=== PATIENT | male | born 1945 | race Caucasian/White ===

== ENCOUNTER → 2016-08-24 | Outpatient (CLI) | payer BC ==
[~2016-08-24] MED LIST: ALBU0.08 INH; ALBUAER2 INH; ALL300 PO; ALLO300T2 PO; AMLO-114 PO; ATR10 PO; CEPH500C PO; CRD4 PO; DILT1CAP15 PO; DXY100 PO; OXYC1TAB3 PO; PRED20TA2 PO; PRVC/20 PO; SPRIN/30 INH; SULF800T23 PO; SYMIN8045 INH; TIOTCAP INH; TPRSR/50 PO; VNTHFA/IN INH
[2016-08-24 11:19] LABS: BASO % 0.7 %; BASO ABS # 0.05 K/uL (0-0.2); COMPLETE YES; EOS % 2.6 %; HEMATOCRIT 42.9 % (42-52); IG% 0.4 %; LYMPH ABS # 1.22 K/uL (1.2-3.4); MEAN CELL VOLUME 99.3 fL (80-100); MEAN CORPUSCULAR HEMOGLOBIN 34.5 pg (25-34); MEAN CORPUSCULAR HGB CONC 34.7 g/dl (32-36); MONO % 7.7 %; NEUT % 71.6 %; PLATELET COUNT 313 K/uL (130-400); RED BLOOD COUNT 4.32 M/uL (4.7-6.1); WHITE BLOOD COUNT 7.18 K/uL (4.8-10.8)
[2016-08-24 11:27] LABS: ESTIMATED AVERAGE GLUCOSE 111 mg/dl; HA1C FLAG Normal (Normal)
[2016-08-24 11:29] LABS: ALT/SGPT 29 U/L (12-78); BLOOD UREA NITROGEN 8 mg/dl (7-18); BUN/CREATININE RATIO 9.3 (10-20); CALCIUM 8.7 mg/dl (8.5-10.1); CARBON DIOXIDE 22 mmol/L (21-32); CHLORIDE 102 mmol/L (98-107); CHOLESTEROL 195 mg/dl (0-200); CREATININE 0.88 mg/dl (0.60-1.40); GLUCOSE 91 mg/dl (70-99); POTASSIUM 4.1 mmol/L (3.5-5.1); SODIUM 135 mmol/L (136-145); TRIGLYCERIDES 124 mg/dl (0-150); VERY LOW DENSITY LIPOPROT CALC 25 mg/dl
[2016-08-24 11:33] LABS: ALB/GLOB RATIO 0.9 (0.9-2); ALKALINE PHOSPHATASE 93 U/L (45-117); AST/SGOT 18 U/L (15-37); CHOLESTEROL/HDL RATIO 2.9; HDL CHOLESTEROL 67 mg/dl; LDL CHOLESTEROL CALCULATED 103 mg/dl; PROSTATE SPECIFIC ANTIGEN 0.695 ng/ml (0.000-4.000)
== END | disposition home or self-care (01) ==
LOC: C.LAB1850 09:09
PROVIDERS: ATTEND Internal Medicine
DX: E78.00 Pure hypercholesterolemia, unspecified (principal); I10 Essential (primary) hypertension; E87.1 Hypo-osmolality and hyponatremia; R73.09 Other abnormal glucose; Z12.5 Encounter for screening for malignant neoplasm of prostate

== ENCOUNTER 2016-11-04 12:09 | Emergency (ER) | payer BC ==
[~2016-11-04] VITALS: Ht 177.8 cm; Wt 90.4 kg
[~2016-11-04 12:09] MED LIST changes: -ALLO300T2 PO; -AMLO-114 PO; -ATR10 PO; -CEPH500C PO; -CRD4 PO; -OXYC1TAB3 PO; -PRED20TA2 PO; -PRVC/20 PO; -SPRIN/30 INH; -SULF800T23 PO; -TPRSR/50 PO; -VNTHFA/IN INH
[2016-11-04 12:26] VITALS: TEMP 36.7; Ht 177.8 cm; Wt 90.4 kg
[2016-11-04] MEDS ORDERED: XYLOCAINE 1%/SOD BICARB 20 ML VIAL INFIL ONE (13:15)
[2016-11-04 13:27] LABS: BASO % 0.7 %; BASO ABS # 0.07 K/uL (0-0.2); COMPLETE YES; EOS % 1.5 %; HEMATOCRIT 44.1 % (42-52); IG% 0.3 %; LYMPH % 17.5 %; LYMPH ABS # 1.75 K/uL (1.2-3.4); MEAN CELL VOLUME 100.7 fL (80-100); MEAN CORPUSCULAR HEMOGLOBIN 34.2 pg (25-34); MEAN PLATELET VOLUME 10.1 fL (7.4-10.4); PLATELET COUNT 307 K/uL (130-400); RED BLOOD COUNT 4.38 M/uL (4.7-6.1); WHITE BLOOD COUNT 10.01 K/uL (4.8-10.8)
[2016-11-04 13:34] LABS: BUN/CREATININE RATIO 9.6 (10-20); CALCIUM 8.9 mg/dl (8.5-10.1); CREATININE 0.98 mg/dl (0.60-1.40); POTASSIUM 3.9 mmol/L (3.5-5.1)
[2016-11-04 13:35] LABS: C-REACTIVE PROTEIN 5.51 mg/dl (0-0.29)
--- NOTE | 2016-11-04 13:44 | DIAGNOSTIC IMAGING REPORT ---
LEFT KNEE 2 VIEWS CLINICAL HISTORY: Left knee pain. Patellar bursitis. Fall. FINDINGS: AP and crosstable lateral views of the left knee are obtained. No prior studies are available for comparison at the time of dictation. The skeletal structures are osteopenic. No fracture is identified. There is minimal tricompartmental degenerative joint space narrowing. There are large patellar enthesophytes. A tiny joint effusion is suspected. There is marked prepatellar soft tissue edema. IMPRESSION: Marked prepatellar soft tissue edema with no radiographic evidence of acute fracture. Electronically signed by: Marcelino Valdez M.D. 11/04/2016 1:41 PM Dictated Date/Time: 11/04/2016 1:40 PM
[2016-11-04] MEDS ORDERED: CEFTRIAXONE SOD INJ 1 GM ADDVIAL IV STA (14:01)
[2016-11-04 14:35] LABS: FLUID APPEARANCE CLOUDY; FLUID MONONUC 4.6 %; FLUID POLYNUC 95.4 %; FLUID RBC (A) < 3000 /uL; FLUID WBC (A) 7616 /uL
[2016-11-04] MEDS ORDERED: CEPH500C PO (15:02)
[2016-11-04] MEDS ORDERED: SULF800T23 PO (15:02)
[2016-11-04] MEDS ORDERED: OXYC1TAB3 PO (15:02)
--- NOTE | 2016-11-04 15:04 | EMERGENCY ROOM VISIT NOTE ---
History Report prepared by Chris: Natividad Zuñiga Under the Supervision of: Dr. David Larsen M.D. First contact with patient: 13:01 Chief Complaint: SWELLING TO EXTREMITY Stated Complaint: SWELLING/RED HOT TO TOUCH-LEFT KNEE History of Present Illness The patient is a 71 year old male who presents to the Emergency Room with complaints of worsening left knee edema that started last night. The patient states that he fell off of a chair 5 days ago and scratched his left knee. The patient denies hitting his head. He denies any pain in the back of his knee. The patient denies any history of bad skin infections. His adds that he has a history of a rash on his hips and back due to an unknown etiology, but he has seen a girls tennis coach for that. Source of History: patient, spouse/significant other () Onset: last night Position: knee (left) Quality: other (edema) Timing: worsening Note: no pain in the back of his knee Review of Systems See HPI for pertinent positives & negatives. A total of 10 systems reviewed and were otherwise negative. Past Medical & Surgical Medical Problems: (1) COPD (chronic obstructive pulmonary disease) (2) COPD exacerbation (3) Hypoxia (4) Kidney stone (5) SOB (shortness of breath) Family History FH: HTN (hypertension) FH: heart disease FH: kidney disease FH: lung disease Social History Smoking Status: Current Every Day Smoker Alcohol Use: occasionally Occupation Status: employed Current/Historical Medications Scheduled Albuterol Hfa (Ventolin Hfa), 2-4 PUFFS INH Q6H Allopurinol (Zyloprim), 1 TAB PO DAILY Amlodipine (Norvasc), 10 MG PO DAILY Budesonide/Formoterol Fumarate (Symbicort 80-4.5 Mcg/Act), 2 PUFFS INH BID Cephalexin Monohydrate (Keflex), 500 MG PO QID Doxazosin Mesylate (Doxazosin Mesylate), 2 MG PO HS Hydroxyzine HCl (Hydroxyzine HCl), 10 MG PO HS Metoprolol Succinate (Metoprolol Succinate ER), 50 MG PO HS Pravastatin Sod (Pravastatin Sodium), 20 MG PO QAM Sulfa/Trimethoprim (Bactrim Ds 800MG/160MG), 1 TAB PO BID Tiotropium [place] (Spiriva Handihaler), 1 CAP INH DAILY Scheduled PRN Oxycodone Immediate Rel Tab (Roxicodone Ir), 1-2 TAB PO Q4H PRN for Severe Pain Allergies Coded Allergies: Lisinopril (Verified Allergy, Severe, Swelling of face, 11/04/16) Methylprednisolone (Verified Adverse Reaction, Severe, HALLUCINATION, 11/04) SOLU-MEDROL IV Physical Exam Vital Signs Date Time Temp Pulse Resp B/P Pulse Ox O2 Delivery O2 Flow Rate FiO2 11/04/16 15:23 94 18 157/95 91 Room Air 11/04/16 12:26 36.7 91 18 155/83 93 Room Air Physical Exam GENERAL: Patient is well appearing and in minimal distress. HEENT: No acute trauma, normocephalic atraumatic, mucous membranes moist, no nasal congestion, no scleral icterus. NECK: No stridor, no adenopathy, no meningismus, trachea is midline. LUNGS: No dyspnea. Clear to auscultation and equal bilaterally. No wheeze, no rhonchi. HEART: Regular rate and rhythm. No murmurs, rubs, gallops appreciated. ABDOMEN: Soft, nontender, bowel sounds positive, no masses appreciated, no peritonitis. BACK: No midline tenderness, no CVA tenderness EXTREMITIES: Large swollen, erythematous patellar bursa with overlying abrasion , minimal pain with range of motion of left knee, no tenderness over palpation of joint space, no cyanosis. NEUROLOGIC: Alert and oriented, no acute motor or sensory deficits, no focal weakness, cranial nerves grossly intact. SKIN: No rash, no jaundice, no diaphoresis. Medical Decision & Procedures ER Provider Diagnostic Interpretation: X ray results are stated below per my interpretation and the radiologist's interpretation. LEFT KNEE 2 VIEWS IMPRESSION: Marked prepatellar soft tissue edema with no radiographic evidence of acute fracture. Electronically signed by: Marcelino Valdez M.D. 11/04/2016 1:41 PM Dictated Date/Time: 11/04/2016 1:40 PM Laboratory Results 11/04/16 12:40 Red Blood Count 4.38, Mean Corpuscular Volume 100.7, Mean Corpuscular Hemoglobin 34.2, Mean Corpuscular Hemoglobin Concent 34.0, Mean Platelet Volume 10.1, Neutrophils (%) (Auto) 69.0, Lymphocytes (%) (Auto) 17.5, Monocytes (%) ( Auto) 11.0, Eosinophils (%) (Auto) 1.5, Basophils (%) (Auto) 0.7, Neutrophils # (Auto) 6.91, Lymphocytes # (Auto) 1.75, Monocytes # (Auto) 1.10, Eosinophils # ( Auto) 0.15, Basophils # (Auto) 0.07 11/04/16 12:40 Test 11/04/16 12:40 11/04/16 14:00 White Blood Count 10.01 K/uL (4.8-10.8) Red Blood Count 4.38 M/uL (4.7-6.1) Hemoglobin 15.0 g/dL (14.0-18.0) Hematocrit 44.1 % (42-52) Mean Corpuscular Volume 100.7 fL (80-100) Mean Corpuscular Hemoglobin 34.2 pg (25-34) Mean Corpuscular Hemoglobin Concent 34.0 g/dl (32-36) Platelet Count 307 K/uL (130-400) Mean Platelet Volume 10.1 fL (7.4-10.4) Neutrophils (%) (Auto) 69.0 % Lymphocytes (%) (Auto) 17.5 % Monocytes (%) (Auto) 11.0 % Eosinophils (%) (Auto) 1.5 % Basophils (%) (Auto) 0.7 % Neutrophils # (Auto) 6.91 K/uL (1.4-6.5) Lymphocytes # (Auto) 1.75 K/uL (1.2-3.4) Monocytes # (Auto) 1.10 K/uL (0.11-0.59) Eosinophils # (Auto) 0.15 K/uL (0-0.5) Basophils # (Auto) 0.07 K/uL (0-0.2) RDW Standard Deviation 52.1 fL (36.4-46.3) RDW Coefficient of Variation 14.1 % (11.5-14.5) Immature Granulocyte % (Auto) 0.3 % Immature Granulocyte # (Auto) 0.03 K/uL (0.00-0.02) Anion Gap 8.0 mmol/L (3-11) Est Creatinine Clear Calc Drug Dose 80.5 ml/min Estimated GFR () 90.8 Estimated GFR (Non- 78.4 BUN/Creatinine Ratio 9.6 (10-20) Calcium Level 8.9 mg/dl (8.5-10.1) C-Reactive Protein 5.51 mg/dl (0-0.29) Body Fluid Source KNEE Body Fluid Color YELLOW Body Fluid Appearance CLOUDY Body Fluid WBC 7616 /uL Body Fluid RBC < 3000 /uL Body Fluid Polynuclear WBCs (%) 95.4 % Body Fluid Mononuclear WBCs (%) 4.6 % Laboratory results as reviewed by me. Medications Administered Medications (Trade) Dose Ordered Sig/Darrel Route Start Time Stop Time Status Last Admin Dose Admin Ceftriaxone Sodium (Rocephin Inj) 1 gm NOW STAT IV 11/04/16 14:01 11/04/16 14:02 DC 11/04/16 14:06 1 GM Procedure Procedure: Left Patellar Bursa Aspiration Risks benefits explained to patient, including causing infection, pain, bleeding , etc. The patient and his agree. Left knee copiously cleansed with Betadine. Sterile technique maintained. 2 cc's of 1 % lidocaine injected subcutaneously. 18 gauge needle with syringe used to aspirate 10 ml of mildly cloudy dark yellow fluid. Pressure held. No significant bleeding. Patient tolerated procedure well. ED Course 1303: The patient was evaluated in room C12. A complete history and physical exam was performed. 1349: I drained the patient's knee at this time. Please refer to the procedure note above for further details. 1401: Ordered Rocephin Inj 1 gm IV 1450: Discussed the patient's case with Dr. Williamson - Orthopedic Surgery. He recommended having the patient follow-up at his clinic on Wednesday. He agrees with dual antibiotic therapy. 1506: Reevaluated the patient. Discussed results and discharge instructions: the patient and his verbalized understanding and agreement. The patient is ready for discharge. Medical Decision Differential: Fracture, Dislocation, Cellulitis, Septic Joint, Ligamentous Injury, Effusion, DVT, amongst other pathologies entertained. 71 yr old male with large patellar bursitis by examination. There is no swelling nor TTP of joint itself. He does have overlying cellulitis. No fevers nor systemic symptoms. He has normal ROM joint other than pain from bursitis. With abrasion it must be presumed this is infectious. Tap sent with culture. Patient with tetanus update within last year. Stable and breathing comfortably. Given IV rocephin. Primary ortho aware and agree with plan. Keflex and Bactrim as outpatient. Discussed symptoms requiring return. Stressed importance of keeping elevated, avoiding exertion/use and follow up with Ortho. Impression Primary Impression: Patellar bursitis of left knee Additional Impression: Cellulitis of knee, left Scribe Attestation The scribe's documentation has been prepared under my direction and personally reviewed by me in its entirety. I confirm that the note above accurately reflects all work, treatment, procedures, and medical decision making performed by me. Departure Information Dispostion Home / Self-Care Prescriptions Cephalexin Monohydrate (Keflex) 500 Mg Cap 500 MG PO QID, #40 CAP Prov: David Larsen M.D. 11/04/16 Sulfa/Trimethoprim (Bactrim Ds 800MG/160MG) Tab 1 TAB PO BID, #20 TAB Prov: David Larsen M.D. 11/04/16 Oxycodone Immediate Rel Tab (ROXICODONE IR) 5 Mg Tab 1-2 TAB PO Q4H Y for Severe Pain, #20 TAB Prov: David Larsen M.D. 11/04/16 Referrals Pro,Carter Werner M.D. (PCP) Arron Williamson M.D. Forms HOME CARE DOCUMENTATION FORM, IMPORTANT VISIT INFORMATION, WORK / SCHOOL INSTRUCTIONS Patient Instructions ED Bursitis, My [facility] Additional Instructions You have received a narcotic pain medication prescription. These medications may cause drowsiness and should not be used with other sedative medications. Do not drive, drink alcohol, perform dangerous activities, nor make important decisions after taking these medications. USP use or inappropriate use may lead to addiction. Call Dr Williamson's office tomorrow to schedule an appointment for Wednesday. Problem Qualifiers
[2016-11-04 15:23] VITALS: BP 157/95; PULSE 94; O2SAT 91
== END 2016-11-04 15:26 | disposition home or self-care (01) ==
LOC: C.EDB 12:10 → C.EDC 15:26
DX: M70.42 Prepatellar bursitis, left knee (principal); L03.116 Cellulitis of left lower limb; W07.XXXA Fall from chair, initial encounter; J44.9 Chronic obstructive pulmonary disease, unspecified; Z87.442 Personal history of urinary calculi; Z82.49 Family history of ischemic heart disease and other diseases of the circulatory system; F17.210 Nicotine dependence, cigarettes, uncomplicated; Z79.899 Other long term (current) drug therapy

== ENCOUNTER → 2017-03-02 | Outpatient (CLI) | payer BC ==
[~2017-03-02] MED LIST changes: -ALBU0.08 INH; -ALBUAER2 INH; -ALL300 PO; +ALLO300T2 PO; +AMLO-114 PO; +ATR10 PO; +CEPH500C PO; +CRD4 PO; -DILT1CAP15 PO; -DXY100 PO; +OXYC1TAB3 PO; +PRVC/20 PO; +SPRIN/30 INH; +SULF800T23 PO; -TIOTCAP INH; +TPRSR/50 PO; +VNTHFA/IN INH
--- NOTE | 2017-03-02 19:25 | ECHOCARDIOGRAM REPORT ---
*NOTICE TO RECEIVING CONSTITUTION PARTY AGENCY This information is strictly Confidential and protected under [place] law. [place] law prohibits you from making any further disclosure of this information unless further disclosure is expressly permitted by the written consent of the person to whom it pertains or is authorized by law. A general authorization for the release of medical or other information is not sufficient for this purpose. Hospital accepts no responsibility if the information is made available to any other person, INCLUDING THE PATIENT. Interpretation Summary * Name: SCOTTY VELAZQUEZ Study Date: 03/02/2017 01:35 PM BP: 146/88 mmHg * Patient Location: [facility] HR: 75 * : 1945 (M/d/yyyy) Gender: Male Height: 70 in * Age: 71 yrs Ethnicity: CA Weight: 185 lb * Ordering Physician: Carter Lehman * Referring Physician: Carter Lehman * Performed By: Jose Arellano RCS * * Reason For Study: COPD * BSA: 2.0 m2 * -- Conclusions -- * 1. Normal left ventricular size and systolic function. EF 65 - 70%. No regional wall motion abnormalities. Mild concentric left ventricular hypertrophy. Type 1 diastolic dysfunction. * 2. The right atrium is mildly dilated. * 3. No significant valvular abnormalities visualized, however valves were not well seen. * 4. Technically difficult study, enhanced with IV Definity. * 5. No prior study available for comparison. Procedure Details * Left Ventricle Normal left ventricular size and systolic function. EF 65 - 70%. No regional wall motion abnormalities. Mild concentric left ventricular hypertrophy. Type 1 diastolic dysfunction. Ejection Fraction = 65-70%. * Right Ventricle Borderline right ventricular enlargement. The right ventricular systolic function is normal. The right ventricular systolic function is normal as assessed by tricuspid annular plane systolic excursion (TAPSE) (normal >1.5 cm). * Atria The left atrium is borderline dilated. The right atrium is mildly dilated. There is no evidence of atrial septal defect, but resolution does not allow assessment for a patent foramen ovale. * Mitral Valve The mitral valve is grossly normal. There is no mitral valve stenosis. Significant mitral regurgitation is absent. * Tricuspid Valve The tricuspid valve is not well visualized. There is no tricuspid stenosis. Significant tricuspid regurgitation is absent. There is no significant tricuspid regurgitant jet, and thus cannot estimate right ventricular systolic pressure. * Aortic Valve The aortic valve is not well visualized. No hemodynamically significant valvular aortic stenosis. There is no significant aortic regurgitation. * Pulmonic Valve The pulmonic valve is not well visualized. There is no pulmonic valvular stenosis. There is no significant pulmonary regurgitation. * Great Vessels The aortic root is normal size. * Pericardium/Pleural There is no pericardial effusion. * Great Vessels IVC normal in size. * Left Ventricular Diastolic Function Grade I diastolic dysfunction, (abnormal relaxation pattern). * * MMode 2D Measurements and Calculations * IVSd 1.2 cm * * LVIDd 4.6 cm * LVIDs 3.1 cm * LVPWd 1.2 cm * * IVS/LVPW 1.0 * FS 32.9 % * EDV(Teich) 98.0 ml * ESV(Teich) 37.8 ml * EF(Teich) 61.5 % * * EDV(cubed) 98.2 ml * ESV(cubed) 29.6 ml * EF(cubed) 69.8 % * * LV mass(C)d 207.2 grams * LV mass(C)dI 102.6 grams/m\S\2 * * SV(Teich) 60.2 ml * SI(Teich) 29.8 ml/m\S\2 * SV(cubed) 68.5 ml * SI(cubed) 33.9 ml/m\S\2 * * Ao root diam 3.3 cm * Ao root area 8.7 cm\S\2 * * asc Aorta Diam 3.3 cm * * LVOT diam 2.1 cm * LVOT area 3.3 cm\S\2 * * LVAd ap4 27.4 cm\S\2 * LVLd ap4 7.8 cm * EDV(MOD-sp4) 79.8 ml * EDV(sp4-el) 81.9 ml * LVAs ap4 11.4 cm\S\2 * LVLs ap4 5.9 cm * ESV(MOD-sp4) 18.4 ml * ESV(sp4-el) 18.5 ml * EF(MOD-sp4) 76.9 % * EF(sp4-el) 77.4 % * * LVAd ap2 21.5 cm\S\2 * LVLd ap2 7.2 cm * EDV(MOD-sp2) 52.1 ml * EDV(sp2-el) 54.1 ml * LVAs ap2 12.3 cm\S\2 * LVLs ap2 6.1 cm * ESV(MOD-sp2) 20.1 ml * ESV(sp2-el) 21.0 ml * EF(MOD-sp2) 61.4 % * EF(sp2-el) 61.3 % * * LVLd %diff -7.41 % * EDV(MOD-bp) 66.7 ml * LVLs %diff 3.1 % * ESV(MOD-bp) 19.6 ml * EF(MOD-bp) 70.7 % * * SV(MOD-sp4) 61.4 ml * SI(MOD-sp4) 30.4 ml/m\S\2 * * SV(MOD-sp2) 32.0 ml * SI(MOD-sp2) 15.8 ml/m\S\2 * * SV(MOD-bp) 47.1 ml * SI(MOD-bp) 23.3 ml/m\S\2 * * SV(sp4-el) 63.4 ml * SI(sp4-el) 31.4 ml/m\S\2 * * SV(sp2-el) 33.2 ml * SI(sp2-el) 16.4 ml/m\S\2 * * * * * * Doppler Measurements and Calculations * MV E max rajni 44.1 cm/sec * MV A max rajni 66.5 cm/sec * * MV E/A 0.66 * * MV dec time 0.20 sec * * Ao V2 max 137.9 cm/sec * Ao max PG 7.6 mmHg * Ao max PG (full) 2.3 mmHg * JEIMY(V,A) 2.8 cm\S\2 * JEIMY(V,D) 2.8 cm\S\2 * * LV V1 max PG 5.3 mmHg * * LV V1 max 115.0 cm/sec * * * *
== END | disposition home or self-care (01) ==
LOC: C.CPL 13:26
PROVIDERS: ATTEND Internal Medicine Pulmonary Disease
DX: J44.9 Chronic obstructive pulmonary disease, unspecified (principal)

== ENCOUNTER → 2017-03-04 | Outpatient (CLI) | payer BC ==
[~2017-03-04] MED LIST changes: +PERFLUTREN LIPID MICROSPHERE (DEFINITY) IV ONE
--- NOTE | 2017-03-04 08:01 | DIAGNOSTIC IMAGING REPORT ---
(CHEST) THORAX WITHOUT CT DOSE: 597.71 mGy.cm HISTORY: J44.9 Chronic obstructive pulmonary disease TECHNIQUE: Multiaxial CT images of the chest were performed without contrast. A dose lowering technique was utilized adhering to the principles of ALARA. COMPARISON: Chest CT 07/17/2016. FINDINGS: Severe emphysema. No pleural effusions. No pneumothorax. The central airways are patent. Stable 5 mm benign nodule within the right middle lobe on image 243. Stable 4 mm nodular density within the right lower lobe in image 228. Scattered peripheral interstitial thickening with a few linear and groundglass densities remain unchanged. This is consistent with chronic change. No new focal lung consolidations. 2 adjacent nodules within the left upper lobe on images 140 01/16/1948 remain stable. These measure 4 mm. Groundglass density within the right middle lobe are stable to improved. Ground less densities within the base of the right lower lobe are also stable to slightly improved. A few punctate calcifications within the right upper lobe. Old, healed left rib fractures. Mild bilateral adrenal gland thickening, unchanged. Visualized liver and spleen are unremarkable. Normal caliber thoracic aorta. Stable mediastinal lymph nodes. No hilar lymphadenopathy. The heart is normal in size. IMPRESSION: 1. Overall, no significant change compared the prior study. Chronic changes within the lungs persist. No new focal lung consolidations to suggest pneumonia. 2. Severe emphysema. 3. Additional findings as described above. Electronically signed by: Jose Spaulding M.D. 03/04/2017 7:59 AM Dictated Date/Time: 03/04/2017 7:51 AM
== END | disposition home or self-care (01) ==
LOC: C.CTS 07:41
PROVIDERS: ATTEND Internal Medicine Pulmonary Disease
DX: J44.9 Chronic obstructive pulmonary disease, unspecified (principal)

== ENCOUNTER 2017-05-03 06:47 | Emergency (ER) | payer BC ==
[~2017-05-03] VITALS: Ht 177.8 cm; Wt 86.4 kg
[~2017-05-03 06:47] MED LIST changes: -ALLO300T2 PO; -AMLO-114 PO; -ATR10 PO; -CRD4 PO; -PERFLUTREN LIPID MICROSPHERE (DEFINITY) IV ONE; -PRVC/20 PO; -SPRIN/30 INH; -TPRSR/50 PO; -VNTHFA/IN INH
[2017-05-03 06:51] VITALS: TEMP 36.9; Ht 177.8 cm; Wt 86.4 kg
--- NOTE | 2017-05-03 07:06 | EMERGENCY ROOM VISIT NOTE ---
History Report prepared by Chris: Sherlyn Hunter Under the Supervision of: Dr. Marcelino Hensley M.D. First contact with patient: 06:56 Chief Complaint: SHORTNESS OF BREATH Stated Complaint: SHORT OF BREATH,COUGH,CONGESTION Nursing Triage Summary: Patient c/o congestion since Wednesday. States this occurs usually once a year and "they give me steroids and it takes care of it. " Allergic to IV solumedrol. Cough, productive. Some SOB. Wears O2 2-3L at night, but wore it all day yesterday. History of Present Illness The patient is a 71 year old male who presents to the Emergency Room with complaints of persistent shortness of breath that began three days ago. The patient reports a history of COPD, noting that he has been using his Ventolin rescue inhaler three times per day. He states that he typically wears 2-3 liters of nasal cannula oxygen at night, but states that he has been wearing his nasal cannula oxygen during the day for his symptoms. The patient reports that he has had congestion and a cough (yellow and productive). He states that he typically experiences his symptoms once per year. The patient denies any history of pneumonia and states that he has had pneumonia shots. He states that steroids have helped his symptoms in the past. The patient denies any vomiting or diarrhea. Source of History: patient Onset: three days ago Position: other (global) Quality: other (shortness of breath) Timing: other (persistent) Associated Symptoms: + cough, No vomiting, No diarrhea Note: Associated symptoms: congestion Review of Systems See HPI for pertinent positives & negatives. A total of 10 systems reviewed and were otherwise negative. Past Medical & Surgical Medical Problems: (1) COPD (chronic obstructive pulmonary disease) (2) COPD exacerbation (3) Hypoxia (4) Kidney stone (5) SOB (shortness of breath) Family History FH: HTN (hypertension) FH: heart disease FH: kidney disease FH: lung disease Social History Smoking Status: Current Every Day Smoker Alcohol Use: occasionally Occupation Status: employed Current/Historical Medications Scheduled Albuterol Hfa (Ventolin Hfa), 2-4 PUFFS INH Q6H Albuterol Sulf (Albuterol Sulfate), 2.5 MG INH UD Allopurinol (Zyloprim), 1 TAB PO DAILY Amlodipine (Norvasc), 10 MG PO DAILY Doxazosin Mesylate (Doxazosin Mesylate), 2 MG PO HS Doxycycline Hyclate (Vibramycin), 100 MG PO BID Hydroxyzine HCl (Hydroxyzine HCl), 10 MG PO HS Metoprolol Succinate (Metoprolol Succinate ER), 50 MG PO HS Pravastatin Sod (Pravastatin Sodium), 20 MG PO QAM Prednisone (Prednisone), 0 PO DAILY Tiotropium [place] (Spiriva Handihaler), 1 CAP INH DAILY Allergies Coded Allergies: Lisinopril (Verified Allergy, Severe, Swelling of face, 05/03/17) Methylprednisolone (Verified Adverse Reaction, Severe, HALLUCINATION, ) SOLU-MEDROL IV Physical Exam Vital Signs Date Time Temp Pulse Resp B/P (MAP) Pulse Ox O2 Delivery O2 Flow Rate FiO2 05/03/17 08:50 94 18 133/89 94 05/03/17 07:14 96 20 129/95 94 Nasal Cannula 2.0 05/03/17 07:10 101 05/03/17 07:09 94 3.0 05/03/17 07:09 94 Nasal Cannula 3.0 05/03/17 06:51 95 Nasal Cannula 2.0 05/03/17 06:51 36.9 99 20 144/93 95 Room Air Physical Exam GENERAL: Patient is in no acute distress. HEENT: No acute trauma, normocephalic atraumatic, mucous membranes moist, no nasal congestion, no scleral icterus. NECK: No stridor, no adenopathy, no meningismus, trachea is midline. LUNGS: Diminished breath sounds bilaterally, no wheezes or rhonchi, breath sounds are equal. HEART: Without murmurs gallops or rubs, regular rate and rhythm. ABDOMEN: Soft, nontender, bowel sounds positive, no hernias, no peritonitis. EXTREMITIES: No cyanosis or edema, full range of motion of all the joints without pain or difficulty, no signs for acute trauma. NEUROLOGIC: Oriented x 3, no acute motor or sensory deficits, no focal weakness. SKIN: No rash, no jaundice, no diaphoresis. Medical Decision & Procedures ER Provider Diagnostic Interpretation: X-ray results as stated below per interpretation by me and the radiologist: CHEST ONE VIEW PORTABLE CLINICAL HISTORY: Respiratory distress COMPARISON STUDY: 04/26/2016 FINDINGS: The heart is normal in size. There is radiographic evidence of pulmonary emphysema. There are old left-sided rib deformities. There is chronic left pleural scarring. There are chronic interstitial opacities within the left mid to lower lung zone. There are right basilar atelectatic changes.[ IMPRESSION: Emphysema with areas of chronic pleural-parenchymal scarring. No acute findings. Electronically signed by: Luis Peralta M.D. 05/03/2017 7:42 AM Dictated Date/Time: 05/03/2017 7:40 AM Laboratory Results 05/03/17 07:26 Red Blood Count 4.28, Mean Corpuscular Volume 100.7, Mean Corpuscular Hemoglobin 35.0, Mean Corpuscular Hemoglobin Concent 34.8, Mean Platelet Volume 9.9, Neutrophils (%) (Auto) 81.7, Lymphocytes (%) (Auto) 7.1, Monocytes (%) ( Auto) 10.3, Eosinophils (%) (Auto) 0.3, Basophils (%) (Auto) 0.3, Neutrophils # (Auto) 8.60, Lymphocytes # (Auto) 0.75, Monocytes # (Auto) 1.08, Eosinophils # ( Auto) 0.03, Basophils # (Auto) 0.03 05/03/17 07:26 Test 05/03/17 07:26 White Blood Count 10.52 K/uL (4.8-10.8) Red Blood Count 4.28 M/uL (4.7-6.1) Hemoglobin 15.0 g/dL (14.0-18.0) Hematocrit 43.1 % (42-52) Mean Corpuscular Volume 100.7 fL (80-100) Mean Corpuscular Hemoglobin 35.0 pg (25-34) Mean Corpuscular Hemoglobin Concent 34.8 g/dl (32-36) Platelet Count 300 K/uL (130-400) Mean Platelet Volume 9.9 fL (7.4-10.4) Neutrophils (%) (Auto) 81.7 % Lymphocytes (%) (Auto) 7.1 % Monocytes (%) (Auto) 10.3 % Eosinophils (%) (Auto) 0.3 % Basophils (%) (Auto) 0.3 % Neutrophils # (Auto) 8.60 K/uL (1.4-6.5) Lymphocytes # (Auto) 0.75 K/uL (1.2-3.4) Monocytes # (Auto) 1.08 K/uL (0.11-0.59) Eosinophils # (Auto) 0.03 K/uL (0-0.5) Basophils # (Auto) 0.03 K/uL (0-0.2) RDW Standard Deviation 49.2 fL (36.4-46.3) RDW Coefficient of Variation 13.4 % (11.5-14.5) Immature Granulocyte % (Auto) 0.3 % Immature Granulocyte # (Auto) 0.03 K/uL (0.00-0.02) Anion Gap 7.0 mmol/L (3-11) Est Creatinine Clear Calc Drug Dose 84.7 ml/min Estimated GFR () 103.0 Estimated GFR (Non- 88.9 BUN/Creatinine Ratio 10.7 (10-20) Calcium Level 9.3 mg/dl (8.5-10.1) Troponin I < 0.015 ng/ml (0-0.045) Laboratory results reviewed by me. Medications Administered Medications (Trade) Dose Ordered Sig/Darrel Route Start Time Stop Time Status Last Admin Dose Admin Prednisone (PredniSONE TAB) 60 mg NOW STAT PO 05/03/17 06:58 05/03/17 07:02 DC 05/03/17 07:13 60 MG Doxycycline Hyclate (Vibramycin Cap) 100 mg ONE ONCE PO 05/03/17 08:00 05/03/17 08:01 DC 05/03/17 08:00 100 MG ECG Indication: SOB/dyspnea Rate (beats per minute): 94 Rhythm: normal sinus Findings: RBBB (incomplete), no acute ischemic change, other (possible old inferior infart) ED Course 0657: The patient was evaluated in room A10. A complete history and physical exam was performed. 0658: Ordered Prednisone 60 mg PO. 0800: Ordered Vibramycin Cap 100 mg PO. 0813: I reevaluated the patient and he is resting comfortably. I discussed the exam findings with him and I discussed the treatment plan. He verbalized complete understanding and agreement. He is ready to go home. Medical Decision The patient is a 71 year old male who presents to the ED with complaints of shortness of breath. Differential diagnoses considered include exacerbation of COPD, pneumonia, CHF, bronchitis, pneumothorax, URI, anemia, cardiac ischemia. There is no leukocytosis or concerning anemia. No significant electrolyte abnormality, kidney failure. EKG shows a sinus rhythm, no acute ischemia. Cardiac enzyme testing times one is not consistent with acute cardiac injury. Chest x-ray does not show pneumonia, CHF or pneumothorax. Patient was given oral prednisone and oral doxycycline. He is comfortable with discharge home, I think this is reasonable. He appears to have an acute bronchitis with a flare of his COPD. He will be discharged with albuterol, doxycycline, frequent albuterol use. He will see his doctor this week and return to this ER for worsening issues with his breathing. Medication Reconcilliation Current Medication List: was personally reviewed by me Blood Pressure Screening Patient's blood pressure: Elevated blood pressure Blood pressure disposition: Elevated BP felt to be situational, Did not require urgent referral Impression Primary Impression: Acute bronchitis Additional Impression: COPD exacerbation Scribe Attestation The scribe's documentation has been prepared under my direction and personally reviewed by me in its entirety. I confirm that the note above accurately reflects all work, treatment, procedures, and medical decision making performed by me. Departure Information Dispostion Home / Self-Care Prescriptions Doxycycline Hyclate (VIBRAMYCIN) 100 Mg Cap 100 MG PO BID for 7 Days, #14 CAP Prov: Marcelino Hensley M.D. 05/03/17 Prednisone (Prednisone) 20 Mg Tab 0 PO DAILY, #18 TAB 3 DAILY FOR 3 DAYS, THEN 2 DAILY FOR 3 DAYS, THEN 1 DAILY FOR 3 DAYS. Prov: Marcelino Hensley M.D. 05/03/17 Referrals Pro,Carter Werner M.D. (PCP) Forms HOME CARE DOCUMENTATION FORM, IMPORTANT VISIT INFORMATION, Work Instructions Patient Instructions My [facility] Additional Instructions prednisone as directed doxycycline 2x per day for 1 week see brett case this week for a recheck use albuterol every 4 hours return for worsening symptoms or if not improving Problem Qualifiers
[2017-05-03 07:09] VITALS: O2SAT 94
[2017-05-03] MEDS ORDERED: RRALBUTNEB INH (07:23)
[2017-05-03 07:37] LABS: BASO % 0.3 %; BASO ABS # 0.03 K/uL (0-0.2); COMPLETE YES; EOS % 0.3 %; HEMATOCRIT 43.1 % (42-52); IG% 0.3 %; LYMPH % 7.1 %; LYMPH ABS # 0.75 K/uL (1.2-3.4); MEAN CELL VOLUME 100.7 fL (80-100); MEAN CORPUSCULAR HGB CONC 34.8 g/dl (32-36); MEAN PLATELET VOLUME 9.9 fL (7.4-10.4); MONO % 10.3 %; NEUT % 81.7 %; PLATELET COUNT 300 K/uL (130-400); RED BLOOD COUNT 4.28 M/uL (4.7-6.1); WHITE BLOOD COUNT 10.52 K/uL (4.8-10.8)
--- NOTE | 2017-05-03 07:43 | DIAGNOSTIC IMAGING REPORT ---
CHEST ONE VIEW PORTABLE CLINICAL HISTORY: Respiratory distress COMPARISON STUDY: 04/26/2016 FINDINGS: The heart is normal in size. There is radiographic evidence of pulmonary emphysema. There are old left-sided rib deformities. There is chronic left pleural scarring. There are chronic interstitial opacities within the left mid to lower lung zone. There are right basilar atelectatic changes.[ IMPRESSION: Emphysema with areas of chronic pleural-parenchymal scarring. No acute findings. Electronically signed by: Luis Peralta M.D. 05/03/2017 7:42 AM Dictated Date/Time: 05/03/2017 7:40 AM
[2017-05-03 07:53] LABS: BLOOD UREA NITROGEN 9 mg/dl (7-18); BUN/CREATININE RATIO 10.7 (10-20); CALCIUM 9.3 mg/dl (8.5-10.1); CARBON DIOXIDE 29 mmol/L (21-32); CHLORIDE 98 mmol/L (98-107); CREATININE 0.85 mg/dl (0.60-1.40); GLUCOSE 129 mg/dl (70-99); POTASSIUM 3.8 mmol/L (3.5-5.1); SODIUM 134 mmol/L (136-145)
[2017-05-03] MEDS ORDERED: DOXYCYCLINE HYCLATE 100 MG CAP PO ONE (08:00)
[2017-05-03] MEDS ORDERED: DOXY100C PO (08:19)
[2017-05-03] MEDS ORDERED: PRED20TA PO (08:19)
[2017-05-03 08:50] VITALS: BP 133/89; PULSE 94; O2SAT 94
[2017-05-03] MEDS ORDERED: TPRSR/50 PO (09:46)
[2017-05-03] MEDS ORDERED: PRVC/20 PO (09:46)
[2017-05-03] MEDS ORDERED: ATR10 PO (10:02)
[2017-05-03] MEDS ORDERED: CRD4 PO (10:02)
[2017-05-03] MEDS ORDERED: VNTHFA/IN INH (13:22)
[2017-05-03] MEDS ORDERED: ALLO300T2 PO (13:22)
[2017-05-03] MEDS ORDERED: AMLO-114 PO (13:22)
[2017-05-03] MEDS ORDERED: SPRIN/30 INH (13:22)
== END 2017-05-03 08:51 | disposition home or self-care (01) ==
LOC: C.EDB 06:49 → C.EDA 08:51
DX: J44.0 Chronic obstructive pulmonary disease with (acute) lower respiratory infection (principal); J20.9 Acute bronchitis, unspecified; J44.1 Chronic obstructive pulmonary disease with (acute) exacerbation

== ENCOUNTER → 2017-06-16 | Outpatient (CLI) | payer BC ==
[~2017-06-16] MED LIST changes: +ALLO300T2 PO; +AMLO-114 PO; +ATR10 PO; -CEPH500C PO; +CRD4 PO; -OXYC1TAB3 PO; +PRED20TA PO; +PRVC/20 PO; +RRALBUTNEB INH; +SPRIN/30 INH; -SULF800T23 PO; -SYMIN8045 INH; +TPRSR/50 PO; +VNTHFA/IN INH
[2017-06-16 10:36] LABS: ALT/SGPT 31 U/L (12-78); AST/SGOT 16 U/L (15-37); BLOOD UREA NITROGEN 14 mg/dl (7-18); BUN/CREATININE RATIO 14.8 (10-20); CALCIUM 8.6 mg/dl (8.5-10.1); CARBON DIOXIDE 28 mmol/L (21-32); CHLORIDE 102 mmol/L (98-107); CREATININE 0.97 mg/dl (0.60-1.40); GLUCOSE 99 mg/dl (70-99); SODIUM 134 mmol/L (136-145)
[2017-06-16 10:38] LABS: ALB/GLOB RATIO 1.1 (0.9-2); ALKALINE PHOSPHATASE 93 U/L (45-117); CHOLESTEROL 215 mg/dl (0-200); CHOLESTEROL/HDL RATIO 1.9; HDL CHOLESTEROL 112 mg/dl; LDL CHOLESTEROL CALCULATED 90 mg/dl; TRIGLYCERIDES 65 mg/dl (0-150); VERY LOW DENSITY LIPOPROT CALC 13 mg/dl
== END | disposition home or self-care (01) ==
LOC: C.LAB1850 09:07
PROVIDERS: ATTEND Internal Medicine
DX: E78.00 Pure hypercholesterolemia, unspecified (principal)

== ENCOUNTER → 2017-08-02 | Day surgery (SDC) | payer BC ==
[2017-07-22 09:50] VITALS: Ht 177.8 cm; Wt 87.3 kg
[~2017-08-02] VITALS: Ht 177.8 cm; Wt 87.3 kg
[~2017-08-02] MED LIST changes: +500ML BSS 0.3ML EPI 1:1000PF IRRIG ONE; +ACETAMINOPHEN 325 MG TAB PO PRN; +AMVISC PLUS 0.8ML SYRINGE INT OCU ONE; +ATROPINE SULFATE 0.1 MG/ML 5ML SYR IV PRN; +BRIMONIDINE TART 0.2% OP SOLN PER DROP CHARGE ONE; +BSS FLUSH ONE; +ENDOCOAT 0.85ML SYRINGE INT OCU ONE; +EpHEDrine SULFATE INJ 50 MG/ML AMP IV PRN; +EpINEphrine INJ 1MG/ML AMP 1 MG/ML AMP ONE; +LACTATED RINGER'S 1000ML 500 ML IV SCH; +LIDOCAINE 4% OP SOLN DROP CHARGE ONE; +LIDOCAINE 4% OP SOLN DROP CHARGE OPL SCH; +LIDOCAINE HCL 1% MPF 2 ML VIAL ONE; +MIDAZOLAM HCL 1 MG/ML 2ML VIAL ONE; +MOXIFLOXACIN OPH SOLN PER DROP CHARGE ONE; +OXGN; +POVIDONE-IODINE OP SOLN 30 ML BTL ONE; -PRED20TA PO; +PROPARACAINE 0.5% OP SOLN PER DROP CHARGE OPL SCH; -SPRIN/30 INH; +TIOT1AER INH; +TOBRAMYCIN/DEXAMETHASONE OPH OINT PER APPLN CHARGE ONE
[2017-08-02] MEDS: PHENYLEPHRINE HCL 2.5% OP SOLN PER DROP CHARGE OPL SCH ×2 (06:39→06:44)
[2017-08-02] MEDS: TROPICAMIDE 1% OP SOLN PER DROP CHARGE OPL SCH ×2 (06:40→06:45)
[2017-08-02] MEDS: CYCLOPENTOLATE HCL 1% OP SOLN PER DROP CHARGE OPL SCH ×2 (06:41→06:46)
[2017-08-02] MEDS: KETOROLAC 0.5% OP SOLN PER DROP CHARGE OPL SCH ×2 (06:42→06:47)
[2017-08-02] MEDS: MOXIFLOXACIN OPH SOLN PER DROP CHARGE OPL SCH ×2 (06:43→06:55)
--- NOTE | 2017-08-02 06:56 | History & Physical Bridge - SC ---
H&P Re-Evaluation Bridge Note: I have examined the patient, reviewed the History & Physical and in the interval since the performance of the History & Physical I have noted the following changes of clinical significance: No changes noted
--- NOTE | 2017-08-02 08:00 | [facility] Operative Report ---
Operative Report Operative Date Aug 02, 2017. Pre-Operative Diagnosis Cataract Left Eye Post-Operative Diagnosis Same Procedure(s) Performed Left Cataract Phacoemulsification With Intraocular Lens Implant Surgeon Dr. Oliveira Property Appraiser Surgeon(s) None Estimated Blood Loss 0 Findings cataract left eye Fluids (cc crystalloids) see anesthesia record Specimens None Drains none Anesthesia local with sedation Complication(s) None Disposition Recovery Room / PACU Implants [id number] 22.0 Indications decreased vision left eye Description of Procedure After informed consent was obtained in the holding area the patient was wheeled back to the operating room where cardiac monitoring leads and oxygen by nasal cannula was administered by Anesthesia. Gentle IV sedation was given, and the patient's left eye was prepped and draped in usual sterile fashion. A wire lid speculum was placed into the left eye and the operating microscope was swung into position. Using 0.12 forceps and a Supersharp blade a paracentesis port was made 2 o'clock hours away from the 3 o'clock position of the patient's left eye. 1% non-preserved Lidocaine was then injected into the anterior chamber for anesthesia. A 2.0 mm keratotome blade was then used to make a shelved clear corneal incision at the 3 o'clock position of the left eye. Amvisc was injected into the anterior chamber and a cystotome and Utrata forceps were used to perform a curvilinear capsulorrhexis. BSS on a hydrodissection cannula was used to hydrodissect the lens nucleus away from the capsular bag. The phacoemulsification handpiece was then used in a stop and chop fashion to remove the lens nucleus. The irrigation and aspiration handpiece was then used to remove the residual cortical material. Amvisc was injected into the capsular bag and anterior chamber and a [employer]ch [employer] Lomb MX60 22.0 Diopter intraocular lens was injected into the capsular bag. Irrigation and aspiration handpiece was used to remove the residual viscoelastic material. The wounds were hydrated and noted to be watertight. The wire lid speculum was removed from the eye. Vigamox, Brimonidine, and TobraDex ointment were placed on the eye and it was shielded. It should be noted that EndoCoat was used extensively during the case to protect the cornea endothelium. DISPOSITION: The patient tolerated the procedure well and was wheeled to the post anesthesia care unit in stable condition. I attest to the content of the Intraoperative Record and any orders documented therein. Any exceptions are noted below. I attest to the content of the Intraoperative Record and any orders documented therein. Any exceptions are noted below.
--- NOTE | 2017-08-02 08:01 | Discharge Instructions-SurgCtr ---
Discharge Instructions Date of Service Aug 02, 2017. Visit Reason for Visit: Cataract Left Eye Discharge Discharge Diagnosis / Problem: cataract left eye Discharge Goals Goal(s): Improve function Activity Recommendations Activity Limitations: per Instructions/Follow-up section Lifting Limitations: no more than 5 pounds Anesthesia . Post Anesthesia Instructions: If you have had General Anesthesia or IV Sedation: * Do not drive today. * Resume driving when surgeon permits. * Do not make important decisions or sign legal documents today. * Call surgeon for: 1. Temperature elevations greater than 101 degrees F. 2. Uncontrollable pain. 3. Excessive bleeding. 4. Persistent nausea and vomiting. 5. Medication intolerance (nausea, vomiting or rash). * For nausea and vomiting use only clear liquids such as: tea, soda, bouillon until nausea subsides, then gradually increase diet as tolerated. * If you have any concerns or questions, call your surgeon's office. If physician is unavailable and it is an emergency, call 911 or go to the nearest emergency room. . Instructions / Follow-Up Instructions / Follow-Up ACTIVITY RECOMMENDATIONS: * Light activities * You may walk outside, read, watch television. * Mild irritation and blurred vision are common for the first few days, redness around the white part of the eye is common. MEDICATIONS: Resume previous medications unless instructed otherwise by your surgeon. Eye drops (today and tomorrow): Polytrim - one drop in operative eye every 2 hours while awake Prednisolone 1% - one drop in operative eye every 2 hours while awake Prolensa - one drop operative eye 1 times daily SPECIAL CARE INSTRUCTIONS: * If any problems or concerns, please call Dr. Oliveira's office at . * Keep plastic shield taped over eye to sleep at night. * Keep plastic shield taped over eye except to administer eye drops. * Keep plastic shield on until office visit the following day. FOLLOW UP VISIT: Follow-up with Dr. Oliveira in the [place] office as scheduled. If not already scheduled, please call the office at . Diet Recommendations Home Diet: resume previous diet Procedures Procedures Performed: Left Cataract Phacoemulsification With Intraocular Lens Implant Pending Studies Studies pending at discharge: no Medical Emergencies . Who to Call and When: Medical Emergencies: If at any time you feel your situation is an emergency, please call 911 immediately. . Non-Emergent Contact Non-Emergency issues call your: Cardroom Attendant . . "Provider Documentation" section prepared by Morro Oliveira. .
[2017-08-02 08:04] VITALS: TEMP 36.5
--- NOTE | 2017-08-02 08:16 | Anesthesiology Progress Note ---
Anesthesia Post Op Note Date & Time Aug 02, 2017 at 08:16 Vital Signs Pain Intensity: 0 Vital Signs Past 12 Hours Date Time Temp Pulse Resp B/P (MAP) Pulse Ox O2 Delivery O2 Flow Rate FiO2 08/02/17 08:04 36.5 74 18 148/72 (97) 90 Room Air 08/02/17 06:32 36.8 80 20 146/85 (105) 93 Room Air Notes Mental Status: alert / awake / arousable, participated in evaluation Nausea / Vomiting: adequately controlled Pain: adequately controlled Airway Patency, RR, SpO2: stable & adequate BP & HR: stable & adequate Hydration State: stable & adequate Anesthetic Complications: no major complications apparent
[2017-08-02 08:24] VITALS: BP 142/84; PULSE 72; O2SAT 95
== END | disposition home or self-care (01) ==
LOC: X.SURG 06:22
PROVIDERS: ATTEND Ophthalmology
DX: H26.9 Unspecified cataract (principal); J44.9 Chronic obstructive pulmonary disease, unspecified; I10 Essential (primary) hypertension; F17.200 Nicotine dependence, unspecified, uncomplicated; Z98.41 Cataract extraction status, right eye

== ENCOUNTER → 2017-09-20 | Outpatient (CLI) | payer BC ==
[~2017-09-20] MED LIST changes: -500ML BSS 0.3ML EPI 1:1000PF IRRIG ONE; -ACETAMINOPHEN 325 MG TAB PO PRN; -AMVISC PLUS 0.8ML SYRINGE INT OCU ONE; -ATROPINE SULFATE 0.1 MG/ML 5ML SYR IV PRN; -BRIMONIDINE TART 0.2% OP SOLN PER DROP CHARGE ONE; -BSS FLUSH ONE; -ENDOCOAT 0.85ML SYRINGE INT OCU ONE; -EpHEDrine SULFATE INJ 50 MG/ML AMP IV PRN; -EpINEphrine INJ 1MG/ML AMP 1 MG/ML AMP ONE; -LACTATED RINGER'S 1000ML 500 ML IV SCH; -LIDOCAINE 4% OP SOLN DROP CHARGE ONE; -LIDOCAINE 4% OP SOLN DROP CHARGE OPL SCH; -LIDOCAINE HCL 1% MPF 2 ML VIAL ONE; -MIDAZOLAM HCL 1 MG/ML 2ML VIAL ONE; -MOXIFLOXACIN OPH SOLN PER DROP CHARGE ONE; -POVIDONE-IODINE OP SOLN 30 ML BTL ONE; -PROPARACAINE 0.5% OP SOLN PER DROP CHARGE OPL SCH; -TOBRAMYCIN/DEXAMETHASONE OPH OINT PER APPLN CHARGE ONE
[2017-09-20 13:18] LABS: BASO % 1.3 %; BASO ABS # 0.09 K/uL (0-0.2); EOS % 3.5 %; EOS ABS # 0.25 K/uL (0-0.5); HEMATOCRIT 43.1 % (42-52); HEMOGLOBIN 14.7 g/dL (14.0-18.0); IG# 0.02 K/uL (0.00-0.02); LYMPH % 20.1 %; LYMPH ABS # 1.44 K/uL (1.2-3.4); MEAN CELL VOLUME 100.2 fL (80-100); MEAN CORPUSCULAR HEMOGLOBIN 34.2 pg (25-34); MEAN CORPUSCULAR HGB CONC 34.1 g/dl (32-36); MEAN PLATELET VOLUME 9.8 fL (7.4-10.4); MONO % 6.6 %; MONO ABS # 0.47 K/uL (0.11-0.59); NEUT % 68.2 %; NEUT ABS # 4.88 K/uL (1.4-6.5); PLATELET COUNT 306 K/uL (130-400); RED CELL DISTRIBUTION WIDTH CV 13.5 % (11.5-14.5); WHITE BLOOD COUNT 7.15 K/uL (4.8-10.8)
[2017-09-20 13:31] LABS: INR 0.9 (0.9-1.1); PTT PATIENT 28.1 SECONDS (21.0-31.0)
[2017-09-20 13:49] LABS: BLOOD UREA NITROGEN 10 mg/dl (7-18); CARBON DIOXIDE 25 mmol/L (21-32); CREATININE 0.84 mg/dl (0.60-1.40); GLUCOSE 84 mg/dl (70-99); POTASSIUM 4.3 mmol/L (3.5-5.1); SODIUM 136 mmol/L (136-145)
== END | disposition home or self-care (01) ==
LOC: C.LAB1850 12:19
PROVIDERS: ATTEND Physician Assistant Medical
DX: I27.20 Pulmonary hypertension, unspecified (principal)

== ENCOUNTER → 2018-02-18 | Outpatient (CLI) | payer BC ==
[~2018-02-18] MED LIST changes: -AMLO-114 PO; +AMLO10TA3 PO; +HYDR25TA4 PO; +PSEU60TA80 PO; +SPRIN/30 INH
--- NOTE | 2018-02-18 10:59 | DIAGNOSTIC IMAGING REPORT ---
CHEST 2 VIEWS ROUTINE HISTORY: 72 years-old Male J44.9 Chronic obstructive pulmonary [id number] chronic shortness of breath with COPD COMPARISON: Chest radiograph 05/03/2017, CT chest 03/04/2017 TECHNIQUE: PA and lateral views of the chest FINDINGS: Cardiac silhouette is enlarged. Calcification of the aorta. Emphysema with chronic reticular opacities and blunting of the costophrenic angles redemonstrated. Additionally, there are ill-defined opacities about the lateral mid lungs bilaterally which have progressed from prior. No pneumothorax, overt pulmonary edema or large pleural effusion. Degenerative changes of the shoulders and spine. Tortuosity of the descending thoracic aorta. Healed chronic left rib fractures. IMPRESSION: 1. Emphysema with chronic reticular opacities compatible with areas of scarring/fibrosis. 2. Ill-defined opacities about the lateral mid lungs bilaterally have worsened from prior study suggesting scarring/atelectasis with superimposed pneumonitis difficult to exclude. The above report was generated using voice recognition software. It may contain grammatical, syntax or spelling errors. Electronically signed by: Nishant Faulkner M.D. 02/18/2018 10:57 AM Dictated Date/Time: 02/18/2018 10:54 AM
== END | disposition home or self-care (01) ==
LOC: C.RAD1850 10:09
PROVIDERS: ATTEND Internal Medicine Critical Care Medicine
DX: J44.9 Chronic obstructive pulmonary disease, unspecified (principal)

== ENCOUNTER 2022-10-27 13:37 | Inpatient (IN) ==
--- NOTE | 2022-10-27 13:48 | Emergency Department Note ---
Impression & Plan Atrial fibrillation with rapid ventricular response, COPD exacerbation, Acute and chronic respiratory failure with hypoxia, Elevated troponin ED Provider Note NAME: SOCTTY VELAZQUEZ AGE: 77 SEX: M : 1945 ARRIVES VIA: Ambulance INFORMANT: Patient, ED PROVIDER(S): Nicolas Capellan MD CHIEF COMPLAINT: SOB MEDICAL DECISION MAKING: Patient presents in mild extremis as the patient does have some mild increased work of breathing but is significantly tachycardic. The patient does appear to be in irregularly irregular but significantly tachycardic narrow complex tachycardia. Patient was ordered a Cardizem bolus in addition to IV fluids and blood work blood cultures and a chest x-ray. Patient's Cardizem bolus did seem to improve his heart rate and I suspect PE to be less likely as the patient has no evidence of lower extremity edema calf pain or erythema. Patient also does have a known history of lung disease. Given his improvement in heart rate and stable blood pressure BiPAP was ordered there is no asymmetry. Patient did receive a Xopenex DuoNeb. Patient's blood work shows a white count of 10 with mild anemia hemoglobin 12. Platelet count is unremarkable. Patient's kidney function is grossly unremarkable. Glucose 139. Troponin is 85 but believe this is likely demand related. Patient was started on a Cardizem drip. Lactate of 1.8. Procalcitonin 1.3. I did order second liter of IV fluids. Patient's bio fire is negative. The patient was reevaluated numerous times. The patient was tolerating his BiPAP well. Given the patient's new onset A-fib RVR and associated respiratory failure I did speak the on-call hospitalist service patient was admitted by Dr. Hernández. Critical Care: I have personally spent 95 minutes of critical care time in direct management of this patient. This includes bedside care, interpretation of diagnostic studies, and testing, discussion with consultants, patient, and family members, and other require inpatient management activities. This 95 minutes is in excess of all separately billable procedures. Prior /Outside records reviewed: I did review the patient's note from [facility] from earlier today the patient did present due to concern for shortness of breat h typically wearing 4 L of oxygen but still satting in the 80s. Patient has had low appetite and no energy patiently was on 10 L in the room. Reportedly at home his O2 sat was 68% today per EMS the patient was in the mid 80s. Differential diagnosis: A-fib with RVR, tachyarrhythmia, dehydration, COPD exacerbation, reactive airway disease, pneumonia, pneumothorax, COPD, CHF, infections, cardiac ischemia, pulmonary embolism, musculoskeletal, gastrointestinal, as well as other pathologies. Diagnostics, as interpreted by me: ECG:Likely A-fib versus flutter with a ventricular rate of 179 normal QRS, motion artifact in V3 and V4 slight depressions in the lateral leads. A-fib is new from comparison EKG which showed sinus. Repeat EKG interpreted by me A-fib with RVR ventricular rate of 145, normal QRS duration, normal axis, ST depressions in the lateral leads appear to be improved. Cardiac monitoring: An order was placed for continuous cardiac monitoring. The monitor shows a rate of 177 with irregularly irregular rhythm. Patient was placed on pulse oximetry Medical decision rules: None Imaging studies: See below I informally interpreted the patient's chest x-ray there is no obvious evidence of pneumothorax. HPI: Patient presents due to concern for worsening shortness of breath and dyspnea on exertion. Patient states that he does have occasional cough but it is nonproductive. The patient states that he believes he was being treated for pneumonia several months ago. The patient does have a known history of COPD and does wear oxygen at all times. Patient denies any abdominal pain nausea vomiting. Decreased p.o. intake. No calf pain or leg swelling. The patient denies any prior known history of any heart disease. Patient denies any prior history of arrhythmia PAST MEDICAL HISTORY: See Below PAST SURGICAL HISTORY: See Below SOCIAL HISTORY: See Below HOME MEDICATIONS: See Below ALLERGIES: See Below VITALS: See Below PHYSICAL EXAMINATION: GENERAL: Mild distress with mild increased work of breathing, nasal cannula in place EYE EXAM: Normal conjunctiva. PERRL, no anisocoria and EOM's grossly intact w/o pain. NECK: Supple, no nuchal rigidity, no adenopathy, non-tender. No signs of meningismus. FROM of the neck with good chin to chest and neck extension. No stridor. LUNGS: Slight decreased breath sounds but no obvious rhonchi or wheezing. Increased work of breathing and mild tachypnea noted HEART: Regular irregular and tachycardic, no MRG. ABDOMEN: Abdomen soft, non-tender, no masses, no rebound or guarding. BACK: No CVA TTP. SKIN: No rashes and no bruising. UPPER EXTREMITIES: Upper extremities are grossly normal. LOWER EXTREMITIES: Grossly normal, no edema. Negative Homans' sign bilaterally. NEURO EXAM: A&O x3, cranial nerves II-XII grossly intact, normal speech, moves all 4 extremities. Past Med/Surg History Medical History Chronic gout COPD (chronic obstructive pulmonary disease) RESCUE INHALER DAILY (NO MORE THAN TWICE A DAY) Depression Dyspnea on exertion Ecchymosis History of acute illness SEPTEMBER 2021 - RESOLVED PT WAS R/S FOR COLONOSCOPY D/T ILLNESS. History of colon polyps History of diverticulitis of colon History of nicotine dependence Hyperglycemia Hyperlipidemia Hypertension Hypoxemia Kidney stone (2014) HX Macular degeneration BOTH EYES/INJECTIONS Q 6-8 WKS Overactive bladder ? / PROSTATE PROBLEM ? - NOT SURE DETAILS/PROSTATE NOT ENLARGED Respiratory distress Skin cancer BCC ON FACE - RECENTLY SHAVED OFF - HEALED Solitary pulmonary nodule ? SIDE / CT SCAN 2 MON AGO - GROWN - F/U CT SCAN IN JUN 2021 Surgical History History of cardiac cath SUMMER 2017/ NO STENT(S) History of cataract surgery RT/LEFT History of colonoscopy last 2018 @ [facility] History of lithotripsy History of tooth extraction Status post Mohs surgery MULTIPLE Family History Brother Emphysema lung Other No family history of adverse response to anesthesia Denies family history of Ovarian cancer Prostate cancer Myocardial infarction Breast cancer Colorectal cancer Social History Smoking Status: Current every day smoker Tobacco Type: Cigarettes Age Started Using Tobacco: 21; packs per day: 0.25; Cigarettes Per Day: 20; Second Hand Exposure: Yes; Hx Alcohol Use: Yes Alcohol type: hard liquor Alcohol Intake Frequency: Monthly or Less Hx Substance Use: No Preferred Language: Faroese Communication Ability: Effective Visual Impairment: No Limitations Hearing Ability: Normal Accounts Payable Professional Required: No Beliefs That Will Affect Care: None marital status: Current Living Situation: Spouse current occupational status: retired 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 [employer] Other Information That Helps Us Care for You: No Feels Safe at Home: Yes Safety Concerns: Feels Safe At This Time Physical Activity Frequency: 1-2 Times per Week Seatbelt Use: always Assistive Devices: Cane, Denture - Upper, Denture - Lower, Glasses, Oxygen - at Night, Oxygen - Continuous, Walker and Wheelchair Allergies Allergies Allergy/AdvReac Type Severity Reaction Status Date / Time lisinopril Allergy Unknown Swelling Verified 10/27/22 12:38 of face methylprednisolone Allergy Unknown HALLUCINATION-IV Verified 10/27/22 12:38 SOLUMEDROL budesonide AdvReac Unknown DIDN'T WORK Verified 10/27/22 12:38 [From [employer]] formoterol AdvReac Unknown DIDN'T WORK Verified 10/27/22 12:38 [From [employer]] glycopyrrolate AdvReac Unknown DIDN'T WORK Verified 10/27/22 12:38 [From [employer]] Home Meds Home Medications Medication Instructions Recorded Confirmed fluticasone fur. 100 mcg-umeclid 1 inh inhalation QAM 03/31/22 10/27/22 62.5 mcg-vilant 25 mcg inhalat.powder (Trelegy Ellipta) cyanocobalamin (vitamin B-12) 1,000 mcg sublingual DAILY 09/11/22 10/27/22 1,000 mcg sublingual tablet Previous Rx's Medication Instructions Recorded amlodipine 10 mg tablet 10 mg PO QAM #90 tabs 02/02/22 nicotine 7 mg/24 hr daily 1 patch transdermal Q24H #7 ea 04/30/22 transdermal patch (Nicoderm CQ) Portable Oxygen #1 ea 05/04/22 allopurinol 300 mg tablet 300 mg PO QAM #90 tabs 07/17/22 doxazosin 2 mg tablet 2 mg PO QPM #90 tabs 07/17/22 pravastatin 20 mg tablet 20 mg PO QAM #90 tabs 07/17/22 escitalopram oxalate 10 mg tablet 10 mg PO HS #90 tabs 07/21/22 (Lexapro) metoprolol succinate 50 mg 50 mg PO HS #90 tabs 07/21/22 tablet,extended release 24 hr Ventolin HFA 90 mcg/actuation 2 puff inhalation QID PRN 08/10/22 aerosol inhaler (albuterol sulfate) shortness of breath or wheezing 90 days #3 Inhalers Results & Data (ED) Home Medications Current Medication List: was personally reviewed by me Laboratory Data Attestation: I reviewed the patient's lab results. 10/28/22 08:36 10/28/22 08:36 Lab Results 10/27/22 10/27/22 10/27/22 Range/Units 14:11 14:11 14:11 WBC 10.93 H (4.8-10.8) K/ul RBC 3.69 L (4.70-6.10) M/uL Hgb 12.5 L (14.0-18.0) g/dl Hct 37.0 L (42.0-52.0) % MCV 100.3 H (80.0-100.0) fL MCH 33.9 (25.0-34.0) pg MCHC 33.8 (32.0-36.0) g/dL RDW Std Deviation 50.4 H (36.4-46.3) fL RDW Coeff of [place] 13.7 (11.5-14.5) % Plt Count 311 (130-400) K/uL MPV 10.1 (9.4-12.4) fL Immature Gran % (Auto) 0.3 % Neut % (Auto) 86.1 % Lymph % (Auto) 4.6 % [place] % (Auto) 8.7 % Eos % (Auto) 0.0 % Baso % (Auto) 0.3 % Neut # (Auto) 9.42 H (1.40-6.50) K/uL Lymph # (Auto) 0.50 L (1.2-3.4) K/uL [place] # (Auto) 0.95 H (0.11-0.59) K/uL Eos # (Auto) 0.00 (0-0.50) K/uL Baso # (Auto) 0.03 (0-0.2) K/uL Immature Gran # (Auto) 0.03 (0.01-0.20) K/uL PT 10.3 (9.0-12.0) Seconds INR 1.0 (0.9-1.1) APTT 29.8 (21.0-31.0) Seconds PTT Ratio 1.1 Sodium 137 (136-145) mmol/L Potassium 4.3 (3.5-5.1) mmol/L Chloride 101 (98-107) mmol/L Carbon Dioxide 26 (21-32) mmol/L Anion Gap 10 (3-11) BUN 19 (6-23) mg/dl Creatinine 1.01 (0.6-1.4) mg/dl Est Cr Clr Drug Dosing Not Reportable Est GFR ( Amer) 83.9 ml/min Est GFR (Non-Af Amer) 72.4 ml/min BUN/Creatinine Ratio 18.8 (10-20) Glucose 131 H (70-99(Fasting)) mg/dl Lactate (0.4-2.0) mmol/L Calcium 8.7 (8.6-10.3) mg/dl Magnesium 1.8 (1.7-2.4) mg/dl Total Bilirubin 1.1 H (0.2-1.0) mg/dl Direct Bilirubin 0.2 (0-0.2) mg/dl AST 13 (13-39) U/L ALT 7 (7-52) U/L Alkaline Phosphatase 69 (34-104) U/L Troponin I High Sens 85.8 H* (0-20) pg/ml Total Protein 6.5 (6.0-8.3) gm/dl Albumin 3.5 (3.4-5.0) gm/dl Procalcitonin (0-0.5) ng/ml Adenovirus (PCR) (NotDetected) B. pertussis DNA (PCR) (NotDetected) B.parapertussis DNA PCR (NotDetected) C. pneumoniae DNA (PCR) (NotDetected) Coronavirus OC43 (PCR) (NotDetected) Coronavirus HKU1 (PCR) (NotDetected) Coronavirus 229E (PCR) (NotDetected) SARS-CoV-2 (PCR) (NotDetected) Coronavirus NL63 (PCR) (NotDetected) Human Metapneumovir PCR (NotDetected) Influenza Type A (PCR) (NotDetected) Influenza Type B (PCR) (NotDetected) M. pneumoniae (PCR) (NotDetected) Parainfluenza 1 (PCR) (NotDetected) Parainfluenza 2 (PCR) (NotDetected) Parainfluenza 3 (PCR) (NotDetected) Parainfluenza 4 (PCR) (NotDetected) RSV (PCR) (NotDetected) Entero/Rhino (PCR) (NotDetected) 10/27/22 10/27/22 10/27/22 Range/Units 14:11 14:11 14:40 WBC (4.8-10.8) K/ul RBC (4.70-6.10) M/uL Hgb (14.0-18.0) g/dl Hct (42.0-52.0) % MCV (80.0-100.0) fL MCH (25.0-34.0) pg MCHC (32.0-36.0) g/dL RDW Std Deviation (36.4-46.3) fL RDW Coeff of [place] (11.5-14.5) % Plt Count (130-400) K/uL MPV (9.4-12.4) fL Immature Gran % (Auto) % Neut % (Auto) % Lymph % (Auto) % [place] % (Auto) % Eos % (Auto) % Baso % (Auto) % Neut # (Auto) (1.40-6.50) K/uL Lymph # (Auto) (1.2-3.4) K/uL [place] # (Auto) (0.11-0.59) K/uL Eos # (Auto) (0-0.50) K/uL Baso # (Auto) (0-0.2) K/uL Immature Gran # (Auto) (0.01-0.20) K/uL PT (9.0-12.0) Seconds INR (0.9-1.1) APTT (21.0-31.0) Seconds PTT Ratio Sodium (136-145) mmol/L Potassium (3.5-5.1) mmol/L Chloride (98-107) mmol/L Carbon Dioxide (21-32) mmol/L Anion Gap (3-11) BUN (6-23) mg/dl Creatinine (0.6-1.4) mg/dl Est Cr Clr Drug Dosing Est GFR ( Amer) ml/min Est GFR (Non-Af Amer) ml/min BUN/Creatinine Ratio (10-20) Glucose (70-99(Fasting)) mg/dl Lactate 1.8 (0.4-2.0) mmol/L Calcium (8.6-10.3) mg/dl Magnesium (1.7-2.4) mg/dl Total Bilirubin (0.2-1.0) mg/dl Direct Bilirubin (0-0.2) mg/dl AST (13-39) U/L ALT (7-52) U/L Alkaline Phosphatase (34-104) U/L Troponin I High Sens (0-20) pg/ml Total Protein (6.0-8.3) gm/dl Albumin (3.4-5.0) gm/dl Procalcitonin 0.34 (0-0.5) ng/ml Adenovirus (PCR) Not Detected (NotDetected) B. pertussis DNA (PCR) Not Detected (NotDetected) B.parapertussis DNA PCR Not Detected (NotDetected) C. pneumoniae DNA (PCR) Not Detected (NotDetected) Coronavirus OC43 (PCR) Not Detected (NotDetected) Coronavirus HKU1 (PCR) Not Detected (NotDetected) Coronavirus 229E (PCR) Not Detected (NotDetected) SARS-CoV-2 (PCR) Not Detected (NotDetected) Coronavirus NL63 (PCR) Not Detected (NotDetected) Human Metapneumovir PCR Not Detected (NotDetected) Influenza Type A (PCR) Not Detected (NotDetected) Influenza Type B (PCR) Not Detected (NotDetected) M. pneumoniae (PCR) Not Detected (NotDetected) Parainfluenza 1 (PCR) Not Detected (NotDetected) Parainfluenza 2 (PCR) Not Detected (NotDetected) Parainfluenza 3 (PCR) Not Detected (NotDetected) Parainfluenza 4 (PCR) Not Detected (NotDetected) RSV (PCR) Not Detected (NotDetected) Entero/Rhino (PCR) Not Detected (NotDetected) Administered Medications Albuterol (Albut/Ipratrop 3mg/0.5mg Neb 3 Ml Vial) 3 ml NEB Q4R [facility]; Protocol Stop: 11/26/22 22:59 Last Admin: 10/28/22 14:49 Dose: 3 ml Documented By: Admin: 10/28/22 11:06 Dose: 3 ml Documented By: Admin: 10/28/22 07:30 Dose: Not Given Documented By: Admin: 10/28/22 02:05 Dose: 3 ml Documented By: Admin: 10/27/22 22:02 Dose: 3 ml Documented By: STEVEN Allopurinol (Allopurinol 300 Mg Tab) 300 mg PO QAM [facility] Stop: 11/27/22 08:59 Last Admin: 10/28/22 07:48 Dose: 300 mg Documented By: OSMAR Budesonide (Budesonide 0.5 Mg/2 Ml Vial (Pulmicort)) 0.5 mg NEB BIDR [facility] Stop: 11/26/22 19:49 Last Admin: 10/28/22 07:15 Dose: 0.5 mg Documented By: Admin: 10/27/22 20:11 Dose: 0.5 mg Documented By: KARENF Escitalopram Oxalate (Escitalopram Oxalate 10 Mg Tab) 10 mg PO [facility] Stop: 11/26/22 20:59 Last Admin: 10/27/22 20:53 Dose: 10 mg Documented By: PADMA Formoterol Fumarate (Formoterol 20 Mcg/2 Ml Vial) 20 mcg NEB BIDR [facility] Stop: 11/26/22 20:59 Last Admin: 10/28/22 07:14 Dose: 20 mcg Documented By: Admin: 10/27/22 20:11 Dose: 20 mcg Documented By: KARENF Diltiazem HCl 125 mg/ Dextrose 125 mls @ 15 mls/hr IV .Q8H20M [facility]; Protocol Stop: 11/26/22 14:44 Last Admin: 10/28/22 17:52 Dose: Not Given Documented By: Admin: 10/28/22 10:56 Dose: 15 mg/hr, 15 mls/hr Documented By: OSMAR Co-signed By: KTS Titration: 10/28/22 10:56 Dose: 15 mg/hr, 15 mls/hr Documented By: OSMAR Co-signed By: KTS Titration: 10/28/22 07:40 Dose: 15 mg/hr, 15 mls/hr Documented By: OSMAR Co-signed By: KTS Titration: 10/28/22 06:50 Dose: 10 mg/hr, 10 mls/hr Documented By: ASM Co-signed By: OSMAR Admin: 10/28/22 02:11 Dose: 10 mg/hr, 10 mls/hr Documented By: ASM Co-signed By: SRS Titration: 10/28/22 02:11 Dose: 10 mg/hr, 10 mls/hr Documented By: ASM Co-signed By: SRS Titration: 10/27/22 22:15 Dose: 10 mg/hr, 10 mls/hr Documented By: ASM Co-signed By: SRS Titration: 10/27/22 19:29 Dose: 15 mg/hr, 15 mls/hr Documented By: ASM Co-signed By: KJL Titration: 10/27/22 19:11 Dose: 12.5 mg/hr, 12.5 mls/hr Documented By: ASM Co-signed By: AROLDO Titration: 10/27/22 15:30 Dose: 10 mg/hr, 10 mls/hr Documented By: SLB Co-signed By: DS Admin: 10/27/22 14:48 Dose: 5 mg/hr, 5 mls/hr Documented By: NRB Co-signed By: MAYRA Heparin Sodium/Dextrose (Heparin Sodium/Dextrose) 25,000 units in 500 mls @ 27 mls/hr IV .[id number] [facility]; Protocol Stop: 11/26/22 16:29 Last Admin: 10/28/22 17:03 Dose: Not Given Documented By: Titration: 10/28/22 16:37 Dose: 1,350 units/hr, 27 mls/hr Documented By: OSMAR Co-signed By: AROLDO(2) Admin: 10/28/22 14:02 Dose: 1,200 units/hr, 24 mls/hr Documented By: OSMAR Co-signed By: KTS Titration: 10/28/22 14:02 Dose: 1,200 units/hr, 24 mls/hr Documented By: OSMAR Co-signed By: KTS Titration: 10/28/22 09:32 Dose: 1,200 units/hr, 24 mls/hr Documented By: KEDouglas Co-signed By: KTS Titration: 10/28/22 06:45 Dose: 1,100 units/hr, 22 mls/hr Documented By: ASM Co-signed By: OSMAR Titration: 10/28/22 02:30 Dose: 1,100 units/hr, 22 mls/hr Documented By: PADMA Co-signed By: CANDI Titration: 10/28/22 00:28 Dose: 0 units/hr, 0 mls/hr Documented By: PADMA Co-signed By: CANDI Admin: 10/27/22 16:44 Dose: 1,400 units/hr, 28 mls/hr Documented By: NRB Co-signed By: ANASTASIIA Azithromycin 500 mg/ Dextrose 255 mls @ 127.5 mls/hr IV Q24H [facility] Stop: 10/30/22 01:59 Last Infusion: 10/28/22 02:50 Dose: 0 mls/hr Documented By: Admin: 10/28/22 00:49 Dose: 127.5 mls/hr Documented By: PADMA Metoprolol Tartrate (Metoprolol Tartrate 25 Mg Tab) 25 mg PO Q6H [facility] Stop: 11/27/22 14:59 Last Admin: 10/28/22 15:56 Dose: 25 mg Documented By: OSMAR Pravastatin Sodium (Pravastatin Sod 20 Mg Tab) 20 mg PO QAM [facility] Stop: 11/27/22 08:59 Last Admin: 10/28/22 07:48 Dose: 20 mg Documented By: OSMAR Umeclidinium [place]ber[place] (Umeclidinium [place] 62.5mcg/Blister 7 Puffs/Inhaler) 1 puffs INH DAILY [facility]ELLE Stop: 11/27/22 13:59 Last Admin: 10/28/22 14:48 Dose: 1 puffs Documented By: OSMAR Discontinued Medications Diltiazem HCl (Diltiazem Hcl 5 Mg/Ml 5 Ml Vial) 20 mg IV NOW STA Stop: 10/27/22 13:52 Last Admin: 10/27/22 13:59 Dose: 20 mg Documented By: NRJohn Co-signed By: ANASTASIIA Heparin Sodium (Porcine) (Heparin Sod (Porcine) 1000 Unit/Ml) 3,000 units IV NOW ONE Stop: 10/28/22 16:46 Last Admin: 10/28/22 17:38 Dose: 3,000 units Documented By: OSMAR Co-signed By: KALANI Heparin Sodium/Dextrose (Heparin Iv Adult Wt-Based Standard *No* Bolus Protocol) 1 each IV ONE ONE; Protocol Stop: 10/27/22 16:02 Last Admin: 10/28/22 07:52 Dose: Not Given Documented By: OSMAR Cefepime HCl (Maxipime) 2,000 mg in 20 mls @ 5 mls/min IV NOW STA; Protocol Stop: 10/27/22 13:54 Last Admin: 10/27/22 14:13 Dose: 5 mls/min Documented By: DALILA Sodium Chloride (Nss 1000ml) 1,000 mls @ 999 mls/hr IV .Q1H1M [facility] Stop: 10/27/22 15:00 Last Infusion: 10/27/22 15:00 Dose: 0 mls/hr Documented By: Admin: 10/27/22 13:59 Dose: 999 mls/hr Documented By: DALILA Sodium Chloride (Nss 1000ml) 1,000 mls @ 999 mls/hr IV .Q1H1M ONE Stop: 10/27/22 15:34 Last Infusion: 10/27/22 15:46 Dose: 0 mls/hr Documented By: Admin: 10/27/22 14:45 Dose: 999 mls/hr Documented By: DALILA Heparin Sodium (Porcine) 6,000 (units/ Syringe) 6 mls @ 10 mls/min IV NOW ONE Stop: 10/27/22 20:01 Last Admin: 10/27/22 20:53 Dose: 10 mls/min Documented By: PADMA Co-signed By: EDWIN Dexamethasone 8 mg/ Syringe 2 mls @ 1 mls/min IV BID [facility]LE Stop: 11/27/22 00:14 Last Admin: 10/28/22 07:48 Dose: 1 mls/min Documented By: Admin: 10/28/22 00:49 Dose: 1 mls/min Documented By: PADMA Ioversol (Optiray 320 500ml) 120 ml IV ONCE ONE Stop: 10/28/22 14:17 Last Admin: 10/28/22 14:16 Dose: 120 ml Documented By: TEDDY Levalbuterol HCl (Levalbuterol Hcl 1.25 Mg/3 Ml Neb) 1.25 mg NEB NOW STA; Protocol Stop: 10/27/22 13:52 Last Admin: 10/27/22 13:58 Dose: 1.25 mg Documented By: DALILA Methylprednisolone (Methylprednisolone 40 Mg/Ml Vial) 40 mg IV NOW STA Stop: 10/27/22 13:54 Last Admin: 10/27/22 18:12 Dose: Not Given Documented By: NRB Metoprolol Succinate (Metoprolol Succ 50mg Ext Rel Tab) 50 mg PO HS [facility]ELLE Stop: 11/26/22 20:59 Last Admin: 10/27/22 20:53 Dose: 50 mg Documented By: PADMA Miscellaneous (Stat Iv Infusion Titration Per Protocol) 1 each N/A NOW STA Stop: 10/27/22 14:35 Last Admin: 10/28/22 07:52 Dose: Not Given Documented By: KEDouglas Imaging Data Radiologist's Impression: Chest CTA 10/27/22 16:21 CT angio chest PE protocol CLINICAL HISTORY: PE TECHNIQUE: Multidetector row helical CT of the chest was performed with angio raphic protocol. Coronal and sagittal reformations were obtained. Coronal and sagittal MIPS were obtained from the axial data set and were submitted for review. Automated dose lowering techniques and/or adjustment according to patient size were utilized for this exam. CT DOSE: 581.85 mGy.cm Comparison: Comparison is made to CT chest 09/11/2022 FINDINGS: Lungs and pleura: Extensive emphysematous changes are seen in the lungs. Calcified granulomata are seen with evidence of suspicious nodules. Airspace opacity in the right lung base is unchanged from prior exam, there is a new airspace opacity in the right middle lobe. Heart and pericardium: Heart size is normal. No pericardial effusion. Vessels: No evidence of pulmonary embolism. Pulmonary trunk measures 33 mm in diameter. Mediastinum and pawan: Mediastinal lymph nodes measure up to 14 mm in diameter. This is unchanged to decreased in size from prior exam. Chest wall and lower neck: Unremarkable. Abdomen: Unremarkable. Bones: Degenerative changes of the thoracic spine. Old left-sided incompletely healed rib fractures noted. IMPRESSION: 1. No pulmonary embolus is seen. 2. Focal airspace opacity in the right anterior lung base is new from prior exam. Right posterior lung base airspace opacity is unchanged. Findings are compatible with pneumonia versus aspiration. Follow-up to resolution is recommended. 3. Emphysema and pulmonary hypertension. 4. Precarinal lymph node is essentially unchanged from prior exams. ACT 112: Negative or not required by law. Electronically signed by: Errol Young M.D. 10/28/2022 2:46 PM Chest X-Ray 10/27/22 13:51 XR chest 1V portable HISTORY: 77 years-old Male Sepsis acute sepsis COMPARISON: CTA chest 09/11/2019 TECHNIQUE: AP view of the chest FINDINGS: Unchanged cardiomediastinal and hilar silhouettes. No pneumothorax, pleural effusion or overt pulmonary edema. Emphysema with chronic fibrotic changes. Degenerative changes of the shoulders and spine. IMPRESSION: 1. Cardiomegaly without acute process. 2. Emphysema with chronic fibrotic changes. ACT 112: Negative or not required by law. The above report was generated using voice recognition software. It may contain grammatical, syntax or spelling errors. Electronically signed by: Morris Faulkner M.D. 10/27/2022 3:16 PM Chest CTA 10/27/22 16:21 CT angio chest PE protocol CLINICAL HISTORY: PE TECHNIQUE: Multidetector row helical CT of the chest was performed with angiographic protocol. Coronal and sagittal reformations were obtained. Coronal and sagittal MIPS were obtained from the axial data set and were submitted for review. Automated dose lowering techniques and/or adjustment according to patient size were utilized for this exam. CT DOSE: 581.85 mGy.cm Comparison: Comparison is made to CT chest 09/11/2022 FINDINGS: Lungs and pleura: Extensive emphysematous changes are seen in the lungs. Calcified granulomata are seen with evidence of suspicious nodules. Airspace opacity in the right lung base is unchanged from prior exam, there is a new airspace opacity in the right middle lobe. Heart and pericardium: Heart size is normal. No pericardial effusion. Vessels: No evidence of pulmonary embolism. Pulmonary trunk measures 33 mm in diameter. Mediastinum and pawan: Mediastinal lymph nodes measure up to 14 mm in diameter. This is unchanged to decreased in size from prior exam. Chest wall and lower neck: Unremarkable. Abdomen: Unremarkable. Bones: Degenerative changes of the thoracic spine. Old left-sided incompletely healed rib fractures noted. IMPRESSION: 1. No pulmonary embolus is seen. 2. Focal airspace opacity in the right anterior lung base is new from prior exam. Right posterior lung base airspace opacity is unchanged. Findings are compatible with pneumonia versus aspiration. Follow-up to resolution is rec ommended. 3. Emphysema and pulmonary hypertension. 4. Precarinal lymph node is essentially unchanged from prior exams. ACT 112: Negative or not required by law. Electronically signed by: Errol Young M.D. 10/28/2022 2:46 PM Discharge Plan Visit Data Chief Complaint: Cardiac Assessment Stated Complaint: TACHYCARIDA, HYPOXIA ED Provider: Nicolas Capellan Discharge Problem: Atrial fibrillation with rapid ventricular response, COPD exacerbation, Acute and chronic respiratory failure with hypoxia, Elevated troponin Patient Disposition: Admitted As Inpatient Discharge Instructions Interventions: ED Discharge Assessment Last Done: 10/27/22 18:14
[2022-10-27] MEDS ORDERED: LEVALBUTEROL HCL 1.25 MG/3 ML NEB NEB STA (13:51)
[2022-10-27] MEDS ORDERED: dilTIAZem HCl 5 MG/ML 5 ML VIAL IV STA (13:51)
[2022-10-27] MEDS ORDERED: CEFEPIME 2,000 MG/20 ML VIAL IV STA (13:51)
[2022-10-27] MEDS ORDERED: SODIUM CHLORIDE 0.9% 1000ML 1,000 ML IV SCH (14:00)
[2022-10-27] MEDS ORDERED: SODIUM CHLORIDE 0.9% 1000ML 1,000 ML IV ONE (14:34)
[2022-10-27] MEDS ORDERED: STAT IV Infusion **Titration per Protocol STA (14:34)
[2022-10-27 14:40] LABS: Basophils # (auto) 0.03 K/uL (0-0.2); Basophils % (auto) 0.3 %; Hemoglobin 12.5 g/dl (14.0-18.0); Immature Granulocytes # (auto) 0.03 K/uL (0.01-0.20); Immature Granulocytes % (auto) 0.3 %; Lymphocytes % (auto) 4.6 %; Mean Corpuscular Hemoglobin 33.9 pg (25.0-34.0); Mean Corpuscular Hgb Conc 33.8 g/dL (32.0-36.0); Mean Corpuscular Volume 100.3 fL (80.0-100.0); Mean Platelet Volume 10.1 fL (9.4-12.4); Monocytes # (auto) 0.95 K/uL (0.11-0.59); Monocytes % (auto) 8.7 %; Neutrophils # (auto) 9.42 K/uL (1.40-6.50); Neutrophils % (auto) 86.1 %; Platelet Count 311 K/uL (130-400); RDW Coefficient of Variation 13.7 % (11.5-14.5); RDW Standard Deviation 50.4 fL (36.4-46.3); Red Blood Count 3.69 M/uL (4.70-6.10); White Blood Count 10.93 K/ul (4.8-10.8)
[2022-10-27] MEDS: dilTIAZem HCL 125 MG in DEXTROSE 5% 100 ML IV SCH (14:48)
[2022-10-27 15:03] LABS: Alanine Aminotransferase 7 U/L (7-52); Albumin Level 3.5 gm/dl (3.4-5.0); Alkaline Phosphatase 69 U/L (34-104); Anion Gap 10 (3-11); Aspartate Aminotransferase 13 U/L (13-39); BUN Creatinine Ratio 18.8 (10-20); Bilirubin Direct 0.2 mg/dl (0-0.2); Bilirubin,Total 1.1 mg/dl (0.2-1.0); Blood Urea Nitrogen 19 mg/dl (6-23); Calcium 8.7 mg/dl (8.6-10.3); Carbon Dioxide 26 mmol/L (21-32); Chloride 101 mmol/L (98-107); Est GFR (African American) 83.9 ml/min; Est GFR (Non-African American) 72.4 ml/min; Glucose 131 mg/dl (70-99(Fasting)); Magnesium 1.8 mg/dl (1.7-2.4); Potassium 4.3 mmol/L (3.5-5.1); Sodium 137 mmol/L (136-145); Total Protein 6.5 gm/dl (6.0-8.3)
[2022-10-27 15:04] LABS: Partial Thromboplastin Ratio 1.1; Partial Thromboplastin Time 29.8 Seconds (21.0-31.0); Prothrombin Time 10.3 Seconds (9.0-12.0)
--- NOTE | 2022-10-27 15:17 | XRay Report ---
XR chest 1V portable HISTORY: 77 years-old Male Sepsis acute sepsis COMPARISON: CTA chest 09/11/2019 TECHNIQUE: AP view of the chest FINDINGS: Unchanged cardiomediastinal and hilar silhouettes. No pneumothorax, pleural effusion or overt pulmona ry edema. Emphysema with chronic fibrotic changes. Degenerative changes of the shoulders and spine. IMPRESSION: 1. Cardiomegaly without acute process. 2. Emphysema with chronic fibrotic changes. ACT 112: Negative or not required by law. The above report was generated using voice recognition software. It may contain grammatical, syntax o r spelling errors. Electronically signed by: Morris Faulkner M.D. 10/27/2022 3:16 PM
[2022-10-27 15:27] LABS: Troponin I High Sensitivity 85.8 pg/ml (0-20)
[2022-10-27] MEDS ORDERED: Heparin IV Adult Wt-Based Standard *NO* Bolus Protocol IV ONE (16:01)
[2022-10-27 16:02] LABS: Adenovirus PCR Not Detected (NotDetected); Bordetella parapertussis PCR Not Detected (NotDetected); Bordetella pertussis PCR Not Detected (NotDetected); Chlamydia pneumoniae PCR Not Detected (NotDetected); Coronavirus 229E PCR Not Detected (NotDetected); Coronavirus CoV-2 (COVID19)PCR Not Detected (NotDetected); Coronavirus HKU1 PCR Not Detected (NotDetected); Coronavirus NL63 PCR Not Detected (NotDetected); Coronavirus OC43PCR Not Detected (NotDetected); Human Metapneumovirus PCR Not Detected (NotDetected); Influenza A PCR Not Detected (NotDetected); Influenza B PCR Not Detected (NotDetected); Mycoplasma pneumoniae PCR Not Detected (NotDetected); Parainfluenza Virus 1 PCR Not Detected (NotDetected); Parainfluenza Virus 2 PCR Not Detected (NotDetected); Parainfluenza Virus 3 PCR Not Detected (NotDetected); Parainfluenza Virus 4 PCR Not Detected (NotDetected); Respiratory Syncytial VirusPCR Not Detected (NotDetected); Rhinovirus/Enterovirus PCR Not Detected (NotDetected)
[2022-10-27] MEDS: HEPARIN SODIUM/DEXTROSE 25,000 UNITS/500 ML BAG IV SCH (16:44)
[2022-10-27 16:50] LABS: Base Excess ABG -0.8 mEq/L (-9-1.8); HCO3 ABG 24 mmol/L (19-24); Oxygen Saturation ABG 98.3 % (90-95); PCO2 ABG 37 mmHg (35-46); PO2 ABG 93 mmHg (80-95); pH ABG 7.41 (7.35-7.45)
[2022-10-27 16:53] LABS: Allen Test Pos (Pos)
[2022-10-27] MEDS ORDERED: HEPARIN IV BOLUS 6,000 UNITS in SYRINGE 0 ML IV ONE (20:00)
[2022-10-27] MEDS: FORMOTEROL 20 MCG/2 ML VIAL NEB SCH (20:11)
[2022-10-27] MEDS: BUDESONIDE 0.5 MG/2 ML VIAL (PULMICORT) NEB SCH (20:11)
[2022-10-27] MEDS: ESCITALOPRAM OXALATE 10 MG TAB PO SCH (20:53)
[2022-10-27] MEDS ORDERED: METOPROLOL SUCC 50MG EXT REL TAB PO SCH (21:00)
[2022-10-27] MEDS: ALBUT/IPRATROP 3MG/0.5MG NEB 3 ML VIAL NEB SCH (22:02)
[2022-10-27 23:58] LABS: Partial Thromboplastin Ratio 4.7
--- NOTE | 2022-10-28 00:19 | History & Physical Report ---
Date of Service October 27, 2022 Assessment & Plan (1) Acute and chronic respiratory failure with hypoxia: Plan: Respiratory distress appears to be significantly out of proportion to a. fib and COPD exacerbation. Possibly just due to underlying chronic respiratory status with atrial fibrillation however will get CT for PE to rule out other pathology. ABG without acidosis/alkalosis or hypercapnia - however this was after starting BiPAP. Biofire negative Procalcitonin negative and no consolidation on CXR (2) New onset a-fib: Plan: Continue diltiazem IV drip - unclear how much rate is appropriate or innapropriate however he appears to be maintaining his BP on diltiazem drip therefore appears mostly and inappropriately fast rate. Avoid IV metoprolol due to COPD Heparin IV TTE TSH with AM labs Consult cardiology (3) COPD exacerbation: Plan: Not significantly wheezing but also not moving much air. Significant improvement after duonebs. Solu-medrol 40mg IV given in ER. Will Solu-medrol 40mg IV BID. Duonebs q4h Formoterol 20mcg NEB BID Budesonide 0.5mg NEB BID Azithromycin 500mg IV daily for three days - consider chronic dosing Consult pulmonology for management of this complex patient (4) On home oxygen therapy: Plan: Baseline 4LPM O2 (5) Tobacco abuse: Plan: Unfortunately he continues to smoke 1 pack/day use (6) Chronic gout: Plan: Continue allopurinol (7) Hypertension: Plan: Stop amlodipine to allow BP for diltiazem Continue metoprolol for ongoing rate control Plan VTE Prophylaxis - IV heparin Diet - NPO given respiratory distress Disposition - admit to PCU Admission and Anticipated Discharge Date Admission Date: October 27, 2022 History of Present Illness Chief Complaint: Shortness of breath, tachycardia Primary Care Provider: Carter Martinez MD Velasquez Murillo is a 77 year old male with COPD on baseline 4LPM O2 who presents to the ER on advice of his PCP office via EMS with hypoxia, tachycardia and shortness of breath. He was seen at his PCP office today and noted to have a heart rate of 166 in atrial fibrillation with O2 sats 83 % on 6LPM O2. He reports significant worsening in his chronic shortness of breath for the last 2 days with associated nasal congestion and palpitations. No sinus pain, fever or chills. At home he reports having to turn his oxygen up to 4.5L for the last 2 days. O2 sats have been as low as 68% today on his usual 4LPM. He has not been eating or drinking. No loss of taste or smell. No chest pain, presyncope or syncope. He has never had atrial fibrillation previously. Allergies Allergy/AdvReac Type Severity Reaction Status Date / Time lisinopril Allergy Unknown Swelling Verified 10/27/22 12:38 of face methylprednisolone Allergy Unknown HALLUCINATION-IV Verified 10/27/22 12:38 SOLUMEDROL budesonide AdvReac Unknown DIDN'T WORK Verified 10/27/22 12:38 [From [employer]] formoterol AdvReac Unknown DIDN'T WORK Verified 10/27/22 12:38 [From [employer]] glycopyrrolate AdvReac Unknown DIDN'T WORK Verified 10/27/22 12:38 [From [employer]] Home Medications Medication Instructions Recorded Confirmed Type amlodipine 10 mg tablet 10 mg PO QAM #90 tabs 02/02/22 10/27/22 Rx fluticasone fur. 100 mcg-umeclid 1 inh inhalation QAM 03/31/22 10/27/22 History 62.5 mcg-vilant 25 mcg inhalat.powder (Trelegy Ellipta) nicotine 7 mg/24 hr daily 1 patch transdermal Q24H #7 ea 04/30/22 10/27/22 Rx transdermal patch (Nicoderm CQ) Portable Oxygen #1 ea 05/04/22 10/27/22 Rx allopurinol 300 mg tablet 300 mg PO QAM #90 tabs 07/17/22 10/27/22 Rx doxazosin 2 mg tablet 2 mg PO QPM #90 tabs 07/17/22 10/27/22 Rx pravastatin 20 mg tablet 20 mg PO QAM #90 tabs 07/17/22 10/27/22 Rx escitalopram oxalate 10 mg tablet 10 mg PO HS #90 tabs 07/21/22 10/27/22 Rx (Lexapro) metoprolol succinate 50 mg 50 mg PO HS #90 tabs 07/21/22 10/27/22 Rx tablet,extended release 24 hr Ventolin HFA 90 mcg/actuation 2 puff inhalation QID PRN 08/10/22 10/27/22 Rx aerosol inhaler (albuterol sulfate) shortness of breath or wheezing 90 days #3 Inhalers cyanocobalamin (vitamin B-12) 1,000 mcg sublingual DAILY 09/11/22 10/27/22 History 1,000 mcg sublingual tablet Past Med/Surg History Medical History (Updated 10/28/22 @ 00:55 by Raf Hernández MD) Chronic gout COPD (chronic obstructive pulmonary disease) RESCUE INHALER DAILY (NO MORE THAN TWICE A DAY) Depression Dyspnea on exertion Ecchymosis History of acute illness SEPTEMBER 2021 - RESOLVED PT WAS R/S FOR COLONOSCOPY D/T ILLNESS. History of colon polyps History of diverticulitis of colon History of nicotine dependence Hyperglycemia Hyperlipidemia Hypertension Hypoxemia Kidney stone (2014) HX Macular degeneration BOTH EYES/INJECTIONS Q 6-8 WKS Overactive bladder ? / PROSTATE PROBLEM ? - NOT SURE DETAILS/PROSTATE NOT ENLARGED Respiratory distress Skin cancer BCC ON FACE - RECENTLY SHAVED OFF - HEALED Solitary pulmonary nodule ? SIDE / CT SCAN 2 MON AGO - GROWN - F/U CT SCAN IN JUN 2021 Surgical History History of cardiac cath SUMMER 2017/ NO STENT(S) History of cataract surgery RT/LEFT History of colonoscopy last 2018 @ [facility] History of lithotripsy History of tooth extraction Status post Mohs surgery MULTIPLE Family History Brother Emphysema lung Other No family history of adverse response to anesthesia Denies family history of Ovarian cancer Prostate cancer Myocardial infarction Breast cancer Colorectal cancer Social History Smoking Status: Current every day smoker Tobacco Type: Cigarettes Age Started Using Tobacco: 21; packs per day: 0.25; Cigarettes Per Day: 20; Second Hand Exposure: Yes; Hx Alcohol Use: Yes Alcohol type: hard liquor Alcohol Intake Frequency: Monthly or Less Hx Substance Use: No Preferred Language: Georgian Communication Ability: Effective Visual Impairment: No Limitations Hearing Ability: Normal Qualitative Field Project Manager Required: No Beliefs That Will Affect Care: None marital status: Current Living Situation: Spouse current occupational status: retired 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 [employer] Other Information That Helps Us Care for You: No Feels Safe at Home: Yes Safety Concerns: Feels Safe At This Time Physical Activity Frequency: 1-2 Times per Week Seatbelt Use: always Assistive Devices: Cane, Denture - Upper, Denture - Lower, Glasses, Oxygen - at Night, Walker and Wheelchair Review of Systems Review of Systems: All systems reviewed & are unremarkable except as noted in HPI & below Physical Exam Constitutional: well developed and + acute distress (respiratory); + not well nourished Eyes: PERRL, conjunctivae normal, anicteric sclerae ENMT: external ear and nose normal, oropharynx normal Respiratory: + respiratory distress, + labored breathing, + retractions, + uses accessory muscles, + tachypneic, + prolonged expiratory phase, + pursed lip breathing and + paradoxical thoraco-abdominal movement; + abnormal respiratory effort, + not able to speak in complete sentence, no audible wheezes and no stridor Auscultation: + diminished lung sounds (thorughout); no crackles, no rales, no rhonchi and no wheezes Cardiovascular: Rate/Rhythm: + tachycardic and + irregularly irregular Heart Sounds: no murmur Extremities: normal capillary refill; no calf tenderness and no pedal edema Gastrointestinal (Abdomen): normal bowel sounds, soft, nontender, no hepatosplenomegaly Musculoskeletal: no cyanosis or clubbing, extremities motor strength 5/5 Skin: no rashes, warm and dry Neurologic: moves all extremities and awake; not confused Psychiatric: A+Ox3, euthymic affect Results & Data Results & Data Vital Signs (Past 12 Hours) Vital Signs Temp Pulse Pulse Resp BP BP Pulse Ox 10/27/22 22:37 36.6 C 102 H 24 109/61 92 10/27/22 22:02 98 H 21 94 10/27/22 22:02 98 H 20 94 10/27/22 20:20 112 H 28 H 128/77 94 10/27/22 20:13 104 H 25 H 93 10/27/22 19:55 109 H 22 116/77 94 10/27/22 19:45 105 H 25 H 96 10/27/22 19:36 10/27/22 19:23 113 H 136/92 10/27/22 18:50 36.3 C L 132 H 28 H 134/84 97 10/27/22 18:14 10/27/22 17:55 122 H 10/27/22 17:33 116 H 22 119/74 10/27/22 16:46 128 H 22 136/97 95 10/27/22 15:31 154 H 18 124/76 97 10/27/22 14:46 151 H 24 94 10/27/22 13:31 10/27/22 13:31 10/27/22 13:31 6 L 10/27/22 13:35 37.1 C 162 H 24 117/61 95 O2 Del Method O2 Flow Rate FiO2 10/27/22 22:37 BiPAP 10/27/22 22:02 9 10/27/22 22:02 BiPAP 9 10/27/22 20:20 BiPAP 9 10/27/22 20:13 BiPAP 5 10/27/22 19:55 BiPAP 10/27/22 19:45 5 10/27/22 19:36 Non-rebreather 15 10/27/22 19:23 10/27/22 18:50 Oxymask 15 10/27/22 18:14 BiPAP 10/27/22 17:55 10/27/22 17:33 BiPAP 10/27/22 16:46 BiPAP 40 10/27/22 15:31 BiPAP 10/27/22 14:46 40 10/27/22 13:31 Nasal Cannula 4 10/27/22 13:31 Nasal Cannula 6 10/27/22 13:31 Nasal Cannula 10/27/22 13:35 Nasal Cannula 6 Laboratory Results Abnormal lab results 10/27/22 10/27/22 10/27/22 Range/Units 14:11 14:11 16:34 WBC 10.93 H (4.8-10.8) K/ul RBC 3.69 L (4.70-6.10) M/uL Hgb 12.5 L (14.0-18.0) g/dl Hct 37.0 L (42.0-52.0) % MCV 100.3 H (80.0-100.0) fL RDW Std Deviation 50.4 H (36.4-46.3) fL Neut # (Auto) 9.42 H (1.40-6.50) K/uL Lymph # (Auto) 0.50 L (1.2-3.4) K/uL Terrell # (Auto) 0.95 H (0.11-0.59) K/uL ABG O2 Saturation (90-95) % Glucose 131 H (70-99(Fasting)) mg/dl Total Bilirubin 1.1 H (0.2-1.0) mg/dl Troponin I High Sens 85.8 H* 75.9 H* (0-20) pg/ml 10/27/22 Range/Units 16:41 WBC (4.8-10.8) K/ul RBC (4.70-6.10) M/uL Hgb (14.0-18.0) g/dl Hct (42.0-52.0) % MCV (80.0-100.0) fL RDW Std Deviation (36.4-46.3) fL Neut # (Auto) (1.40-6.50) K/uL Lymph # (Auto) (1.2-3.4) K/uL Terrell # (Auto) (0.11-0.59) K/uL ABG O2 Saturation 98.3 H (90-95) % Glucose (70-99(Fasting)) mg/dl Total Bilirubin (0.2-1.0) mg/dl Troponin I High Sens (0-20) pg/ml Diagnostic Findings XR chest 1V portable HISTORY: 77 years-old Male Sepsis acute sepsis COMPARISON: CTA chest 09/11/2019 TECHNIQUE: AP view of the chest FINDINGS: Unchanged cardiomediastinal and hilar silhouettes. No pneumothorax, pleural effusion or overt pulmonary edema. Emphysema with chronic fibrotic changes. Degenerative changes of the shoulders and spine. IMPRESSION: 1. Cardiomegaly without acute process. 2. Emphysema with chronic fibrotic changes. Medications Administered ER Medications Given: Diltazem 20mg IV Cefepime 2g IV Levalbuterol 1.25mg NEB NSS L bolus Solu-Medrol 40 mg IV Heparin IV standard drip without bolus ECG Rate (beats per minute): 179 Rhythm: atrial fibrillation Findings: + nonspecific-ST abn Comparison ECG Date: from (Sep 11, 2022) Change: the following changes noted (a. fib is new, widespread likely rate related ST depression and TWI changes) Code Status & VTE Plan Code Status Full VTE Prophylaxis Plan VTE Prophylaxis will be ordered: Yes Critical Care Time Critical Care Time: Yes Total Critical Care Time: 35 PG Care Time/CCT Total # of Minutes Spent Total Time Spent with Patient: Total time spent is greater than 50% in coordination of care (as documented) at patient's floor/unit and/or counseling patient: Critical Care Time: Yes Total Critical Care Time: 35 Coding Level of Care Code 28424 INT INP/OBS CARE 3/75MIN Diagnoses Acute and chronic respiratory failure with hypoxia J96.21 New onset a-fib I48.91 COPD exacerbation J44.1 On home oxygen therapy Z99.81 Tobacco abuse Z72.0 Chronic gout [id number] Hypertension I10 Hypertension type: essential hypertension Additional Codes Critical Care Time - Critical Care Time: Yes ([id number]) (7) Hypertension Hypertension type: essential hypertension Qualified Code(s): I10 - Essential (primary) hypertension
--- NOTE | 2022-10-28 00:24 | Communication Note ---
Date of Service: October 27, 2022 Patient unable to get through CT for PE as he became significantly more short of breath while lying down and off BiPAP. Will get d-dimer to assess likelihood of PE and hopefully can try to get CT for PE tomorrow. Patient reviewed and feels he has improve throughout the day. Currently on BiPAP. Solu-Medrol actually never given in the ER - order was discontinued. Allergy on chart for hallucinations with IV Solu-Medrol. This is likely a dose related effect. Will try patient on dexamethasone 8mg IV BID and monitor for hallucinations.
[2022-10-28 00:25] LABS: Partial Thromboplastin Time 128.7 Seconds (21.0-31.0)
[2022-10-28 00:26] LABS: D Dimer 1180 ug/L FEU (0-500)
[2022-10-28] MEDS: dexAMETHasone 8 MG in SYRINGE 0 ML IV SCH ×2 (00:49→07:48)
[2022-10-28] MEDS: AZITHROMYCIN 500 MG in DEXTROSE 5% 250 ML IV SCH (00:49)
[2022-10-28] MEDS: ALBUT/IPRATROP 3MG/0.5MG NEB 3 ML VIAL NEB SCH ×6 (02:05→22:16)
[2022-10-28] MEDS: dilTIAZem HCL 125 MG in DEXTROSE 5% 100 ML IV SCH ×4 (02:11→20:11)
--- NOTE | 2022-10-28 02:24 | Communication Note ---
Date of Service: October 28, 2022 Received signout from daytime attending, Dr. Hernández regarding pending D-dimer lab. Reviewed results showing D-dimer of 1180. Ordered CTA chest. Resident Activity Tracking Resident Involvement: Assistant Business Manager Coverage Note Care Provided: Adult Hospital Medicine
--- NOTE | 2022-10-28 06:48 | Pulmonary Consultation ---
Date of Consultation October 28, 2022 Assessment & Plan (1) New onset a-fib: (2) Acute and chronic respiratory failure with hypoxia: (3) On home oxygen therapy: (4) COPD (chronic obstructive pulmonary disease): COPD type: emphysema Emphysema type: centrilobular Qualified Code(s): J43.2 - Centrilobular emphysema (5) Tobacco abuse: Plan CT chest 09/11/2022 personally reviewed: See there are centrilobular and paraseptal emphysema appreciated bilaterally Right lower lobe pneumonia supradiaphragmatic Minimal mediastinal lymphadenopathy Chest x-ray 10/27/2022 personally reviewed: Portable film, good respiratory effor t, mild blunting of bilateral costophrenic angles, increased cardiac silhouette. Minimal increase in pulmonary vascular markings. No clear lung infiltrate -- Acute on chronic respiratory failure chronic Likely from new onset A-fib with RVR Patient denies any issues with wheezing, although he does have severe COPD with emphysema Respiratory bio fire negative 10/27/2022 -- Severe COPD with emphysema On Trelegy at home Follows up with Dr. Hahn as an outpatient, he was seen last by him on 05/19/2022 does not seem to be in exacerbation Consider pulmonary rehab as an outpatient -- Current smoker Importance of quitting explained to the patient in depth --New onset A-fib Hold heparin drip Patient's severe COPD as well as chronic hypoxic respiratory failure puts him at risk for A-fib. Pulmonary emboli can also result in new onset A-fib. Given the patient is back to his baseline oxygen, I doubt pulmonary emboli being one of the reason Plan: In/out: +2.2 L f/u BNP Recommend 2D echo if not already done Decreased dexamethasone to 6 mg on a daily basis, in the next couple of days can start tapering prednisone for 5 days Complete 3 days of azithromycin Add Incruse to the nebulizers New onset A-fib, patient's severe COPD as well as chronic hypoxic respiratory failure puts him at risk for A-fib. Pulmonary emboli can also result in new onset A-fib. Given the patient is back to his baseline oxygen, I doubt pulmonary emboli being one of the reason Recommend outpatient polysomnography Patient would benefit from pulmonary rehab Please note the above document was generated using voice recognition software. It may contain grammatical, syntax or spelling errors.Any formal questions or concerns about the content, text or information contained within the body of this dictation should be directly addressed to the provider for clarification. History of Present Illness Attending Physician: Raf Hernández MD History of Present Illness 77-year-old male presented to hospital with complaints of shortness of breath Past medical history: COPD on 4 L oxygen at home, gout, hypertension Pulmonary consulted for hypoxia At the time of examination patient's is also in the room. He was saturating 94% on 5 L nasal cannula at rest. Went down to 4 L which is his baseline. He stated that the shortness of breath is usually on exertion. He denied any worsening in the cough, no chest congestion, no wheezing, no chest pain with shortness of breath. He has been compliant with his Trelegy inhaler and has been using it on a daily basis. Denies any fever or chills, no dysuria, no diarrhea No hematuria, no hematochezia. No headache, no dizziness Social history: Greater than 36-roit-hesv smoking history, actively smoking right now. Allergies Allergy/AdvReac Type Severity Reaction Status Date / Time lisinopril Allergy Unknown Swelling Verified 10/27/22 12:38 of face methylprednisolone Allergy Unknown HALLUCINATION-IV Verified 10/27/22 12:38 SOLUMEDROL budesonide AdvReac Unknown DIDN'T WORK Verified 10/27/22 12:38 [From [employer]] formoterol AdvReac Unknown DIDN'T WORK Verified 10/27/22 12:38 [From [employer]] glycopyrrolate AdvReac Unknown DIDN'T WORK Verified 10/27/22 12:38 [From [employer]] Home Medications Medication Instructions Recorded Confirmed Type amlodipine 10 mg tablet 10 mg PO QAM #90 tabs 02/02/22 10/27/22 Rx fluticasone fur. 100 mcg-umeclid 1 inh inhalation QAM 03/31/22 10/27/22 History 62.5 mcg-vilant 25 mcg inhalat.powder (Trelegy Ellipta) nicotine 7 mg/24 hr daily 1 patch transdermal Q24H #7 ea 04/30/22 10/27/22 Rx transdermal patch (Nicoderm CQ) Portable Oxygen #1 ea 05/04/22 10/27/22 Rx allopurinol 300 mg tablet 300 mg PO QAM #90 tabs 07/17/22 10/27/22 Rx doxazosin 2 mg tablet 2 mg PO QPM #90 tabs 07/17/22 10/27/22 Rx pravastatin 20 mg tablet 20 mg PO QAM #90 tabs 07/17/22 10/27/22 Rx escitalopram oxalate 10 mg tablet 10 mg PO HS #90 tabs 07/21/22 10/27/22 Rx (Lexapro) metoprolol succinate 50 mg 50 mg PO HS #90 tabs 07/21/22 10/27/22 Rx tablet,extended release 24 hr Ventolin HFA 90 mcg/actuation 2 puff inhalation QID PRN 08/10/22 10/27/22 Rx aerosol inhaler (albuterol sulfate) shortness of breath or wheezing 90 days #3 Inhalers cyanocobalamin (vitamin B-12) 1,000 mcg sublingual DAILY 09/11/22 10/27/22 History 1,000 mcg sublingual tablet Patient History Medical History (Updated 10/28/22 @ 00:55 by Raf Hernández MD) Chronic gout COPD (chronic obstructive pulmonary disease) RESCUE INHALER DAILY (NO MORE THAN TWICE A DAY) Depression Dyspnea on exertion Ecchymosis History of acute illness SEPTEMBER 2021 - RESOLVED PT WAS R/S FOR COLONOSCOPY D/T ILLNESS. History of colon polyps History of diverticulitis of colon History of nicotine dependence Hyperglycemia Hyperlipidemia Hypertension Hypoxemia Kidney stone (2014) HX Macular degeneration BOTH EYES/INJECTIONS Q 6-8 WKS Overactive bladder ? / PROSTATE PROBLEM ? - NOT SURE DETAILS/PROSTATE NOT ENLARGED Respiratory distress Skin cancer BCC ON FACE - RECENTLY SHAVED OFF - HEALED Solitary pulmonary nodule ? SIDE / CT SCAN 2 MON AGO - GROWN - F/U CT SCAN IN JUN 2021 Surgical History History of cardiac cath SUMMER 2017/ NO STENT(S) History of cataract surgery RT/LEFT History of colonoscopy last 2018 @ [facility] History of lithotripsy History of tooth extraction Status post Mohs surgery MULTIPLE Family History Brother Emphysema lung Other No family history of adverse response to anesthesia Denies family history of Ovarian cancer Prostate cancer Myocardial infarction Breast cancer Colorectal cancer Social History Smoking Status: Current every day smoker Tobacco Type: Cigarettes Age Started Using Tobacco: 21; packs per day: 0.25; Cigarettes Per Day: 20; Second Hand Exposure: Yes; Hx Alcohol Use: Yes Alcohol type: hard liquor Alcohol Intake Frequency: Monthly or Less Hx Substance Use: No Preferred Language: Moroccan Communication Ability: Effective Visual Impairment: No Limitations Hearing Ability: Normal Edge Gluer Required: No Beliefs That Will Affect Care: None marital status: Current Living Situation: Spouse current occupational status: retired 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 [employer] Other Information That Helps Us Care for You: No Feels Safe at Home: Yes Safety Concerns: Feels Safe At This Time Physical Activity Frequency: 1-2 Times per Week Seatbelt Use: always Assistive Devices: Cane, Denture - Upper, Denture - Lower, Glasses, Oxygen - at Night, Oxygen - Continuous, Walker and Wheelchair Review of Systems Review of Systems: All systems reviewed & are unremarkable except as noted in HPI & below Physical Exam Physical Exam: Constitutional: No acute distress HEENT: EOMI, PERRLA Respiratory system: Decreased air entry bilaterally, no wheeze, no rhonchi, mild crackles bilateral lower lobes CVS: S1-S2 positive, no murmurs or gallops, tachycardia, irregular Abdomen: Soft, nontender, nondistended, positive bowel sounds x4 Extremities: +2 pulses bilaterally radialis/ dorsalis pedis, no cyanosis, no e venus Neuro: Awake alert oriented x3 Psych: Normal mood and affect G/U: No Murillo Skin: no rashes, warm and dry Lymphatic: no cervical or axillary lymphadenopathy Results & Data Results & Data Vital Signs (Past 12 Hours) Vital Signs Temp Pulse Pulse Resp BP Pulse Ox O2 Del Method 10/27/22 19:38 121 H 10/28/22 04:23 36.4 C L 89 24 94/57 L 96 BiPAP 10/28/22 02:05 21 95 10/27/22 22:00 72 10/27/22 22:37 36.6 C 102 H 24 109/61 92 BiPAP 10/27/22 22:02 98 H 21 94 10/27/22 22:02 98 H 20 94 BiPAP 10/27/22 20:20 112 H 28 H 128/77 94 BiPAP 10/27/22 20:13 104 H 25 H 93 BiPAP 10/27/22 19:55 109 H 22 116/77 94 BiPAP 10/27/22 19:45 105 H 25 H 96 10/27/22 19:36 Non-rebreather 10/27/22 19:23 113 H 136/92 10/27/22 18:50 36.3 C L 132 H 28 H 134/84 97 Oxymask O2 Flow Rate FiO2 10/27/22 19:38 10/28/22 04:23 50 10/28/22 02:05 50 10/27/22 22:00 10/27/22 22:37 10/27/22 22:02 9 10/27/22 22:02 9 10/27/22 20:20 9 10/27/22 20:13 5 10/27/22 19:55 10/27/22 19:45 5 10/27/22 19:36 15 10/27/22 19:23 10/27/22 18:50 15 Laboratory Results 10/28/22 08:36 10/28/22 08:36 PG Care Time/CCT Total # of Minutes Spent Total Time Spent with Patient: Total time spent is greater than 50% in coordination of care (as documented) at patient's floor/unit and/or counseling patient: Coding Level of Care Code 46475 INT INP/OBS CARE 3/75MIN Diagnoses New onset a-fib I48.91 Acute and chronic respiratory failure with hypoxia J96.21 On home oxygen therapy Z99.81 COPD (chronic obstructive pulmonary disease) J43.2 COPD type: emphysema Emphysema type: centrilobular Tobacco abuse Z72.0
[2022-10-28] MEDS: FORMOTEROL 20 MCG/2 ML VIAL NEB SCH ×2 (07:14→19:38)
[2022-10-28] MEDS: BUDESONIDE 0.5 MG/2 ML VIAL (PULMICORT) NEB SCH ×2 (07:15→19:38)
[2022-10-28] MEDS: PRAVASTATIN SOD 20 MG TAB PO SCH (07:48)
[2022-10-28] MEDS: allopurinoL 300 MG TAB PO SCH (07:48)
[2022-10-28 08:50] LABS: Hematocrit (blood only) 33.9 % (42.0-52.0); Hemoglobin 11.6 g/dl (14.0-18.0); Mean Corpuscular Hemoglobin 33.8 pg (25.0-34.0); Mean Corpuscular Hgb Conc 34.2 g/dL (32.0-36.0); Mean Corpuscular Volume 98.8 fL (80.0-100.0); Mean Platelet Volume 9.9 fL (9.4-12.4); Platelet Count 281 K/uL (130-400); RDW Coefficient of Variation 13.8 % (11.5-14.5); RDW Standard Deviation 50.1 fL (36.4-46.3); Red Blood Count 3.43 M/uL (4.70-6.10); White Blood Count 6.01 K/ul (4.8-10.8)
[2022-10-28 09:09] LABS: BUN Creatinine Ratio 25.3 (10-20); Calcium 8.6 mg/dl (8.6-10.3); Creatinine Clr Calc Pharmacy 83.4 ml/min; Est GFR (African American) 101.8 ml/min; Est GFR (Non-African American) 87.8 ml/min; Potassium 4.2 mmol/L (3.5-5.1)
[2022-10-28 09:16] LABS: Partial Thromboplastin Ratio 1.5; Partial Thromboplastin Time 41.2 Seconds (21.0-31.0)
[2022-10-28 09:20] LABS: Basophils # (auto) 0.02 K/uL (0-0.2); Basophils % (auto) 0.3 %; Immature Granulocytes # (auto) 0.02 K/uL (0.01-0.20); Immature Granulocytes % (auto) 0.3 %; Lymphocytes # (auto) 0.38 K/uL (1.2-3.4); Lymphocytes % (auto) 6.3 %; Monocytes # (auto) 0.15 K/uL (0.11-0.59); Monocytes % (auto) 2.5 %; Neutrophils # (auto) 5.44 K/uL (1.40-6.50); Neutrophils % (auto) 90.6 %
[2022-10-28 09:25] LABS: Appearance Urine Clear (Clear); Bacteria Urine Automated Negative (Negative); Bilirubin Urine Negative (Negative); Blood Urine Negative (Negative); Color Urine Dark Yellow; Glucose Urine UA Negative (Negative); Ketones Urine Trace (Negative); Leukocyte Esterase Urine Negative (Negative); Nitrite Urine Negative (Negative); Protein Urine 1+ (Negative); RBC Urine Automated 0-4 /hpf (0-4); Specific Gravity Urine 1.026 (1.000-1.030); Urobilinogen Urine Negative (Negative); pH Urine 5.5 (4.5-7.5)
[2022-10-28] MEDS: HEPARIN SODIUM/DEXTROSE 25,000 UNITS/500 ML BAG IV SCH ×2 (14:02→17:03)
[2022-10-28] MEDS ORDERED: OPTIRAY 320 500ml IV ONE (14:16)
--- NOTE | 2022-10-28 14:47 | CT Scan Report ---
CT angio chest PE protocol CLINICAL HISTORY: PE TECHNIQUE: Multidetector row helical CT of the chest was performed with angiographic protocol. Vines l and sagittal reformations were obtained. Coronal and sagittal MIPS were obtained from the axial waqar a set and were submitted for review. Automated dose lowering techniques and/or adjustment according to patient size were utilized for this exam. CT DOSE: 581.85 mGy.cm Comparison: Comparison is made to CT chest 09/11/2022 FINDINGS: Lungs and pleura: Extensive emphysematous changes are seen in the lungs. Calcified granulomata are se en with evidence of suspicious nodules. Airspace opacity in the right lung base is unchanged from huy or exam, there is a new airspace opacity in the right middle lobe. Heart and pericardium: Heart size is normal. No pericardial effusion. Vessels: No evidence of pulmonary embolism. Pulmonary trunk measures 33 mm in diameter. Mediastinum and pawan: Mediastinal lymph nodes measure up to 14 mm in diameter. This is unchanged to d ecreased in size from prior exam. Chest wall and lower neck: Unremarkable. Abdomen: Unremarkable. Bones: Degenerative changes of the thoracic spine. Old left-sided incompletely healed rib fractures n oted. IMPRESSION: 1. No pulmonary embolus is seen. 2. Focal airspace opacity in the right anterior lung base is new from prior exam. Right posterior dane ng base airspace opacity is unchanged. Findings are compatible with pneumonia versus aspiration. Foll ow-up to resolution is recommended. 3. Emphysema and pulmonary hypertension. 4. Precarinal lymph node is essentially unchanged from prior exams. ACT 112: Negative or not required by law. Electronically signed by: Errol Young M.D. 10/28/2022 2:46 PM
[2022-10-28] MEDS: UMECLIDINIUM BROMIDE 62.5MCG/BLISTER 7 PUFFS/INHALER INH SCH (14:48)
--- NOTE | 2022-10-28 14:53 | Cardiology Consultation ---
Date of Consultation October 28, 2022 Assessment & Plan (1) New onset a-fib: (2) Acute and chronic respiratory failure with hypoxia: (3) Tobacco abuse: (4) Pulmonary hypertension: (5) Mitral regurgitation: Plan ASSESSMENT/PLAN: 1. Atrial fibrillation with rapid ventricular response: We discussed the diagnosis in detail. Discussed treatment strategies. May be difficult to rate control but would like to avoid transesophageal echo while here with acute COPD exacerbation and acute on chronic respiratory failure with hypoxia. Will increase metoprolol and for now, changed to tartrate. Would like to replace IV diltiazem with p.o. if reasonable response with medical therapy. Could also consider digoxin. Recommend anticoagulation therapy for stroke risk reduction. He is agreeable. If reasonably rate controlled, could consider cardioversion as an outpatient after 4 weeks of therapeutic anticoagulation therapy. Discussed also antiarrhythmic therapy but once again would not want to convert him currently as onset of A-fib is not known. There is a possibility that he will spontaneously convert. 2. Pulmonary hypertension: Likely due to to known COPD and emphysema. 3. Tobacco abuse: Recommended that he stop smoking. 4. Alcohol use: Recommended that he avoid or significantly reduce alcohol consumption as it could precipitate A-fib. 5. Acute on chronic respiratory failure with hypoxia: Feeling much better with treatment for COPD exacerbation. As per pulmonology. He does not appear hypervolemic. CTA chest is pending. 6. Mitral regurgitation: Nonsevere. No specific treatment necessary. 7. Disposition: Cardiology will continue to follow. Patient care communicated with primary hospitalist, Dr. Thompson. Highly complex medical issues. Thank you for allowing me to participate in the care of your patient. Please call for any other questions or concerns. Sincerely, Ray Pollack M.D. History of Present Illness Reason for Consultation: New onset atrial fibrillation Requesting Physician: Dr. Hernández Attending Physician: Raf Thompson History of Present Illness Mr. Murillo is a pleasant 77-year-old gentleman with a history significant for severe COPD/emphysema, chronic respiratory failure with hypoxia on supplemental oxygen 4 L, hypertension, and ongoing tobacco abuse. He was hospitalized on 10/27/2022 with acute on chronic respiratory failure with hypoxia felt to be COPD exacerbation. He was noted to be in newly diagnosed atrial fibrillation with rapid ventricular response. He states that he is compliant with his home dose of metoprolol succinate 50 mg nightly. Hospitalist service placed him on a diltiazem drip, currently running at 15 mg/h. With current strategy, his heart rate has improved but remains tachycardic for the most part. He is completely asymptomatic in regards to his atrial fibrillation. He denies palpitations. He has been placed on steroids and antibiotics for COPD exacerbation. He also received nebulizers at home and continues with supplemental oxygen. He feels much better from a breathing standpoint, nearly back to baseline. His states that he was not himself over the weekend and then on Wednesday morning, his oxygen saturation dipped into the 60s and 70s. She increased his supplemental oxygen and gave him nebulizer treatments. He was coughing intermittently. He denies chest pain, syncope, near syncope, palpitations, edema, or bleeding such as melena, hematochezia, or hematuria. Review of systems: As above. Review of systems otherwise negative/unremarkable. Family history: No known premature CAD. Social history: Continues to smoke approximately 1 pack/day. Consumes approximately 10 alcoholic beverages per week, typically consisting of rum and coke. He lives at home with his . No biologic children. His accompanies him. Allergies Allergy/AdvReac Type Severity Reaction Status Date / Time lisinopril Allergy Unknown Swelling Verified 10/27/22 12:38 of face methylprednisolone Allergy Unknown HALLUCINATION-IV Verified 10/27/22 12:38 SOLUMEDROL budesonide AdvReac Unknown DIDN'T WORK Verified 10/27/22 12:38 [From [facility]] formoterol AdvReac Unknown DIDN'T WORK Verified 10/27/22 12:38 [From [facility]] glycopyrrolate AdvReac Unknown DIDN'T WORK Verified 10/27/22 12:38 [From [facility]] Home Medications Medication Instructions Recorded Confirmed Type amlodipine 10 mg tablet 10 mg PO QAM #90 tabs 02/02/22 10/27/22 Rx fluticasone fur. 100 mcg-umeclid 1 inh inhalation QAM 03/31/22 10/27/22 History 62.5 mcg-vilant 25 mcg inhalat.powder (Trelegy Ellipta) nicotine 7 mg/24 hr daily 1 patch transdermal Q24H #7 ea 04/30/22 10/27/22 Rx transdermal patch (Nicoderm CQ) Portable Oxygen #1 ea 05/04/22 10/27/22 Rx allopurinol 300 mg tablet 300 mg PO QAM #90 tabs 07/17/22 10/27/22 Rx doxazosin 2 mg tablet 2 mg PO QPM #90 tabs 07/17/22 10/27/22 Rx pravastatin 20 mg tablet 20 mg PO QAM #90 tabs 07/17/22 10/27/22 Rx escitalopram oxalate 10 mg tablet 10 mg PO HS #90 tabs 07/21/22 10/27/22 Rx (Lexapro) metoprolol succinate 50 mg 50 mg PO HS #90 tabs 07/21/22 10/27/22 Rx tablet,extended release 24 hr Ventolin HFA 90 mcg/actuation 2 puff inhalation QID PRN 08/10/22 10/27/22 Rx aerosol inhaler (albuterol sulfate) shortness of breath or wheezing 90 days #3 Inhalers cyanocobalamin (vitamin B-12) 1,000 mcg sublingual DAILY 09/11/22 10/27/22 History 1,000 mcg sublingual tablet Patient History Medical History Chronic gout COPD (chronic obstructive pulmonary disease) RESCUE INHALER DAILY (NO MORE THAN TWICE A DAY) Depression Dyspnea on exertion Ecchymosis History of acute illness SEPTEMBER 2021 - RESOLVED PT WAS R/S FOR COLONOSCOPY D/T ILLNESS. History of colon polyps History of diverticulitis of colon History of nicotine dependence Hyperglycemia Hyperlipidemia Hypertension Hypoxemia Kidney stone (2014) HX Macular degeneration BOTH EYES/INJECTIONS Q 6-8 WKS Overactive bladder ? / PROSTATE PROBLEM ? - NOT SURE DETAILS/PROSTATE NOT ENLARGED Respiratory distress Skin cancer BCC ON FACE - RECENTLY SHAVED OFF - HEALED Solitary pulmonary nodule ? SIDE / CT SCAN 2 MON AGO - GROWN - F/U CT SCAN IN JUN 2021 Surgical History History of cardiac cath SUMMER 2017/ NO STENT(S) History of cataract surgery RT/LEFT History of colonoscopy last 2018 @ [facility] History of lithotripsy History of tooth extraction Status post Mohs surgery MULTIPLE Family History Brother Emphysema lung Other No family history of adverse response to anesthesia Denies family history of Ovarian cancer Prostate cancer Myocardial infarction Breast cancer Colorectal cancer Social History Smoking Status: Current every day smoker Tobacco Type: Cigarettes Age Started Using Tobacco: 21; packs per day: 0.25; Cigarettes Per Day: 20; Second Hand Exposure: Yes; Hx Alcohol Use: Yes Alcohol type: hard liquor Alcohol Intake Frequency: Monthly or Less Hx Substance Use: No Preferred Language: Estonian Communication Ability: Effective Visual Impairment: No Limitations Hearing Ability: Normal Hoop Rolls Operator Required: No Beliefs That Will Affect Care: None marital status: Current Living Situation: Spouse current occupational status: retired 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 Alert and oriented. HEENT: Anicteric sclera. Neck: No JVD. No bruits. Normal carotid upstrokes bilaterally. Cardiac: No ventricular heave. Irregularly irregular. Tachycardic. Normal S1- S2. No murmurs, rubs, or gallops. Pulmonary: Significantly reduced lung sounds bilaterally, but no obvious rales, rhonchi, or wheezing. Abdomen: Soft, nontender, nondistended, with normoactive bowel sounds. No bruits noted. Extremities: 2+ radial pulses bilaterally. 2+ posterior tibialis pulses bilaterally. No edema or cyanosis. Psychiatric: Affect appears appropriate. Results & Data Vital Signs (Past 12 Hours) Vital Signs Temp Pulse Resp BP Pulse Ox O2 Del Method O2 Flow Rate 10/28/22 11:39 36.5 C 112 H 22 126/80 94 Nasal Cannula 5 10/28/22 11:06 115 H 18 94 Nasal Cannula 5 10/28/22 09:00 Nasal Cannula 10/28/22 07:57 36.5 C 98 H 22 104/70 94 Nasal Cannula 5 10/28/22 07:15 99 H 20 BiPAP 10/28/22 04:23 36.4 C L 89 24 94/57 L 96 BiPAP FiO2 10/28/22 11:39 10/28/22 11:06 10/28/22 09:00 10/28/22 07:57 10/28/22 07:15 50 10/28/22 04:23 50 Laboratory Results Laboratory Results - last 24 hr 10/27/22 10/27/22 10/27/22 14:11 14:11 14:11 WBC RBC Hgb Hct MCV MCH MCHC RDW Std Deviation RDW Coeff of [place] Plt Count MPV Immature Gran % (Auto) Neut % (Auto) Lymph % (Auto) [place] % (Auto) Eos % (Auto) Baso % (Auto) Neut # (Auto) Lymph # (Auto) [place] # (Auto) Eos # (Auto) Baso # (Auto) Immature Gran # (Auto) PT 10.3 INR 1.0 APTT 29.8 PTT Ratio 1.1 D-Dimer ABG pH ABG pCO2 ABG pO2 ABG HCO3 ABG O2 Saturation ABG Base Excess Georges Test Oxygen Given Sodium 137 Potassium 4.3 Chloride 101 Carbon Dioxide 26 Anion Gap 10 BUN 19 Creatinine 1.01 Est Cr Clr Drug Dosing Not Reportable Est GFR ( Amer) 83.9 Est GFR (Non-Af Amer) 72.4 BUN/Creatinine Ratio 18.8 Glucose 131 H Calcium 8.7 Magnesium 1.8 Total Bilirubin 1.1 H Direct Bilirubin 0.2 AST 13 ALT 7 Alkaline Phosphatase 69 Troponin I High Sens 85.8 H* Total Protein 6.5 Albumin 3.5 Procalcitonin 0.34 TSH Urine Color Urine Appearance Urine pH Ur Specific Atkins Urine Protein Urine Glucose (UA) Urine Ketones Urine Blood Urine Nitrite Urine Bilirubin Urine Urobilinogen Ur Leukocyte Esterase Urine WBC (Auto) Urine RBC (Auto) U Hyaline Cast (Auto) U Epithel Cells (Auto) Urine Bacteria (Auto) Adenovirus (PCR) B. pertussis DNA (PCR) B.parapertussis DNA PCR C. pneumoniae DNA (PCR) Coronavirus OC43 (PCR) Coronavirus HKU1 (PCR) Coronavirus 229E (PCR) SARS-CoV-2 (PCR) Coronavirus NL63 (PCR) Human Metapneumovir PCR Influenza Type A (PCR) Influenza Type B (PCR) M. pneumoniae (PCR) Parainfluenza 1 (PCR) Parainfluenza 2 (PCR) Parainfluenza 3 (PCR) Parainfluenza 4 (PCR) RSV (PCR) Entero/Rhino (PCR) 10/27/22 10/27/22 10/27/22 14:40 16:34 16:41 WBC RBC Hgb Hct MCV MCH MCHC RDW Std Deviation RDW Coeff of [place] Plt Count MPV Immature Gran % (Auto) Neut % (Auto) Lymph % (Auto) [place] % (Auto) Eos % (Auto) Baso % (Auto) Neut # (Auto) Lymph # (Auto) [place] # (Auto) Eos # (Auto) Baso # (Auto) Immature Gran # (Auto) PT INR APTT PTT Ratio D-Dimer ABG pH 7.41 ABG pCO2 37 ABG pO2 93 ABG HCO3 24 ABG O2 Saturation 98.3 H ABG Base Excess -0.8 Georges Test Pos Oxygen Given FIO2 40% Sodium Potassium Chloride Carbon Dioxide Anion Gap BUN Creatinine Est Cr Clr Drug Dosing Est GFR ( Amer) Est GFR (Non-Af Amer) BUN/Creatinine Ratio Glucose Calcium Magnesium Total Bilirubin Direct Bilirubin AST ALT Alkaline Phosphatase Troponin I High Sens 75.9 H* Total Protein Albumin Procalcitonin TSH Urine Color Urine Appearance Urine pH Ur Specific Atkins Urine Protein Urine Glucose (UA) Urine Ketones Urine Blood Urine Nitrite Urine Bilirubin Urine Urobilinogen Ur Leukocyte Esterase Urine WBC (Auto) Urine RBC (Auto) U Hyaline Cast (Auto) U Epithel Cells (Auto) Urine Bacteria (Auto) Adenovirus (PCR) Not Detected B. pertussis DNA (PCR) Not Detected B.parapertussis DNA PCR Not Detected C. pneumoniae DNA (PCR) Not Detected Coronavirus OC43 (PCR) Not Detected Coronavirus HKU1 (PCR) Not Detected Coronavirus 229E (PCR) Not Detected SARS-CoV-2 (PCR) Not Detected Coronavirus NL63 (PCR) Not Detected Human Metapneumovir PCR Not Detected Influenza Type A (PCR) Not Detected Influenza Type B (PCR) Not Detected M. pneumoniae (PCR) Not Detected Parainfluenza 1 (PCR) Not Detected Parainfluenza 2 (PCR) Not Detected Parainfluenza 3 (PCR) Not Detected Parainfluenza 4 (PCR) Not Detected RSV (PCR) Not Detected Entero/Rhino (PCR) Not Detected 10/27/22 10/27/22 10/28/22 16:42 22:50 08:00 WBC RBC Hgb Hct MCV MCH MCHC RDW Std Deviation RDW Coeff of [place] Plt Count MPV Immature Gran % (Auto) Neut % (Auto) Lymph % (Auto) [place] % (Auto) Eos % (Auto) Baso % (Auto) Neut # (Auto) Lymph # (Auto) [place] # (Auto) Eos # (Auto) Baso # (Auto) Immature Gran # (Auto) PT INR APTT 128.7 H* PTT Ratio 4.7 D-Dimer Cancelled 1180 H* ABG pH ABG pCO2 ABG pO2 ABG HCO3 ABG O2 Saturation ABG Base Excess Georges Test Oxygen Given Sodium Potassium Chloride Carbon Dioxide Anion Gap BUN Creatinine Est Cr Clr Drug Dosing Est GFR ( Amer) Est GFR (Non-Af Amer) BUN/Creatinine Ratio Glucose Calcium Magnesium Total Bilirubin Direct Bilirubin AST ALT Alkaline Phosphatase Troponin I High Sens Total Protein Albumin Procalcitonin TSH Urine Color Dark Yellow Urine Appearance Clear Urine pH 5.5 Ur Specific Atkins 1.026 Urine Protein 1+ H Urine Glucose (UA) Negative Urine Ketones Trace H Urine Blood Negative Urine Nitrite Negative Urine Bilirubin Negative Urine Urobilinogen Negative Ur Leukocyte Esterase Negative Urine WBC (Auto) 1-5 Urine RBC (Auto) 0-4 U Hyaline Cast (Auto) 1-5 U Epithel Cells (Auto) 5-10 H Urine Bacteria (Auto) Negative Adenovirus (PCR) B. pertussis DNA (PCR) B.parapertussis DNA PCR C. pneumoniae DNA (PCR) Coronavirus OC43 (PCR) Coronavirus HKU1 (PCR) Coronavirus 229E (PCR) SARS-CoV-2 (PCR) Coronavirus NL63 (PCR) Human Metapneumovir PCR Influenza Type A (PCR) Influenza Type B (PCR) M. pneumoniae (PCR) Parainfluenza 1 (PCR) Parainfluenza 2 (PCR) Parainfluenza 3 (PCR) Parainfluenza 4 (PCR) RSV (PCR) Entero/Rhino (PCR) 10/28/22 10/28/22 10/28/22 08:36 08:36 08:36 WBC 6.01 RBC 3.43 L Hgb 11.6 L Hct 33.9 L MCV 98.8 MCH 33.8 MCHC 34.2 RDW Std Deviation 50.1 H RDW Coeff of [place] 13.8 Plt Count 281 MPV 9.9 Immature Gran % (Auto) 0.3 Neut % (Auto) 90.6 Lymph % (Auto) 6.3 [place] % (Auto) 2.5 Eos % (Auto) 0.0 Baso % (Auto) 0.3 Neut # (Auto) 5.44 Lymph # (Auto) 0.38 L [place] # (Auto) 0.15 Eos # (Auto) 0.00 Baso # (Auto) 0.02 Immature Gran # (Auto) 0.02 PT INR APTT PTT Ratio D-Dimer ABG pH ABG pCO2 ABG pO2 ABG HCO3 ABG O2 Saturation ABG Base Excess Georges Test Oxygen Given Sodium 137 Potassium 4.2 Chloride 103 Carbon Dioxide 27 Anion Gap 7 BUN 20 Creatinine 0.79 Est Cr Clr Drug Dosing 83.4 Est GFR ( Amer) 101.8 Est GFR (Non-Af Amer) 87.8 BUN/Creatinine Ratio 25.3 H Glucose 165 H Calcium 8.6 Magnesium Total Bilirubin Direct Bilirubin AST ALT Alkaline Phosphatase Troponin I High Sens Total Protein Albumin Procalcitonin TSH 0.472 Urine Color Urine Appearance Urine pH Ur Specific Atkins Urine Protein Urine Glucose (UA) Urine Ketones Urine Blood Urine Nitrite Urine Bilirubin Urine Urobilinogen Ur Leukocyte Esterase Urine WBC (Auto) Urine RBC (Auto) U Hyaline Cast (Auto) U Epithel Cells (Auto) Urine Bacteria (Auto) Adenovirus (PCR) B. pertussis DNA (PCR) B.parapertussis DNA PCR C. pneumoniae DNA (PCR) Coronavirus OC43 (PCR) Coronavirus HKU1 (PCR) Coronavirus 229E (PCR) SARS-CoV-2 (PCR) Coronavirus NL63 (PCR) Human Metapneumovir PCR Influenza Type A (PCR) Influenza Type B (PCR) M. pneumoniae (PCR) Parainfluenza 1 (PCR) Parainfluenza 2 (PCR) Parainfluenza 3 (PCR) Parainfluenza 4 (PCR) RSV (PCR) Entero/Rhino (PCR) 10/28/22 08:36 WBC RBC Hgb Hct MCV MCH MCHC RDW Std Deviation RDW Coeff of [place] Plt Count MPV Immature Gran % (Auto) Neut % (Auto) Lymph % (Auto) [place] % (Auto) Eos % (Auto) Baso % (Auto) Neut # (Auto) Lymph # (Auto) [place] # (Auto) Eos # (Auto) Baso # (Auto) Immature Gran # (Auto) PT INR APTT 41.2 H PTT Ratio 1.5 D-Dimer ABG pH ABG pCO2 ABG pO2 ABG HCO3 ABG O2 Saturation ABG Base Excess Georges Test Oxygen Given Sodium Potassium Chloride Carbon Dioxide Anion Gap BUN Creatinine Est Cr Clr Drug Dosing Est GFR ( Amer) Est GFR (Non-Af Amer) BUN/Creatinine Ratio Glucose Calcium Magnesium Total Bilirubin Direct Bilirubin AST ALT Alkaline Phosphatase Troponin I High Sens Total Protein Albumin Procalcitonin TSH Urine Color Urine Appearance Urine pH Ur Specific Atkins Urine Protein Urine Glucose (UA) Urine Ketones Urine Blood Urine Nitrite Urine Bilirubin Urine Urobilinogen Ur Leukocyte Esterase Urine WBC (Auto) Urine RBC (Auto) U Hyaline Cast (Auto) U Epithel Cells (Auto) Urine Bacteria (Auto) Adenovirus (PCR) B. pertussis DNA (PCR) B.parapertussis DNA PCR C. pneumoniae DNA (PCR) Coronavirus OC43 (PCR) Coronavirus HKU1 (PCR) Coronavirus 229E (PCR) SARS-CoV-2 (PCR) Coronavirus NL63 (PCR) Human Metapneumovir PCR Influenza Type A (PCR) Influenza Type B (PCR) M. pneumoniae (PCR) Parainfluenza 1 (PCR) Parainfluenza 2 (PCR) Parainfluenza 3 (PCR) Parainfluenza 4 (PCR) RSV (PCR) Entero/Rhino (PCR) Diagnostic Findings Pulmonary consultation and history and physical report reviewed. ECGs personally reviewed: ECG 10/27/2022 at 1344: A-fib with RVR at [address]/T wave abnormality. ECG 10/27/2022 at 1547: A-fib RVR [address] abnormality. Telemetry personally reviewed: Atrial fibrillation with rapid ventricular response. Heart rate has improved with current treatment strategy. Labs reviewed and notable for normal potassium, normal renal function, mild anemia peak high-sensitivity troponin of 85 (highest on presentation), normal TSH. Chest x-ray 10/27/2022: No acute process. CTA chest pending. Echo 10/28/2022: Preliminary review suggests normal LV systolic function. Reduced RV systolic function. Mild MR. Pulmonary hypertension. Medications Administered Current Inpatient Medications Albuterol (Albut/Ipratrop 3mg/0.5mg Neb 3 Ml Vial) 3 ml NEB Q4R [facility]; Protocol Stop: 11/26/22 22:59 Last Admin: 10/28/22 11:06 Dose: 3 ml Allopurinol (Allopurinol 300 Mg Tab) 300 mg PO QAM [facility] Stop: 11/27/22 08:59 Last Admin: 10/28/22 07:48 Dose: 300 mg Budesonide (Budesonide 0.5 Mg/2 Ml Vial (Pulmicort)) 0.5 mg NEB BIDR [facility] Stop: 11/26/22 19:49 Last Admin: 10/28/22 07:15 Dose: 0.5 mg Escitalopram Oxalate (Escitalopram Oxalate 10 Mg Tab) 10 mg PO [facility] Stop: 11/26/22 20:59 Last Admin: 10/27/22 20:53 Dose: 10 mg Formoterol Fumarate (Formoterol 20 Mcg/2 Ml Vial) 20 mcg NEB BIDR [facility] Stop: 11/26/22 20:59 Last Admin: 10/28/22 07:14 Dose: 20 mcg Diltiazem HCl 125 mg/ Dextrose 125 mls @ 15 mls/hr IV .[id number] [facility]; Protocol Stop: 11/26/22 14:44 Last Admin: 10/28/22 10:56 Dose: 15 mg/hr, 15 mls/hr Heparin Sodium/Dextrose (Heparin Sodium/Dextrose) 25,000 units in 500 mls @ 24 mls/hr IV .[id number] [facility]; Protocol Stop: 11/26/22 16:29 Last Admin: 10/28/22 14:02 Dose: 1,200 units/hr, 24 mls/hr Dexamethasone 8 mg/ Syringe 2 mls @ 1 mls/min IV BID [facility] Stop: 11/27/22 00:14 Last Admin: 10/28/22 07:48 Dose: 1 mls/min Azithromycin 500 mg/ Dextrose 255 mls @ 127.5 mls/hr IV Q24H [facility] Stop: 10/30/22 01:59 Last Infusion: 10/28/22 02:50 Dose: Infused Metoprolol Succinate (Metoprolol Succ 50mg Ext Rel Tab) 50 mg PO [facility] Stop: 11/26/22 20:59 Last Admin: 10/27/22 20:53 Dose: 50 mg Pravastatin Sodium (Pravastatin Sod 20 Mg Tab) 20 mg PO QAM [facility] Stop: 11/27/22 08:59 Last Admin: 10/28/22 07:48 Dose: 20 mg Umeclidinium Worden (Umeclidinium Worden 62.5mcg/Blister 7 Puffs/Inhaler) 1 puffs INH DAILY [facility] Stop: 11/27/22 13:59 PG Care Time/CCT Total # of Minutes Spent Total Time Spent with Patient: Total time spent is greater than 50% in coordination of care (as documented) at patient's floor/unit and/or counseling patient: Coding Level of Care Code 69557 INT INP/OBS CARE 3/75MIN Diagnoses New onset a-fib I48.91 Acute and chronic respiratory failure with hypoxia J96.21 Tobacco abuse Z72.0 Pulmonary hypertension I27.20 Mitral regurgitation I34.0
[2022-10-28] MEDS: METOPROLOL TARTRATE 25 MG TAB PO SCH ×2 (15:56→20:37)
[2022-10-28 16:02] LABS: Partial Thromboplastin Ratio 1.3; Partial Thromboplastin Time 36.6 Seconds (21.0-31.0)
[2022-10-28] MEDS ORDERED: HEPARIN SOD (PORCINE) 1000 UNIT/ML IV ONE (16:45)
--- NOTE | 2022-10-28 17:17 | XCELERA ---
[id number] [id number]
--- NOTE | 2022-10-28 18:29 | Hospitalist Progress Note ---
Date of Service October 28, 2022 Assessment & Plan (1) Acute and chronic respiratory failure with hypoxia: Plan: acute component likely 2nd to #2 and #3 no evidence on CTA chest of PE, pulmonary edema no significant wheezing to suggest COPD flare required BIPAP overnight - now weaned to NC O2 sats low 90s are acceptable -- avoid over-oxygenation (2) RLL pneumonia: Plan: 09/11/22 - CTA chest with posterior RLL pneumonia today's CTA chest - ANTERIOR RLL pneumonia is new thus, likely recurrent pneumonia start unasyn IV cont zithromax etiology of recurrent RLL pneumonia? aspiration? endobronchial lesion in the right-sided bronchial tree? other? obtain speech consult - r/o dysphagia/aspiration (3) New onset a-fib: Plan: maxed on diltiazem drip at 15mg/hour without optimal rate control metoprolol tartrate 25mg q6h added by Dr Pollack from cardiology if rate control is still suboptimal then would add digoxin cont heparin drip investigate cost of DOAC tomorrow and switch to DOAC at that time if not cost prohibitive appreciate Dr Pollack's consultation TSH wnl electrolytes wnl echo - preserved EF, mild RV dysfunction likely due to advanced COPD (4) COPD exacerbation: Plan: s/p multiple doses of IV steroid since admission agree with transition to PO prednisone tomorrow start 40mg prednisone in AM on 10/29 d/c dexamethasone Duonebs q4h Formoterol 20mcg NEB BID Budesonide 0.5mg NEB BID Azithromycin 500mg IV daily for three days Add unasyn for RLL pneumonia appreciate pulmonary consultation (5) On home oxygen therapy: Plan: Baseline 4L NC O2 2nd to COPD (6) Tobacco abuse: Plan: Unfortunately he continues to smoke 1 pack/day use Offer nicoderm patch, if 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 (7) Chronic gout: Plan: Continue allopurinol No flare at this time (8) Hypertension: Plan: Stop amlodipine to allow BP for diltiazem Continue metoprolol for ongoing rate control (9) Elevated troponin: Plan: myocardial demand ischemia in setting of rapid a.fib and COPD flare peak HS trop = 85 no evidence of ACS (10) Pulmonary hypertension: Plan: moderate with RVSP of 53mmHg 2nd to COPD (11) Pre-diabetes: Plan: a1c 5.6% in fall 2021 Plan VTE Prophylaxis - IV heparin Diet - allow AHA diet updated at bedside Admission and Anticipated Discharge Date Admission Date: October 27, 2022 Subjective patient sitting at the side of the bed was present during my visit he states he overall feels a little better than yesterday minimal cough dyspnea on exertion is above his typical baseline his commented in the days leading up to admission his appetite was fair at best appetite was poor yesterday as well but a bit better today he mentions he was dx with pneumonia in late August during an ER visit records show the pneumonia was RLL on CT chest he has occasional dysphagia; mentions that on occasion he will complain "things go down the wrong pipe" denies odynophagia tele - a.fib - rates now 90-100 on dilt drip 15mg/hr and institution of q6h po metoprolol as ordered by cardiology Review of Systems Review of Systems: gen - no fevers or chills cv - no chest pain;+orthopnea (had such while getting chest CT) pulm - minimal cough, no sputum GI - no abd pain Physical Exam Physical Exam: gen - NAD, comfortable, sitting at side of bed mouth - MMM neck - no JVD heart - irregularly irregular, s1 s2, no murmur lungs - poor airation all lung segments, scant/faint RLL rales, no wheezing abd - soft NT ND BS+ ext - no edema, pulses 1-2+ b/l psych - awake/alert Results & Data Results & Data Vital Signs (Past 12 Hours) Vital Signs Temp Pulse Resp BP Pulse Ox O2 Del Method O2 Flow Rate 10/28/22 15:36 36.4 C L 115 H 22 131/68 91 Room Air 4 10/28/22 14:49 94 H 18 93 Nasal Cannula 4 10/28/22 11:39 36.5 C 112 H 22 126/80 94 Nasal Cannula 5 10/28/22 11:06 115 H 18 94 Nasal Cannula 5 10/28/22 09:00 Nasal Cannula 10/28/22 07:57 36.5 C 98 H 22 104/70 94 Nasal Cannula 5 10/28/22 07:15 99 H 20 BiPAP FiO2 10/28/22 15:36 10/28/22 14:49 10/28/22 11:39 10/28/22 11:06 10/28/22 09:00 10/28/22 07:57 10/28/22 07:15 50 Laboratory Results Laboratory Results - last 24 hr 10/27/22 10/27/22 10/28/22 16:42 22:50 08:00 WBC RBC Hgb Hct MCV MCH MCHC RDW Std Deviation RDW Coeff of [place] Plt Count MPV Immature Gran % (Auto) Neut % (Auto) Lymph % (Auto) [place] % (Auto) Eos % (Auto) Baso % (Auto) Neut # (Auto) Lymph # (Auto) [place] # (Auto) Eos # (Auto) Baso # (Auto) Immature Gran # (Auto) APTT 128.7 H* PTT Ratio 4.7 D-Dimer Cancelled 1180 H* Sodium Potassium Chloride Carbon Dioxide Anion Gap BUN Creatinine Est Cr Clr Drug Dosing Est GFR ( Amer) Est GFR (Non-Af Amer) BUN/Creatinine Ratio Glucose Calcium B-Natriuretic Peptide TSH Urine Color Dark Yellow Urine Appearance Clear Urine pH 5.5 Ur Specific [place] 1.026 Urine Protein 1+ H Urine Glucose (UA) Negative Urine Ketones Trace H Urine Blood Negative Urine Nitrite Negative Urine Bilirubin Negative Urine Urobilinogen Negative Ur Leukocyte Esterase Negative Urine WBC (Auto) 1-5 Urine RBC (Auto) 0-4 U Hyaline Cast (Auto) 1-5 U Epithel Cells (Auto) 5-10 H Urine Bacteria (Auto) Negative 10/28/22 10/28/22 10/28/22 08:36 08:36 08:36 WBC 6.01 RBC 3.43 L Hgb 11.6 L Hct 33.9 L MCV 98.8 MCH 33.8 MCHC 34.2 RDW Std Deviation 50.1 H RDW Coeff of [place] 13.8 Plt Count 281 MPV 9.9 Immature Gran % (Auto) 0.3 Neut % (Auto) 90.6 Lymph % (Auto) 6.3 [place] % (Auto) 2.5 Eos % (Auto) 0.0 Baso % (Auto) 0.3 Neut # (Auto) 5.44 Lymph # (Auto) 0.38 L [place] # (Auto) 0.15 Eos # (Auto) 0.00 Baso # (Auto) 0.02 Immature Gran # (Auto) 0.02 APTT PTT Ratio D-Dimer Sodium 137 Potassium 4.2 Chloride 103 Carbon Dioxide 27 Anion Gap 7 BUN 20 Creatinine 0.79 Est Cr Clr Drug Dosing 83.4 Est GFR ( Amer) 101.8 Est GFR (Non-Af Amer) 87.8 BUN/Creatinine Ratio 25.3 H Glucose 165 H Calcium 8.6 B-Natriuretic Peptide TSH 0.472 Urine Color Urine Appearance Urine pH Ur Specific [place] Urine Protein Urine Glucose (UA) Urine Ketones Urine Blood Urine Nitrite Urine Bilirubin Urine Urobilinogen Ur Leukocyte Esterase Urine WBC (Auto) Urine RBC (Auto) U Hyaline Cast (Auto) U Epithel Cells (Auto) Urine Bacteria (Auto) 10/28/22 10/28/22 10/28/22 08:36 15:06 15:06 WBC RBC Hgb Hct MCV MCH MCHC RDW Std Deviation RDW Coeff of [place] Plt Count MPV Immature Gran % (Auto) Neut % (Auto) Lymph % (Auto) [place] % (Auto) Eos % (Auto) Baso % (Auto) Neut # (Auto) Lymph # (Auto) [place] # (Auto) Eos # (Auto) Baso # (Auto) Immature Gran # (Auto) APTT 41.2 H 36.6 H PTT Ratio 1.5 1.3 D-Dimer Sodium Potassium Chloride Carbon Dioxide Anion Gap BUN Creatinine Est Cr Clr Drug Dosing Est GFR ( Amer) Est GFR (Non-Af Amer) BUN/Creatinine Ratio Glucose Calcium B-Natriuretic Peptide 498 H TSH Urine Color Urine Appearance Urine pH Ur Specific [place] Urine Protein Urine Glucose (UA) Urine Ketones Urine Blood Urine Nitrite Urine Bilirubin Urine Urobilinogen Ur Leukocyte Esterase Urine WBC (Auto) Urine RBC (Auto) U Hyaline Cast (Auto) U Epithel Cells (Auto) Urine Bacteria (Auto) Diagnostic Findings Chest CTA 10/27/22 16:21 CT angio chest PE protocol CLINICAL HISTORY: PE TECHNIQUE: Multidetector row helical CT of the chest was performed with angiographic protocol. Coronal and sagittal reformations were obtained. Coronal and sagittal MIPS were obtained from the axial data set and were submitted for review. Automated dose lowering techniques and/or adjustment according to patient size were utilized for this exam. CT DOSE: 581.85 mGy.cm Comparison: Comparison is made to CT chest 09/11/2022 FINDINGS: Lungs and pleura: Extensive emphysematous changes are seen in the lungs. Calcified granulomata are seen with evidence of suspicious nodules. Airspace opacity in the right lung base is unchanged from prior exam, there is a new airspace opacity in the right middle lobe. Heart and pericardium: Heart size is normal. No pericardial effusion. Vessels: No evidence of pulmonary embolism. Pulmonary trunk measures 33 mm in diameter. Mediastinum and pawan: Mediastinal lymph nodes measure up to 14 mm in diameter. This is unchanged to decreased in size from prior exam. Chest wall and lower neck: Unremarkable. Abdomen: Unremarkable. Bones: Degenerative changes of the thoracic spine. Old left-sided incompletely healed rib fractures noted. IMPRESSION: 1. No pulmonary embolus is seen. 2. Focal airspace opacity in the right anterior lung base is new from prior exam. Right posterior lung base airspace opacity is unchanged. Findings are compatible with pneumonia versus aspiration. Follow-up to resolution is recommended. 3. Emphysema and pulmonary hypertension. 4. Precarinal lymph node is essentially unchanged from prior exams. ACT 112: Negative or not required by law. Electronically signed by: Errol Young M.D. 10/28/2022 2:46 PM Echo: preserved EF, mildly reduced RV function PG Care Time/CCT Total # of Minutes Spent Total Time Spent with Patient: Total time spent is greater than 50% in coordination of care (as documented) at patient's floor/unit and/or counseling patient: Coding Level of Care Code 67456 SUB INP/OBS CARE 3/50MIN Diagnoses Acute and chronic respiratory failure with hypoxia J96.21 RLL pneumonia J18.9 New onset a-fib I48.91 COPD exacerbation J44.1 On home oxygen therapy Z99.81 Tobacco abuse Z72.0 Chronic gout [id number] Hypertension I10 Hypertension type: essential hypertension Elevated troponin R77.8 Pulmonary hypertension I27.20 Pre-diabetes R73.03 (8) Hypertension Hypertension type: essential hypertension Qualified Code(s): I10 - Essential (primary) hypertension
[2022-10-28] MEDS: AMPICILLIN/SULBACTAM SOD 3,000 MG in 0.9 % SODIUM CHLORIDE 100 ML IV SCH (20:37)
[2022-10-28] MEDS: ESCITALOPRAM OXALATE 10 MG TAB PO SCH (20:38)
[2022-10-28 23:45] LABS: Partial Thromboplastin Ratio 1.9
[2022-10-28 23:50] LABS: Partial Thromboplastin Time 52.2 Seconds (21.0-31.0)
[2022-10-29] MEDS: AMPICILLIN/SULBACTAM SOD 3,000 MG in 0.9 % SODIUM CHLORIDE 100 ML IV SCH ×4 (00:29→18:16)
[2022-10-29] MEDS: AZITHROMYCIN 500 MG in DEXTROSE 5% 250 ML IV SCH ×2 (01:02→23:57)
[2022-10-29] MEDS: ALBUT/IPRATROP 3MG/0.5MG NEB 3 ML VIAL NEB SCH ×6 (02:40→23:23)
[2022-10-29] MEDS: METOPROLOL TARTRATE 25 MG TAB PO SCH ×4 (03:58→21:31)
[2022-10-29] MEDS: dilTIAZem HCL 125 MG in DEXTROSE 5% 100 ML IV SCH ×3 (05:09→09:01)
--- NOTE | 2022-10-29 05:19 | Electrocardiogram Report ---
Test Reason : Blood Pressure : / mmHG Vent. Rate : 179 BPM Atrial Rate : 357 BPM P-R Int : 000 ms QRS Dur : 080 ms QT Int : 254 ms P-R-T Axes : 000 056 -18 degrees QTc Int : 438 ms Poor data quality, interpretation may be adversely affected Atrial fibrillation with rapid ventricular response Nonspecific ST and T wave abnormality Abnormal ECG When compared with ECG of 11-SEP-2022 15:20, Atrial fibrillation has replaced Sinus rhythm Vent. rate has increased BY 88 BPM Confirmed by Zen Pollack ([id number]) on 10/29/2022 5:19:07 AM Referred By: ED Confirmed By:Zen Pollack
--- NOTE | 2022-10-29 05:26 | Electrocardiogram Report ---
Test Reason : Blood Pressure : / mmHG Vent. Rate : 145 BPM Atrial Rate : 153 BPM P-R Int : 000 ms QRS Dur : 082 ms QT Int : 306 ms P-R-T Axes : 000 045 013 degrees QTc Int : 475 ms Poor data quality, interpretation may be adversely affected Atrial fibrillation with rapid ventricular response with premature ventricular or aberrantly conducte d complexes Nonspecific ST abnormality Abnormal ECG When compared with ECG of 27-OCT-2022 13:44, No significant change Confirmed by Zen Pollack ([id number]) on 10/29/2022 5:26:00 AM Referred By: Carter Martinez Confirmed By:Zen Pollack
[2022-10-29 06:54] LABS: BUN Creatinine Ratio 26.4 (10-20); Calcium 8.9 mg/dl (8.6-10.3); Creatinine Clr Calc Pharmacy 72.4 ml/min; Est GFR (African American) 95.2 ml/min; Est GFR (Non-African American) 82.2 ml/min; Potassium 3.8 mmol/L (3.5-5.1)
[2022-10-29] MEDS: BUDESONIDE 0.5 MG/2 ML VIAL (PULMICORT) NEB SCH ×2 (07:01→19:41)
[2022-10-29] MEDS: FORMOTEROL 20 MCG/2 ML VIAL NEB SCH ×2 (07:01→19:41)
[2022-10-29 07:04] LABS: Partial Thromboplastin Ratio 1.3; Partial Thromboplastin Time 34.9 Seconds (21.0-31.0)
--- NOTE | 2022-10-29 07:13 | Pulmonology Progress Note ---
Date of Service October 29, 2022 Assessment & Plan (1) New onset a-fib: (2) Acute and chronic respiratory failure with hypoxia: (3) On home oxygen therapy: (4) COPD (chronic obstructive pulmonary disease): COPD type: emphysema Emphysema type: centrilobular Qualified Code(s): J43.2 - Centrilobular emphysema (5) Tobacco abuse: Plan CT chest 10/28/2022 personally reviewed: Severe centrilobular and paraseptal emphysema appreciated bilaterally Right lower lobe posterior supradiaphragmatic consolidative process seems to be improved from before There is some consolidative process in the anterior side of the right lower lobe Minimal mediastinal lymphadenopathy Chest x-ray 10/27/2022 personally reviewed: Portable film, good respiratory effort, mild blunting of bilateral costophrenic angles, increased cardiac silh ouette. Minimal increase in pulmonary vascular markings. No clear lung infiltrate 2D echo 10/28/2022: EF 55-60%, moderate concentric LVH, indeterminate diastolic function, moderate dilated RA, RVSP 53 mmHg -- Acute on chronic respiratory failure chronic Likely from new onset A-fib with RVR Patient denies any issues with wheezing, although he does have severe COPD with emphysema Respiratory bio fire negative 10/27/2022 BNP 498 -- Severe COPD with emphysema On Trelegy at home Follows up with Dr. Hahn as an outpatient, he was seen last by him on 05/19/2022 does not seem to be in exacerbation Consider pulmonary rehab as an outpatient -- Current smoker Importance of quitting explained to the patient in depth --New onset A-fib Hold heparin drip Patient's severe COPD as well as chronic hypoxic respiratory failure puts him at risk for A-fib. Pulmonary emboli can also result in new onset A-fib. Given the patient is back to his baseline oxygen, I doubt pulmonary emboli being one of the reason -- Pulmonary hypertension Combination of type II and type III Plan: In/out: +3.7 L since coming to the hospital, there is no exact urine output measurement Would recommend Total 5 days of azithromycin given the lower lobe infiltrative process. Can start tapering prednisone to 20 mg as of tomorrow for total of 5 days and then stop Continue with Incruse I will get an ABG Recommend outpatient polysomnography Patient would benefit from pulmonary rehab Case was discussed with RN at bedside Please note the above document was generated using voice recognition software. It may contain grammatical, syntax or spelling errors.Any formal questions or concerns about the content, text or information contained within the body of this dictation should be directly addressed to the provider for clarification. Admission and Anticipated Discharge Date Admission Date: October 27, 2022 Subjective Patient seen and examined at bedside. No acute distress Overnight hospitalist patient was having confusions on and off. He did use his wrist BiPAP overnight Denies any headache, no nausea, no vomiting Breathing has improved since coming to the hospital Has been afebrile Review of Systems Review of Systems: All systems reviewed & are unremarkable except as noted in Subjective Physical Exam Physical Exam: Constitutional: No acute distress HEENT: EOMI, PERRLA Respiratory system: Decreased air entry bilaterally, no wheeze, no rhonchi, mild crackles bilateral lower lobes CVS: S1-S2 positive, no murmurs or gallops, tachycardia, irregular Abdomen: Soft, nontender, nondistended, positive bowel sounds x4 Extremities: +2 pulses bilaterally radialis/ dorsalis pedis, no cyanosis, no edema Neuro: Awake alert oriented x3 Psych: Normal mood and affect G/U: No [place] Skin: no rashes, warm and dry Lymphatic: no cervical or axillary lymphadenopathy Results & Data Results & Data Vital Signs (Past 12 Hours) Vital Signs Temp Pulse Pulse Pulse Resp BP Pulse Ox 10/29/22 07:01 120 H 28 H 96 10/28/22 22:00 80 10/29/22 02:54 36.8 C 101 H 20 121/79 92 10/29/22 02:40 84 18 96 10/28/22 20:30 10/28/22 23:21 36.4 C L 60 18 105/60 93 10/28/22 22:16 83 20 91 10/28/22 19:39 36.5 C 98 H 24 110/69 90 10/28/22 19:40 89 20 92 O2 Del Method O2 Flow Rate 10/29/22 07:01 Nasal Cannula 5 10/28/22 22:00 10/29/22 02:54 Room Air 10/29/22 02:40 Nasal Cannula 4 10/28/22 20:30 Nasal Cannula 4 10/28/22 23:21 Nasal Cannula 5 10/28/22 22:16 Nasal Cannula 4 10/28/22 19:39 High Flow Nasal Cannula 5 10/28/22 19:40 Nasal Cannula 5 Laboratory Results 10/28/22 08:36 10/29/22 05:33 PG Care Time/CCT Total # of Minutes Spent Total Time Spent with Patient: Total time spent is greater than 50% in coordination of care (as documented) at patient's floor/unit and/or counseling patient: Coding Level of Care Code 83493 SUB INP/OBS CARE 3/50MIN Diagnoses New onset a-fib I48.91 Acute and chronic respiratory failure with hypoxia J96.21 On home oxygen therapy Z99.81 COPD (chronic obstructive pulmonary disease) J43.2 COPD type: emphysema Emphysema type: centrilobular Tobacco abuse Z72.0
[2022-10-29] MEDS ORDERED: HEPARIN SOD (PORCINE) 1000 UNIT/ML IV ONE ×2 (07:15→22:15)
[2022-10-29] MEDS: UMECLIDINIUM BROMIDE 62.5MCG/BLISTER 7 PUFFS/INHALER INH SCH (08:30)
[2022-10-29] MEDS: predniSONE 20 MG TAB PO SCH (08:30)
[2022-10-29] MEDS: allopurinoL 300 MG TAB PO SCH (08:30)
[2022-10-29] MEDS: HEPARIN SODIUM/DEXTROSE 25,000 UNITS/500 ML BAG IV SCH ×3 (08:30→23:54)
[2022-10-29] MEDS: PRAVASTATIN SOD 20 MG TAB PO SCH (08:30)
[2022-10-29 13:24] LABS: Allen Test Pos (Pos); Base Excess ABG 2.3 mEq/L (-9-1.8); HCO3 ABG 27 mmol/L (19-24); Oxygen Saturation ABG 93.6 % (90-95); PCO2 ABG 39 mmHg (35-46); PO2 ABG 69 mmHg (80-95); pH ABG 7.44 (7.35-7.45)
[2022-10-29 14:08] LABS: Partial Thromboplastin Ratio 1.6; Partial Thromboplastin Time 44.1 Seconds (21.0-31.0)
--- NOTE | 2022-10-29 15:28 | Cardiology Progress Note ---
Date of Service October 29, 2022 Assessment & Plan (1) New onset a-fib: (2) Acute and chronic respiratory failure with hypoxia: (3) Tobacco abuse: (4) Pulmonary hypertension: (5) Mitral regurgitation: Plan ASSESSMENT/PLAN: 1. Atrial fibrillation with rapid ventricular response: Was making progress with heart rate control until issues with the IV line and diltiazem drip this afternoon. Heart rate currently tachycardic. Start diltiazem 30 mg p.o. every 6 hours and titrate upward. Continue metoprolol. Not pursuing transesophageal echo and cardioversion given his current pulmonary status and if undergoing cardioversion, would likely require antiarrhythmic therapy. Can add digoxin if necessary. Continue anticoagulation for stroke risk reduction. 2. Pulmonary hypertension: Likely due to to known COPD and emphysema. 3. Tobacco abuse: Recommended smoking cessation. 4. Alcohol use: Recommended that he avoid or significantly reduce alcohol consumption as it could precipitate A-fib. 5. Acute on chronic respiratory failure with hypoxia: CTA suggested pneumonia. Pulmonology following. Despite A-fib with RVR yesterday, breathing had substantially improved with COPD treatment. 6. Mitral regurgitation: Nonsevere. No specific treatment necessary. 7. Disposition: Cardiology will continue to follow. Patient care communicated with primary hospitalist, Dr. Thompson. Care discussed with nursing staff. Admission and Anticipated Discharge Date Admission Date: October 27, 2022 Subjective Patient is confused today. He stated that he knew he was in the hospital but then a few minutes later talked about going on his back porch with his dog right now. He reports shortness of breath but denies chest pain, palpitations, syncope, edema, or bleeding. Nursing staff reports that his heart rate was reasonably controlled as confirmed on telemetry when personally reviewed today. But then he left the floor for testing. The intravenous diltiazem was further reduced and she noted that his IV was no longer functioning. Therefore when he was tachycardic this afternoon, he was not receiving intravenous diltiazem. With increased metoprolol, the diltiazem drip was able to be weaned to 5 mg/h throughout the day otherwise, with reasonably improved heart rate. Patient was alone in his hospital room. Physical Exam Physical Exam: Gen.: No acute distress. Alert and oriented x 3 when asked but then demonstrated confusion on place later. HEENT: Anicteric sclera. Neck: No JVD. Cardiac: No ventricular heave. Irregularly irregular. Tachycardic. Normal S1- S2. No murmurs, rubs, or gallops. Pulmonary: Significantly reduced lung sounds bilaterally, but no obvious rales, rhonchi, or wheezing. Abdomen: Soft, nontender, nondistended, with normoactive bowel sounds. No bruits noted. Extremities: 2+ radial pulses bilaterally. 2+ posterior tibialis pulses bilaterally. No edema or cyanosis. Results & Data Vital Signs (Past 12 Hours) Vital Signs Temp Pulse Pulse Resp BP Pulse Ox O2 Del Method 10/29/22 15:13 109 H 22 94 Nasal Cannula 10/29/22 11:22 36.4 C L 96 H 20 123/79 95 Nasal Cannula 10/29/22 10:59 94 H 24 93 Nasal Cannula 10/29/22 09:00 Nasal Cannula 10/29/22 08:05 36.3 C L 119 H 23 127/81 93 Nasal Cannula 10/29/22 07:01 120 H 28 H 96 Nasal Cannula O2 Flow Rate 10/29/22 15:13 5 10/29/22 11:22 5 10/29/22 10:59 5 10/29/22 09:00 4 10/29/22 08:05 5 10/29/22 07:01 5 Intake & Output 10/27/22 10/28/22 10/29/22 10/30/22 06:59 06:59 06:59 06:59 Intake Total 2736.449 / 2736.449 1478.249 / 6644.058 0833.583 / 1475.583 Output Total 250 / 250 550 / 550 Balance 2486.449 / 2486.449 928.249 / 227.473 9276.583 / 1475.583 Weight 176 lb 5.917 oz 176 lb 9.444 oz Laboratory Results Laboratory Results - last 24 hr 10/28/22 10/28/22 10/28/22 15:06 15:06 22:40 APTT 36.6 H 52.2 H* PTT Ratio 1.3 1.9 ABG pH ABG pCO2 ABG pO2 ABG HCO3 ABG O2 Saturation ABG Base Excess [place] Test Oxygen Given Sodium Potassium Chloride Carbon Dioxide Anion Gap BUN Creatinine Est Cr Clr Drug Dosing Est GFR ( Amer) Est GFR (Non-Af Amer) BUN/Creatinine Ratio Glucose Calcium B-Natriuretic Peptide 498 H 10/29/22 10/29/22 10/29/22 05:33 05:33 12:55 APTT 34.9 H 44.1 H PTT Ratio 1.3 1.6 ABG pH ABG pCO2 ABG pO2 ABG HCO3 ABG O2 Saturation ABG Base Excess [place] Test Oxygen Given Sodium 135 L Potassium 3.8 Chloride 100 Carbon Dioxide 26 Anion Gap 9 BUN 24 H Creatinine 0.91 Est Cr Clr Drug Dosing 72.4 Est GFR ( Amer) 95.2 Est GFR (Non-Af Amer) 82.2 BUN/Creatinine Ratio 26.4 H Glucose 167 H Calcium 8.9 B-Natriuretic Peptide 10/29/22 12:55 APTT PTT Ratio ABG pH 7.44 ABG pCO2 39 ABG pO2 69 L ABG HCO3 27 H ABG O2 Saturation 93.6 ABG Base Excess 2.3 H [place] Test Pos Oxygen Given 5L Sodium Potassium Chloride Carbon Dioxide Anion Gap BUN Creatinine Est Cr Clr Drug Dosing Est GFR ( Amer) Est GFR (Non-Af Amer) BUN/Creatinine Ratio Glucose Calcium B-Natriuretic Peptide Diagnostic Findings Labs reviewed from 10/29/2022 and demonstrated stable renal function, normal potassium. Labs from 10/28/2022 demonstrated elevated BNP at 498, and it was normal at 77 on 09/11/2022. Telemetry personally reviewed: Improved heart rate with A-fib until this afte rnoon when there were issues with diltiazem drip as noted above in HPI as reported by nursing staff. Echo 10/28/2022: Normal LV size, wall motion, systolic function. EF 55 to 60%. Moderate LVH. Normal RV size with mildly reduced systolic function. Moderate right atrial dilation. No significant valvular abnormalities. Moderate pulmonary hypertension. RVSP 53. CTA chest 10/27/2022: Emphysema and pulmonary hypertension. Focal airspace opacity right anterior lung base new from prior exam. Findings compatible with pneumonia versus aspiration per radiology. No PE. Pulmonary progress note from today reviewed. Medications Administered Current Inpatient Medications Albuterol (Albut/Ipratrop 3mg/0.5mg Neb 3 Ml Vial) 3 ml NEB Q4R ISABELLE; Protocol Stop: 11/26/22 22:59 Last Admin: 10/29/22 15:13 Dose: 3 ml Allopurinol (Allopurinol 300 Mg Tab) 300 mg PO QAM [facility] Stop: 11/27/22 08:59 Last Admin: 10/29/22 08:30 Dose: 300 mg Budesonide (Budesonide 0.5 Mg/2 Ml Vial (Pulmicort)) 0.5 mg NEB BIDR [facility] Stop: 11/26/22 19:49 Last Admin: 10/29/22 07:01 Dose: 0.5 mg Diltiazem HCl (Diltiazem Hcl 30 Mg Tab) 30 mg PO Q6H [facility] Stop: 11/28/22 15:59 Escitalopram Oxalate (Escitalopram Oxalate 10 Mg Tab) 10 mg PO HS [facility] Stop: 11/26/22 20:59 Last Admin: 10/28/22 20:38 Dose: 10 mg Formoterol Fumarate (Formoterol 20 Mcg/2 Ml Vial) 20 mcg NEB BIDR [facility] Stop: 11/26/22 20:59 Last Admin: 10/29/22 07:01 Dose: 20 mcg Diltiazem HCl 125 mg/ Dextrose 125 mls @ 5 mls/hr IV .Q24H [facility]; Protocol Stop: 11/26/22 14:44 Last Admin: 10/29/22 09:01 Dose: Not Given Heparin Sodium/Dextrose (Heparin Sodium/Dextrose) 25,000 units in 500 mls @ 32 mls/hr IV .[id number] [facility]; Protocol Stop: 11/26/22 16:29 Last Titration: 10/29/22 14:25 Dose: 1,600 units/hr, 32 mls/hr Azithromycin 500 mg/ Dextrose 255 mls @ 127.5 mls/hr IV Q24H [facility] Stop: 10/30/22 01:59 Last Infusion: 10/29/22 03:37 Dose: Infused Ampicillin Sodium/Sulbactam Sodium 3,000 mg/ Sodium Chloride 108 mls @ 200 mls/hr IV Q6H [facility]; Protocol Stop: 11/04/22 18:59 Last Infusion: 10/29/22 13:35 Dose: Infused Metoprolol Tartrate (Metoprolol Tartrate 25 Mg Tab) 25 mg PO Q6H [facility] Stop: 11/27/22 14:59 Last Admin: 10/29/22 14:38 Dose: 25 mg Pravastatin Sodium (Pravastatin Sod 20 Mg Tab) [facility] Stop: 11/27/22 08:59 Last Admin: 10/29/22 08:30 Dose: 20 mg Prednisone (Prednisone 20 Mg Tab) 40 mg PO QAM [facility] Stop: 11/28/22 08:59 Last Admin: 10/29/22 08:30 Dose: 40 mg Umeclidinium [place] (Umeclidinium [place] 62.5mcg/Blister 7 Puffs/Inhaler) 1 puffs INH DAILY [facility] Stop: 11/27/22 13:59 Last Admin: 10/29/22 08:30 Dose: 1 puffs PG Care Time/CCT Total # of Minutes Spent Total Time Spent with Patient: Total time spent is greater than 50% in coordination of care (as documented) at patient's floor/unit and/or counseling patient: Coding Level of Care Code 10550 SUB INP/OBS CARE 3/50MIN Diagnoses New onset a-fib I48.91 Acute and chronic respiratory failure with hypoxia J96.21 Tobacco abuse Z72.0 Pulmonary hypertension I27.20 Mitral regurgitation I34.0
[2022-10-29] MEDS ORDERED: GABAPENTIN 600 MG TAB PO ONE (16:23)
[2022-10-29] MEDS ORDERED: GABAPENTIN 600MG ALCOHOL WITHDRAWAL LOAD PO STA (16:23)
--- NOTE | 2022-10-29 16:29 | Hospitalist Progress Note ---
Date of Service October 29, 2022 Assessment & Plan (1) Acute and chronic respiratory failure with hypoxia: Plan: acute component likely 2nd to #2 and #3 no evidence on CTA chest of PE or pulmonary edema no significant wheezing to suggest COPD flare remains stable on NC o2 sats low 90s are acceptable -- avoid over-oxygenation appreciate pulmonary consultation & recs (2) Alcohol dependence: Plan: long-standing, for decades "heavy" for many years, now down to at least 2-3 drinks/day per he told me "sometimes" it is more he may be in etoh withdrawal and/or early DTs given the hallucinations start high-dose thiamine 500mg IV q8h folate 1mg IV daily MVI AWSS protocol with gabapentin + symptom triggered ativan (3) Alcohol withdrawal: Plan: see #2 above (4) RLL pneumonia: Plan: 09/11/22 - CTA chest with posterior RLL pneumonia today's CTA chest - ANTERIOR RLL pneumonia is new thus, likely recurrent pneumonia started unasyn IV - 10/28/22 cont zithromax - started 10/27/22 etiology of recurrent RLL pneumonia? aspiration? video swallow by speech today relatively normal; aspiration unlikely endobronchial lesion in the right-sided bronchial tree? other? (5) New onset a-fib: Plan: TSH wnl electrolytes wnl echo - preserved EF, mild RV dysfunction likely due to advanced COPD appreciate assistance by [facility] Cards - Dr Pollack cont BB q6h starting dilt 30mg q6h in nicolas of dilt drip cont heparin investigate cost of eliquis and if knapp is not an issue then transition to such (6) COPD exacerbation: Plan: s/p IV dex now PO prednisone today 40mg wean next few days to off cont duonebs q4h Formoterol 20mcg NEB BID Budesonide 0.5mg NEB BID Azithromycin 500mg IV daily unasyn for RLL pneumonia appreciate pulmonary consultation (7) On home oxygen therapy: Plan: Baseline 4L NC O2 2nd to COPD (8) Tobacco abuse: Plan: Unfortunately he continues to smoke 1 pack/day use Offered nicoderm patch and he accepted 21mg/day patch to be ordered [employer] to quit (9) Chronic gout: Plan: Continue allopurinol No flare at this time (10) Hypertension: Plan: Stop amlodipine to allow BP for diltiazem and metoprolol titration (11) Elevated troponin: Plan: myocardial demand ischemia in setting of rapid a.fib and COPD flare peak HS trop = 85 no evidence of ACS (12) Pulmonary hypertension: Plan: moderate with RVSP of 53mmHg 2nd to COPD (13) Pre-diabetes: Plan: a1c 5.6% in fall 2021 with steroids he is hyperglycemic thus, change diet to DM diet and check BSGs ac/hs if high then institute novolog SSI Plan VTE Prophylaxis - IV heparin and ultimately Tessaquis updated at bedside PT, OT when able Admission and Anticipated Discharge Date Admission Date: October 27, 2022 Subjective tele with ongoing a.fib rates variable during my visit he was >100 per speech therapy, nursing, his , and cardiology all parties have noted confusion he has been seeing bugs on the floor/hubbard he has pulled out 5+ IVs throughout the day today when I asked him if he drinks etoh he responded yes stated he drinks about 1-2x's each week Rum is his drink of choice; drinks 1-2 of those when he does imbibe has been drinking for many years and previously drank "a lot" years ago when he was younger his arrived, and she reported DAILY consumption of Rum/coke, at least 2 drinks each day, sometimes 3 or more but the consumption IS INDEED DAILY pt offered nicotine patch and wishes to use one denies any changes in his breathing Review of Systems Review of Systems: gen - eating better cv - no chest pain pulm - ongoing dyspnea, minimal cough GI - no abd pain or nausea Physical Exam Physical Exam: gen - NAD but restless, shifting around and trying to get out of bed, tremulous, a little confused mouth - MMM neck - no JVD heart - irregularly irregular, s1 s2, no murmur; rate >100 lungs - poor airation all lung segments, no wheezing or rales today abd - soft NT ND BS+ ext - no edema, pulses 1-2+ b/l psych - awake/alert but confused Results & Data Results & Data Vital Signs (Past 12 Hours) Vital Signs Temp Pulse Pulse Resp BP Pulse Ox O2 Del Method 10/29/22 15:57 36.6 C 85 20 136/88 94 Nasal Cannula 10/29/22 15:13 109 H 22 94 Nasal Cannula 10/29/22 11:22 36.4 C L 96 H 20 123/79 95 Nasal Cannula 10/29/22 10:59 94 H 24 93 Nasal Cannula 10/29/22 09:00 Nasal Cannula 10/29/22 08:05 36.3 C L 119 H 23 127/81 93 Nasal Cannula 10/29/22 07:01 120 H 28 H 96 Nasal Cannula O2 Flow Rate 10/29/22 15:57 5 10/29/22 15:13 5 10/29/22 11:22 5 10/29/22 10:59 5 10/29/22 09:00 4 10/29/22 08:05 5 10/29/22 07:01 5 Laboratory Results Laboratory Results - last 24 hr 10/28/22 10/29/22 10/29/22 22:40 05:33 05:33 APTT 52.2 H* 34.9 H PTT Ratio 1.9 1.3 ABG pH ABG pCO2 ABG pO2 ABG HCO3 ABG O2 Saturation ABG Base Excess Georges Test Oxygen Given Sodium 135 L Potassium 3.8 Chloride 100 Carbon Dioxide 26 Anion Gap 9 BUN 24 H Creatinine 0.91 Est Cr Clr Drug Dosing 72.4 Est GFR ( Amer) 95.2 Est GFR (Non-Af Amer) 82.2 BUN/Creatinine Ratio 26.4 H Glucose 167 H Calcium 8.9 10/29/22 10/29/22 12:55 12:55 APTT 44.1 H PTT Ratio 1.6 ABG pH 7.44 ABG pCO2 39 ABG pO2 69 L ABG HCO3 27 H ABG O2 Saturation 93.6 ABG Base Excess 2.3 H Georges Test Pos Oxygen Given 5L Sodium Potassium Chloride Carbon Dioxide Anion Gap BUN Creatinine Est Cr Clr Drug Dosing Est GFR ( Amer) Est GFR (Non-Af Amer) BUN/Creatinine Ratio Glucose Calcium PG Care Time/CCT Total # of Minutes Spent Total Time Spent with Patient: Total time spent is greater than 50% in coordination of care (as documented) at patient's floor/unit and/or counseling patient: Coding Level of Care Code 63671 SUB INP/OBS CARE 3/50MIN Diagnoses Acute and chronic respiratory failure with hypoxia J96.21 Alcohol dependence F10.20 Alcohol withdrawal F10.939 RLL pneumonia J18.9 New onset a-fib I48.91 COPD exacerbation J44.1 On home oxygen therapy Z99.81 Tobacco abuse Z72.0 Chronic gout [id number] Hypertension I10 Hypertension type: essential hypertension Elevated troponin R77.8 Pulmonary hypertension I27.20 Pre-diabetes R73.03 (10) Hypertension Hypertension type: essential hypertension Qualified Code(s): I10 - Essential (primary) hypertension
[2022-10-29] MEDS: dilTIAZem HCL 30 MG TAB PO SCH ×2 (16:48→21:31)
--- NOTE | 2022-10-29 17:33 | Fluoroscopy Report ---
VIDEO SWALLOW STUDY CLINICAL HISTORY: Aspiration. COMPARISON STUDY: No priors. FLUOROSCOPY TIME: 3.4 minutes. Ka,r: 66.00 mGy FINDINGS: Fluoroscopic guidance is provided to the department of speech pathology in performing a vid eo swallow study. The patient consumed barium impregnated pudding, cracker with paste, thickened liqu ids, and thin barium while the swallowing mechanism was observed in real-time. Esophageal dysmotility was observed. No penetration or aspiration was seen with any of the sample textures. IMPRESSION: 1. Esophageal dysmotility with no penetration or aspiration seen with any of the sampled textures. 2. See dedicated speech pathology report for detailed findings and recommendations. Dictated: 10/29/2022 5:08 PM Transcribed: 10/29/2022 5:21 PM Dalia [id number] RONAL_Chidi [id number] Electronically signed by: Marcelino Valdez M.D. 10/29/2022 5:32 PM
[2022-10-29] MEDS: CEROVITE ADV FORMULA TAB PO SCH (17:38)
[2022-10-29] MEDS: NICOTINE 21 MG/24 HR TDSY TD SCH (17:38)
[2022-10-29] MEDS: THIAMINE HCL 500 MG in SODIUM CHLORIDE 0.9% 50 ML IV SCH (17:55)
[2022-10-29] MEDS: FOLIC ACID 1 MG in SYRINGE 9.8 ML IV SCH (17:56)
[2022-10-29] MEDS ORDERED: LORazepam 1 MG TAB PO PRN (19:35)
[2022-10-29] MEDS ORDERED: MELATONIN 3 MG TAB PO PRN (20:49)
[2022-10-29] MEDS: GABAPENTIN 100 MG CAP PO SCH (21:31)
[2022-10-29] MEDS: ESCITALOPRAM OXALATE 10 MG TAB PO SCH (21:47)
[2022-10-29 21:53] LABS: Partial Thromboplastin Time 28.7 Seconds (21.0-31.0)
[2022-10-30] MEDS: THIAMINE HCL 500 MG in SODIUM CHLORIDE 0.9% 50 ML IV SCH ×3 (01:10→16:45)
[2022-10-30] MEDS: AMPICILLIN/SULBACTAM SOD 3,000 MG in 0.9 % SODIUM CHLORIDE 100 ML IV SCH ×4 (01:47→19:47)
[2022-10-30] MEDS: ALBUT/IPRATROP 3MG/0.5MG NEB 3 ML VIAL NEB SCH ×6 (03:07→23:50)
[2022-10-30] MEDS: METOPROLOL TARTRATE 25 MG TAB PO SCH ×3 (04:01→15:09)
[2022-10-30] MEDS: dilTIAZem HCL 30 MG TAB PO SCH ×4 (04:26→21:06)
[2022-10-30] MEDS: GABAPENTIN 100 MG CAP PO SCH (04:26)
[2022-10-30 04:28] LABS: Calcium 8.6 mg/dl (8.6-10.3); Creatinine Clr Calc Pharmacy 78.5 ml/min; Est GFR (African American) 99.3 ml/min; Est GFR (Non-African American) 85.7 ml/min; Potassium 3.9 mmol/L (3.5-5.1)
[2022-10-30 04:59] LABS: Partial Thromboplastin Ratio 4.5
[2022-10-30 05:11] LABS: Partial Thromboplastin Time 124.5 Seconds (21.0-31.0)
[2022-10-30] MEDS: dilTIAZem HCL 125 MG in DEXTROSE 5% 100 ML IV SCH (06:46)
[2022-10-30] MEDS: FORMOTEROL 20 MCG/2 ML VIAL NEB SCH ×2 (07:36→20:47)
[2022-10-30] MEDS: BUDESONIDE 0.5 MG/2 ML VIAL (PULMICORT) NEB SCH ×2 (07:36→20:47)
[2022-10-30] MEDS: CEROVITE ADV FORMULA TAB PO SCH (08:06)
[2022-10-30] MEDS: PRAVASTATIN SOD 20 MG TAB PO SCH (08:07)
[2022-10-30] MEDS: FOLIC ACID 1 MG in SYRINGE 9.8 ML IV SCH (08:07)
[2022-10-30] MEDS: NICOTINE 21 MG/24 HR TDSY TD SCH (08:07)
[2022-10-30] MEDS: predniSONE 20 MG TAB PO SCH (08:07)
[2022-10-30] MEDS: allopurinoL 300 MG TAB PO SCH (08:07)
[2022-10-30] MEDS: UMECLIDINIUM BROMIDE 62.5MCG/BLISTER 7 PUFFS/INHALER INH SCH (08:08)
[2022-10-30] MEDS: APIXABAN 5 MG TABLET PO SCH ×2 (10:44→21:06)
[2022-10-30] MEDS: HEPARIN SODIUM/DEXTROSE 25,000 UNITS/500 ML BAG IV SCH (11:45)
--- NOTE | 2022-10-30 12:15 | Pulmonology Progress Note ---
Date of Service October 30, 2022 Assessment & Plan (1) New onset a-fib: (2) Acute and chronic respiratory failure with hypoxia: (3) On home oxygen therapy: (4) COPD (chronic obstructive pulmonary disease): COPD type: emphysema Emphysema type: centrilobular Qualified Code(s): J43.2 - Centrilobular emphysema (5) Tobacco abuse: Plan CT chest 10/28/2022 personally reviewed: Severe centrilobular and paraseptal emphysema appreciated bilaterally Right lower lobe posterior supradiaphragmatic consolidative process seems to be improved from before There is some consolidative process in the anterior side of the right lower lobe Minimal mediastinal lymphadenopathy Chest x-ray 10/27/2022 personally reviewed: Portable film, good respiratory effort, mild blunting of bilateral costophrenic angles, increased cardiac silh ouette. Minimal increase in pulmonary vascular markings. No clear lung infiltrate 2D echo 10/28/2022: EF 55-60%, moderate concentric LVH, indeterminate diastolic function, moderate dilated RA, RVSP 53 mmHg -- Acute on chronic respiratory failure chronic Likely from new onset A-fib with RVR Patient denies any issues with wheezing, although he does have severe COPD with emphysema Respiratory bio fire negative 10/27/2022 BNP 498 -- Severe COPD with emphysema On Trelegy at home Follows up with Dr. Hahn as an outpatient, he was seen last by him on 05/19/2022 does not seem to be in exacerbation Consider pulmonary rehab as an outpatient -- Current smoker Importance of quitting explained to the patient in depth --New onset A-fib Hold heparin drip Patient's severe COPD as well as chronic hypoxic respiratory failure puts him at risk for A-fib. Pulmonary emboli can also result in new onset A-fib. Given the patient is back to his baseline oxygen, I doubt pulmonary emboli being one of the reason -- Pulmonary hypertension Combination of type II and type III Plan: In/out: +3.7 L since coming to the hospital, there is no exact urine output measurement Complete the course of antibiotics for total of 5 days Taper prednisone over the next 4 days Continue with Incruse, Brovana and budesonide Recommend outpatient polysomnography Patient would benefit from pulmonary rehab Case was discussed with RN at bedside Please note the above document was generated using voice recognition software. It may contain grammatical, syntax or spelling errors.Any formal questions or concerns about the content, text or information contained within the body of this dictation should be directly addressed to the provider for clarification. Admission and Anticipated Discharge Date Admission Date: October 27, 2022 Subjective Patient seen and examined at bedside. No acute distress, no adverse events overnight Patient is more alert today. No bouts of confusion. States that he is feeling better compared to before Was saturating 91% on 6 L. I went down to 5 L nasal cannula. Coughing up clear phlegm. Denies any chest congestion No nausea or vomiting Review of Systems Review of Systems: All systems reviewed & are unremarkable except as noted in Subjective Physical Exam Physical Exam: Constitutional: No acute distress HEENT: EOMI, PERRLA Respiratory system: Decreased air entry bilaterally, no wheeze, no rhonchi, mild crackles bilateral lower lobes CVS: S1-S2 positive, no murmurs or gallops, irregular Abdomen: Soft, nontender, nondistended, positive bowel sounds x4 Extremities: +2 pulses bilaterally radialis/ dorsalis pedis, no cyanosis, no edema Neuro: Awake alert oriented x3 Psych: Normal mood and affect G/U: No Murillo Skin: no rashes, warm and dry Lymphatic: no cervical or axillary lymphadenopathy Results & Data Results & Data Vital Signs (Past 12 Hours) Vital Signs Temp Pulse Pulse Resp BP Pulse Ox O2 Del Method 10/30/22 11:16 89 18 90 Nasal Cannula 10/30/22 10:39 36.4 C L 78 20 136/80 92 Nasal Cannula 10/30/22 08:00 Nasal Cannula 10/30/22 07:59 86 10/30/22 07:37 69 20 91 Nasal Cannula 10/30/22 07:03 36.5 C 73 20 114/74 91 Nasal Cannula 10/30/22 04:01 36.6 C 62 20 130/86 92 Nasal Cannula 10/30/22 03:09 78 18 93 Nasal Cannula O2 Flow Rate 10/30/22 11:16 5 10/30/22 10:39 6.0 10/30/22 08:00 10/30/22 07:59 10/30/22 07:37 6 10/30/22 07:03 5.0 10/30/22 04:01 5 10/30/22 03:09 5 Laboratory Results 10/28/22 08:36 10/30/22 03:50 PG Care Time/CCT Total # of Minutes Spent Total Time Spent with Patient: Total time spent is greater than 50% in coordination of care (as documented) at patient's floor/unit and/or counseling patient: Coding Level of Care Code 16958 SUB INP/OBS CARE 2/35MIN Diagnoses New onset a-fib I48.91 Acute and chronic respiratory failure with hypoxia J96.21 On home oxygen therapy Z99.81 COPD (chronic obstructive pulmonary disease) J43.2 COPD type: emphysema Emphysema type: centrilobular Tobacco abuse Z72.0
--- NOTE | 2022-10-30 13:27 | Cardiology Progress Note ---
Date of Service October 30, 2022 Assessment & Plan (1) New onset a-fib: (2) Acute and chronic respiratory failure with hypoxia: (3) Tobacco abuse: (4) Pulmonary hypertension: (5) Mitral regurgitation: Plan ASSESSMENT/PLAN: 1. Atrial fibrillation with rapid ventricular response: Heart rate well controlled. We will transition short acting diltiazem to diltiazem CD1 120 mg once daily tomorrow. Will overlap last dose of short acting diltiazem. Continue metoprolol. Long-acting diltiazem can be titrated if necessary. Continue rate control strategy. Continue anticoagulation for stroke risk reduction. 2. Pulmonary hypertension: Likely due to to known COPD and emphysema. 3. Tobacco abuse: Recommended smoking cessation. 4. Alcohol use: Recommended that he avoid or significantly reduce alcohol consumption as it could precipitate A-fib. 5. Acute on chronic respiratory failure with hypoxia: CTA suggested pneumonia. Pulmonology following. Fluid balance unclear. Try to maintain even or slightly negative fluid balance. 6. Mitral regurgitation: Nonsevere. No specific treatment necessary. 7. Disposition: I will be away from the hospital for the next several days. Please call on-call public works inspector for questions or concerns. Patient care communicated with primary hospitalist, Dr. Thompson. On discharge, he can follow in the cardiology office for monitoring of his atrial fibrillation. Admission and Anticipated Discharge Date Admission Date: October 27, 2022 Subjective Patient was seen earlier this afternoon with his at the bedside. She states that his confusion has subsided. He still has some shortness of breath but believes he has improved somewhat. Heart rate has significantly improved on telemetry. He denies chest pain, palpitations, syncope, near syncope, edema. Physical Exam Physical Exam: Gen.: No acute distress. Alert. HEENT: Anicteric sclera. Neck: No JVD. Cardiac: No ventricular heave. Irregularly irregular. Normal heart rate. Normal S1-S2. No murmurs, rubs, or gallops. Pulmonary: Significantly reduced lung sounds bilaterally, mild wheezing at the bases on expiration. Abdomen: Soft, nontender, nondistended, with normoactive bowel sounds. No bruits noted. Extremities: 2+ radial pulses bilaterally. 2+ posterior tibialis pulses bilaterally. No edema or cyanosis. Results & Data Vital Signs (Past 12 Hours) Vital Signs Temp Pulse Pulse Resp BP Pulse Ox O2 Del Method 04/14/23 11:16 89 18 90 Nasal Cannula 10/30/22 10:39 36.4 C L 78 20 136/80 92 Nasal Cannula 10/30/22 08:00 Nasal Cannula 10/30/22 07:59 86 10/30/22 07:37 69 20 91 Nasal Cannula 10/30/22 07:03 36.5 C 73 20 114/74 91 Nasal Cannula 10/30/22 04:01 36.6 C 62 20 130/86 92 Nasal Cannula 10/30/22 03:09 78 18 93 Nasal Cannula O2 Flow Rate 10/30/22 11:16 5 10/30/22 10:39 6.0 10/30/22 08:00 10/30/22 07:59 10/30/22 07:37 6 10/30/22 07:03 5.0 10/30/22 04:01 5 10/30/22 03:09 5 Intake & Output 10/28/22 10/29/22 10/30/22 10/31/22 06:59 06:59 06:59 06:59 Intake Total 2736.449 / 2736.449 1478.249 / 3611.740 0576.650 / 3032.650 395 / 395 Output Total 250 / 250 550 / 550 350 / 350 300 / 300 Balance 2486.449 / 2486.449 928.249 / 373.199 6925.650 / 2682.650 95 / 95 Weight 176 lb 5.917 oz 176 lb 9.444 oz 179 lb 3.773 oz Laboratory Results Laboratory Results - last 24 hr 10/29/22 10/29/22 10/30/22 12:55 20:53 03:50 APTT 44.1 H 28.7 124.5 H* PTT Ratio 1.6 1.0 4.5 Sodium Potassium Chloride Carbon Dioxide Anion Gap BUN Creatinine Est Cr Clr Drug Dosing Est GFR ( Amer) Est GFR (Non-Af Amer) BUN/Creatinine Ratio Glucose POC Glucose Calcium Vitamin B12 10/30/22 10/30/22 10/30/22 03:50 03:50 11:51 APTT PTT Ratio Sodium 133 L Potassium 3.9 Chloride 103 Carbon Dioxide 29 Anion Gap 1 L BUN 21 Creatinine 0.84 Est Cr Clr Drug Dosing 78.5 Est GFR ( Amer) 99.3 Est GFR (Non-Af Amer) 85.7 BUN/Creatinine Ratio 25.0 H Glucose 188 H POC Glucose 142 H Calcium 8.6 Vitamin B12 584 Diagnostic Findings Telemetry personally reviewed: Atrial fibrillation with adequate heart rate control. Labs reviewed from 10/30/2022, demonstrating normal potassium, stable renal function. Pulmonary note reviewed. ECG personally reviewed from 10/30/2022: A-fib 88 bpm. Medications Administered Current Inpatient Medications Albuterol (Albut/Ipratrop 3mg/0.5mg Neb 3 Ml Vial) 3 ml NEB Q4R ISABELLE; Protocol Stop: 11/26/22 22:59 Last Admin: 10/30/22 11:16 Dose: Not Given Allopurinol (Allopurinol 300 Mg Tab) 300 mg PO QAM [facility] Stop: 11/27/22 08:59 Last Admin: 10/30/22 08:07 Dose: 300 mg Apixaban (Apixaban 5 Mg Tablet) 5 mg PO BID [facility] Stop: 11/29/22 10:14 Last Admin: 10/30/22 10:44 Dose: 5 mg Budesonide (Budesonide 0.5 Mg/2 Ml Vial (Pulmicort)) 0.5 mg NEB BIDR [facility] Stop: 11/26/22 19:49 Last Admin: 10/30/22 07:36 Dose: 0.5 mg Diltiazem HCl (Diltiazem Hcl 30 Mg Tab) 30 mg PO Q6H ISABELLE Stop: 11/28/22 15:59 Last Admin: 10/30/22 10:51 Dose: 30 mg Escitalopram Oxalate (Escitalopram Oxalate 10 Mg Tab) 10 mg PO HS [facility] Stop: 11/26/22 20:59 Last Admin: 10/29/22 21:47 Dose: 10 mg Formoterol Fumarate (Formoterol 20 Mcg/2 Ml Vial) 20 mcg NEB BIDR ISABELLE Stop: 11/26/22 20:59 Last Admin: 10/30/22 07:36 Dose: 20 mcg Gabapentin (Gabapentin 100 Mg Cap) 200 mg PO Q24H ISABELLE Stop: 11/01/22 16:31 Gabapentin (Gabapentin 400 Mg Cap) 400 mg PO Q24H ISABELLE Stop: 10/31/22 16:31 Gabapentin (Gabapentin 600 Mg Tab) 600 mg PO Q24H ISABELLE Stop: 10/30/22 16:31 Diltiazem HCl 125 mg/ Dextrose 125 mls @ 5 mls/hr IV .Q24H [facility]; Protocol Stop: 11/26/22 14:44 Last Admin: 10/30/22 06:46 Dose: 5 mg/hr, 5 mls/hr Ampicillin Sodium/Sulbactam Sodium 3,000 mg/ Sodium Chloride 108 mls @ 200 mls/hr IV Q6H [facility]; Protocol Stop: 11/04/22 18:59 Last Infusion: 10/30/22 12:37 Dose: Infused Thiamine HCl 500 mg/ Sodium (Chloride) 55 mls @ 210 mls/hr IV Q8H [facility] Stop: 11/28/22 16:29 Last Infusion: 10/30/22 08:50 Dose: Infused Folic Acid 1 mg/ Syringe 10 mls @ 5 mls/min IV QAM [facility] Stop: 11/28/22 16:29 Last Admin: 10/30/22 08:07 Dose: 5 mls/min Lorazepam (Lorazepam 1 Mg Tab) 1 mg PO ONE PRN; Protocol PRN Reason: EtoH Withdrawal AWSS 6,7,8,9,10 Melatonin (Melatonin 3 Mg Tab) 6 mg PO HS PRN PRN Reason: Sleep Stop: 11/28/22 20:48 Metoprolol Tartrate (Metoprolol Tartrate 25 Mg Tab) 25 mg PO Q6H [facility] Stop: 11/27/22 14:59 Last Admin: 10/30/22 08:06 Dose: 25 mg Miscellaneous (Remove Nicoderm Patch) 1 each N/A DAILY@0859 [facility] Stop: 11/29/22 08:58 Last Admin: 10/30/22 08:08 Dose: 1 each Multivitamins/Minerals (Cerovite Adv Formula Tab) 1 tab PO QAM [facility] Stop: 11/28/22 16:29 Last Admin: 10/30/22 08:06 Dose: 1 tab Nicotine (Nicotine 21 Mg/24 Hr Tdsy) 21 mg TD QAM [facility] Stop: 11/28/22 16:29 Last Admin: 10/30/22 08:07 Dose: 21 mg Pravastatin Sodium (Pravastatin Sod 20 Mg Tab) [facility] Stop: 11/27/22 08:59 Last Admin: 10/30/22 08:07 Dose: 20 mg Prednisone (Prednisone 10 Mg Tablet) [facility] [place] Stop: 11/30/22 08:59 Umeclidinium [place] (Umeclidinium [place] 62.5mcg/Blister 7 Puffs/Inhaler) 1 puffs INH DAILY ISABELLE Stop: 11/27/22 13:59 Last Admin: 10/30/22 08:08 Dose: 1 puffs PG Care Time/CCT Total # of Minutes Spent Total Time Spent with Patient: Total time spent is greater than 50% in coordination of care (as documented) at patient's floor/unit and/or counseling patient: Coding Level of Care Code 45060 SUB INP/OBS CARE 2/35MIN Diagnoses New onset a-fib I48.91 Acute and chronic respiratory failure with hypoxia J96.21 Tobacco abuse Z72.0 Pulmonary hypertension I27.20 Mitral regurgitation I34.0
[2022-10-30] MEDS ORDERED: METOPROLOL TARTRATE 25 MG TAB PO STA (15:58)
[2022-10-30] MEDS ORDERED: GABAPENTIN 600 MG TAB PO SCH (16:30)
[2022-10-30] MEDS: ESCITALOPRAM OXALATE 10 MG TAB PO SCH (21:05)
--- NOTE | 2022-10-30 22:46 | Hospitalist Progress Note ---
Date of Service October 30, 2022 Assessment & Plan (1) Acute and chronic respiratory failure with hypoxia: Plan: acute component 2nd RLL pneumonia, mild COPD flare, and rapid a.fib no evidence on CTA chest of PE or pulmonary edema remains stable on NC o2 sats low 90s are acceptable -- avoid over-oxygenation appreciate pulmonary consultation & recs (2) Alcohol dependence: Plan: long-standing, for decades "heavy" for many years, now down to at least 2-3 drinks/day per he told me "sometimes" it is more he may be in etoh withdrawal and/or early DTs given the hallucinations cont high-dose thiamine 500mg IV q8h cont folate 1mg IV daily cont MVI cont AWSS protocol with gabapentin + symptom triggered ativan - thus far has NOT needed ativan with gabapentin he is much less tremulous, more calm, and less agitated/confused today (3) Alcohol withdrawal: Plan: see #2 above stable (4) RLL pneumonia: Plan: 09/11/22 - CTA chest with posterior RLL pneumonia 10/29/22 CTA chest - ANTERIOR RLL pneumonia is new thus, likely recurrent pneumonia started unasyn IV - 10/28/22 finished zithromax - started 10/27/22 etiology of recurrent RLL pneumonia? aspiration? video swallow by speech relatively normal; aspiration unlikely endobronchial lesion in the right-sided bronchial tree? other? cont IV unasyn and supportive care (5) New onset a-fib: Plan: TSH wnl electrolytes wnl echo - preserved EF, mild RV dysfunction likely due to advanced COPD appreciate assistance by [facility] - Dr Pollack cont BB q6h but titrate to 50mg q6h IR dilt changed to cardizem CD 120mg daily Eliquis - cost $15/month - start 5mg BID; stop heparin (6) COPD exacerbation: Plan: s/p IV dex now PO prednisone wean steroids over next few days cut from 40mg to 30mg cont duonebs q4h Formoterol 20mcg NEB BID Budesonide 0.5mg NEB BID Unasyn for RLL pneumonia finished zithromax appreciate pulmonary consultation (7) On home oxygen therapy: Plan: Baseline 4L NC O2 2nd to COPD requiring 5 L today (8) Tobacco abuse: Plan: Unfortunately he continues to smoke 1 pack/day use 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 (9) Chronic gout: Plan: Continue allopurinol No flare at this time (10) Hypertension: Plan: Stop amlodipine to allow BP for diltiazem and metoprolol titration BPs acceptable (11) Elevated troponin: Plan: myocardial demand ischemia in setting of rapid a.fib and COPD flare peak HS trop = 85 no evidence of ACS (12) Pulmonary hypertension: Plan: moderate with RVSP of 53mmHg 2nd to COPD (13) Pre-diabetes: Plan: a1c 5.6% in fall 2021 with steroids he is hyperglycemic thus, changed diet to DM diet and check BSGs ac/hs if continued highs then institute novolog SSI (14) Acute metabolic encephalopathy: Plan: 2nd suspected etoh withdrawal and RLL pneumonia toxic effect from steroids also possible IMPROVED mentation today Plan VTE Prophylaxis - Eliquis updated at bedside yesterday PT, OT when able to participate Admission and Anticipated Discharge Date Admission Date: October 27, 2022 Subjective tele overnight - a.fib, most rates <100; during the day today, however, rates consistently >100 mild confusion overnight, but no combativeness or severe agitation has stopped self-removing IVs during my visit he was comfortably laying in bed watching TV stated "I feel pretty good today" eating fair-good mild cough - getting sputum up today (mild) less dyspneic denies chest pain or tightness denies abd pain feels less shaky/tremulous today no further visual hallucinations Review of Systems Review of Systems: gen - no fevers cv - no cp pulm - ongoing cough/congestion/wheezing/dyspnea but improving Physical Exam Physical Exam: gen - NAD, more calm/comfortable today, no resp distress, less confused mouth - MMM neck - no JVD heart - irregularly irregular, s1 s2, no murmur; rate >100 lungs - airation modestly better all lung segments, scant exp wheeze scattered; minimal/scant rales R base; decreased BS R base abd - soft NT ND BS+ ext - no edema, pulses 1-2+ b/l psych - awake/alert, knows it is 2022, that it is October, knows it is Wednesday, and knows he's at "[facility] Results & Data Results & Data Vital Signs (Past 12 Hours) Vital Signs Temp Pulse Pulse Resp BP Pulse Ox O2 Del Method 10/30/22 21:10 69 155/88 H 10/30/22 20:50 85 18 92 Nasal Cannula 10/30/22 19:41 36.4 C L 77 20 142/90 H 90 Nasal Cannula 10/30/22 15:00 105 H 10/30/22 15:40 36.4 C L 104 H 20 135/88 91 Nasal Cannula 10/30/22 15:19 104 H 18 90 Nasal Cannula 10/30/22 11:16 89 18 90 Nasal Cannula O2 Flow Rate 10/30/22 21:10 10/30/22 20:50 8 10/30/22 19:41 5 10/30/22 15:00 10/30/22 15:40 5.0 10/30/22 15:19 5 10/30/22 11:16 5 Laboratory Results Laboratory Results - last 24 hr 10/30/22 10/30/22 10/30/22 03:50 03:50 03:50 APTT 124.5 H* PTT Ratio 4.5 Sodium 133 L Potassium 3.9 Chloride 103 Carbon Dioxide 29 Anion Gap 1 L BUN 21 Creatinine 0.84 Est Cr Clr Drug Dosing 78.5 Est GFR ( Amer) 99.3 Est GFR (Non-Af Amer) 85.7 BUN/Creatinine Ratio 25.0 H Glucose 188 H POC Glucose Calcium 8.6 Vitamin B12 584 10/30/22 10/30/22 10/30/22 11:51 17:12 20:22 APTT PTT Ratio Sodium Potassium Chloride Carbon Dioxide Anion Gap BUN Creatinine Est Cr Clr Drug Dosing Est GFR ( Amer) Est GFR (Non-Af Amer) BUN/Creatinine Ratio Glucose POC Glucose 142 H 164 H 189 H Calcium Vitamin B12 PG Care Time/CCT Total # of Minutes Spent Total Time Spent with Patient: Total time spent is greater than 50% in coordination of care (as documented) at patient's floor/unit and/or counseling patient: Coding Level of Care Code 52558 SUB INP/OBS CARE 3/50MIN Diagnoses Acute and chronic respiratory failure with hypoxia J96.21 Alcohol dependence F10.20 Alcohol withdrawal F10.939 RLL pneumonia J18.9 New onset a-fib I48.91 COPD exacerbation J44.1 On home oxygen therapy Z99.81 Tobacco abuse Z72.0 Chronic gout [id number].[id number] Hypertension I10 Hypertension type: essential hypertension Elevated troponin R77.8 Pulmonary hypertension I27.20 Pre-diabetes R73.03 Acute metabolic encephalopathy G93.41 (10) Hypertension Hypertension type: essential hypertension Qualified Code(s): I10 - Essential (primary) hypertension
[2022-10-30] MEDS: METOPROLOL TARTRATE 50 MG TAB PO SCH (23:54)
[2022-10-31] MEDS: THIAMINE HCL 500 MG in SODIUM CHLORIDE 0.9% 50 ML IV SCH ×3 (01:37→17:03)
[2022-10-31] MEDS: AMPICILLIN/SULBACTAM SOD 3,000 MG in 0.9 % SODIUM CHLORIDE 100 ML IV SCH ×2 (02:21→06:29)
[2022-10-31] MEDS: ALBUT/IPRATROP 3MG/0.5MG NEB 3 ML VIAL NEB SCH ×6 (02:39→23:28)
[2022-10-31] MEDS: dilTIAZem HCL 30 MG TAB PO SCH ×2 (04:30→11:38)
--- NOTE | 2022-10-31 05:49 | Electrocardiogram Report ---
Test Reason : Blood Pressure : / mmHG Vent. Rate : 088 BPM Atrial Rate : 048 BPM P-R Int : 000 ms QRS Dur : 078 ms QT Int : 366 ms P-R-T Axes : 000 031 -20 degrees QTc Int : 442 ms Poor data quality, interpretation may be adversely affected Atrial fibrillation Nonspecific ST abnormality Abnormal ECG When compared with ECG of 27-OCT-2022 15:47, Vent. rate has decreased BY 57 BPM Confirmed by Zen Pollack ([id number]) on 10/31/2022 5:49:11 AM Referred By: Carter Martinez Confirmed By:Zen Pollack
[2022-10-31] MEDS: METOPROLOL TARTRATE 50 MG TAB PO SCH ×4 (06:27→17:05)
[2022-10-31] MEDS ORDERED: ALBUT/IPRATROP 3MG/0.5MG NEB 3 ML VIAL NEB STA (07:33)
--- NOTE | 2022-10-31 08:01 | XRay Report ---
SINGLE VIEW CHEST CLINICAL HISTORY: Dyspnea. FINDINGS: An AP, portable, upright chest radiograph is compared to study dated 10/27/2022 and correlat ed with chest CT dated 10/28/2022. Partially degraded The heart is enlarged and there is atherosclerot ic calcification of the thoracic aorta. The pulmonary vasculature is noncongested. Advanced emphysema and chronic interstitial thickening is similar to previous. There is increasing airspace consolidati on in the right mid to lower lung. There is also increasing consolidation left lung base. A small rig ht pleural effusion is noted. Foci of parenchymal scarring are noted throughout both lungs. There is no pneumothorax. The skeletal structures are osteopenic. There are chronic/healed left-sided rib frac tures. Degenerative change is noted throughout the thoracic spine. IMPRESSION: 1. There is increasing bibasilar airspace consolidation, right significantly greater than left. The a ppearance is typical for pneumonia/aspiration pneumonitis. Clinical correlation will be required and radiographic follow-up to resolution is recommended. 2. Cardiomegaly and emphysema. 3. Small right pleural effusion. Electronically signed by: Marcelino Valdez M.D. 10/31/2022 7:59 AM
[2022-10-31] MEDS ORDERED: FUROSEMIDE INJ 20 MG/2 ML VIAL IV STA (08:02)
[2022-10-31 08:03] LABS: Base Excess VBG 5.4 mEq/L; HCO3 VBG 34 mmol/L; Oxygen Saturation VBG 87.9 %; PCO2 VBG 71 mmHg (38-50); PO2 VBG 60 mmHg; pH VBG 7.29 (7.36-7.41)
[2022-10-31 08:10] LABS: Basophils # (auto) 0.01 K/uL (0-0.2); Basophils % (auto) 0.1 %; Eosinophils # (auto) 0.01 K/uL (0-0.50); Eosinophils % (auto) 0.1 %; Hematocrit (blood only) 35.9 % (42.0-52.0); Immature Granulocytes # (auto) 0.14 K/uL (0.01-0.20); Lymphocytes # (auto) 0.95 K/uL (1.2-3.4); Lymphocytes % (auto) 7.1 %; Mean Corpuscular Hemoglobin 33.8 pg (25.0-34.0); Mean Corpuscular Hgb Conc 33.4 g/dL (32.0-36.0); Mean Corpuscular Volume 101.1 fL (80.0-100.0); Mean Platelet Volume 9.8 fL (9.4-12.4); Monocytes # (auto) 1.04 K/uL (0.11-0.59); Monocytes % (auto) 7.7 %; Neutrophils # (auto) 11.31 K/uL (1.40-6.50); Platelet Count 351 K/uL (130-400); RDW Standard Deviation 49.1 fL (36.4-46.3); Red Blood Count 3.55 M/uL (4.70-6.10); White Blood Count 13.46 K/ul (4.8-10.8)
[2022-10-31] MEDS ORDERED: PIPERACILLIN/TAZOBACTAM 3.375 GM in DEXTROSE 5% 100 ML IV STA (08:12)
--- NOTE | 2022-10-31 08:14 | Hospitalist Progress Note ---
Date of Service October 31, 2022 Assessment & Plan (1) Acute and chronic respiratory failure with hypoxia: Plan: Acute decompensation overnight/this am due to pulmonary edema, worsening pneumonia, and COPD. Decompensated CHF likely due to uncontrolled a.fib. Progressive pneumonia - due to gram negative etiology? other? Diurese. BIPAP. Broaden abx from unasyn to zosyn for better gram negative coverage. Increase steroids from prednisone to IV dexamethasone. Cont nebs. appreciate Dr Abbott's assistance. (2) RLL pneumonia: Plan: 09/11/22 - CTA chest with posterior RLL pneumonia 10/29/22 CTA chest - ANTERIOR RLL pneumonia is new started unasyn IV - 10/28/22 finished zithromax course cxr today with progressive infiltrates - likely combination of pneumonia + CHF broaden abx from unasyn to zosyn cont supportive care recent dysphagia evaluation by speech therapy without overt aspiration on video swallow (3) Acute on chronic right-sided congestive heart failure: Plan: recent echo with preserved EF but mild RV dysfunction (which is likely due to severe, end-stage COPD) decompensation likely due to ongoing issues with rapid a.fib lasix 20mg IV x 1 today -- had about 2000cc in total out with such repeat BMP in am may need additional diuresis tomorrow BNP noted improve his rate control - go back to dilt drip until able to take PO more reliably (4) Acute metabolic encephalopathy: Plan: multifactorial - pneumonia, CO2 retention as noted on VBG this am, alcohol withdrawal toxic - ativan given overnight?? mentation improved as the day went on today with Rx of his hypercapnia (5) Alcohol dependence: Plan: long-standing, for decades "heavy" for many years, now down to at least 2-3 drinks/day per he told me "sometimes" it is more he may be in etoh withdrawal and/or early DTs given the hallucinations cont high-dose thiamine 500mg IV q8h one more day then place on 200mg/day thereafter cont folate 1mg IV daily cont MVI cont AWSS protocol with gabapentin with gabapentin he had been much less tremulous, more calm, and less agitated/confused (6) Alcohol withdrawal: Plan: see above (7) New onset a-fib: Plan: TSH wnl electrolytes wnl echo - preserved EF, mild RV dysfunction likely due to advanced COPD appreciate assistance by [facility] Cards - Dr Pollack rates had been improving nicely with metoprolol 50mg q6h + cardizem CD 120mg daily uncontrolled this am given BIPAP use and having to be NPO will place back on diltiazem drip hold Eliquis due to fall this am and head injury (frontal bruise noted on head CT) Eliquis - cost $15/month - restart eliquis perhaps tomorrow (8) COPD exacerbation: Plan: had been improving with prednisone but worse this am stop prednisone - go back to IV dexamethasone cont duonebs q4h Formoterol 20mcg NEB BID Budesonide 0.5mg NEB BID change Unasyn to zosyn finished zithromax course appreciate pulmonary consultation (9) On home oxygen therapy: Plan: Baseline 4L NC O2 2nd to COPD (10) Tobacco abuse: Plan: Unfortunately he continues to smoke 1 pack/day use 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 (11) Chronic gout: Plan: Continue allopurinol No flare at this time (12) Hypertension: Plan: Stop amlodipine to allow BP for diltiazem and metoprolol titration BPs acceptable (13) Elevated troponin: Plan: myocardial demand ischemia in setting of rapid a.fib and COPD flare peak HS trop = 85 no evidence of ACS (14) Pulmonary hypertension: Plan: moderate with RVSP of 53mmHg 2nd to COPD (15) Pre-diabetes: Plan: a1c 5.6% in fall 2021 with steroids he is hyperglycemic thus, changed diet to DM diet and check BSGs ac/hs if continued highs then institute novolog SSI (16) Unwitnessed fall: Plan: CT head and CT c-spine obtained -- no fractures, no ICH fortunately no evidence of bony injuries on exam - hips seem ok, etc bed alarms on, fall precautions, sitter, etc Plan extensively updated at bedside today complex care coordination and critical care given for his resp failure, fall, etc total critical care about 75 minutes Admission and Anticipated Discharge Date Admission Date: October 27, 2022 Subjective was contacted by nursing staff about 0715 this am that patient was in respiratory distress (retractions, tachypnea) and was altered apparently he had been restless last evening was given 1mg po ativan shortly after midnight finally fell asleep by report but then about 5 or 6am he was found on the floor next to the bed he was cyanotic and hypoxic he was put back to bed and his O2 was increased to 15 L gave verbal orders for BIPAP, duoneb x 2, stat CXR upon arrival he was somnolent BIPAP was in place he did indeed - even with BIPAP in place - have retractions duoneb was in process on exam he was tachypneic, retracting using accessory muscles and had extensive wheezing in all lung segments there were rales b/l but much worse on right order given for lasix 20mg IV x 1 along with schumacher placement quick assessment of musculoskeletal system - no obvious bony injury [id number], given unwitnessed fall in the setting of anticoagulation use, obtained STAT CT head/c-spine these, fortunately, returned negative for Fx, ICH, etc following lasix he promptly had about 1 L out of UOP respiratory status improved slowly through the day I reported all of the above to Dr Abbott from pulmonary I reassessed him mid-afternoon -- was present at bedside He was still on BIPAP but lungs were much less wheezy and less crackles tachpnea and increased work of breathing were improved he was not awake, alert and following commands Review of Systems Review of Systems: Unobtainable due to reduced consciousness Physical Exam Physical Exam: gen - lethargic, respiratory distress with retractions, etc mouth - MMM neck - JVD now present heart - irregularly irregular, s1 s2, no murmur, tachy lungs - extensive wheezing all lung segments; b/l crackles R>L; increased work of breathing (retractions, accessory muscle use, etc) abd - soft NT ND BS+ ext - no edema, pulses 1-2+ b/l psych - lethargic / somnolent musculo - no obvious trauma to neck, arms or legs; I was able to passively place both hips from ROM without apparent pain; no scalp injury or hematoma Results & Data Results & Data Vital Signs (Past 12 Hours) Vital Signs Temp Pulse Pulse Resp BP BP Pulse Ox 10/31/22 07:45 112 H 24 94 10/31/22 07:45 112 H 24 94 10/31/22 07:41 130 H 91 10/31/22 07:40 111 H 28 H 86 L 10/31/22 07:17 36.3 C L 86 87 H 144/85 H 88 L 10/31/22 05:00 36.1 C L 10/31/22 05:00 94 H 16 119/74 93 10/31/22 02:41 92 H 18 91 10/30/22 23:53 80 142/94 H 10/30/22 23:10 36.6 C 55 L 20 128/85 91 10/30/22 21:10 69 155/88 H 10/30/22 20:50 85 18 92 O2 Del Method O2 Flow Rate FiO2 10/31/22 07:45 BiPAP 60 10/31/22 07:45 60 10/31/22 07:41 BiPAP 60 10/31/22 07:40 Oxymask 15 10/31/22 07:17 Oxymask 15 10/31/22 05:00 10/31/22 05:00 High Flow Nasal Cannula 8 10/31/22 02:41 Nasal Cannula 8 10/30/22 23:53 10/30/22 23:10 High Flow Nasal Cannula 8 10/30/22 21:10 10/30/22 20:50 Nasal Cannula 8 Laboratory Results Laboratory Results - last 48 hr 10/30/22 10/30/22 10/30/22 11:51 17:12 20:22 WBC RBC Hgb Hct MCV MCH MCHC RDW Std Deviation RDW Coeff of [place] Plt Count MPV Immature Gran % (Auto) Neut % (Auto) Lymph % (Auto) Bryan % (Auto) Eos % (Auto) Baso % (Auto) Neut # (Auto) Lymph # (Auto) Bryan # (Auto) Eos # (Auto) Baso # (Auto) Immature Gran # (Auto) ABG pH ABG pCO2 ABG pO2 ABG HCO3 ABG O2 Saturation ABG Base Excess Georges Test VBG pH VBG pCO2 VBG pO2 VBG HCO3 VBG O2 Saturation VBG Base Excess Oxygen Given Sodium Potassium Chloride Carbon Dioxide Anion Gap BUN Creatinine Est Cr Clr Drug Dosing Est GFR ( Amer) Est GFR (Non-Af Amer) BUN/Creatinine Ratio Glucose POC Glucose 142 H 164 H 189 H Calcium Magnesium B-Natriuretic Peptide Procalcitonin 10/31/22 10/31/22 10/31/22 07:43 07:45 07:45 WBC RBC Hgb Hct MCV MCH MCHC RDW Std Deviation RDW Coeff of [place] Plt Count MPV Immature Gran % (Auto) Neut % (Auto) Lymph % (Auto) Bryan % (Auto) Eos % (Auto) Baso % (Auto) Neut # (Auto) Lymph # (Auto) Bryan # (Auto) Eos # (Auto) Baso # (Auto) Immature Gran # (Auto) ABG pH ABG pCO2 ABG pO2 ABG HCO3 ABG O2 Saturation ABG Base Excess Georges Test VBG pH 7.29 L VBG pCO2 71 H VBG pO2 60 VBG HCO3 34 VBG O2 Saturation 87.9 VBG Base Excess 5.4 Oxygen Given Sodium 134 L Potassium 4.6 Chloride 98 Carbon Dioxide 31 Anion Gap 5 BUN 18 Creatinine 0.76 Est Cr Clr Drug Dosing 86.7 Est GFR ( Amer) 103.4 Est GFR (Non-Af Amer) 89.2 BUN/Creatinine Ratio 23.7 H Glucose 160 H POC Glucose 149 H Calcium 8.7 Magnesium 2.0 B-Natriuretic Peptide Procalcitonin 10/31/22 10/31/22 10/31/22 07:53 07:53 07:53 WBC 13.46 H RBC 3.55 L Hgb 12.0 L Hct 35.9 L MCV 101.1 H MCH 33.8 MCHC 33.4 RDW Std Deviation 49.1 H RDW Coeff of [place] 13.0 Plt Count 351 MPV 9.8 Immature Gran % (Auto) 1.0 Neut % (Auto) 84.0 Lymph % (Auto) 7.1 Bryan % (Auto) 7.7 Eos % (Auto) 0.1 Baso % (Auto) 0.1 Neut # (Auto) 11.31 H Lymph # (Auto) 0.95 L Bryan # (Auto) 1.04 H Eos # (Auto) 0.01 Baso # (Auto) 0.01 Immature Gran # (Auto) 0.14 ABG pH ABG pCO2 ABG pO2 ABG HCO3 ABG O2 Saturation ABG Base Excess Georges Test VBG pH VBG pCO2 VBG pO2 VBG HCO3 VBG O2 Saturation VBG Base Excess Oxygen Given Sodium Potassium Chloride Carbon Dioxide Anion Gap BUN Creatinine Est Cr Clr Drug Dosing Est GFR ( Amer) Est GFR (Non-Af Amer) BUN/Creatinine Ratio Glucose POC Glucose Calcium Magnesium B-Natriuretic Peptide 1175 H Procalcitonin < 0.05 0410/31/22 10/31/22 10:06 11:55 17:05 WBC RBC Hgb Hct MCV MCH MCHC RDW Std Deviation RDW Coeff of [place] Plt Count MPV Immature Gran % (Auto) Neut % (Auto) Lymph % (Auto) Bryan % (Auto) Eos % (Auto) Baso % (Auto) Neut # (Auto) Lymph # (Auto) Bryan # (Auto) Eos # (Auto) Baso # (Auto) Immature Gran # (Auto) ABG pH 7.39 ABG pCO2 55 H ABG pO2 69 L ABG HCO3 33 H ABG O2 Saturation 94.7 ABG Base Excess 6.7 H Georges Test Pos VBG pH VBG pCO2 VBG pO2 VBG HCO3 VBG O2 Saturation VBG Base Excess Oxygen Given 60% Sodium Potassium Chloride Carbon Dioxide Anion Gap BUN Creatinine Est Cr Clr Drug Dosing Est GFR ( Amer) Est GFR (Non-Af Amer) BUN/Creatinine Ratio Glucose POC Glucose 153 H 157 H Calcium Magnesium B-Natriuretic Peptide Procalcitonin 10/31/22 20:21 WBC RBC Hgb Hct MCV MCH MCHC RDW Std Deviation RDW Coeff of [place] Plt Count MPV Immature Gran % (Auto) Neut % (Auto) Lymph % (Auto) Bryan % (Auto) Eos % (Auto) Baso % (Auto) Neut # (Auto) Lymph # (Auto) Bryan # (Auto) Eos # (Auto) Baso # (Auto) Immature Gran # (Auto) ABG pH ABG pCO2 ABG pO2 ABG HCO3 ABG O2 Saturation ABG Base Excess Georges Test VBG pH VBG pCO2 VBG pO2 VBG HCO3 VBG O2 Saturation VBG Base Excess Oxygen Given Sodium Potassium Chloride Carbon Dioxide Anion Gap BUN Creatinine Est Cr Clr Drug Dosing Est GFR ( Amer) Est GFR (Non-Af Amer) BUN/Creatinine Ratio Glucose POC Glucose 137 H Calcium Magnesium B-Natriuretic Peptide Procalcitonin Diagnostic Findings Chest X-Ray 10/31/22 07:32 SINGLE VIEW CHEST CLINICAL HISTORY: Dyspnea. FINDINGS: An AP, portable, upright chest radiograph is compared to study dated 10/27/2022 and correlated with chest CT dated 10/28/2022. Partially degraded The heart is enlarged and there is atherosclerotic calcification of the thoracic aorta. The pulmonary vasculature is noncongested. Advanced emphysema and chronic interstitial thickening is similar to previous. There is increasing airspace consolidation in the right mid to lower lung. There is also increasing consolidation left lung base. A small right pleural effusion is noted. Foci of parenchymal scarring are noted throughout both lungs. There is no pneumothorax. The skeletal structures are osteopenic. There are chronic/healed left-sided rib fractures. Degenerative change is noted throughout the thoracic spine. IMPRESSION: 1. There is increasing bibasilar airspace consolidation, right significantly greater than left. The appearance is typical for pneumonia/aspiration pneumonitis. Clinical correlation will be required and radiographic follow-up to resolution is recommended. 2. Cardiomegaly and emphysema. 3. Small right pleural effusion. Electronically signed by: Marcelino Valdez M.D. 10/31/2022 7:59 AM PG Care Time/CCT Total # of Minutes Spent Total Time Spent with Patient: Total time spent is greater than 50% in coordination of care (as documented) at patient's floor/unit and/or counseling patient: Critical Care Time: Yes Total Critical Care Time: 75 Coding Level of Care Code None Diagnoses Acute and chronic respiratory failure with hypoxia J96.21 RLL pneumonia J18.9 Acute on chronic right-sided congestive heart failure I50.813 Acute metabolic encephalopathy G93.41 Alcohol dependence F10.20 Alcohol withdrawal F10.939 New onset a-fib I48.91 COPD exacerbation J44.1 On home oxygen therapy Z99.81 Tobacco abuse Z72.0 Chronic gout M1A.9XX0 Hypertension I10 Hypertension type: essential hypertension Elevated troponin R77.8 Pulmonary hypertension I27.20 Pre-diabetes R73.03 Unwitnessed fall R29.6 Additional Codes Critical Care Time - Critical Care Time: Yes ([id number]) Time Spent (min) 75 Comment critical care time (12) Hypertension Hypertension type: essential hypertension Qualified Code(s): I10 - Essential (primary) hypertension
[2022-10-31] MEDS: BUDESONIDE 0.5 MG/2 ML VIAL (PULMICORT) NEB SCH ×2 (08:21→19:42)
[2022-10-31] MEDS: FORMOTEROL 20 MCG/2 ML VIAL NEB SCH ×2 (08:21→19:42)
[2022-10-31 08:25] LABS: BUN Creatinine Ratio 23.7 (10-20); Calcium 8.7 mg/dl (8.6-10.3); Creatinine Clr Calc Pharmacy 86.7 ml/min; Est GFR (African American) 103.4 ml/min; Est GFR (Non-African American) 89.2 ml/min; Potassium 4.6 mmol/L (3.5-5.1)
[2022-10-31] MEDS ORDERED: STAT IV Infusion **Titration per Protocol STA (08:46)
[2022-10-31] MEDS ORDERED: predniSONE 10 MG TABLET PO SCH (09:00)
[2022-10-31] MEDS: CEROVITE ADV FORMULA TAB PO SCH (09:11)
[2022-10-31] MEDS: dexAMETHasone 6 MG in SYRINGE 0 ML IV SCH ×2 (09:14→20:31)
[2022-10-31] MEDS: dilTIAZem HCL 125 MG in DEXTROSE 5% 100 ML IV SCH ×2 (09:15→21:17)
[2022-10-31] MEDS: PRAVASTATIN SOD 20 MG TAB PO SCH (09:46)
[2022-10-31] MEDS: FOLIC ACID 1 MG in SYRINGE 9.8 ML IV SCH (09:46)
[2022-10-31] MEDS: NICOTINE 21 MG/24 HR TDSY TD SCH (09:47)
[2022-10-31] MEDS: dilTIAZem HCL 120 MG CAPCR PO SCH (09:48)
[2022-10-31] MEDS: allopurinoL 300 MG TAB PO SCH (09:48)
--- NOTE | 2022-10-31 10:05 | CT Scan Report ---
CT SCAN OF THE CERVICAL SPINE CLINICAL HISTORY: Fall. COMPARISON STUDY: CT of the cervical spine dated 04/29/2021. TECHNIQUE: CT scan of the cervical spine is performed from the skull base to the upper thoracic spine . Images are reviewed in the axial, sagittal, and coronal planes. IV contrast was not administered fo r this examination. A dose lowering technique was utilized adhering to the principles of ALARA. CT DOSE: 1150.13 mGy.cm FINDINGS: Skeletal structures: The skeletal structures are osteopenic. There is no evidence of fracture or subl uxation involving the cervical spine. Vertebral body height is maintained. There is minimal anterolis thesis at C2-C3. Alignment is otherwise preserved. There is straightening of the cervical lordosis wi th reversal centered at C4-C5. Large anterior osteophytes are seen throughout. The odontoid process a nd lateral masses are intact. The atlantoaxial articulation is preserved noting productive degenerati ve change. The spinous processes appear intact. There is moderate multilevel cervical spondylosis. Un covertebral and facet arthropathy contribute to neural foraminal narrowing at several levels. Intervertebral discs: There is moderate to severe disc space narrowing at all cervical levels between C3-C4 and C6-C7 with multilevel endplate sclerosis. Central canal: Posterior disc osteophyte complexes are seen at all cervical levels between C3-C4 and C6-C7. This likely contributes to multilevel acquired compromise of the central canal. Soft tissues: The prevertebral and paraspinous soft tissues are within normal limits. Atherosclerotic calcification is noted in the carotid bulbs. Calvarium: The visualized calvarium at the skull base appears intact. Brain parenchyma: Partially visualized brain parenchyma at the skull base is within normal limits. Sinuses and mastoids: The visualized paranasal sinuses are clear. The mastoid air cells are well pneu matized. Cerumen is noted in the right external auditory canal. Lung apices: Advanced emphysematous change is noted. A right pleural effusion is partially imaged. IMPRESSION: 1. There is no evidence of fracture or subluxation involving the cervical spine. 2. Osteopenia and spondylotic change as above. 3. Emphysema and right pleural effusion. ACT 112: Negative or not required by law. Electronically signed by: Marcelino Valdez M.D. 10/31/2022 10:03 AM
--- NOTE | 2022-10-31 10:09 | CT Scan Report ---
CT SCAN OF THE BRAIN WITHOUT IV CONTRAST CLINICAL HISTORY: Fall. COMPARISON STUDY: CT of the brain dated 04/29/2021. TECHNIQUE: Unenhanced axial CT scan of the brain is performed from the vertex to the skull base. A do se lowering technique was utilized adhering to the principles of ALARA. FINDINGS: Brain parenchyma: There is age-related involutional change noting moderate subcortical and periventri cular microangiopathic disease. There is no hemorrhage, mass effect, or evidence of acute territorial ischemia by CT criteria. Acevedo-white matter differentiation is preserved. No extra-axial fluid collec tion is seen. Ventricles, sulci, cisterns: Prominent secondary to involutional change. Intracranial vasculature: There is atherosclerotic calcification of the cavernous carotid and vertebr al arteries. Calvarium: The skeletal structures are osteopenic. No depressed calvarial fracture is seen. Soft tissues: There is a small right frontal scalp contusion. Sinuses and mastoids: The visualized paranasal sinuses are clear. The mastoid air cells are well pneu matized. Cerumen is noted in the right external auditory canal. Orbits: The bony orbits are grossly intact. There are bilateral ocular lens implants. IMPRESSION: 1. There is no hemorrhage, mass effect, or evidence of acute territorial ischemia by CT criteria. 2. Right frontal scalp contusion. ACT 112: Negative or not required by law. Electronically signed by: Marcelino Valdez M.D. 10/31/2022 10:06 AM
[2022-10-31 10:15] LABS: Base Excess ABG 6.7 mEq/L (-9-1.8); HCO3 ABG 33 mmol/L (19-24); Oxygen Saturation ABG 94.7 % (90-95); PCO2 ABG 55 mmHg (35-46); PO2 ABG 69 mmHg (80-95); pH ABG 7.39 (7.35-7.45)
[2022-10-31 10:18] LABS: Allen Test Pos (Pos)
[2022-10-31] MEDS: UMECLIDINIUM BROMIDE 62.5MCG/BLISTER 7 PUFFS/INHALER INH SCH (10:20)
[2022-10-31] MEDS: APIXABAN 5 MG TABLET PO SCH ×2 (10:24→20:32)
--- NOTE | 2022-10-31 10:25 | Pulmonology Progress Note ---
Date of Service October 31, 2022 Assessment & Plan (1) New onset a-fib: (2) Acute and chronic respiratory failure with hypoxia: (3) On home oxygen therapy: (4) COPD (chronic obstructive pulmonary disease): COPD type: emphysema Emphysema type: centrilobular Qualified Code(s): J43.2 - Centrilobular emphysema (5) Tobacco abuse: Plan CT chest 10/28/2022 personally reviewed: Severe centrilobular and paraseptal emphysema appreciated bilaterally Right lower lobe posterior supradiaphragmatic consolidative process seems to be improved from before There is some consolidative process in the anterior side of the right lower lobe Minimal mediastinal lymphadenopathy Chest x-ray 10/27/2022 personally reviewed: Portable film, good respiratory effort, mild blunting of bilateral costophrenic angles, increased cardiac silh ouette. Minimal increase in pulmonary vascular markings. No clear lung infiltrate 2D echo 10/28/2022: EF 55-60%, moderate concentric LVH, indeterminate diastolic function, moderate dilated RA, RVSP 53 mmHg -- Acute on chronic hypoxic hypercapnic respiratory failure Likely from new onset A-fib with RVR Patient denies any issues with wheezing, although he does have severe COPD with emphysema Respiratory bio fire negative 10/27/2022 BNP 498 -- Severe COPD with emphysema On Trelegy at home Follows up with Dr. Hahn as an outpatient, he was seen last by him on 05/19/2022 does not seem to be in exacerbation Consider pulmonary rehab as an outpatient -- Current smoker Importance of quitting explained to the patient in depth --New onset A-fib Hold heparin drip Patient's severe COPD as well as chronic hypoxic respiratory failure puts him at risk for A-fib. Pulmonary emboli can also result in new onset A-fib. Given the patient is back to his baseline oxygen, I doubt pulmonary emboli being one of the reason -- Pulmonary hypertension Combination of type II and type III Plan: Chest x-ray from today show increasing infiltrate on the right side. Antibiotics has been changed to Zosyn. Patient did get a dose of Lasix today. ABG while on BiPAP 7.39/55/69 on 60%, 12/5 Continue with Incruse, Brovana and budesonide Consideration of trilogy machine on discharge will be made given hypercapnia. I think patient is most likely having sundowning at night. If you do give any respiratory depressant medication like benzodiazepine or morphine would recommend to follow it up by putting the patient on BiPAP with a backup respiratory rate of 15-16 Case was discussed with RN at bedside as well as Please note the above document was generated using voice recognition software. It may contain grammatical, syntax or spelling errors.Any formal questions or concerns about the content, text or information contained within the body of this dictation should be directly addressed to the provider for clarification. Admission and Anticipated Discharge Date Admission Date: October 27, 2022 Subjective Patient seen and examined at bedside. Patient was on BiPAP at the time of examination 06/22, 60%. Was saturating 98%. I went down on FiO2 to 45% I changed BiPAP setting to 06/23 Overnight patient was given Ativan as he was getting restless. VBG showed hypercapnia. He was also found on the floor cyanotic. Patient was easily arousable. He denied any chest pain, shortness of breath while on BiPAP he said was okay. Not coughing up anything. He was awake alert oriented x3. Has been afebrile. Review of Systems Review of Systems: All systems reviewed & are unremarkable except as noted in Subjective Physical Exam Physical Exam: Constitutional: No acute distress HEENT: EOMI, PERRLA Respiratory system: Decreased air entry bilaterally, no wheeze, no rhonchi, positive crackles bilateral lower lobes, more on the right side CVS: S1-S2 positive, no murmurs or gallops, irregular Abdomen: Soft, nontender, nondistended, positive bowel sounds x4 Extremities: +2 pulses bilaterally radialis/ dorsalis pedis, no cyanosis, no edema Neuro: Awake alert oriented x3 Psych: Normal mood and affect G/U: Positive Murillo Skin: no rashes, warm and dry Lymphatic: no cervical or axillary lymphadenopathy Results & Data Results & Data Vital Signs (Past 12 Hours) Vital Signs Temp Pulse Pulse Resp BP BP Pulse Ox 10/31/22 07:45 112 H 24 94 10/31/22 07:45 112 H 24 94 10/31/22 07:41 130 H 91 10/31/22 07:40 111 H 28 H 86 L 10/31/22 07:17 36.3 C L 86 87 H 144/85 H 88 L 04/15/23 05:00 36.1 C L 10/31/22 05:00 94 H 16 119/74 93 10/31/22 02:41 92 H 18 91 10/30/22 23:53 80 142/94 H 10/30/22 23:10 36.6 C 55 L 20 128/85 91 O2 Del Method O2 Flow Rate FiO2 10/31/22 07:45 BiPAP 60 10/31/22 07:45 60 10/31/22 07:41 BiPAP 60 10/31/22 07:40 Oxymask 15 10/31/22 07:17 Oxymask 15 10/31/22 05:00 10/31/22 05:00 High Flow Nasal Cannula 8 10/31/22 02:41 Nasal Cannula 8 10/30/22 23:53 10/30/22 23:10 High Flow Nasal Cannula 8 Laboratory Results 10/31/22 07:53 10/31/22 07:45 PG Care Time/CCT Total # of Minutes Spent Total Time Spent with Patient: Total time spent is greater than 50% in coordination of care (as documented) at patient's floor/unit and/or counseling patient: Coding Level of Care Code 75569 SUB INP/OBS CARE 3/50MIN Diagnoses New onset a-fib I48.91 Acute and chronic respiratory failure with hypoxia J96.21 On home oxygen therapy Z99.81 COPD (chronic obstructive pulmonary disease) J43.2 COPD type: emphysema Emphysema type: centrilobular Tobacco abuse Z72.0
[2022-10-31] MEDS: PIPERACILLIN/TAZOBACTAM 3.375 GM in DEXTROSE 5% 100 ML IV SCH ×2 (14:58→21:22)
[2022-10-31] MEDS: GABAPENTIN 400 MG CAP PO SCH ×2 (17:04→17:05)
[2022-10-31] MEDS: ESCITALOPRAM OXALATE 10 MG TAB PO SCH (20:32)
[2022-11-01] MEDS: METOPROLOL TARTRATE 50 MG TAB PO SCH ×5 (00:08→23:03)
[2022-11-01] MEDS: THIAMINE HCL 500 MG in SODIUM CHLORIDE 0.9% 50 ML IV SCH ×3 (00:21→16:41)
[2022-11-01] MEDS: ALBUT/IPRATROP 3MG/0.5MG NEB 3 ML VIAL NEB SCH ×6 (03:07→23:52)
[2022-11-01] MEDS: PIPERACILLIN/TAZOBACTAM 3.375 GM in DEXTROSE 5% 100 ML IV SCH ×3 (05:38→22:59)
--- NOTE | 2022-11-01 07:15 | Electrocardiogram Report ---
Test Reason : Blood Pressure : / mmHG Vent. Rate : 135 BPM Atrial Rate : 113 BPM P-R Int : 000 ms QRS Dur : 092 ms QT Int : 318 ms P-R-T Axes : 000 058 005 degrees QTc Int : 477 ms Poor data quality, interpretation may be adversely affected Atrial fibrillation with rapid ventricular response Abnormal ECG When compared with ECG of 31-OCT-2022 07:28, (unconfirmed) Nonspecific T wave abnormality no longer evident in Lateral leads Confirmed by Balaji Alejandre ([id number]) on 11/01/2022 7:15:04 AM Referred By: Carter Martinez Confirmed By:Oli Alejandre
--- NOTE | 2022-11-01 07:15 | Electrocardiogram Report ---
Test Reason : Blood Pressure : / mmHG Vent. Rate : 121 BPM Atrial Rate : 077 BPM P-R Int : 000 ms QRS Dur : 092 ms QT Int : 296 ms P-R-T Axes : 000 039 -16 degrees QTc Int : 420 ms Poor data quality, interpretation may be adversely affected Atrial fibrillation with rapid ventricular response Nonspecific ST and T wave abnormality Abnormal ECG When compared with ECG of 31-OCT-2022 06:23, (unconfirmed) Nonspecific T wave abnormality, worse in Anterolateral leads Confirmed by Balaji Alejandre ([id number]) on 11/01/2022 7:14:50 AM Referred By: Carter Martinez Confirmed By:Oli Alejandre
--- NOTE | 2022-11-01 07:15 | Electrocardiogram Report ---
Test Reason : Blood Pressure : / mmHG Vent. Rate : 135 BPM Atrial Rate : 092 BPM P-R Int : 000 ms QRS Dur : 082 ms QT Int : 284 ms P-R-T Axes : 000 079 193 degrees QTc Int : 426 ms Poor data quality, interpretation may be adversely affected Atrial fibrillation with rapid ventricular response with premature ventricular or aberrantly conducte d complexes Nonspecific ST and T wave abnormality Incomplete right bundle branch block Abnormal ECG When compared with ECG of 30-OCT-2022 06:30, Vent. rate has increased BY 47 BPM Confirmed by Balaji Alejandre ([id number]) on 11/01/2022 7:14:30 AM Referred By: Carter Martinez Confirmed By:Oli Alejandre
--- NOTE | 2022-11-01 07:15 | Electrocardiogram Report ---
Test Reason : Blood Pressure : / mmHG Vent. Rate : 122 BPM Atrial Rate : 085 BPM P-R Int : 000 ms QRS Dur : 086 ms QT Int : 322 ms P-R-T Axes : 000 060 001 degrees QTc Int : 458 ms Poor data quality, interpretation may be adversely affected Atrial fibrillation with rapid ventricular response Incomplete right bundle branch block Nonspecific ST and T wave abnormality Abnormal ECG When compared with ECG of 31-OCT-2022 06:20, (unconfirmed) T wave inversion no longer evident in Lateral leads Confirmed by Balaji Alejandre ([id number]) on 11/01/2022 7:14:41 AM Referred By: Carter Martinez Confirmed By:Oli Alejandre
--- NOTE | 2022-11-01 07:21 | Pulmonology Progress Note ---
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 Minimal increase in pulmonary vascular markings. No clear lung infiltrate 2D echo 10/28/2022: EF 55-60%, moderate concentric LVH, indeterminate diastolic function, moderate dilated RA, RVSP 53 mmHg -- Acute on chronic hypoxic hypercapnic respiratory failure Likely from new onset A-fib with RVR Patient denies any issues with wheezing, although he does have severe COPD with emphysema Respiratory bio fire negative 10/27/2022 BNP 498 -- Severe COPD with emphysema On Trelegy at home Follows up with Dr. Hahn as an outpatient, he was seen last by him on 05/19/2022 does not seem to be in exacerbation Consider pulmonary rehab as an outpatient -- Current smoker Importance of quitting explained to the patient in depth --New onset A-fib Hold heparin drip Patient's severe COPD as well as chronic hypoxic respiratory failure puts him at risk for A-fib. Pulmonary emboli can also result in new onset A-fib. Given the patient is back to his baseline oxygen, I doubt pulmonary emboli being one of the reason -- Pulmonary hypertension Combination of type II and type III Plan: Chest x-ray from today show increasing infiltrate on the right side. Continue with antibiotics Can transition back to prednisone tomorrow Continue with Incruse, Brovana and budesonide Due to chronic respiratory failure consequent to COPD, patient now requires a noninvasive home ventilator. Bilevel therapy with and without a rate would be ineffective as patient requires a volume targeted mode. Ventilation is required to decrease work of breathing and improve pulmonary status. Interruption of ventilator support would lead to decline of health status. NIMV settings should be AVAPS-AE; Breath rate: auto; Inspiratory time:auto; Sigh: off; Tidal Volume: 350-450, PS min: 4-10 PS max: 12-20; EPAP min: 6-10; EPAP max: 10-16; AVAPS rate: 14 during sleep and as needed Case was discussed with RN at bedside Please note the above document was generated using voice recognition software. It may contain grammatical, syntax or spelling errors.Any formal questions or concerns about the content, text or information contained within the body of this dictation should be directly addressed to the provider for clarification. Admission and Anticipated Discharge Date Admission Date: October 27, 2022 Subjective Patient seen and examined at bedside. No acute distress, no adverse events overnight He did use his BiPAP overnight. He is very alert today. Had his breakfast Denies any nausea vomiting No headache Was on diltiazem 5 Heart rate in the mid to high 100s. Says that the shortness of breath is improved Review of Systems Review of Systems: All systems reviewed & are unremarkable except as noted in Subjective Physical Exam Physical Exam: Constitutional: No acute distress HEENT: EOMI, PERRLA Respiratory system: Decreased air entry bilaterally, no wheeze, no rhonchi, positive crackles bilateral lower lobes, more on the right side CVS: S1-S2 positive, no murmurs or gallops, irregular Abdomen: Soft, nontender, nondistended, positive bowel sounds x4 Extremities: +2 pulses bilaterally radialis/ dorsalis pedis, no cyanosis, no edema Neuro: Awake alert oriented x3 Psych: Normal mood and affect G/U: Positive Murillo Skin: no rashes, warm and dry Lymphatic: no cervical or axillary lymphadenopathy Results & Data Results & Data Vital Signs (Past 12 Hours) Vital Signs Temp Pulse Pulse Resp BP Pulse Ox O2 Del Method 11/01/22 05:50 36.8 C 84 20 149/94 H 93 BiPAP 11/01/22 03:28 36.4 C L 73 20 134/85 91 BiPAP 11/01/22 03:09 71 24 93 11/01/22 03:07 71 24 93 11/01/22 01:03 87 11/01/22 00:05 36.8 C 99 H 143/85 H 97 BiPAP 10/31/22 23:31 74 25 H 95 BiPAP 10/31/22 23:28 74 25 H 95 10/31/22 22:55 36.3 C L 73 18 143/86 H 96 BiPAP 10/31/22 19:32 36.6 C 68 20 160/85 H 94 BiPAP 10/31/22 19:48 94 H 18 95 BiPAP 10/31/22 19:46 94 H 18 95 FiO2 11/01/22 05:50 11/01/22 03:28 11/01/22 03:09 45 11/01/22 03:07 45 11/01/22 01:03 11/01/22 00:05 45 10/31/22 23:31 45 10/31/22 23:28 45 10/31/22 22:55 10/31/22 19:32 10/31/22 19:48 45 10/31/22 19:46 45 Laboratory Results 10/31/22 07:53 10/31/22 07:45 PG Care Time/CCT Total # of Minutes Spent Total Time Spent with Patient: Total time spent is greater than 50% in coordination of care (as documented) at patient's floor/unit and/or counseling patient: Coding Level of Care Code 68342 SUB INP/OBS CARE 3/50MIN Diagnoses New onset a-fib I48.91 Acute and chronic respiratory failure with hypoxia J96.21 On home oxygen therapy Z99.81 COPD (chronic obstructive pulmonary disease) J43.2 COPD type: emphysema Emphysema type: centrilobular Tobacco abuse Z72.0
[2022-11-01] MEDS: FORMOTEROL 20 MCG/2 ML VIAL NEB SCH ×2 (07:25→20:15)
[2022-11-01] MEDS: BUDESONIDE 0.5 MG/2 ML VIAL (PULMICORT) NEB SCH ×2 (07:26→20:16)
[2022-11-01] MEDS: NICOTINE 21 MG/24 HR TDSY TD SCH (08:15)
[2022-11-01] MEDS: CEROVITE ADV FORMULA TAB PO SCH (08:15)
[2022-11-01] MEDS: PRAVASTATIN SOD 20 MG TAB PO SCH (08:15)
[2022-11-01] MEDS: dilTIAZem HCL 120 MG CAPCR PO SCH (08:15)
[2022-11-01] MEDS: APIXABAN 5 MG TABLET PO SCH ×2 (08:15→20:38)
[2022-11-01] MEDS: allopurinoL 300 MG TAB PO SCH (08:16)
[2022-11-01] MEDS: FOLIC ACID 1 MG in SYRINGE 9.8 ML IV SCH (08:16)
[2022-11-01] MEDS: dexAMETHasone 6 MG in SYRINGE 0 ML IV SCH ×2 (08:16→20:39)
[2022-11-01] MEDS: UMECLIDINIUM BROMIDE 62.5MCG/BLISTER 7 PUFFS/INHALER INH SCH (08:17)
[2022-11-01 08:33] LABS: Anion Gap 7 (3-11); BUN Creatinine Ratio 21.3 (10-20); Blood Urea Nitrogen 17 mg/dl (6-23); Calcium 8.6 mg/dl (8.6-10.3); Carbon Dioxide 32 mmol/L (21-32); Chloride 94 mmol/L (98-107); Creatinine Clr Calc Pharmacy 82.4 ml/min; Est GFR (African American) 101.3 ml/min; Est GFR (Non-African American) 87.4 ml/min; Glucose 165 mg/dl (70-99(Fasting)); Sodium 133 mmol/L (136-145)
--- NOTE | 2022-11-01 15:39 | Hospitalist Progress Note ---
Date of Service November 01, 2022 Assessment & Plan (1) Acute and chronic respiratory failure with hypoxia: Plan: Acute/Chronic Continue Diurese. Continue BIPAP. Continue zosyn for better gram negative coverage. Continue IV dexamethasone, per pulmonology note, possibly transition back to prednisone tomorrow Continue Incruse, Brovana, Budesonide appreciate Dr Abbott's assistance. (2) New onset a-fib: Plan: TSH wnl electrolytes wnl echo - preserved EF, mild RV dysfunction likely due to advanced COPD appreciate assistance by [facility] - Dr Pollack rates have improved nicely with metoprolol 50mg q6h + cardizem CD 120mg daily hold Eliquis due to fall this am and head injury (frontal bruise noted on head CT) Eliquis - cost $15/month - restarted Eliquis last evening (3) RLL pneumonia: Plan: 09/11/22 - CTA chest with posterior RLL pneumonia 10/29/22 CTA chest - ANTERIOR RLL pneumonia is new cxr 10/31/22 with progressive infiltrates - likely combination of pneumonia + CHF broaden abx from unasyn to zosyn 10/31/22 cont supportive care recent dysphagia evaluation by speech therapy without overt aspiration on video swallow (4) Acute on chronic right-sided congestive heart failure: Plan: recent echo with preserved EF but mild RV dysfunction (which is likely due to severe, end-stage COPD) decompensation likely due to ongoing issues with rapid a.fib lasix 20mg IV x 1 10/31 - had about 2000cc in total out with such Repeat BMP in am may need additional diuresis tomorrow BNP elevated 1175 improve his rate control - continue diltiazem drip until able to take PO more reliably (5) Acute metabolic encephalopathy: Plan: Improved Patient was alert and oriented today and conversing appropriately with myself and his multifactorial - pneumonia, CO2 retention as noted on VBG, alcohol withdrawal (6) Alcohol dependence: Plan: long-standing, for decades "heavy" for many years, now down to at least 2-3 drinks/day per he told me "sometimes" it is more he may have been in etoh withdrawal and/or early DTs given the hallucinations cont high-dose thiamine 500mg IV q8h one more day then place on 200mg/day thereafter cont folate 1mg IV daily cont MVI cont AWSS protocol with gabapentin with gabapentin he had been much less tremulous, more calm, and less agitated/confused Counseled on ETOH cessation If patient would have any further encephalopathy, would consider checking an NH3 level and possibly liver imaging (last RUQ U/S was 2019 -normal) (7) Alcohol withdrawal: Plan: see above (8) COPD exacerbation: Plan: had been improving with prednisone but worse this am Currently on IV dexamethasone Per pulm note - possibly transition back to prednisone tomorrow cont Incruse inhaler one puff daily cont Brovana neb BID cont duonebs q4h Budesonide 0.5mg NEB BID continue zosyn finished zithromax course appreciate pulmonary recommendations (9) On home oxygen therapy: Plan: Baseline 4L NC O2 2nd to COPD Currently here on 6L with rest and Bipap with exertion (10) Tobacco abuse: Plan: Cont nicoderm patch 21mg/day Patient and his both state they are quitting and have no plans of smoking going forward (11) Chronic gout: Plan: Chronic/ stable Continue allopurinol No flare at this time (12) Hypertension: Plan: Stop amlodipine to allow BP for diltiazem and metoprolol titration BPs acceptable (13) Elevated troponin: Plan: myocardial demand ischemia in setting of rapid a.fib and COPD flare peak HS trop = 85 no evidence of ACS (14) Pulmonary hypertension: Plan: moderate with RVSP of 53mmHg 2nd to COPD (15) Pre-diabetes: Plan: Chronic/stable a1c 5.6% in fall 2021 with steroids he is hyperglycemic thus, changed diet to DM diet and check BSGs ac/hs if continued highs then institute novolog SSI (16) Unwitnessed fall: Plan: CT head and CT c-spine obtained -- no fractures, no ICH fortunately no evidence of bony injuries on exam - hips seem ok, etc bed alarms on, fall precautions, sitter, etc Plan extensively updated at bedside today complex care coordination and critical care given for his resp failure, fall, etc PT and OT consults placed Admission and Anticipated Discharge Date Admission Date: October 27, 2022 Subjective Patient seen and examined this afternoon, his was at bedside. He states he feels better but not quite at his baseline. He has a nicotine patch in place and states he is definately NOT going to smoke going forward and his is also quitting. Review of Systems Review of Systems: Patient denies any chest pain. He denies any cough or congestion, nausea, vomiting or abdominal pain. He admits to continued fatigue and SOB, but states he feels his breathing is improving. He is wearing the Bipap at night and with exertion. He is on 6L nc at rest. Physical Exam Constitutional: + ill appearing, average body habitus and cooperative Respiratory: + labored breathing and + uses accessory muscles; no cough Auscultation: + crackles and + wheezes Cardiovascular: Rate/Rhythm: + tachycardic and + irregularly irregular Extremities: no calf tenderness and no edema Gastrointestinal (Abdomen): normal bowel sounds, soft, nontender, no hepatosplenomegaly Psychiatric: A+Ox3, euthymic affect Results & Data Results & Data Vital Signs (Past 12 Hours) Vital Signs Temp Pulse Pulse Resp BP Pulse Ox O2 Del Method 11/01/22 14:15 98 H 24 94 BiPAP 11/01/22 11:58 36.8 C 93 H 18 150/99 H 88 L Nasal Cannula 11/01/22 11:37 72 18 92 Nasal Cannula 11/01/22 08:00 105 H 11/01/22 09:36 91 High Flow Nasal Cannula 11/01/22 08:00 89 L High Flow Nasal Cannula 11/01/22 07:36 36.6 C 93 H 21 141/93 H 96 BiPAP 11/01/22 07:26 66 22 96 11/01/22 07:26 66 22 96 BiPAP 11/01/22 05:50 36.8 C 84 20 149/94 H 93 BiPAP 11/01/22 03:28 36.4 C L 73 20 134/85 91 BiPAP 11/01/22 03:09 71 24 93 11/01/22 03:07 71 24 93 O2 Flow Rate FiO2 11/01/22 14:15 45 11/01/22 11:58 6 11/01/22 11:37 5 11/01/22 08:00 11/01/22 09:36 6 11/01/22 08:00 7 11/01/22 07:36 45 11/01/22 07:26 45 11/01/22 07:26 45 11/01/22 05:50 11/01/22 03:28 11/01/22 03:09 45 11/01/22 03:07 45 Laboratory Results Abnormal lab results 10/31/22 10/31/22 11/01/22 Range/Units 17:05 20:21 07:32 Sodium 133 L (136-145) mmol/L Chloride 94 L (98-107) mmol/L BUN/Creatinine Ratio 21.3 H (10-20) Glucose 165 H (70-99(Fasting)) mg/dl POC Glucose 157 H 137 H (70-99) mg/dl 11/01/22 11/01/22 Range/Units 07:55 11:48 Sodium (136-145) mmol/L Chloride (98-107) mmol/L BUN/Creatinine Ratio (10-20) Glucose (70-99(Fasting)) mg/dl POC Glucose 161 H 153 H (70-99) mg/dl PG Care Time/CCT Total # of Minutes Spent Total Time Spent with Patient: Total time spent is greater than 50% in coordination of care (as documented) at patient's floor/unit and/or counseling patient: Coding Level of Care Code 83414 SUB INP/OBS CARE 235MIN Diagnoses Acute and chronic respiratory failure with hypoxia J96.21 New onset a-fib I48.91 RLL pneumonia J18.9 Acute on chronic right-sided congestive heart failure I50.813 Acute metabolic encephalopathy G93.41 Alcohol dependence F10.20 Alcohol withdrawal F10.939 COPD exacerbation J44.1 On home oxygen therapy Z99.81 Tobacco abuse Z72.0 Chronic gout [id number] Hypertension I10 Hypertension type: essential hypertension Elevated troponin R77.8 Pulmonary hypertension I27.20 Pre-diabetes R73.03 Unwitnessed fall R29.6 (12) Hypertension Hypertension type: essential hypertension Qualified Code(s): I10 - Essential (primary) hypertension
[2022-11-01] MEDS ORDERED: GABAPENTIN 100 MG CAP PO SCH (16:30)
[2022-11-01] MEDS: dilTIAZem HCL 125 MG in DEXTROSE 5% 100 ML IV SCH (18:14)
[2022-11-01] MEDS: THIAMINE HCL 100 MG TAB PO SCH (18:29)
[2022-11-01] MEDS: ESCITALOPRAM OXALATE 10 MG TAB PO SCH (20:38)
[2022-11-01] MEDS ORDERED: Nursing to Pharmacy Communication SCH (21:15)
[2022-11-02] MEDS: ALBUT/IPRATROP 3MG/0.5MG NEB 3 ML VIAL NEB SCH ×2 (04:12→07:26)
[2022-11-02] MEDS: PIPERACILLIN/TAZOBACTAM 3.375 GM in DEXTROSE 5% 100 ML IV SCH ×2 (05:36→13:45)
[2022-11-02] MEDS: METOPROLOL TARTRATE 50 MG TAB PO SCH ×4 (05:48→23:24)
[2022-11-02 06:30] LABS: Creatinine Clr Calc Pharmacy 65.9 ml/min; Est GFR (Non-African American) 73.3 ml/min
[2022-11-02] MEDS: FORMOTEROL 20 MCG/2 ML VIAL NEB SCH ×2 (07:24→20:29)
[2022-11-02] MEDS: BUDESONIDE 0.5 MG/2 ML VIAL (PULMICORT) NEB SCH ×2 (07:24→20:29)
[2022-11-02] MEDS: NICOTINE 21 MG/24 HR TDSY TD SCH (08:13)
[2022-11-02] MEDS: dexAMETHasone 6 MG in SYRINGE 0 ML IV SCH (08:13)
[2022-11-02] MEDS: FOLIC ACID 1 MG in SYRINGE 9.8 ML IV SCH (08:14)
[2022-11-02] MEDS: UMECLIDINIUM BROMIDE 62.5MCG/BLISTER 7 PUFFS/INHALER INH SCH (08:14)
[2022-11-02] MEDS: allopurinoL 300 MG TAB PO SCH (08:14)
[2022-11-02] MEDS: PRAVASTATIN SOD 20 MG TAB PO SCH (08:14)
[2022-11-02] MEDS: dilTIAZem HCL 120 MG CAPCR PO SCH (08:14)
[2022-11-02] MEDS: APIXABAN 5 MG TABLET PO SCH ×2 (08:14→20:02)
[2022-11-02] MEDS: CEROVITE ADV FORMULA TAB PO SCH (08:14)
[2022-11-02] MEDS ORDERED: dilTIAZem HCL 120 MG CAPCR PO STA (08:51)
[2022-11-02] MEDS ORDERED: dilTIAZem HCL 240 MG CAPCR PO SCH (09:00)
[2022-11-02] MEDS: THIAMINE HCL 100 MG TAB PO SCH (10:10)
[2022-11-02] MEDS ORDERED: XOPENEX/ATROVENT 0.63mg/0.5MG NEB COMBO NEB SCH (13:00)
[2022-11-02] MEDS: LEVALBUTEROL HCL 0.63 MG/3 ML NEB NEB SCH ×2 (13:39→20:34)
[2022-11-02] MEDS: IPRATROPIUM BROMIDE NEB SOLN 0.02% 2.5 ML VIAL INH SCH ×2 (13:39→20:30)
--- NOTE | 2022-11-02 14:14 | Hospitalist Progress Note ---
Date of Service November 02, 2022 Assessment & Plan (1) Acute and chronic respiratory failure with hypoxia: Plan: Acute/Chronic/Unstable/High risk - Multifactorial d/t CHF and RLL pneumonia ?aspiration - For resp failure - continue supplemental oxygen, currently weaned down to 5L as most recent towel distributor with sat of 91% - Continue Zosyn for PNA - will transition to Augmentin to start on 11/03 - Currently still on IV Decadron, will transition to Prednisone 11/03 - Change Duonebs to Xopenex QID to avoid RVR in setting of new onset afib - BiPAP at - Pulmonology following, appreciate assistance. - Recent dysphagia eval by [employer] w/o evidence of overt aspiration. (2) New onset a-fib: Plan: Acute/unstable - TSH and electrolytes WNL - echo - preserved EF, mild RV dysfunction likely due to advanced COPD - Cardiology consulted, appreciate assistance by Dr. Pollack - Started on metoprolol tartrate 50mg q6h + cardizem CD 120mg daily - Appears patient was back on Dilt gtt overnight and this AM was at 5mg/hr - I have increased Cardizem CD to 240mg daily and gave pt additional dose of 120mg PO this AM - Eliquis - cost $15/month - restarted Eliquis last evening (3) Acute on chronic right-sided congestive heart failure: Plan: Acute/stable - recent echo with preserved EF but mild RV dysfunction (which is likely due to severe, end-stage COPD) - decompensation likely due to ongoing issues with rapid a.fib - lasix 20mg IV x 1 10/31 - had about 2000cc in total out - Has not required additional diuresis - likely with good rate control he should remain compensated (4) Alcohol dependence: Plan: Chronic/long-standing, for decades "heavy" for many years, now down to at least 2-3 drinks/day per , he states "sometimes" it is more - he may have been in etoh withdrawal and/or early DTs given the hallucinations - started on high dose thiamine 500mg IV q8h and converted to 200mg daily (started 11/01) - cont folate 1mg IV daily and MVI - cont AWSS protocol with gabapentin - Counseled on ETOH cessation - If patient would have any further encephalopathy, would consider checking an NH3 level and possibly liver imaging (last RUQ U/S was 2019 -normal) (5) COPD exacerbation: Plan: Acute on Chronic/unstable - had been improving with prednisone but worse on 10/31, started on IV Decadron - cont Incruse inhaler, Brovana neb BID, and Budesonide 0.5mg NEB BID - Transition from IV decadron back to oral Prednisone tomorrow AM - Changed Duonebs to Xopenex - Continues to smoke - educated on cessation, nicotine patch ordered (6) Hypertension: Plan: Chronic/stable - Stopped amlodipine to allow BP for diltiazem and metoprolol titration - BPs acceptable (7) Elevated troponin: Plan: Acute/stable - secondary to myocardial demand ischemia in setting of rapid a.fib and COPD flare - peak HS trop = 85 - CP free, no acute EKG changes, no evidence of ACS (8) Pre-diabetes: Plan: Chronic/stable - a1c 5.6% in fall 2021 - with steroids he is hyperglycemic - diet changed to DM diet and check BSGs ac/hs - add SSI CF/CR with meals (9) Unwitnessed fall: Plan: CT head and CT c-spine obtained -- no fractures, no ICH fortunately - no evidence of bony injuries on exam - hips seem ok, etc - bed alarms on, fall precautions Plan PT/OT eval. Remove schumacher catheter. Titrate Diltiazem (oral). Transition to oral antibiotics and oral steroids. AM labs ordered. Above plan of care has been d/w Dr. Arreaga. Admission and Anticipated Discharge Date Admission Date: October 27, 2022 Subjective Patient seen on daily rounds today. Continues to cough but mostly nonproductive. Denies cp, palpitations, dyspnea, n/v/d, f/c, or headache. Still has catheter in place, is excited at the idea of having this removed. Still requiring 6L of supplemental O2 this AM, normally wears 4L at home. Physical Exam Physical Exam: GENERAL: 77 yo well-developed, well-nourished chronically ill appearing M. NAD. LUNGS: No conversational dyspnea. Poor air exchange but no significant w/r/r on exam CARDIOVASCULAR: S1 S2 irregular, variable rates ABDOMEN: Soft, non-tender and non-distended. BS normoactive x 4 quad. : schumacher in place EXT: w/o edema, cyanosis, clubbing. pulses +2/4 Results & Data Results & Data Vital Signs (Past 12 Hours) Vital Signs Temp Pulse Pulse Pulse Resp BP Pulse Ox 11/02/22 13:39 68 26 H 91 11/02/22 12:49 11/02/22 12:14 36.9 C 99 H 19 121/86 94 11/02/22 08:00 100 H 11/02/22 08:00 11/02/22 08:34 36.5 C 76 18 132/77 92 11/02/22 07:31 75 20 93 11/02/22 05:48 78 129/69 11/02/22 04:15 36.6 C 86 20 133/90 99 11/02/22 04:12 76 29 H 97 11/02/22 04:12 76 29 H 97 Pulse Ox Pulse Ox Pulse Ox O2 Del Method O2 Flow Rate O2 Flow Rate O2 Flow Rate 11/02/22 13:39 Nasal Cannula 5 11/02/22 12:49 92 91 84 L 6 6 11/02/22 12:14 Nasal Cannula 6 11/02/22 08:00 11/02/22 08:00 Nasal Cannula 6 11/02/22 08:34 Nasal Cannula 6 11/02/22 07:31 Nasal Cannula 6 11/02/22 05:48 11/02/22 04:15 BiPAP 11/02/22 04:12 11/02/22 04:12 BiPAP O2 Flow Rate FiO2 11/02/22 13:39 11/02/22 12:49 6 11/02/22 12:14 11/02/22 08:00 11/02/22 08:00 11/02/22 08:34 11/02/22 07:31 11/02/22 05:48 11/02/22 04:15 11/02/22 04:12 45 11/02/22 04:12 Laboratory Results 10/31/22 07:53 11/02/22 05:48 PG Care Time/CCT Total # of Minutes Spent Total Time Spent with Patient: Total time spent is greater than 50% in coordination of care (as documented) at patient's floor/unit and/or counseling patient: Coding Level of Care Code 95885 SUB INP/OBS CARE 3/50MIN Diagnoses Acute and chronic respiratory failure with hypoxia J96.21 New onset a-fib I48.91 Acute on chronic right-sided congestive heart failure I50.813 Alcohol dependence F10.20 COPD exacerbation J44.1 Hypertension I10 Hypertension type: essential hypertension Elevated troponin R77.8 Pre-diabetes R73.03 Unwitnessed fall R29.6 (6) Hypertension Hypertension type: essential hypertension Qualified Code(s): I10 - Essential (primary) hypertension
--- NOTE | 2022-11-02 15:57 | XRay Report ---
XR chest 1V portable HISTORY: 77 years-old Male Pneumonia acute shortness of breath COMPARISON: Chest radiograph 10/31/2022 TECHNIQUE: AP view of the chest FINDINGS: Cardiac silhouette is enlarged. No pneumothorax. Emphysema. Unchanged blunting of the left costophren ic angle. Small right pleural effusion with right greater left bibasilar consolidation. Decreased pul monary edema. Degenerative changes of the shoulders and spine. IMPRESSION: 1. Cardiomegaly with decreased pulmonary edema. 2. Persistent small right pleural effusion with mildly improved right basilar consolidation. 3. Emphysema. ACT 112: Negative or not required by law. The above report was generated using voice recognition software. It may contain grammatical, syntax o r spelling errors. Electronically signed by: Morris Faulkner M.D. 11/02/2022 3:55 PM
--- NOTE | 2022-11-02 17:34 | Pulmonology Progress Note ---
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 Hahn Impression: 77-year-old male with past medical history including acute on chronic hypoxemic/hypercapnic respiratory failure. Patient had negative bio fire on admission. proBNP was 498. Patient follows with Dr. Hahn as an outpatient. He is on Trilogy NIV as an outpatient. He states that he does well with this. Patient states that he is doing better today. Patient also admits that he is currently on nicotine patch and is motivated to quit smoking. He and his have both run away their cigarettes and they do not intend to smoke once he is discharged from the hospital. Recommendations: 1. Acute on chronic hypoxemic/hypercapnic respiratory failure: * Chronically on supplemental oxygen and trilogy NIV at home. * CT scan of the chest on 10/28/2022 showed severe centrilobular and paraseptal emphysema bilaterally. There is seem to be consolidative process in the right lower lobe. Repeat chest x-ray today shows persistent but minimal improvement in consolidation. * Patient has been on Zosyn IV. Okay to convert to oral antibiotics in preparation for discharge * Patient does not seem to be in COPD exacerbation. Would do 5 days of steroids and stop * Continue with supplemental oxygen to maintain SaO2 between 88 and 92% * Follow-up with Dr. Hahn in the office 2 to 3 weeks after discharge 2. COPD with emphysema: * Most recent pulmonary function testing performed in 2019 * Last seen by Dr. Hahn in the office 05/19/2022 * Patient reports that he is now on nicotine patch and has no intention to continue smoking * Continue ICS/AC/LABA * Continue to encourage complete abstinence of tobacco products 3. New onset atrial fibrillation with RVR: * Most likely contributing to acute on chronic hypoxemic respiratory failure * Is followed by cardiology * Anticoagulated with Eliquis * Patient management with cardiology 4. Pulmonary hypertension: * Type II/III * Continue with supplemental oxygen and diuretics 5. Tobacco abuse history: * Patient reports that he has been a heavy smoker. * Motivated to quit smoking. Currently on nicotine patch. States he will use same at home * Discussed with his and both of them are going to quit smoking effective immediately * CT chest 10/28/2022 with no evidence of nodules or masses or significant mediastinal or hilar lymphadenopathy. Due to chronic respiratory failure consequent to COPD, patient continues to require a noninvasive home ventilator. Bilevel therapy with and without a rate would be ineffective as patient requires a volume targeted mode. Ventilation is required to decrease work of breathing and improve pulmonary status. Interruption of ventilator support would lead to decline of health status. NIMV settings should be AVAPS-AE; Breath rate: auto; Inspiratory time:auto; Sigh: off; Tidal Volume: 350-450, PS min: 4-10 PS max: 12-20; EPAP min: 6-10; EPAP max: 10-16; AVAPS rate: 14 during sleep and as needed Thank you for including us in the care of this patient. Patient should follow- up with Dr. Hahn on discharge within 2 to 3 weeks Admission and Anticipated Discharge Date Admission Date: October 27, 2022 Subjective Attending: Dr. Hahn Patient seen and examined at bedside in room 456. He is doing much better. Tolerated CPAP therapy at night last night. Patient does state that he has Trelegy noninvasive ventilator at home and does well with that. Still feels somewhat short of breath but feels as though he is making improvement. No further fever or chills. Review of Systems Review of Systems: A total of 10 systems was reviewed and is negative other than as listed in the HPI Physical Exam Physical Exam: GENERAL : No acute distress EYES: No icterus, gaze conjugate NOSE: No evidence of epistaxis. Nasal Place and secure MOUTH: No lesions or candidiasis NECK: Supple LUNGS: Fine wheezes in mid posterior lung zones. Otherwise generally clear to auscultation. Distant breath sounds bilaterally. HEART: Regular, rate controlled ABDOMEN: Soft, NT, ND, BS Present EXTREMITIES: No LE edema, pedal pulses intact and equal bilaterally. NEURO: A&OX3 Results & Data Results & Data Vital Signs (Past 12 Hours) Vital Signs Temp Pulse Pulse Pulse Resp BP BP 11/02/22 15:55 36.3 C L 89 19 117/69 11/02/22 14:41 11/02/22 13:39 68 26 H 11/02/22 12:49 11/02/22 12:14 36.9 C 99 H 19 121/86 11/02/22 08:00 100 H 11/02/22 08:00 11/02/22 08:34 36.5 C 76 18 132/77 11/02/22 07:31 75 20 11/02/22 05:48 78 129/69 Pulse Ox Pulse Ox Pulse Ox Pulse Ox O2 Del Method O2 Flow Rate O2 Flow Rate 11/02/22 15:55 96 Nasal Cannula 6 11/02/22 14:41 94 11/02/22 13:39 91 Nasal Cannula 5 11/02/22 12:49 92 91 84 L 6 11/02/22 12:14 94 Nasal Cannula 6 11/02/22 08:00 11/02/22 08:00 Nasal Cannula 6 11/02/22 08:34 92 Nasal Cannula 6 11/02/22 07:31 93 Nasal Cannula 6 11/02/22 05:48 O2 Flow Rate O2 Flow Rate 11/02/22 15:55 11/02/22 14:41 11/02/22 13:39 11/02/22 12:49 6 6 11/02/22 12:14 11/02/22 08:00 11/02/22 08:00 11/02/22 08:34 11/02/22 07:31 11/02/22 05:48 Critical Care Results & Data Vital Signs (Past 12 Hours) Vital Signs Temp Pulse Pulse Pulse Resp BP BP 11/02/22 15:55 36.3 C L 89 19 117/69 11/02/22 14:41 11/02/22 13:39 68 26 H 11/02/22 12:49 11/02/22 12:14 36.9 C 99 H 19 121/86 11/02/22 08:00 100 H 11/02/22 08:00 11/02/22 08:34 36.5 C 76 18 132/77 11/02/22 07:31 75 20 11/02/22 05:48 78 129/69 Pulse Ox Pulse Ox Pulse Ox Pulse Ox O2 Del Method O2 Flow Rate O2 Flow Rate 11/02/22 15:55 96 Nasal Cannula 6 11/02/22 14:41 94 11/02/22 13:39 91 Nasal Cannula 5 11/02/22 12:49 92 91 84 L 6 11/02/22 12:14 94 Nasal Cannula 6 11/02/22 08:00 11/02/22 08:00 Nasal Cannula 6 11/02/22 08:34 92 Nasal Cannula 6 11/02/22 07:31 93 Nasal Cannula 6 11/02/22 05:48 O2 Flow Rate O2 Flow Rate 11/02/22 15:55 11/02/22 14:41 11/02/22 13:39 11/02/22 12:49 6 6 11/02/22 12:14 11/02/22 08:00 11/02/22 08:00 11/02/22 08:34 11/02/22 07:31 11/02/22 05:48 Lab & Micro Results (Past 24 Hours) No Data to Display Creatinine 1.00 mg/dl (0.6-1.4) 11/02/22 Estimated GFR ( Amer) 85.0 ml/min 11/02/22 Estimated GFR (Non-Af Amer) 73.3 ml/min 11/02/22 No Data to Display Microbiology 10/27/22 14:31 Aerobic Blood Culture - Final Blood No growth in Aerobic bottle after 5 days. Anaerobic Blood Culture - Final No growth in Anaerobic bottle after 5 days. 10/27/22 14:11 Aerobic Blood Culture - Final Blood No growth in Aerobic bottle after 5 days. Anaerobic Blood Culture - Final No growth in Anaerobic bottle after 5 days. Diagnostic Findings (Past 24 Hours) Chest X-Ray 11/02/22 15:16 XR chest 1V portable HISTORY: 77 years-old Male Pneumonia acute shortness of breath COMPARISON: Chest radiograph 10/31/2022 TECHNIQUE: AP view of the chest FINDINGS: Cardiac silhouette is enlarged. No pneumothorax. Emphysema. Unchanged blunting of the left costophrenic angle. Small right pleural effusion with right greater left bibasilar consolidation. Decreased pulmonary edema. Degenerative changes of the shoulders and spine. IMPRESSION: 1. Cardiomegaly with decreased pulmonary edema. 2. Persistent small right pleural effusion with mildly improved right basilar consolidation. 3. Emphysema. ACT 112: Negative or not required by law. The above report was generated using voice recognition software. It may contain grammatical, syntax or spelling errors. Electronically signed by: Morris Faulkner M.D. 11/02/2022 3:55 PM I & O Totals 24 Hours 11/01/22 11/02/22 11/03/22 06:59 06:59 06:59 Intake Total 722.50 / 722.50 1358.333 / 1358.333 413.917 / 413.917 Output Total 2900 / 2900 1750 / 1750 650 / 650 Balance -2177.50 / -2177.50 -391.667 / -391.667 -236.083 / -236.083 Cumulative 10/27/22 13:19 thru 11/02/22 16:59 Intake Total 05525.681 Output Total 7250 Balance 3727.681 RT Ventilator Mngmt (Last Documented) Ventilator Ordered Settings Respiratory Rate 19 11/02/22 15:55 Fraction of Inspired Oxygen 45 11/02/22 04:12 Ventilator - PT Measurements Respiratory Rate 19 PG Care Time/CCT Total # of Minutes Spent Total Time Spent with Patient: Total time spent is greater than 50% in coordination of care (as documented) at patient's floor/unit and/or counseling patient:30 Coding Level of Care Code 89787 SUB INP/OBS CARE 2/35MIN Diagnoses New onset a-fib I48.91 Acute and chronic respiratory failure with hypoxia J96.21 On home oxygen therapy Z99.81 COPD (chronic obstructive pulmonary disease) J43.2 COPD type: emphysema Emphysema type: centrilobular Tobacco abuse Z72.0 Time Spent (min) 30
[2022-11-02] MEDS: ESCITALOPRAM OXALATE 10 MG TAB PO SCH (20:02)
[2022-11-03] MEDS: IPRATROPIUM BROMIDE NEB SOLN 0.02% 2.5 ML VIAL INH SCH ×4 (02:47→19:10)
[2022-11-03] MEDS: LEVALBUTEROL HCL 0.63 MG/3 ML NEB NEB SCH ×4 (02:47→19:10)
[2022-11-03] MEDS: METOPROLOL TARTRATE 50 MG TAB PO SCH ×2 (05:37→12:37)
[2022-11-03 06:37] LABS: Basophils # (auto) 0.03 K/uL (0-0.2); Basophils % (auto) 0.2 %; Hematocrit (blood only) 35.8 % (42.0-52.0); Hemoglobin 12.3 g/dl (14.0-18.0); Immature Granulocytes # (auto) 0.26 K/uL (0.01-0.20); Immature Granulocytes % (auto) 1.5 %; Lymphocytes # (auto) 0.97 K/uL (1.2-3.4); Lymphocytes % (auto) 5.5 %; Mean Corpuscular Hemoglobin 33.9 pg (25.0-34.0); Mean Corpuscular Hgb Conc 34.4 g/dL (32.0-36.0); Mean Corpuscular Volume 98.6 fL (80.0-100.0); Mean Platelet Volume 10.5 fL (9.4-12.4); Monocytes # (auto) 0.92 K/uL (0.11-0.59); Monocytes % (auto) 5.2 %; Neutrophils # (auto) 15.47 K/uL (1.40-6.50); Neutrophils % (auto) 87.6 %; Platelet Count 372 K/uL (130-400); RDW Coefficient of Variation 12.9 % (11.5-14.5); RDW Standard Deviation 46.5 fL (36.4-46.3); Red Blood Count 3.63 M/uL (4.70-6.10); White Blood Count 17.65 K/ul (4.8-10.8)
[2022-11-03 06:56] LABS: BUN Creatinine Ratio 24.8 (10-20); Calcium 8.7 mg/dl (8.6-10.3); Creatinine Clr Calc Pharmacy 65.3 ml/min; Est GFR (African American) 83.9 ml/min; Est GFR (Non-African American) 72.4 ml/min; Potassium 4.2 mmol/L (3.5-5.1)
[2022-11-03] MEDS: BUDESONIDE 0.5 MG/2 ML VIAL (PULMICORT) NEB SCH ×2 (07:06→19:10)
[2022-11-03] MEDS: FORMOTEROL 20 MCG/2 ML VIAL NEB SCH ×2 (07:06→19:10)
[2022-11-03] MEDS: AMOXICILLIN/CLAVULANATE 875 MG TAB PO SCH ×2 (08:06→17:33)
[2022-11-03] MEDS: predniSONE 20 MG TAB PO SCH (08:06)
[2022-11-03] MEDS: dilTIAZem HCL 240 MG CAPCR PO SCH (08:06)
[2022-11-03] MEDS: CEROVITE ADV FORMULA TAB PO SCH (08:06)
[2022-11-03] MEDS: THIAMINE HCL 100 MG TAB PO SCH (08:06)
[2022-11-03] MEDS: NICOTINE 21 MG/24 HR TDSY TD SCH (08:06)
[2022-11-03] MEDS: PRAVASTATIN SOD 20 MG TAB PO SCH (08:07)
[2022-11-03] MEDS: APIXABAN 5 MG TABLET PO SCH ×2 (08:07→21:02)
[2022-11-03] MEDS: allopurinoL 300 MG TAB PO SCH (08:07)
[2022-11-03] MEDS: FOLIC ACID 1 MG in SYRINGE 9.8 ML IV SCH (08:07)
[2022-11-03] MEDS: UMECLIDINIUM BROMIDE 62.5MCG/BLISTER 7 PUFFS/INHALER INH SCH (08:08)
--- NOTE | 2022-11-03 13:53 | Pulmonology Progress Note ---
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 Hahn Impression: 77-year-old male with past medical history including acute on chronic hypoxemic/hypercapnic respiratory failure. Patient follows with Dr. Hahn as an outpatient. Doing better today. Hopeful for discharge soon. Recommendations: 1. Acute on chronic hypoxemic/hypercapnic respiratory failure: * Chronically on supplemental oxygen - [facility] AV[facility] for [facility]. * CT scan of the chest on 10/28/2022 showed severe centrilobular and paraseptal emphysema bilaterally. * Patient has been on Zosyn IV. --> Transitioned to augmentin * Patient does not seem to be in COPD exacerbation. Would do 5 days of steroids and stop * Continue with supplemental oxygen to maintain SaO2 between 88 and 92% * Follow-up with Dr. Hahn in the office 2 to 3 weeks after discharge 2. COPD with emphysema: * Most recent pulmonary function testing performed in 2019 * Last seen by Dr. Hahn in the office 05/19/2022 * Continue ICS/AC/LABA * Continue to encourage complete abstinence of tobacco products 3. New onset atrial fibrillation with RVR: * Most likely contributing to acute on chronic hypoxemic respiratory failure * Is followed by cardiology * Anticoagulated with Eliquis * Patient management with cardiology 4. Pulmonary hypertension: * Type II/III * Continue with supplemental oxygen and diuretics 5. Tobacco abuse history: * Patient reports that he has been a heavy smoker. * Motivated to quit smoking. Currently on nicotine patch. States he will use same at home * Discussed with his and both of them are going to quit smoking effective immediately * CT chest 10/28/2022 with no evidence of nodules or masses or significant mediastinal or hilar lymphadenopathy. Due to chronic respiratory failure consequent to COPD, patient continues to require a noninvasive home ventilator. Bilevel therapy with and without a rate would be ineffective as patient requires a volume targeted mode. Ventilation is required to decrease work of breathing and improve pulmonary status. Interruption of ventilator support would lead to decline of health status. NIMV settings should be AVAPS-AE; Breath rate: auto; Inspiratory time:auto; Sigh: off; Tidal Volume: 350-450, PS min: 4-10 PS max: 12-20; EPAP min: 6-10; EPAP max: 10-16; AVAPS rate: 14 during sleep and as needed Thank you for including us in the care of this patient. Pulmonary medicine will sign off at this time. Admission and Anticipated Discharge Date Admission Date: October 27, 2022 Subjective Patient was seen and evaluated by myself. He reports he is feeling somewhat better at this time. He is less short of breath. is at bedside. She reports that they are working on getting his noninvasive supportive ventilation set up at home. Otherwise, he reports feeling better and is encouraged to be discharged home soon. Review of Systems Review of Systems: A complete 6 point review of systems was reviewed with the patient with pertinent positives and negatives as per history of present illness. All else were negative. Physical Exam Physical Exam: VITAL SIGNS - Vital signs and nursing notes were reviewed. GENERAL - 77-year-old male appearing his stated age who is in no acute distress. Communicates well with provider and answers questions appropriately. SKIN - Without rashes or lesions. MOUTH/OROPHARYNX - Without perioral cyanosis. NECK - Neck with FROM. LUNGS - Auscultation reveals little air movement with distant breath sounds throughout. CARDIAC - RRR with S1/S2. No murmur, rubs, or gallops appreciated. EXTREMITIES - No peripheral cyanosis. No pretibial edema present. +3/5 radial palpated throughout. PSYCH - A&Ox3 and cooperates fully with examiner. Pt is very pleasant and interacts well with examiner. Results & Data Results & Data Vital Signs (Past 12 Hours) Vital Signs Temp Pulse Pulse Pulse Resp BP BP 11/03/22 13:52 96 H 11/03/22 13:00 110 H 20 11/03/22 11:19 36.6 C 78 20 128/77 11/03/22 09:00 99 H 11/03/22 09:00 11/03/22 07:24 36.5 C 51 L 21 146/89 H 11/03/22 07:09 62 20 11/03/22 05:35 83 121/91 11/03/22 03:43 36.5 C 105 H 18 135/95 Pulse Ox O2 Del Method O2 Flow Rate 11/03/22 13:52 90 Nasal Cannula 4 11/03/22 13:00 93 Nasal Cannula 4 11/03/22 11:19 92 Nasal Cannula 5 11/03/22 09:00 11/03/22 09:00 Nasal Cannula 6 11/03/22 07:24 94 Nasal Cannula 5 11/03/22 07:09 95 Nasal Cannula 6 11/03/22 05:35 11/03/22 03:43 96 High Flow Nasal Cannula 6 PG Care Time/CCT Total # of Minutes Spent Total Time Spent with Patient: Total time spent is greater than 50% in coordination of care (as documented) at patient's floor/unit and/or counseling patient: Coding Level of Care Code 19458 SUB INP/OBS CARE 3/50MIN Diagnoses New onset a-fib I48.91 Acute and chronic respiratory failure with hypoxia J96.21 On home oxygen therapy Z99.81 COPD (chronic obstructive pulmonary disease) J43.2 COPD type: emphysema Emphysema type: centrilobular Tobacco abuse Z72.0
--- NOTE | 2022-11-03 14:07 | Hospitalist Progress Note ---
Date of Service November 03, 2022 Assessment & Plan (1) Acute and chronic respiratory failure with hypoxia: Plan: Acute/Chronic hypercapnic/hypoxic resp failure - stable - Multifactorial d/t CHF and RLL pneumonia ?aspiration - For resp failure - continue supplemental oxygen, currently weaned down to 4L as most recent kitchen work supervisor with sat of 91% - Continue Zosyn for PNA - transitioned to Augmentin on 11/03 (day #4) - Currently still on IV Decadron, transitioned to Prednisone taper on 11/03 (cbc reviewed, now with leukocytosis 2/2 steroids) - Changed Duonebs to Xopenex QID to avoid RVR in setting of new onset afib - BiPAP at - Pulmonology following, appreciate assistance. - Recent dysphagia eval by GENETIC PHYSICIAN w/o evidence of overt aspiration. (2) New onset a-fib: Plan: Acute/unstable - TSH and electrolytes WNL - echo - preserved EF, mild RV dysfunction likely due to advanced COPD - Cardiology consulted, appreciate assistance by Dr. Pollack - Started on metoprolol tartrate 50mg q6h + cardizem CD 120mg daily - I have increased Cardizem CD to 240mg daily for better rate control - Changed Lopressor to 100mg BID (previously dosed as 50mg q6) - Eliquis restarted - cost $15/month (3) Acute on chronic right-sided congestive heart failure: Plan: Acute/stable - recent echo with preserved EF but mild RV dysfunction (which is likely due to severe, end-stage COPD) - decompensation likely due to ongoing issues with rapid a.fib - lasix 20mg IV x 1 10/31 - had about 2000cc in total out - Has not required additional diuresis - likely with good rate control he should remain compensated (4) Alcohol dependence: Plan: Chronic/long-standing, for decades "heavy" for many years, now down to at least 2-3 drinks/day per , he states "sometimes" it is more - he may have been in etoh withdrawal and/or early DTs given the hallucinations - started on high dose thiamine 500mg IV q8h and converted to 200mg daily (started 11/01) - cont folate 1mg IV daily and MVI - cont AWSS protocol with gabapentin - Counseled on ETOH cessation - If patient would have any further encephalopathy, would consider checking an NH3 level and possibly liver imaging (last RUQ U/S was 2019 -normal) (5) COPD exacerbation: Plan: Chronic/stable - had been improving with prednisone but worse on 10/31, started on IV Decadron - cont Incruse inhaler, Brovana neb BID, and Budesonide 0.5mg NEB BID - Transitioned from IV decadron back to oral Prednisone - Changed Duonebs to Xopenex - Continues to smoke - educated on cessation, nicotine patch ordered (6) Hypertension: Plan: Chronic/stable - Stopped amlodipine to allow BP for diltiazem and metoprolol titration - BPs acceptable (7) Elevated troponin: Plan: Acute/stable - secondary to myocardial demand ischemia in setting of rapid a.fib and COPD flare - peak HS trop = 85 - CP free, no acute EKG changes, no evidence of ACS (8) Pre-diabetes: Plan: Chronic/stable - a1c 5.6% in fall 2021 - with steroids he is hyperglycemic - diet changed to DM diet and check BSGs ac/hs (9) Unwitnessed fall: Plan: CT head and CT c-spine obtained -- no fractures, no ICH fortunately - no evidence of bony injuries on exam - hips seem ok, etc - bed alarms on, fall precautions Plan PT/OT eval-recommending home. Pt/ refused home health. Anticipate home probably tomorrow. [facility] the [facility] of his home O2 and AVAPS machine. Above plan of care has been d/w Dr. Arreaga. Admission and Anticipated Discharge Date Admission Date: October 27, 2022 Subjective Patient seen on daily rounds this morning. He was sleeping when I entered the room, not wearing bipap. Denies cough, feels breathing has improved. Afib on the monitor with variable rates, sitting at edge of bed this afternoon he's 90-110. Physical Exam Physical Exam: GENERAL: 77 yo well-developed, well-nourished chronically ill appearing M. NAD. LUNGS: No conversational dyspnea. Poor air exchange but no significant w/r/r on exam CARDIOVASCULAR: S1 S2 irregular, variable rates ABDOMEN: Soft, non-tender and non-distended. BS normoactive x 4 quad. EXT: w/o edema, cyanosis, clubbing. pulses +2/4 Results & Data Results & Data Vital Signs (Past 12 Hours) Vital Signs Temp Pulse Pulse Pulse Resp BP BP 11/03/22 13:00 110 H 20 11/03/22 11:19 36.6 C 78 20 128/77 11/03/22 09:00 99 H 11/03/22 09:00 11/03/22 07:24 36.5 C 51 L 21 146/89 H 11/03/22 07:09 62 20 11/03/22 05:35 83 121/91 11/03/22 03:43 36.5 C 105 H 18 135/95 Pulse Ox O2 Del Method O2 Flow Rate 11/03/22 13:00 93 Nasal Cannula 4 11/03/22 11:19 92 Nasal Cannula 5 11/03/22 09:00 11/03/22 09:00 Nasal Cannula 6 11/03/22 07:24 94 Nasal Cannula 5 11/03/22 07:09 95 Nasal Cannula 6 11/03/22 05:35 11/03/22 03:43 96 High Flow Nasal Cannula 6 Laboratory Results 11/03/22 05:43 11/03/22 05:43 PG Care Time/CCT Total # of Minutes Spent Total Time Spent with Patient: Total time spent is greater than 50% in coordination of care (as documented) at patient's floor/unit and/or counseling patient: Coding Level of Care Code 59568 SUB INP/OBS CARE 2/35MIN Diagnoses Acute and chronic respiratory failure with hypoxia J96.21 New onset a-fib I48.91 Acute on chronic right-sided congestive heart failure I50.813 Alcohol dependence F10.20 COPD exacerbation J44.1 Hypertension I10 Hypertension type: essential hypertension Elevated troponin R77.8 Pre-diabetes R73.03 Unwitnessed fall R29.6 (6) Hypertension Hypertension type: essential hypertension Qualified Code(s): I10 - Essential (primary) hypertension
[2022-11-03] MEDS: METOPROLOL TARTRATE 100 MG TAB PO SCH (21:02)
[2022-11-03] MEDS: ESCITALOPRAM OXALATE 10 MG TAB PO SCH (21:02)
[2022-11-04] MEDS: LEVALBUTEROL HCL 0.63 MG/3 ML NEB NEB SCH ×3 (00:57→12:01)
[2022-11-04] MEDS: IPRATROPIUM BROMIDE NEB SOLN 0.02% 2.5 ML VIAL INH SCH ×3 (00:57→12:01)
[2022-11-04] MEDS: FORMOTEROL 20 MCG/2 ML VIAL NEB SCH (07:23)
[2022-11-04] MEDS: BUDESONIDE 0.5 MG/2 ML VIAL (PULMICORT) NEB SCH (07:23)
[2022-11-04] MEDS: METOPROLOL TARTRATE 100 MG TAB PO SCH (08:24)
[2022-11-04] MEDS: predniSONE 20 MG TAB PO SCH (08:24)
[2022-11-04] MEDS: NICOTINE 21 MG/24 HR TDSY TD SCH (08:24)
[2022-11-04] MEDS: dilTIAZem HCL 240 MG CAPCR PO SCH (08:24)
[2022-11-04] MEDS: THIAMINE HCL 100 MG TAB PO SCH (08:24)
[2022-11-04] MEDS: allopurinoL 300 MG TAB PO SCH (08:24)
[2022-11-04] MEDS: CEROVITE ADV FORMULA TAB PO SCH (08:24)
[2022-11-04] MEDS: APIXABAN 5 MG TABLET PO SCH (08:24)
[2022-11-04] MEDS: AMOXICILLIN/CLAVULANATE 875 MG TAB PO SCH (08:25)
[2022-11-04] MEDS: UMECLIDINIUM BROMIDE 62.5MCG/BLISTER 7 PUFFS/INHALER INH SCH (08:25)
[2022-11-04] MEDS: PRAVASTATIN SOD 20 MG TAB PO SCH (08:25)
[2022-11-04] MEDS ORDERED: FOLIC ACID 1 MG TAB PO SCH (09:00)
--- NOTE | 2022-11-04 09:12 | Hospitalist Progress Note ---
Date of Service November 04, 2022 Assessment & Plan (1) Acute and chronic respiratory failure with hypoxia: Plan: Acute/Chronic hypercapnic/hypoxic resp failure - stable - Multifactorial d/t CHF and RLL pneumonia ?aspiration - For resp failure - continue supplemental oxygen, currently weaned down to 4L as most recent documentation analyst with sat of 91% - Continue Zosyn for PNA - transitioned to Augmentin on 11/03 (day #4) - Currently still on IV Decadron, transitioned to Prednisone 5 days LD 11/08 - Changed Duonebs to Xopenex QID to avoid RVR in setting of new onset afib - BiPAP at - Pulmonology will follow up as outpt 2-3 weeks - Recent dysphagia eval by DIAGNOSTIC CARDIAC SONOGRAPHER w/o evidence of overt aspiration. (2) New onset a-fib: Plan: Acute/now stable - TSH and electrolytes WNL - echo - preserved EF, mild RV dysfunction likely due to advanced COPD - Cardiology consulted, appreciate assistance by Dr. Pollack - Started on metoprolol tartrate 50mg q6h + cardizem CD 120mg daily -increased Cardizem CD to 240mg daily for better rate control - Changed Lopressor to 100mg BID (previously dosed as 50mg q6) - Eliquis restarted - cost $15/month (3) Acute on chronic right-sided congestive heart failure: Plan: Acute/stable - recent echo with preserved EF but mild RV dysfunction (which is likely due to severe, end-stage COPD) - decompensation likely due to ongoing issues with rapid a.fib - lasix 20mg IV x 1 10/31 - had about 2000cc in total out - Has not required additional diuresis - likely with good rate control he should remain compensated (4) Alcohol dependence: Plan: Chronic/long-standing, for decades "heavy" for many years, now down to at least 2-3 drinks/day per , he states "sometimes" it is more - he may have been in etoh withdrawal and/or early DTs given the hallucinations - started on high dose thiamine 500mg IV q8h and converted to 200mg daily (started 11/01) - cont folate 1mg IV daily and MVI - cont AWSS protocol with gabapentin - Counseled on ETOH cessation - If patient would have any further encephalopathy, would consider checking an NH3 level and possibly liver imaging (last RUQ U/S was 2018 -normal) (5) COPD exacerbation: Plan: Chronic/stable - had been improving with prednisone but worse on 10/31, started on IV Decadron - cont Incruse inhaler, Brovana neb BID, and Budesonide 0.5mg NEB BID - Transitioned from IV decadron back to oral Prednisone - Changed Duonebs to Xopenex - Continues to smoke - educated on cessation, nicotine patch ordered (6) Hypertension: Plan: Chronic/stable - Stopped amlodipine to allow BP for diltiazem and metoprolol titration - BPs acceptable (7) Elevated troponin: Plan: Acute/stable - secondary to myocardial demand ischemia in setting of rapid a.fib and COPD flare - peak HS trop = 85 - CP free, no acute EKG changes, no evidence of ACS (8) Pre-diabetes: Plan: Chronic/stable - a1c 5.6% in fall 2021 - with steroids he is hyperglycemic - diet changed to DM diet and check BSGs ac/hs (9) Unwitnessed fall: Plan: CT head and CT c-spine obtained -- no fractures, no ICH fortunately - no evidence of bony injuries on exam - hips seem ok, etc - bed alarms on, fall precautions Plan PT/OT eval-recommending home. Pt/ refused home health Admission and Anticipated Discharge Date Admission Date: October 27, 2022 Results & Data Results & Data Vital Signs (Past 12 Hours) Vital Signs Temp Pulse Pulse Resp BP Pulse Ox O2 Del Method 11/04/22 07:27 98.1 F 86 20 132/81 95 Nasal Cannula 11/04/22 07:24 82 20 94 Nasal Cannula 11/04/22 03:14 97.3 F L 87 22 148/91 H 92 Nasal Cannula 11/04/22 00:58 71 16 97 Nasal Cannula 11/03/22 23:44 97.9 F 74 18 125/82 93 Nasal Cannula 11/03/22 23:49 103 H 11/03/22 21:12 High Flow Nasal Cannula O2 Flow Rate 11/04/22 07:27 4 11/04/22 07:24 4 11/04/22 03:14 4 11/04/22 00:58 4 11/03/22 23:44 4 11/03/22 23:49 11/03/22 21:12 4 PG Care Time/CCT Total # of Minutes Spent Total Time Spent with Patient: Total time spent is greater than 50% in coordination of care (as documented) at patient's floor/unit and/or counseling patient: Coding Diagnoses Acute and chronic respiratory failure with hypoxia J96.21 New onset a-fib I48.91 Acute on chronic right-sided congestive heart failure I50.813 Alcohol dependence F10.20 COPD exacerbation J44.1 Hypertension I10 Hypertension type: essential hypertension Elevated troponin R77.8 Pre-diabetes R73.03 Unwitnessed fall R29.6 (6) Hypertension Hypertension type: essential hypertension Qualified Code(s): I10 - Essential (primary) hypertension
--- NOTE | 2022-11-04 19:59 | Discharge Summary ---
Date of Service November 04, 2022 Admission HPI Per Admitting Provider Velasquez Murillo is a 77 year old male with COPD on baseline 4LPM O2 who presents to the ER on advice of his PCP office via EMS with hypoxia, tachycardia and shortness of breath. He was seen at his PCP office today and noted to have a heart rate of 166 in atrial fibrillation with O2 sats 83 % on 6LPM O2. He reports significant worsening in his chronic shortness of breath for the last 2 days with associated nasal congestion and palpitations. No sinus pain, fever or chills. At home he reports having to turn his oxygen up to 4.5L for the last 2 days. O2 sats have been as low as 68% today on his usual 4LPM. He has not been eating or drinking. No loss of taste or smell. No chest pain, presyncope or syncope. He has never had atrial fibrillation previously. Principal Diagnosis Acute on chronic respiratory failure with hypoxia Bronchitis Atrial fibrillation rapid ventricular response Initiation of chronic anticoagulation Discharge Data Allergies Allergy/AdvReac Type Severity Reaction Status Date / Time lisinopril Allergy Unknown Swelling Verified 10/27/22 12:38 of face methylprednisolone Allergy Unknown HALLUCINATION-IV Verified 10/27/22 12:38 SOLUMEDROL budesonide AdvReac Unknown DIDN'T WORK Verified 10/27/22 12:38 [From [facility]] formoterol AdvReac Unknown DIDN'T WORK Verified 10/27/22 12:38 [From [facility]] glycopyrrolate AdvReac Unknown DIDN'T WORK Verified 10/27/22 12:38 [From [facility]] Consultations 10/27/22 15:42 ED Decision to Admit Stat 10/27/22 23:57 Consult Pulmonology Routine 10/28/22 00:52 Consult Cardiology Routine Ordered Studies 10/27/22 16:21 CT for pulmonary embolism PE [CT angio chest PE protocol] Stat 10/29/22 13:00 FL video swallow Routine 10/31/22 08:21 CT cervical spine wo con Urgent CT head/brain wo con Urgent Hospital Course (1) Acute and chronic respiratory failure with hypoxia: Acute/Chronic hypercapnic/hypoxic resp failure - stable - Multifactorial d/t acute on chronic diastolic CHF and RLL pneumonia ?aspiration - For resp failure - continue supplemental oxygen, currently weaned down to 4L as most recent cloud architect with sat of 91% - Continue Zosyn for PNA - transitioned to Augmentin on - Currently still on IV Decadron, transitioned to Prednisone 5 days LD 11/08 - Changed Duonebs to Xopenex QID to avoid RVR in setting of new onset afib - BiPAP at - Pulmonology will follow up as outpt 2-3 weeks - Recent dysphagia eval by INFORMATICS SPECIALIST w/o evidence of overt aspiration. (2) New onset a-fib: Acute/now stable - TSH and electrolytes WNL - echo - preserved EF, mild RV dysfunction likely due to advanced COPD - Cardiology consulted, appreciate assistance by Dr. Pollack - Cardizem CD to 240mg daily for better rate control - Changed Lopressor to 100mg BID (previously dosed as 50mg q6) - Eliquis restarted - cost $15/month (3) Acute on chronic right-sided congestive heart failure: Acute/stable - recent echo with preserved EF but mild RV dysfunction (which is likely due to severe, end-stage COPD) -There for acute on chronic diastolic heart failure (4) Alcohol dependence: Chronic/long-standing, for decades "heavy" for many years, now down to at least 2-3 drinks/day per , he states "sometimes" it is more - he may have been in etoh withdrawal and/or early DTs given the hallucinations - Counseled on ETOH cessation - (5) COPD exacerbation: Chronic/stable -Additional prednisone till Wednesday the - Changed Duonebs to Xopenex - Continues to smoke - educated on cessation, encouraged not to smoke on oxygen (6) Hypertension: Chronic/stable - Stopped amlodipine to allow BP for diltiazem and metoprolol titration - BPs acceptable (7) Elevated troponin: Acute/stable - secondary to myocardial demand ischemia in setting of rapid a.fib and COPD flare - peak HS trop = 85 - CP free, no acute EKG changes, no evidence of ACS (8) Pre-diabetes: Chronic/stable - a1c 5.6% in fall 2021 - (9) Unwitnessed fall: CT head and CT c-spine obtained -- no fractures, no ICH fortunately - no evidence of bony injuries on exam - hips seem ok, etc - bed alarms on, fall precautions Plan PT/OT eval-recommending home. Pt/ refused home health Total Time Total Time Spent Total Time Spent (In Minutes): It required greater than 30 minutes to prepare this patient for discharge Discharge Plan Discharge Items Patient Disposition: Home - Self-Care Reason For Visit: A FIB RVR Discharge Diagnosis: Atrial fibrillation COPD low oxygen level Activity: Resume your previous activity Non-emergency contact: Primary Care Provider and Psychological Aide Call non-emergency contact if: your symptoms worsen Follow-up/Referrals: ProCarter MD [Primary Care Provider] - 11/10/22 1:30 pm (WITH MITZI BACA) Diet: Regular Addtl Attending Provider Instructions: You wll be sent home wiht 3 additional days of prednisione and some anttibiotics please wear your oxygen and follow up with Pulmonary medicine for your rapid irregualar heart beat, you have been started on new medicines, please take as directed and follow up with Cardiolgy abstaining from alcohol will help your medical problems remain stable Pending Studies at Discharge: No Stand-Alone Forms: My [facility], Smoking Cessation Medications and DC Order Prescriptions: New Eliquis 5 mg tablet 5 mg PO BID Qty: 60 2RF metoprolol tartrate 100 mg Tablet 100 mg PO BID Qty: 60 3RF diltiazem HCl 240 mg Capsule,Extended Release 24hr 240 mg PO QAM Qty: 30 3RF amoxicillin-pot clavulanate 875-125 mg Tablet 1 tab PO BIDM Qty: 10 0RF prednisone 20 mg tablet 20 mg PO DAILY 3 Days Qty: 3 0RF Continued nicotine [Nicoderm CQ] 7 mg/24 hr patch 24 hour 1 patch transdermal Q24H Qty: 7 1RF Rx Instructions: Pt hasn't started using yet allopurinol 300 mg tablet 300 mg PO QAM Qty: 90 1RF pravastatin 20 mg tablet 20 mg PO QAM Qty: 90 1RF escitalopram oxalate [Lexapro] 10 mg tablet 10 mg PO HS Qty: 90 3RF albuterol sulfate [Ventolin HFA] 90 mcg/actuation HFA aerosol inhaler 2 puff inhalation QID PRN (Reason: shortness of breath or wheezing) 90 Days Qty: 3 1RF Trelegy Ellipta 100-62.5-25 mcg blister with device 1 inh inhalation QAM cyanocobalamin (vitamin B-12) 1,000 mcg Tablet, Sublingual 1,000 mcg SUBLINGUAL DAILY Discontinued amlodipine 10 mg tablet 10 mg PO QAM Qty: 90 3RF doxazosin 2 mg tablet 2 mg PO QPM Qty: 90 1RF metoprolol succinate 50 mg tablet extended release 24 hr 50 mg PO HS Qty: 90 3RF No Action (DME) Portable Oxygen Misc See Rx Instructions .Route Qty: 1 0RF Rx Instructions: Home O2 Concentrator with Portability; test for conserving device. O2 at 4L via NC with Exertion. DORCAS 99 Discharge Orders: Discharge Order (Routine); Ordered 11/04/22 Ordered By: Russell Arreaga Admission Data Admit Date/Time: 10/27/22 16:33 Attending Provider: Russell Arreaga Admit Provider: Raf Hernández Primary Care Provider: Carter Martinez Other Providers: Raf Hernández ; Elijah Abbott ; Carter Ontiveros Other Interventions: Discharge Summary Assessment (RN) Last Done: 11/04/22 12:27 Coding Level of Care Code 27454 INP/OBS DISCH >30 MIN Diagnoses Acute and chronic respiratory failure with hypoxia J96.21 New onset a-fib I48.91 Acute on chronic right-sided congestive heart failure I50.813 Alcohol dependence F10.20 COPD exacerbation J44.1 Hypertension I10 Hypertension type: essential hypertension Elevated troponin R77.8 Pre-diabetes R73.03 Unwitnessed fall R29.6
[2022-11-05] MEDS ORDERED: predniSONE 10 MG TABLET PO SCH (09:00)
[2022-11-06] MEDS ORDERED: predniSONE 10 MG TABLET PO SCH (09:00)
== END 2022-11-04 13:38 | disposition home or self-care (01) | DRG 189 ==
LOC: ED 13:37 → 4W 16:33 → SUATTDRO 16:33 → 4W 18:14

== ENCOUNTER 2022-11-18 09:52 | Inpatient (IN) ==
[2022-11-18] MEDS ORDERED: ALBUT/IPRATROP 3MG/0.5MG NEB 3 ML VIAL NEB STA (10:36)
[2022-11-18] MEDS ORDERED: dexAMETHasone**PF** 10 MG/ML VIAL PO ONE (10:37)
--- NOTE | 2022-11-18 10:41 | Emergency Department Note ---
Impression & Plan CHF (congestive heart failure), Hypoxic ED Provider Note NAME: SCOTTY VELAZQUEZ AGE: 77 SEX: M : 1945 ARRIVES VIA: Walk-In INFORMANT: Patient ED PROVIDER(S): Agustín Cary DO CHIEF COMPLAINT: shortness of breath HPI: Patient is a 77-year-old male with a past medical history of CHF, COPD chronically on 4 L nasal cannula, new onset A-fib, alcohol withdrawal, pulmonary hypertension who presents the ER for shortness of breath. Symptoms started 2 days ago. Normally can walk about 20 feet with getting short of breath. He now can only do about 5 feet getting to the bathroom and is significantly winded. He has been taking his Eliquis. Has not missed any doses. Denies any headache or change in vision. No belly pain nausea vomiting or diarrhea. Denies any chest pain. No dysuria, urgency, or frequency. No other exacerbating or remitting factors. PAST MEDICAL HISTORY:See Below PAST SURGICAL HISTORY:See Below FAMILY HISTORY:See Below SOCIAL HISTORY:See Below HOME MEDICATIONS:See Below ALLERGIES:See Below VITALS:See Below PHYSICAL EXAMINATION: GENERAL: Sitting up in bed, alert, slightly ill-appearing, dyspneic with conversation on nasal cannula EYE EXAM: normal conjunctiva. OROPHARYNX: mucous membranes are dry NECK: supple, no nuchal rigidity, no adenopathy, non-tender LUNGS: Diminished on the left with wheezing bilaterally. Normal chest wall mechanics HEART: no murmurs, S1 normal and S2 normal ABDOMEN: abdomen soft, non-tender, normo-active bowel sounds, no masses, no rebound or guarding. UPPER EXTREMITIES: upper extremities are grossly normal. LOWER EXTREMITIES: Mild pitting edema bilaterally NEURO EXAM: Normal sensorium, cranial nerves II-XII grossly intact, normal sp eech, no gross weakness of arms, no gross weakness of legs. MEDICAL DECISION MAKING: Patient is a 77-year-old male who presents ER for above-stated complaint. IV was established blood work was obtained. External records were reviewed. Labs show no significant leukocytosis. Hemoglobin was unremarkable. BMP with LFTs bilirubin was unremarkable. proBNP was slightly elevated at 1000. Pro-German lipase were normal. Influenza COVID and RSV was negative. CT of the chest shows no PEs. Chest x-ray shows bilateral pleural effusions. Patient was given IV Lasix. EKG was nondiagnostic. He did remain on increased oxygen and saturation at 8 L when he normally wears floor. He was given Lopressor x2. He was updated bedside admitted for further work-up to Dr. Raf Hernández. Triage Nursing notes reviewed. Limited review of prior medical records performed Vital Signs: reviewed and remarkable for no significant abnormalities Differential diagnosis: Differential diagnoses includes but is not limited to pneumonia, bronchitis, COPD/Asthma exacerbation, pneumothorax, pulmonary embolism, congestive heart failure, acute coronary syndrome ER treatment provided: See below Diagnostics interpreted by me include EKG and cardiac monitoring as listed below: -Cardiac Monitoring: An order was placed for continuous cardiac monitoring. The monitor shows a rate of 90 with afib rhythm. -ECG: A-fib rate 83 Left axis In T wave inversion in the septal leads with ST depressions QTc 453 -Laboratory studies:Interpreted by me as stated above in MDM and shown below. Imaging studies: Xrays: As interpreted by me: Portable AP upright 1 view of the chest was unremarkable for pneumonia CTs show: CT of the chest shows no PEs Consultation(s): As described in [facility] Procedures:none Critical Care: I have personally spent 31 minutes of critical care time in the direct management of this patient. This includes bedside care, interpretation of diagnostic studies, and testing, discussion with consultants, patient, and family members, and other required patient management activities. This 31 minutes is in excess of all separately billable procedures. Past Med/Surg History Medical History (Updated 11/11/22 @ 14:02 by Johnathan Hahn MD) Chronic gout Chronic hypercapnic respiratory failure COPD (chronic obstructive pulmonary disease) RESCUE INHALER DAILY (NO MORE THAN TWICE A DAY) Depression Dyspnea on exertion Ecchymosis Goals of care, counseling/discussion History of acute illness SEPTEMBER 2021 - RESOLVED PT WAS R/S FOR COLONOSCOPY D/T ILLNESS. History of colon polyps History of diverticulitis of colon History of nicotine dependence Hyperglycemia Hyperlipidemia Hypertension Hypoxemia Kidney stone (2014) HX Macular degeneration BOTH EYES/INJECTIONS Q 6-8 WKS Overactive bladder ? / PROSTATE PROBLEM ? - NOT SURE DETAILS/PROSTATE NOT ENLARGED Persistent atrial fibrillation Respiratory distress Skin cancer BCC ON FACE - RECENTLY SHAVED OFF - HEALED Solitary pulmonary nodule ? SIDE / CT SCAN 2 MON AGO - GROWN - F/U CT SCAN IN JUN 2021 Surgical History History of cardiac cath SUMMER 2017/ NO STENT(S) History of cataract surgery RT/LEFT History of colonoscopy last 2018 @ [facility] History of lithotripsy History of tooth extraction Status post Mohs surgery MULTIPLE Family History Brother Emphysema lung Other No family history of adverse response to anesthesia Denies family history of Ovarian cancer Prostate cancer Myocardial infarction Breast cancer Colorectal cancer Social History Smoking Status: Current every day smoker Tobacco Type: Cigarettes Age Started Using Tobacco: 21; packs per day: 0.25; Cigarettes Per Day: 20; Second Hand Exposure: Yes; Do You Dip or Chew Tobacco: No; Hx Alcohol Use: Yes Alcohol type: hard liquor Alcohol Intake Frequency: Monthly or Less Hx Substance Use: No Preferred Language: Persian Communication Ability: Effective Visual Impairment: No Limitations Hearing Ability: Normal Drug Room Clerk Required: No Beliefs That Will Affect Care: None marital status: Current Living Situation: Spouse current occupational status: retired 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 [employer] Feels Safe at Home: Yes Physical Activity Frequency: 1-2 Times per Week Seatbelt Use: always Assistive Devices: Cane, Denture - Upper, Denture - Lower, Glasses, Oxygen - at Night, Oxygen - Continuous, Walker and Wheelchair Allergies Allergies Allergy/AdvReac Type Severity Reaction Status Date / Time lisinopril Allergy Unknown Swelling Verified 11/10/22 15:51 of face methylprednisolone Allergy Unknown HALLUCINATION-IV Verified 11/10/22 15:51 SOLUMEDROL budesonide AdvReac Unknown DIDN'T WORK Verified 11/10/22 15:51 [From Top Rops] formoterol AdvReac Unknown DIDN'T WORK Verified 11/10/22 15:51 [From Top Rops] glycopyrrolate AdvReac Unknown DIDN'T WORK Verified 11/10/22 15:51 [From Top Rops] Home Meds Home Medications Medication Instructions Recorded Confirmed fluticasone fur. 100 mcg-umeclid 1 inh inhalation QAM 03/31/22 11/18/22 62.5 mcg-vilant 25 mcg inhalat.powder (Trelegy Ellipta) cyanocobalamin (vitamin B-12) 1,000 mcg sublingual DAILY 09/11/22 11/18/22 1,000 mcg sublingual tablet pravastatin 20 mg tablet 20 mg PO HS 11/18/22 11/18/22 Previous Rx's Medication Instructions Recorded Portable Oxygen #1 ea 05/04/22 allopurinol 300 mg tablet 300 mg PO QAM #90 tabs 07/17/22 escitalopram oxalate 10 mg tablet 10 mg PO HS #90 tabs 07/21/22 (Lexapro) apixaban 5 mg tablet (Eliquis) 5 mg PO BID #60 tabs 10/30/22 diltiazem HCl 240 mg 240 mg PO QAM #30 caps 11/04/22 capsule,extended release 24 hr metoprolol tartrate 100 mg tablet 100 mg PO BID #60 tabs 11/04/22 levalbuterol HCl 0.31 mg/3 mL 0.31 mg (3 mL) inhalation TID PRN 11/10/22 solution for nebulization shortness of breath or wheezing #75 mL Results & Data (ED) Vital Signs Vital Signs - 24 hr 11/18/22 10:00 11/18/22 10:12 11/18/22 10:15 Temperature 36.0 C L Temperature Source Temporal Artery Scan Pulse Rate 88 93 H Pulse Rate from SpO2 Sensor Respiratory Rate 25 H Respiratory Effort / Characteristics Respiratory Depth Blood Pressure 152/82 H Blood Pressure Mean 105 Pulse Oximetry 87 L Oxygen Delivery Method Nasal Cannula Oxygen Flow Rate 4 Sepsis Recent Fever Within 48 Hours No Sepsis New/Unexplained Change in Mental Status No Sepsis Action Taken by Nursing No Action Required 11/18/22 10:30 11/18/22 10:36 11/18/22 10:14 Temperature Temperature Source Pulse Rate 90 Pulse Rate from SpO2 Sensor 89 Respiratory Rate 18 Respiratory Effort / Characteristics Short of Breath Respiratory Depth Shallow Blood Pressure Blood Pressure Mean Pulse Oximetry 89 L 88 L Oxygen Delivery Method Nasal Cannula Nasal Cannula Nasal Cannula Oxygen Flow Rate 4 4 Sepsis Recent Fever Within 48 Hours Sepsis New/Unexplained Change in Mental Status Sepsis Action Taken by Nursing 11/18/22 10:18 11/18/22 10:18 11/18/22 10:30 Temperature Temperature Source Pulse Rate 103 H Pulse Rate from SpO2 Sensor 96 H Respiratory Rate 17 Respiratory Effort / Characteristics Respiratory Depth Blood Pressure 149/110 H 151/100 H Blood Pressure Mean 123 117 Pulse Oximetry 88 L Oxygen Delivery Method Nasal Cannula Oxygen Flow Rate 4 Sepsis Recent Fever Within 48 Hours Sepsis New/Unexplained Change in Mental Status Sepsis Action Taken by Nursing 11/18/22 10:30 11/18/22 11:13 11/18/22 11:30 Temperature Temperature Source Pulse Rate 93 H Pulse Rate from SpO2 Sensor 85 Respiratory Rate 15 20 Respiratory Effort / Characteristics Non-Labored Spontaneous Respiratory Depth Blood Pressure 141/98 H Blood Pressure Mean 112 Pulse Oximetry 86 L 90 Oxygen Delivery Method Nasal Cannula Nasal Cannula Oxygen Flow Rate 4 6 Sepsis Recent Fever Within 48 Hours Sepsis New/Unexplained Change in Mental Status Sepsis Action Taken by Nursing 11/18/22 11:30 11/18/22 12:17 11/18/22 12:11 Temperature Temperature Source Pulse Rate 88 Pulse Rate from SpO2 Sensor 81 Respiratory Rate 14 20 Respiratory Effort / Characteristics Non-Labored Respiratory Depth Normal Blood Pressure 161/111 H Blood Pressure Mean 127 Pulse Oximetry 92 Oxygen Delivery Method Nasal Cannula Oxygen Flow Rate 6 Sepsis Recent Fever Within 48 Hours Sepsis New/Unexplained Change in Mental Status Sepsis Action Taken by Nursing 11/18/22 12:50 11/18/22 12:30 11/18/22 13:00 Temperature Temperature Source Pulse Rate 147 H 124 H Pulse Rate from SpO2 Sensor 139 H Respiratory Rate 19 Respiratory Effort / Characteristics Respiratory Depth Blood Pressure 145/100 H 149/116 H Blood Pressure Mean 127 Pulse Oximetry 85 L Oxygen Delivery Method Nasal Cannula Oxygen Flow Rate 6 Sepsis Recent Fever Within 48 Hours Sepsis New/Unexplained Change in Mental Status Sepsis Action Taken by Nursing 11/18/22 13:00 Temperature Temperature Source Pulse Rate 126 H Pulse Rate from SpO2 Sensor Respiratory Rate 20 Respiratory Effort / Characteristics Respiratory Depth Blood Pressure Blood Pressure Mean Pulse Oximetry Oxygen Delivery Method Oxygen Flow Rate Sepsis Recent Fever Within 48 Hours Sepsis New/Unexplained Change in Mental Status Sepsis Action Taken by Nursing Laboratory Data 11/18/22 10:33 11/18/22 10:33 Lab Results 11/18/22 11/18/22 Range/Units 10:33 10:33 WBC 9.83 (4.8-10.8) K/ul RBC 4.08 L (4.70-6.10) M/uL Hgb 13.5 L (14.0-18.0) g/dl Hct 40.5 L (42.0-52.0) % MCV 99.3 (80.0-100.0) fL MCH 33.1 (25.0-34.0) pg MCHC 33.3 (32.0-36.0) g/dL RDW Std Deviation 50.9 H (36.4-46.3) fL RDW Coeff of [place] 14.0 (11.5-14.5) % Plt Count 213 (130-400) K/uL MPV 10.0 (9.4-12.4) fL Immature Gran % (Auto) 0.6 % Neut % (Auto) 89.1 % Lymph % (Auto) 7.0 % [place] % (Auto) 3.0 % Eos % (Auto) 0.1 % Baso % (Auto) 0.2 % Neut # (Auto) 8.76 H (1.40-6.50) K/uL Lymph # (Auto) 0.69 L (1.2-3.4) K/uL Baldwin # (Auto) 0.29 (0.11-0.59) K/uL Eos # (Auto) 0.01 (0-0.50) K/uL Baso # (Auto) 0.02 (0-0.2) K/uL Immature Gran # (Auto) 0.06 (0.01-0.20) K/uL Sodium 134 L (136-145) mmol/L Potassium 4.5 (3.5-5.1) mmol/L Chloride 98 (98-107) mmol/L Carbon Dioxide 29 (21-32) mmol/L Anion Gap 7 (3-11) BUN 12 (6-23) mg/dl Creatinine 0.85 (0.6-1.4) mg/dl Est Cr Clr Drug Dosing 77.5 ml/min Est GFR ( Amer) 98.8 ml/min Est GFR (Non-Af Amer) 85.2 ml/min BUN/Creatinine Ratio 14.1 (10-20) Glucose 138 H (70-99(Fasting)) mg/dl Calcium 8.9 (8.6-10.3) mg/dl Magnesium 1.9 (1.7-2.4) mg/dl Total Bilirubin 0.9 (0.2-1.0) mg/dl AST 29 (13-39) U/L ALT 50 (7-52) U/L Alkaline Phosphatase 83 (34-104) U/L Troponin I High Sens 8.8 (0-20) pg/ml Total Protein 6.5 (6.0-8.3) gm/dl Albumin 3.9 (3.4-5.0) gm/dl Globulin 2.6 (2.5-4.0) gm/dl Albumin/Globulin Ratio 1.5 (0.9-2) Lipase 20 (11-82) U/L Administered Medications Levalbuterol HCl (Levalbuterol Hcl 1.25 Mg/3 Ml Neb) 1.25 mg NEB Q6R [facility]; Protocol Stop: 12/18/22 15:59 Last Admin: 11/18/22 15:40 Dose: 1.25 mg Documented By: PATRICIAB Discontinued Medications Albuterol (Albut/Ipratrop 3mg/0.5mg Neb 3 Ml Vial) 9 ml NEB NOW STA; Protocol Stop: 11/18/22 10:37 Last Admin: 11/18/22 11:10 Dose: 9 ml Documented By: NOVA Dexamethasone Sodium Phosphate (DexamethasonePf 10 Mg/Ml Vial) 10 mg PO NOW ONE Stop: 11/18/22 10:38 Last Admin: 11/18/22 10:56 Dose: 10 mg Documented By: JAIRO Furosemide (Furosemide 40 Mg/4 Ml Vial) 40 mg IV NOW STA Stop: 11/18/22 12:15 Last Admin: 11/18/22 12:24 Dose: 40 mg Documented By: JAIRO Azithromycin 500 mg/ Dextrose 255 mls @ 127.5 mls/hr IV NOW STA Stop: 11/18/22 16:08 Last Admin: 11/18/22 14:35 Dose: 127.5 mls/hr Documented By: JAIRO Metoprolol Tartrate (Metoprolol Tartrate 1 Mg/Ml Vial) 2.5 mg IV NOW STA Stop: 11/18/22 12:47 Last Admin: 11/18/22 12:50 Dose: 2.5 mg Documented By: JAIRO Metoprolol Tartrate (Metoprolol Tartrate 1 Mg/Ml Vial) 5 mg IV NOW STA Stop: 11/18/22 13:40 Last Admin: 11/18/22 13:58 Dose: 5 mg Documented By: JAIRO Imaging Data Radiologist's Impression: Chest X-Ray 11/18/22 10:36 SINGLE VIEW CHEST CLINICAL HISTORY: Atypical chest pain. FINDINGS: An AP, portable, upright chest radiograph is compared to study dated 11/02/2022 and correlated with chest CT dated 10/28/2022. The heart is enlarged noting atherosclerotic calcification of the thoracic aorta. There is pulmonary vascular congestion. Advanced emphysema and chronic interstitial thickening is similar to previous. Airspace opacities are again seen at both lung bases. Small pleural effusions are suspected. No pneumothorax is seen. The skeletal structures are osteopenic. Left-sided rib fractures are again noted. IMPRESSION: 1. Cardiomegaly and advanced emphysema with pulmonary vascular congestion. 2. Suspect small pleural effusions. 3. Bibasilar airspace opacities could represent pulmonary edema and/or an infectious/inflammatory pneumonitis. Clinical correlation will be required and radiographic follow-up to resolution is recommended. ACT 112: Negative or not required by law. Electronically signed by: Marcelino Valdez M.D. 11/18/2022 11:03 AM Discharge Plan Visit Data Chief Complaint: Cardiac Assessment Stated Complaint: COPD, SOB ED Provider: Agustín Cary Discharge Problem: CHF (congestive heart failure), Hypoxic Patient Disposition: Admitted As Inpatient Discharge Instructions Interventions: ED Discharge Assessment Last Done: 11/18/22 14:45
[2022-11-18 10:59] LABS: Basophils # (auto) 0.02 K/uL (0-0.2); Basophils % (auto) 0.2 %; Eosinophils # (auto) 0.01 K/uL (0-0.50); Eosinophils % (auto) 0.1 %; Hematocrit (blood only) 40.5 % (42.0-52.0); Hemoglobin 13.5 g/dl (14.0-18.0); Immature Granulocytes # (auto) 0.06 K/uL (0.01-0.20); Immature Granulocytes % (auto) 0.6 %; Lymphocytes # (auto) 0.69 K/uL (1.2-3.4); Mean Corpuscular Hemoglobin 33.1 pg (25.0-34.0); Mean Corpuscular Hgb Conc 33.3 g/dL (32.0-36.0); Mean Corpuscular Volume 99.3 fL (80.0-100.0); Monocytes # (auto) 0.29 K/uL (0.11-0.59); Neutrophils # (auto) 8.76 K/uL (1.40-6.50); Neutrophils % (auto) 89.1 %; Platelet Count 213 K/uL (130-400); RDW Standard Deviation 50.9 fL (36.4-46.3); Red Blood Count 4.08 M/uL (4.70-6.10); White Blood Count 9.83 K/ul (4.8-10.8)
--- NOTE | 2022-11-18 11:05 | XRay Report ---
SINGLE VIEW CHEST CLINICAL HISTORY: Atypical chest pain. FINDINGS: An AP, portable, upright chest radiograph is compared to study dated 11/02/2022 and correlat ed with chest CT dated 10/28/2022. The heart is enlarged noting atherosclerotic calcification of the t horacic aorta. There is pulmonary vascular congestion. Advanced emphysema and chronic interstitial th ickening is similar to previous. Airspace opacities are again seen at both lung bases. Small pleural effusions are suspected. No pneumothorax is seen. The skeletal structures are osteopenic. Left-sided rib fractures are again noted. IMPRESSION: 1. Cardiomegaly and advanced emphysema with pulmonary vascular congestion. 2. Suspect small pleural effusions. 3. Bibasilar airspace opacities could represent pulmonary edema and/or an infectious/inflammatory pne umonitis. Clinical correlation will be required and radiographic follow-up to resolution is recommend ed. ACT 112: Negative or not required by law. Electronically signed by: Marcelino Valdez M.D. 11/18/2022 11:03 AM
[2022-11-18 11:10] LABS: Albumin Globulin Ratio 1.5 (0.9-2); Albumin Level 3.9 gm/dl (3.4-5.0); BUN Creatinine Ratio 14.1 (10-20); Bilirubin,Total 0.9 mg/dl (0.2-1.0); Calcium 8.9 mg/dl (8.6-10.3); Creatinine Clr Calc Pharmacy 77.5 ml/min; Est GFR (African American) 98.8 ml/min; Est GFR (Non-African American) 85.2 ml/min; Globulin 2.6 gm/dl (2.5-4.0); Potassium 4.5 mmol/L (3.5-5.1); Total Protein 6.5 gm/dl (6.0-8.3)
[2022-11-18 11:17] LABS: Troponin I High Sensitivity 8.8 pg/ml (0-20)
[2022-11-18 12:12] LABS: Influenza A virus by PCR Negative (Neg); Influenza B virus by PCR Negative (Neg); RSV by PCR Negative (Neg); SARS CoV2 RNA(COVID-19) Ceph NEGATIVE (Negative)
[2022-11-18] MEDS ORDERED: FUROSEMIDE 40 MG/4 ML VIAL IV STA (12:14)
[2022-11-18] MEDS ORDERED: METOPROLOL TARTRATE 1 MG/ML VIAL IV STA ×2 (12:46→13:39)
--- NOTE | 2022-11-18 13:29 | History & Physical Report ---
Date of Service November 18, 2022 Assessment & Plan (1) Acute and chronic respiratory failure with hypoxia: Plan: -Admit to the PCU on tele -Currently stable on 10L Oxymask after DuoNeb -Likely multifactorial at this time including COPD exacerbation, diastolic CHF, and possible pneumonia -S/P DuoNeb treatment and 10 mg PO dexamethasone in the ED -Will cover for atypical for now with azithromycin -Switch to Xoponex to prevent further RVR, continue with 6 mg IV dex BID for now, continue Budesonide nebs -Pulm consult ordered -Will obtain STAT ABG, procal, and DNP for further eval -STAT CT chest WO con for further eval -Continue to titrate O2 to keep SpO2 between 88-92%, HS CPAP/Bipap -BL SCD's and Eliquis for DVT PPX -AM CBC, BMP, Mag, PT/INR (2) Atrial fibrillation with rapid ventricular response: Plan: -HR has been between low 100's-150's today -Likely being driven by his acute respiratory failure and possible component of diastolic failure -Did have his am Diltiazem and Metoprolol today -S/P 2.5 mg and 5 mg IV Lopressor in the ED, electrolytes are stable, will add on mag level now -Monitor for improvement with treatment his respiratory failure -Will consult Cardiology for assistance -If no improvement in the next 1-2 hours will convert him to a diltiazem drip with bolus (3) Diastolic dysfunction: Plan: -TTE on last admission show's LVEF WNL but mildly reduced right ventricular systolic function and moderate pulm HTN -Mild BL pittine edema today with small BL pleural effusions -S/P 40 mg IV lasix in the ED with schumacher cath placed -Will add on BNP and follow CT chest with cards consult as well -Will hold additional diuresis at this time until the rest of his workup is back -2 gm sodium restriction and 1500 mL restriction for now (4) COPD exacerbation: Plan: -See acute hypoxic respiratory failure (5) Chronic gout: Plan: -Continue allopurinol (6) Tobacco abuse: Plan: -Continue to stress the importance of smoking cessation -Patient does not want nicotine patches (7) Hypercholesterolemia: Plan: -Conitnue statin Plan The patient was discussed with Dr. Hernández at the time of the admission History of Present Illness Chief Complaint: Worsening SOB Primary Care Provider: Carter Martinez MD Velasquez Schumacher is a 77 year old male with severe COPD on baseline 5LPM O2, chronic hypercapnic respiratory failure on HS AVAPS, current tobacco abuse, alcohol dependence, new onset afib, Recently admitted to [facility] from 10/27-11/04 for acute on chronic respiratory failure thought to be cause by chronic diastolic CHF and RLL pneumonia. He was treated initially with Zosyn and was transitioned to Augmentin prior to discharg e for PNA. He was also treated with IV decadron with transition to a 5 day course of Prednisone on discharge. He was also found to be in new onset afib RVR on the last admission. He was evaluated by Cardiology for new onset afib which was thought to be due to his severe COPD. He was started on Cardizem and his dose of Lopressor was adjusted to 100 mg BID; he was started on Eliquis prior to discharge. In the ED today he was noted to be requiring 6L NC and was noted to have a HR of 147. Labs were significant for a sodium of 134. Chest xray was read as small BL pleural effusions and Bibasilar airspace opacities could represent pulmonary edema and/or an infectious/inflammatory pneumonitis. Prior to admission the patient was given a DuoNeb treatment, 10 mg PO dexamethasone, 40 mg IV lasix and 2.5 mg IV Lopressor. At the time of the exam the patient was sitting in bed in no acute distress, currently saturating in the low 90's on 10L oxymask with his sitting bedside. He started to develop increased SOB and ORDONEZ approximately 3-4 days ago. Denies recent fever, chills, chest pain, cough, nausea, vomiting, diarrhea, dysuria, hematuria, melena, bloody DM's, significant LE swell/weight gain an decent trauma. They confirm that the patient's baseline O2 is 4L O2 at rest and 5L NC with exertion. He has been using his daily budesonide and prn albuterol inhaler without relief. He did complete his course of Augmentin after last admission. He did take him am medications today including metoprolol and diltiazem. Has not been drinking alcohol since his last admission. Trying to quit smoking, currently smoking approximately 1PPD. Has not been using his HS AVAPS consistently due to poor fitting mask. Did get relief after the DuoNeb in the ED and his confirms he has not missed doses of Eliquis since last discharge. We discussed code status, he now wishes to be a DNR/DNI and for his to make medical decisions for him if he cannot make them himself. Please refer to Dr. Hernández's attestation for any changes to the treatment plan Allergies Allergy/AdvReac Type Severity Reaction Status Date / Time lisinopril Allergy Unknown Swelling Verified 11/10/22 15:51 of face methylprednisolone Allergy Unknown HALLUCINATION-IV Verified 11/10/22 15:51 SOLUMEDROL budesonide AdvReac Unknown DIDN'T WORK Verified 11/10/22 15:51 [From [employer]] formoterol AdvReac Unknown DIDN'T WORK Verified 11/10/22 15:51 [From [employer]] glycopyrrolate AdvReac Unknown DIDN'T WORK Verified 11/10/22 15:51 [From [employer]] Home Medications Medication Instructions Recorded Confirmed Type fluticasone fur. 100 mcg-umeclid 1 inh inhalation QAM 03/31/22 11/18/22 History 62.5 mcg-vilant 25 mcg inhalat.powder (Trelegy Ellipta) Portable Oxygen #1 ea 05/04/22 11/10/22 Rx allopurinol 300 mg tablet 300 mg PO QAM #90 tabs 07/17/22 11/18/22 Rx escitalopram oxalate 10 mg tablet 10 mg PO HS #90 tabs 07/21/22 11/18/22 Rx (Lexapro) cyanocobalamin (vitamin B-12) 1,000 mcg sublingual DAILY 09/11/22 11/18/22 History 1,000 mcg sublingual tablet apixaban 5 mg tablet (Eliquis) 5 mg PO BID #60 tabs 10/30/22 11/18/22 Rx diltiazem HCl 240 mg 240 mg PO QAM #30 caps 11/04/22 11/18/22 Rx capsule,extended release 24 hr metoprolol tartrate 100 mg tablet 100 mg PO BID #60 tabs 11/04/22 11/18/22 Rx levalbuterol HCl 0.31 mg/3 mL 0.31 mg (3 mL) inhalation TID PRN 11/10/22 11/18/22 Rx solution for nebulization shortness of breath or wheezing #75 mL pravastatin 20 mg tablet 20 mg PO HS 11/18/22 11/18/22 History Past Med/Surg History Medical History (Updated 11/18/22 @ 16:25 by Daniele Rios MD) Chronic gout Chronic hypercapnic respiratory failure COPD (chronic obstructive pulmonary disease) RESCUE INHALER DAILY (NO MORE THAN TWICE A DAY) Depression Dyspnea on exertion Ecchymosis Goals of care, counseling/discussion History of acute illness SEPTEMBER 2021 - RESOLVED PT WAS R/S FOR COLONOSCOPY D/T ILLNESS. History of colon polyps History of diverticulitis of colon History of nicotine dependence Hyperglycemia Hyperlipidemia Hypertension Hypoxemia Kidney stone (2014) HX Macular degeneration BOTH EYES/INJECTIONS Q 6-8 WKS Overactive bladder ? / PROSTATE PROBLEM ? - NOT SURE DETAILS/PROSTATE NOT ENLARGED Persistent atrial fibrillation Respiratory distress Skin cancer BCC ON FACE - RECENTLY SHAVED OFF - HEALED Solitary pulmonary nodule ? SIDE / CT SCAN 2 MON AGO - GROWN - F/U CT SCAN IN JUN 2021 Surgical History History of cardiac cath SUMMER 2017/ NO STENT(S) History of cataract surgery RT/LEFT History of colonoscopy last 2018 @ [facility] History of lithotripsy History of tooth extraction Status post Mohs surgery MULTIPLE Family History Brother Emphysema lung Other No family history of adverse response to anesthesia Denies family history of Ovarian cancer Prostate cancer Myocardial infarction Breast cancer Colorectal cancer Social History Smoking Status: Former smoker Tobacco Type: Cigarettes Age Started Using Tobacco: 21; packs per day: 0.25; Cigarettes Per Day: 20; Second Hand Exposure: Yes; Do You Dip or Chew Tobacco: No; Hx Alcohol Use: Yes (Quit drinking recently) Alcohol type: hard liquor Alcohol Intake Frequency: Monthly or Less Hx Substance Use: No Preferred Language: Japanese Communication Ability: Effective Visual Impairment: No Limitations Hearing Ability: Normal Credit Control Administrator Required: No Beliefs That Will Affect Care: None marital status: Current Living Situation: Spouse current occupational status: retired 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 [employer] Other Information That Helps Us Care for You: No Feels Safe at Home: Yes Safety Concerns: Feels Safe At This Time Physical Activity Frequency: 1-2 Times per Week Seatbelt Use: always Assistive Devices: Cane, Denture - Upper, Denture - Lower, Glasses, Oxygen - at Night, Oxygen - Continuous, Walker and Wheelchair Physical Exam Physical Exam: Physical Exam: General: In no acute distress, stated age, chronically ill-appearing HEENT: Normocephalic, atraumatic, no scleral icterus, pupils around round, symmetrical, and reactive to light, moist mucus membranes, trachea midline, no thyromegaly Chest/Pulm: mild respiratory distress, symmetrical chest expansion, crackles noted in the BL lower lung chiang, expiratory wheezing in all other lung chiang Cardiac: tachycardic rate, irregular rhythm, no murmurs noted Abdomen: Negative for ascites and bruising, normoactive bowel sounds, soft, non-tender to palpation throughout Musculoskeletal: Symmetrical and without signs of acute trauma, upper and lower extremities with full ROM, no atrophy, spasticity, or flaccidity Extremities: Radial, dorsalis pedis, and posterior tibial pulses are intact and symmetrical, mild pitting edema noted in the BL LE's Skin: Warm, dry, no rashes , lesions, or scars noted Neuro: Alert and oriented to person, place, month, year, and president, no focal defects, CN II-XII tested and intact, no tremors noted Psych: No acute distress, calm and cooperative during the exam Results & Data Results & Data Vital Signs (Past 12 Hours) Vital Signs Temp Pulse Resp BP Pulse Ox O2 Del Method O2 Flow Rate 11/18/22 12:50 147 H 145/100 H 11/18/22 12:11 161/111 H 11/18/22 12:17 20 92 Nasal Cannula 6 11/18/22 11:30 88 14 11/18/22 11:30 141/98 H 11/18/22 11:13 20 90 Nasal Cannula 6 11/18/22 10:30 93 H 15 86 L Nasal Cannula 4 11/18/22 10:30 151/100 H 11/18/22 10:18 103 H 17 88 L Nasal Cannula 4 11/18/22 10:18 149/110 H 11/18/22 10:14 90 18 88 L Nasal Cannula 4 11/18/22 10:36 89 L Nasal Cannula 11/18/22 10:30 Nasal Cannula 4 11/18/22 10:15 93 H 11/18/22 10:12 87 L Nasal Cannula 4 11/18/22 10:00 36.0 C L 88 25 H 152/82 H Laboratory Results Abnormal lab results 11/18/22 11/18/22 Range/Units 10:33 10:33 RBC 4.08 L (4.70-6.10) M/uL Hgb 13.5 L (14.0-18.0) g/dl Hct 40.5 L (42.0-52.0) % RDW Std Deviation 50.9 H (36.4-46.3) fL Neut # (Auto) 8.76 H (1.40-6.50) K/uL Lymph # (Auto) 0.69 L (1.2-3.4) K/uL Sodium 134 L (136-145) mmol/L Glucose 138 H (70-99(Fasting)) mg/dl Diagnostic Findings Chest X-Ray 11/18/22 10:36 SINGLE VIEW CHEST CLINICAL HISTORY: Atypical chest pain. FINDINGS: An AP, portable, upright chest radiograph is compared to study dated 11/02/2022 and correlated with chest CT dated 10/28/2022. The heart is enlarged noting atherosclerotic calcification of the thoracic aorta. There is pulmonary vascular congestion. Advanced emphysema and chronic interstitial thickening is similar to previous. Airspace opacities are again seen at both lung bases. Small pleural effusions are suspected. No pneumothorax is seen. The skeletal structures are osteopenic. Left-sided rib fractures are again noted. IMPRESSION: 1. Cardiomegaly and advanced emphysema with pulmonary vascular congestion. 2. Suspect small pleural effusions. 3. Bibasilar airspace opacities could represent pulmonary edema and/or an infectious/inflammatory pneumonitis. Clinical correlation will be required and radiographic follow-up to resolution is recommended. ACT 112: Negative or not required by law. Electronically signed by: Marcelino Valdez M.D. 11/18/2022 11:03 AM ECG Additional Comments: Atrial fibrillation ST & T wave abnormality, consider anterolateral ischemia Abnormal ECG When compared with ECG of 31-OCT-2022 10:13, Vent. rate has decreased BY 52 BPM Code Status & VTE Plan Code Status DNR/DNI VTE Prophylaxis Plan VTE Prophylaxis will be ordered: Yes Supervising Physician Co-Signing Physician Notes I personally saw and examined the patient. I verified all hernandez points and agree with Devonte Aguiar PA-C with the following exceptions and/or additions: 77 year old male presents to the ER with shortness of breath and hypoxia getting worse over the last 3-4 days. Baseline oxygen requirement 4LPM O2 at rest and 5LPM O2 on exertion. O/E Alert &Ox3, using accessory muscles, reduced breath sounds throughout without wheezing or crackles, absent at bases, HS irregular rhythm, elevated rate, no murmurs, Abdo SNT A/P Acute respiratory failure with hypoxia - CT chest to assess for consolidation requiring antibiotics. Suspect combination of a. fib causing rate related heart failure and COPD exacerbation Acute on chronic heart failure with preserved ejection fraction - suspect mostly rate related from atrial fibrillation, Lasix 40mg IV given in ER, monitor A. fib RVR - given difficulty controlling rate of this and need to hold IV metoprolol will start on IV diltiazem drip and consult cardiology for ongoing recommendations. COPD exacerbation - possible diagnosis given significant improvement with duoneb. However just having significant reduced breath sounds on exam. Consult pulmonology. Dexamethasone 10mg IV given in ER, continue 6mg IV BID. Budesonide NEB BID, Levalbuterol/ipratropium NEB QID. Azithromycin 500mg IV for 3 days PG Care Time/CCT Total # of Minutes Spent Total Time Spent with Patient: Total time spent is greater than 50% in coordination of care (as documented) at patient's floor/unit and/or counseling patient: Coding [place] [address] INT INP/OBS CARE 3/75MIN Patient Type Established Medical Decision Making High Complexity Diagnoses Acute and chronic respiratory failure with hypoxia J96.21 Atrial fibrillation with rapid ventricular response I48.91 Diastolic dysfunction I51.89 COPD exacerbation J44.1 Chronic gout [id number] Tobacco abuse Z72.0 Hypercholesterolemia E78.00
--- NOTE | 2022-11-18 14:05 | Electrocardiogram Report ---
Test Reason : Blood Pressure : / mmHG Vent. Rate : 083 BPM Atrial Rate : 000 BPM P-R Int : 000 ms QRS Dur : 090 ms QT Int : 386 ms P-R-T Axes : 000 005 -29 degrees QTc Int : 453 ms Atrial fibrillation Abnormal ECG When compared with ECG of 31-OCT-2022 10:13, Vent. rate has decreased BY 52 BPM Confirmed by Daniele Rios ([id number]) on 11/18/2022 2:05:34 PM Referred By: Confirmed By:Daniele Rios
[2022-11-18] MEDS ORDERED: AZITHROMYCIN 500 MG in DEXTROSE 5% 250 ML IV STA (14:09)
[2022-11-18 14:29] LABS: HCO3 ABG 26 mmol/L (19-24); Oxygen Saturation ABG 92.9 % (90-95); PCO2 ABG 42 mmHg (35-46); PO2 ABG 65 mmHg (80-95)
[2022-11-18 14:51] LABS: Magnesium 1.9 mg/dl (1.7-2.4)
[2022-11-18 14:51] LABS: Allen Test Pos (Pos)
[2022-11-18] MEDS: LEVALBUTEROL 1.25 MG/3 ML NEB NEB SCH ×3 (15:40→20:01)
--- NOTE | 2022-11-18 15:52 | CT Scan Report ---
CT OF THE CHEST WITHOUT IV CONTRAST CLINICAL HISTORY: Hypoxia. COMPARISON STUDY: Chest CT October 28, 2022. Chest radiograph performed earlier today. CT DOSE: 480.25 mGycm TECHNIQUE: Axial images of the chest were obtained without IV contrast. Images were reviewed in the axial, sagittal, and coronal planes. IV contrast was not administered for this examination. Automat ed exposure control was utilized for the study. A dose lowering technique was utilized adhering to t he principles of ALARA. FINDINGS: Mediastinal lymphadenopathy is similar to prior exams. Index right lower paratracheal lymp h node on image 143 of 306 measures 2.1 x 1.9 cm. Cardiomegaly is again noted. There is no pericardia l effusion. Small right and trace left pleural effusions have increased since CT of October 28, 2022. A ssociated bilateral lower lobe airspace opacities are greater on the right. Posterior basal segment r ight lower lobe opacity has increased since prior CT. Anterior medial basal segment of opacity has im proved. There is residual opacity that favors resolving pneumonia. Right middle lobe opacity has impr ashley. Severe emphysema is noted. There is no pneumothorax. No pneumomediastinum is present. There are no acute fractures. Multiple old left-sided rib fractures are noted. Fluid along the left major fiss ure is present. IMPRESSION: 1. Small right and trace left pleural effusions which have increased since prior CT. Increase in depe ndent bilateral lower lung airspace opacities which could reflect pneumonia or atelectasis. Interval improvement in additional lower lung opacities since prior CT of October 28, 2022. A follow up chest CT in 2 months to ensure resolution is recommended. 2. Severe emphysema. 3. No change in mediastinal lymphadenopathy. This is likely benign but should be assessed on follow-u p CT. ACT 112: Negative or not required by law. Electronically signed by: Sorin Zaldivar M.D. 11/18/2022 3:50 PM
[2022-11-18] MEDS ORDERED: ACETAMINOPHEN 325 MG TAB PO PRN (16:00)
--- NOTE | 2022-11-18 16:05 | Pulmonary Consultation ---
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 Qualified Code(s): J43.2 - Centrilobular emphysema (5) Tobacco abuse: (6) Chronic hypercapnic respiratory failure: Plan CT chest 11/18/2022 personally reviewed: Severe centrilobular and paraseptal emphysema appreciated bilaterally Small right-sided pleural effusion, minimal left-sided pleural effusion Dependent atelectasis right lower lobe Insignificant mediastinal lymphadenopathy ABG 11/18/2022: 7.40/42/65 on 10 L -- Acute on chronic hypoxic respiratory failure Likely secondary to diastolic CHF as well as A-fib with RVR No wheezing appreciated on physical exam, unlikely to be COPD exacerbation Patient has chronic atelectasis of the right lower lobe unlikely to be superimposed pneumonia COVID-19 PCR, influenza A/B, RSV negative BNP 1077 Procalcitonin negative -- Severe COPD with emphysema On Trelegy at home Follows up with Dr. Hahn as an outpatient, he was seen last by him on 11/11/2022 -- Pulmonary hypertension Combination of type II and type III 2D echo 10/28/2022: EF 55-60%, moderate concentric LVH, indeterminate diastolic function, moderately dilated R a, RVSP 53 mmHg -- Current smoker Importance of quitting explained to the patient in depth -- A-fib On Eliquis at home --DNR/DNI Plan: Recommend aggressive diuresis BiPAP nightly and as needed shortness of breath Inhaled bronchodilators Can de-escalate dexamethasone Recommend palliative care consult as well Please note the above document was generated using voice recognition software. It may contain grammatical, syntax or spelling errors.Any formal questions or c oncerns about the content, text or information contained within the body of this dictation should be directly addressed to the provider for clarification. History of Present Illness Attending Physician: Raf Hernández MD History of Present Illness 77-year-old male presented to hospital with complaints of shortness of breath Past medical history: COPD on 4 L oxygen at home, gout, hypertension Pulmonary consulted for hypoxia At the time of examination patient's is also in the room. At the time of examination patient was saturating 88-89% on 8 L oxy mask. His heart rate was in the 140s irregular He was in mild respiratory distress At home he has been compliant with his inhalers but was not using his AVAPS machine. Denies any fever or chills Does complain of cough and bringing up clear phlegm. No hemoptysis, no hematuria, no hematochezia. No headache, no blurry vision Social history: Greater than [id number] smoking history, actively smoking right now. Allergies Allergy/AdvReac Type Severity Reaction Status Date / Time lisinopril Allergy Unknown Swelling Verified 11/10/22 15:51 of face methylprednisolone Allergy Unknown HALLUCINATION-IV Verified 11/10/22 15:51 SOLUMEDROL budesonide AdvReac Unknown DIDN'T WORK Verified 11/10/22 15:51 [From [facility]] formoterol AdvReac Unknown DIDN'T WORK Verified 11/10/22 15:51 [From [facility]] glycopyrrolate AdvReac Unknown DIDN'T WORK Verified 11/10/22 15:51 [From [facility]] Home Medications Medication Instructions Recorded Confirmed Type fluticasone fur. 100 mcg-umeclid 1 inh inhalation QAM 03/31/22 11/18/22 History 62.5 mcg-vilant 25 mcg inhalat.powder (Trelegy Ellipta) Portable Oxygen #1 ea 05/04/22 11/10/22 Rx allopurinol 300 mg tablet 300 mg PO QAM #90 tabs 07/17/22 11/18/22 Rx escitalopram oxalate 10 mg tablet 10 mg PO HS #90 tabs 07/21/22 11/18/22 Rx (Lexapro) cyanocobalamin (vitamin B-12) 1,000 mcg sublingual DAILY 09/11/22 11/18/22 History 1,000 mcg sublingual tablet apixaban 5 mg tablet (Eliquis) 5 mg PO BID #60 tabs 10/30/22 11/18/22 Rx diltiazem HCl 240 mg 240 mg PO QAM #30 caps 11/04/22 11/18/22 Rx capsule,extended release 24 hr metoprolol tartrate 100 mg tablet 100 mg PO BID #60 tabs 11/04/22 11/18/22 Rx levalbuterol HCl 0.31 mg/3 mL 0.31 mg (3 mL) inhalation TID PRN 11/10/22 11/18/22 Rx solution for nebulization shortness of breath or wheezing #75 mL pravastatin 20 mg tablet 20 mg PO HS 11/18/22 11/18/22 History Patient History Medical History (Updated 11/18/22 @ 16:25 by Daniele Rios MD) Chronic gout Chronic hypercapnic respiratory failure COPD (chronic obstructive pulmonary disease) RESCUE INHALER DAILY (NO MORE THAN TWICE A DAY) Depression Dyspnea on exertion Ecchymosis Goals of care, counseling/discussion History of acute illness SEPTEMBER 2021 - RESOLVED PT WAS R/S FOR COLONOSCOPY D/T ILLNESS. History of colon polyps History of diverticulitis of colon History of nicotine dependence Hyperglycemia Hyperlipidemia Hypertension Hypoxemia Kidney stone (2014) HX Macular degeneration BOTH EYES/INJECTIONS Q 6-8 WKS Overactive bladder ? / PROSTATE PROBLEM ? - NOT SURE DETAILS/PROSTATE NOT ENLARGED Persistent atrial fibrillation Respiratory distress Skin cancer BCC ON FACE - RECENTLY SHAVED OFF - HEALED Solitary pulmonary nodule ? SIDE / CT SCAN 2 MON AGO - GROWN - F/U CT SCAN IN JUN 2021 Surgical History History of cardiac cath SUMMER 2017/ NO STENT(S) History of cataract surgery RT/LEFT History of colonoscopy last 2018 @ [facility] History of lithotripsy History of tooth extraction Status post Mohs surgery MULTIPLE Family History Brother Emphysema lung Other No family history of adverse response to anesthesia Denies family history of Ovarian cancer Prostate cancer Myocardial infarction Breast cancer Colorectal cancer Social History Smoking Status: Former smoker Tobacco Type: Cigarettes Age Started Using Tobacco: 21; packs per day: 0.25; Cigarettes Per Day: 20; Second Hand Exposure: Yes; Do You Dip or Chew Tobacco: No; Hx Alcohol Use: Yes (Quit drinking recently) Alcohol type: hard liquor Alcohol Intake Frequency: Monthly or Less Hx Substance Use: No Preferred Language: Lithuanian Communication Ability: Effective Visual Impairment: No Limitations Hearing Ability: Normal Blood Bank Laboratory Technician Required: No Beliefs That Will Affect Care: None marital status: Current Living Situation: Spouse current occupational status: retired 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 [employer] Other Information That Helps Us Care for You: No Feels Safe at Home: Yes Safety Concerns: Feels Safe At This Time Physical Activity Frequency: 1-2 Times per Week Seatbelt Use: always Assistive Devices: Cane, Denture - Upper, Denture - Lower, Glasses, Oxygen - at Night, Oxygen - Continuous, Walker and Wheelchair Review of Systems Review of Systems: All systems reviewed & are unremarkable except as noted in HPI & below Physical Exam Physical Exam: Constitutional: No acute distress HEENT: EOMI, PERRLA Respiratory system:Decreased air entry bilaterally, no wheeze, no rhonchi, mild crackles bilateral lower lobes CVS: S1-S2 positive, no murmurs or gallops, tachycardia, irregular Abdomen: Soft, nontender, nondistended, positive bowel sounds x4 Extremities: +2 pulses bilaterally radialis/ dorsalis pedis,no cyanosis, no edema Neuro:Awake alert oriented x3 Psych:Normal mood and affect G/U:No [place] Skin: no rashes, warm and dry Lymphatic: no cervical or axillary lymphadenopathy Results & Data Results & Data Vital Signs (Past 12 Hours) Vital Signs Temp Pulse Pulse Resp BP BP Pulse Ox 11/18/22 15:40 110 H 20 90 11/18/22 15:10 136 H 20 93 11/18/22 14:06 125 H 22 118/97 93 11/18/22 13:58 153 H 147/105 H 11/18/22 13:30 144 H 20 87 L 11/18/22 13:00 126 H 20 11/18/22 13:00 149/116 H 11/18/22 12:30 124 H 19 85 L 11/18/22 12:50 147 H 145/100 H 11/18/22 12:11 161/111 H 11/18/22 12:17 20 92 11/18/22 11:30 88 14 11/18/22 11:30 141/98 H 11/18/22 11:13 20 90 11/18/22 10:30 93 H 15 86 L 11/18/22 10:30 151/100 H 11/18/22 10:18 103 H 17 88 L 11/18/22 10:18 149/110 H 11/18/22 10:14 90 18 88 L 11/18/22 10:36 89 L 11/18/22 10:30 11/18/22 10:15 93 H 11/18/22 10:12 87 L 11/18/22 10:00 36.0 C L 88 25 H 152/82 H O2 Del Method O2 Flow Rate 11/18/22 15:40 Oxymask 8 11/18/22 15:10 Oxymask 10 11/18/22 14:06 Oxymask 10 11/18/22 13:58 11/18/22 13:30 Oxymask 8 11/18/22 13:00 11/18/22 13:00 11/18/22 12:30 Nasal Cannula 6 11/18/22 12:50 11/18/22 12:11 11/18/22 12:17 Nasal Cannula 6 11/18/22 11:30 11/18/22 11:30 11/18/22 11:13 Nasal Cannula 6 11/18/22 10:30 Nasal Cannula 4 11/18/22 10:30 11/18/22 10:18 Nasal Cannula 4 11/18/22 10:18 11/18/22 10:14 Nasal Cannula 4 11/18/22 10:36 Nasal Cannula 11/18/22 10:30 Nasal Cannula 4 11/18/22 10:15 11/18/22 10:12 Nasal Cannula 4 11/18/22 10:00 Laboratory Results 11/18/22 10:33 11/18/22 10:33 PG Care Time/CCT Total # of Minutes Spent Total Time Spent with Patient: Total time spent is greater than 50% in coordination of care (as documented) at patient's floor/unit and/or counseling patient: Coding Level of Care Code 70754 INT INP/OBS CARE 3/75MIN Diagnoses Atrial fibrillation with rapid ventricular response I48.91 Acute and chronic respiratory failure with hypoxia J96.21 Pulmonary hypertension I27.20 COPD (chronic obstructive pulmonary disease) J43.2 COPD type: emphysema Emphysema type: centrilobular Tobacco abuse Z72.0 Chronic hypercapnic respiratory failure J96.12
[2022-11-18] MEDS ORDERED: STAT IV Infusion **Titration per Protocol STA (16:08)
[2022-11-18] MEDS ORDERED: dilTIAZem HCl 5 MG/ML 5 ML VIAL IV STA (16:14)
[2022-11-18] MEDS ORDERED: dilTIAZem HCL 125 MG in DEXTROSE 5% 100 ML IV SCH (16:15)
--- NOTE | 2022-11-18 16:28 | Cardiology Consultation ---
Date of Consultation November 18, 2022 Assessment & Plan (1) Dyspnea on exertion: (2) Atrial fibrillation with rapid ventricular response: (3) COPD (chronic obstructive pulmonary disease): Plan 1. Dyspnea on exertion: This is almost certainly multifactorial, probably primarily pulmonary but I suspect there is a component of diastolic heart failure. His BNP is elevated but he does not appear to be grossly fluid overloaded. Still diuresis may help. 2. Atrial fibrillation: I am not sure how long he has been in atrial fibrillation, it was recently discovered but possibly he had it for longer although I doubt it. I suspect therefore that it is of recent onset and he remains in atrial fibrillation with a somewhat rapid heart rate, despite high- dose beta-blockade and moderate dose diltiazem. I suspect he has a high catecholamine level and some of his increased heart rate is appropriate. I do not know why it increased following his presentation to the emergency room. I suspect he has diastolic dysfunction and therefore rapid heart rate may be somewhat detrimental. Additionally the irregularity in the rhythm (his atrial fibrillation is quite irregular) is hemodynamically inefficient and probably contributing to elevated pulmonary pressures. He has been anticoagulated now for long enough that we should consider cardioversion, I do not know if it will help him a great deal but the improvement with return to sinus rhythm can sometimes be significant. We need to continue his anticoagulation. Initially he refused consideration for anticoagulation but I discussed it with him and he is tending toward agreeing to have it done, but needs to discuss it with his wi fe. I had contemplated doing it tomorrow morning but he does not want to do that and I do not know that he will be ready. If he is ready we could probably do it sometime tomorrow. As a precaution I am going to hold his breakfast. 3. COPD: This may be his primary difficulty at the moment, this is going to be treated in parallel. History of Present Illness Reason for Consultation: Atrial fibrillation with rapid ventricular response Attending Physician: Raf Hernández MD History of Present Illness This is a 77-year-old male with a history of severe COPD with chronic respiratory failure, pulmonary hypertension, hypertension, tobacco abuse and more recently atrial fibrillation. On October 27, 2022 he presented with an exacerbation of shortness of breath and was noted to be in atrial fibrillation with a rapid heart rate. He was on low-dose metoprolol at home. He appeared to be asymptomatic with regard to the rhythm, echocardiography October 28, 2022 demonstrated normal left ventricular size and systolic function with mildly reduced right ventricular function and moderate pulmonary hypertension. The duration of the atrial fibrillation was uncertain. He was started on heparin which was transitioned to Eliquis. He was discharged on Eliquis, metoprolol tartrate 100 mg twice a day, diltiazem 240 mg daily. He was seen in the cardiology office by Dr. Pollack on November 09, 2022, his heart rate appeared well controlled but he continued to have episodes of hypoxia and it appeared that his dyspnea on exertion was worse than his baseline before identification of atrial fibrillation. He had reduced his smoking somewhat but was still smoking and he was avoiding alcohol. He presents now with worsening shortness of breath felt to be due to an exacerbation of his COPD as well as possible diastolic heart failure. His pulse is reported as elevated in the emergency room, although on electrocardiography his heart rate was 83 bpm with significant variability. Interestingly and for reasons I do not understand his heart rate trended up fairly significantly at around noon today after he came to the emergency room and has remained elevated. On discussing his symptoms with him he is very vague. He tells me that he was tired and not short of breath, but now he feels better. He seems a little bit confused but I have not met him before. He has had no chest discomfort and no orthopnea or PND. Allergies Allergy/AdvReac Type Severity Reaction Status Date / Time lisinopril Allergy Unknown Swelling Verified 11/10/22 15:51 of face methylprednisolone Allergy Unknown HALLUCINATION-IV Verified 11/10/22 15:51 SOLUMEDROL budesonide AdvReac Unknown DIDN'T WORK Verified 11/10/22 15:51 [From [facility]] formoterol AdvReac Unknown DIDN'T WORK Verified 11/10/22 15:51 [From [facility]] glycopyrrolate AdvReac Unknown DIDN'T WORK Verified 11/10/22 15:51 [From [facility]] Home Medications Medication Instructions Recorded Confirmed Type fluticasone fur. 100 mcg-umeclid 1 inh inhalation QAM 03/31/22 11/18/22 History 62.5 mcg-vilant 25 mcg inhalat.powder (Trelegy Ellipta) Portable Oxygen #1 ea 05/04/22 11/10/22 Rx allopurinol 300 mg tablet 300 mg PO QAM #90 tabs 07/17/22 11/18/22 Rx escitalopram oxalate 10 mg tablet 10 mg PO HS #90 tabs 07/21/22 11/18/22 Rx (Lexapro) cyanocobalamin (vitamin B-12) 1,000 mcg sublingual DAILY 09/11/22 11/18/22 History 1,000 mcg sublingual tablet apixaban 5 mg tablet (Eliquis) 5 mg PO BID #60 tabs 10/30/22 11/18/22 Rx diltiazem HCl 240 mg 240 mg PO QAM #30 caps 11/04/22 11/18/22 Rx capsule,extended release 24 hr metoprolol tartrate 100 mg tablet 100 mg PO BID #60 tabs 11/04/22 11/18/22 Rx levalbuterol HCl 0.31 mg/3 mL 0.31 mg (3 mL) inhalation TID PRN 11/10/22 11/18/22 Rx solution for nebulization shortness of breath or wheezing #75 mL pravastatin 20 mg tablet 20 mg PO HS 11/18/22 11/18/22 History Patient History Medical History (Updated 11/18/22 @ 16:25 by Daniele Rios MD) Chronic gout Chronic hypercapnic respiratory failure COPD (chronic obstructive pulmonary disease) RESCUE INHALER DAILY (NO MORE THAN TWICE A DAY) Depression Dyspnea on exertion Ecchymosis Goals of care, counseling/discussion History of acute illness SEPTEMBER 2021 - RESOLVED PT WAS R/S FOR COLONOSCOPY D/T ILLNESS. History of colon polyps History of diverticulitis of colon History of nicotine dependence Hyperglycemia Hyperlipidemia Hypertension Hypoxemia Kidney stone (2014) HX Macular degeneration BOTH EYES/INJECTIONS Q 6-8 WKS Overactive bladder ? / PROSTATE PROBLEM ? - NOT SURE DETAILS/PROSTATE NOT ENLARGED Persistent atrial fibrillation Respiratory distress Skin cancer BCC ON FACE - RECENTLY SHAVED OFF - HEALED Solitary pulmonary nodule ? SIDE / CT SCAN 2 MON AGO - GROWN - F/U CT SCAN IN JUN 2021 Surgical History History of cardiac cath SUMMER 2017/ NO STENT(S) History of cataract surgery RT/LEFT History of colonoscopy last 2018 @ [facility] History of lithotripsy History of tooth extraction Status post Mohs surgery MULTIPLE Family History Brother Emphysema lung Other No family history of adverse response to anesthesia Denies family history of Ovarian cancer Prostate cancer Myocardial infarction Breast cancer Colorectal cancer Social History Smoking Status: Former smoker Tobacco Type: Cigarettes Age Started Using Tobacco: 21; packs per day: 0.25; Cigarettes Per Day: 20; Second Hand Exposure: Yes; Do You Dip or Chew Tobacco: No; Hx Alcohol Use: Yes (Quit drinking recently) Alcohol type: hard liquor Alcohol Intake Frequency: Monthly or Less Hx Substance Use: No Preferred Language: Greek Communication Ability: Effective Visual Impairment: No Limitations Hearing Ability: Normal Machine Tracer Required: No Beliefs That Will Affect Care: None marital status: Current Living Situation: Spouse current occupational status: retired 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 HEENT: Unremarkable Neck: No jugular venous distention, carotid pulses are irregular but otherwise normal and equal bilaterally without bruits. Pulmonary: Markedly decreased breath sounds on auscultation bilaterally, no wheezing, basilar crackles more on the left than the right. Cardiac: Irregular rhythm with no murmur, gallop or rub. Abdomen: Soft, nontender with normal bowel sounds. Extremities: No edema. Distal pulses intact. Neurologic: No focal findings. Skin: No rash, ecchymoses or petechiae. Results & Data Vital Signs (Past 12 Hours) Vital Signs Temp Pulse Pulse Resp BP BP Pulse Ox 11/18/22 15:40 110 H 20 90 11/18/22 15:10 136 H 20 93 11/18/22 14:06 125 H 22 118/97 93 11/18/22 13:58 153 H 147/105 H 11/18/22 13:30 144 H 20 87 L 11/18/22 13:00 126 H 20 11/18/22 13:00 149/116 H 11/18/22 12:30 124 H 19 85 L 11/18/22 12:50 147 H 145/100 H 11/18/22 12:11 161/111 H 11/18/22 12:17 20 92 11/18/22 11:30 88 14 11/18/22 11:30 141/98 H 11/18/22 11:13 20 90 11/18/22 10:30 93 H 15 86 L 11/18/22 10:30 151/100 H 11/18/22 10:18 103 H 17 88 L 11/18/22 10:18 149/110 H 11/18/22 10:14 90 18 88 L 11/18/22 10:36 89 L 11/18/22 10:30 11/18/22 10:15 93 H 11/18/22 10:12 87 L 11/18/22 10:00 36.0 C L 88 25 H 152/82 H O2 Del Method O2 Flow Rate 11/18/22 15:40 Oxymask 8 11/18/22 15:10 Oxymask 10 11/18/22 14:06 Oxymask 10 11/18/22 13:58 11/18/22 13:30 Oxymask 8 11/18/22 13:00 11/18/22 13:00 11/18/22 12:30 Nasal Cannula 6 11/18/22 12:50 11/18/22 12:11 11/18/22 12:17 Nasal Cannula 6 11/18/22 11:30 11/18/22 11:30 11/18/22 11:13 Nasal Cannula 6 11/18/22 10:30 Nasal Cannula 4 11/18/22 10:30 11/18/22 10:18 Nasal Cannula 4 11/18/22 10:18 11/18/22 10:14 Nasal Cannula 4 11/18/22 10:36 Nasal Cannula 11/18/22 10:30 Nasal Cannula 4 11/18/22 10:15 11/18/22 10:12 Nasal Cannula 4 11/18/22 10:00 Laboratory Results Cardiac Enzymes 11/18/22 11/18/22 Range/Units 10:33 14:11 AST 29 (13-39) U/L Troponin I High Sens 8.8 (0-20) pg/ml B-Natriuretic Peptide 1077 H (0-100) pg/ml Coagulation 11/18/22 Range/Units 14:11 B-Natriuretic Peptide 1077 H (0-100) pg/ml CBC 11/18/22 Range/Units 10:33 WBC 9.83 (4.8-10.8) K/ul RBC 4.08 L (4.70-6.10) M/uL Hgb 13.5 L (14.0-18.0) g/dl Hct 40.5 L (42.0-52.0) % Plt Count 213 (130-400) K/uL Neut # (Auto) 8.76 H (1.40-6.50) K/uL Lymph # (Auto) 0.69 L (1.2-3.4) K/uL [place] # (Auto) 0.29 (0.11-0.59) K/uL Eos # (Auto) 0.01 (0-0.50) K/uL Baso # (Auto) 0.02 (0-0.2) K/uL Comprehensive Metabolic Panel 11/18/22 Range/Units 10:33 Sodium 134 L (136-145) mmol/L Potassium 4.5 (3.5-5.1) mmol/L Chloride 98 (98-107) mmol/L Carbon Dioxide 29 (21-32) mmol/L BUN 12 (6-23) mg/dl Creatinine 0.85 (0.6-1.4) mg/dl Glucose 138 H (70-99(Fasting)) mg/dl Calcium 8.9 (8.6-10.3) mg/dl AST 29 (13-39) U/L ALT 50 (7-52) U/L Alkaline Phosphatase 83 (34-104) U/L Total Protein 6.5 (6.0-8.3) gm/dl Albumin 3.9 (3.4-5.0) gm/dl Intake and Output 11/18/22 11/18/22 11/18/22 06:59 14:59 22:59 Output Total 1200 / 1200 Balance -1200 / -1200 Output: Urine 1200 / 1200 Other: Weight 84.5 kg Weight Measurement Method Chair Scale Patient Weight 11/19/22 06:59 Weight 84.5 kg Diagnostic Findings Telemetry: Atrial fibrillation, his heart rate was around 90 on average from presentation till around noon and then it trended up to around 130 over period of about an hour and has remained there. PG Care Time/CCT Total # of Minutes Spent Total Time Spent with Patient: Total time spent is greater than 50% in coordination of care (as documented) at patient's floor/unit and/or counseling patient: Coding Level of Care Code 55860 INT INP/OBS CARE 3/75MIN Diagnoses Dyspnea on exertion R06.00 Atrial fibrillation with rapid ventricular response I48.91 COPD (chronic obstructive pulmonary disease) J43.2 COPD type: emphysema Emphysema type: centrilobular (3) COPD (chronic obstructive pulmonary disease) COPD type: emphysema Emphysema type: centrilobular Qualified Code(s): J43.2 - Centrilobular emphysema
[2022-11-18] MEDS: APIXABAN 5 MG TABLET PO SCH (19:37)
[2022-11-18] MEDS: METOPROLOL TARTRATE 100 MG TAB PO SCH (19:37)
[2022-11-18] MEDS: ESCITALOPRAM OXALATE 10 MG TAB PO SCH (19:37)
[2022-11-18] MEDS: PRAVASTATIN SOD 20 MG TAB PO SCH (19:37)
[2022-11-18] MEDS: BUDESONIDE 0.5 MG/2 ML VIAL (PULMICORT) NEB SCH ×2 (19:56→20:01)
[2022-11-18] MEDS ORDERED: dexAMETHasone 6 MG in SYRINGE 0 ML IV SCH (21:00)
[2022-11-19] MEDS: LEVALBUTEROL 1.25 MG/3 ML NEB NEB SCH ×4 (01:33→19:12)
[2022-11-19 06:31] LABS: Basophils # (auto) 0.01 K/uL (0-0.2); Basophils % (auto) 0.2 %; Hematocrit (blood only) 34.3 % (42.0-52.0); Hemoglobin 11.7 g/dl (14.0-18.0); Immature Granulocytes # (auto) 0.03 K/uL (0.01-0.20); Immature Granulocytes % (auto) 0.5 %; Lymphocytes # (auto) 0.47 K/uL (1.2-3.4); Lymphocytes % (auto) 8.6 %; Mean Corpuscular Hemoglobin 33.7 pg (25.0-34.0); Mean Corpuscular Hgb Conc 34.1 g/dL (32.0-36.0); Mean Corpuscular Volume 98.8 fL (80.0-100.0); Mean Platelet Volume 10.4 fL (9.4-12.4); Monocytes # (auto) 0.06 K/uL (0.11-0.59); Monocytes % (auto) 1.1 %; Neutrophils % (auto) 89.6 %; Platelet Count 173 K/uL (130-400); RDW Standard Deviation 50.7 fL (36.4-46.3); Red Blood Count 3.47 M/uL (4.70-6.10); White Blood Count 5.47 K/ul (4.8-10.8)
[2022-11-19 06:52] LABS: BUN Creatinine Ratio 16.7 (10-20); Calcium 8.4 mg/dl (8.6-10.3); Creatinine Clr Calc Pharmacy 78.5 ml/min; Est GFR (African American) 99.3 ml/min; Est GFR (Non-African American) 85.7 ml/min; Magnesium 1.7 mg/dl (1.7-2.4); Potassium 4.4 mmol/L (3.5-5.1)
[2022-11-19 07:34] LABS: INR 1.1 (0.9-1.1); Prothrombin Time 11.7 Seconds (9.0-12.0)
[2022-11-19] MEDS: BUDESONIDE 0.5 MG/2 ML VIAL (PULMICORT) NEB SCH ×2 (07:37→19:12)
--- NOTE | 2022-11-19 08:33 | Cardiology Progress Note ---
Date of Service November 19, 2022 Assessment & Plan (1) Dyspnea on exertion: (2) Atrial fibrillation with rapid ventricular response: (3) COPD (chronic obstructive pulmonary disease): Plan 1. Dyspnea on exertion: This is almost certainly multifactorial, probably primarily pulmonary but I suspect there is a component of diastolic heart failure. His BNP was elevated but he does not appear to be grossly fluid overloaded. Still diuresis may help. 2. Atrial fibrillation: I am not sure how long he has been in atrial fibrillation, it was recently discovered (October 28, 2022) but possibly he had it for longer although I doubt it. I suspect therefore that it is of recent onset and he remains in atrial fibrillation with a somewhat rapid heart rate, despite high-dose beta-blockade and moderate dose diltiazem. I suspect he has a high catecholamine level and some of his increased heart rate is appropriate. His decreased heart rate at night is suggestive of this. I suspect he has diastolic dysfunction and therefore rapid heart rates may be somewhat detrimental. Additionally the irregularity in the rhythm (his atrial fibrillation is quite irregular) is hemodynamically inefficient and probably contributing to elevated pulmonary pressures. He has been anticoagulated now for long enough that we should consider cardioversion, I do not know if it will help him a great deal but the improvement with return to sinus rhythm can sometimes be significant. We need to continue his anticoagulation. Initially he refused consideration for cardioversion but I discussed it with him and he is agreeable to have it done, but would prefer not to do it today. Given his clinical status that is reasonable, he will need to be put to sleep and he does have pulmonary findings today. I do have him scheduled for tomorrow morning, November 20, 2022. 3. COPD: This may be his primary difficulty at the moment, this is going to be treated in parallel. Admission and Anticipated Discharge Date Admission Date: November 18, 2022 Subjective He seems to be doing better today, he is more comfortable and feels his breathing is pretty much back to normal. He has not tried to be active. He has no palpitations or awareness of his cardiac rhythm. Physical Exam Physical Exam: Constitutional: Alert, cooperative and in only mild distress on an oxygen mask. HEENT: Unremarkable Neck: No jugular venous distention, carotid pulses are irregular but otherwise normal and equal bilaterally without bruits. Pulmonary: Markedly decreased breath sounds on auscultation bilaterally, bilateral expiratory wheezing, basilar crackles more on the left than the right. Cardiac: Irregular rapid rhythm with no murmur, gallop or rub. Abdomen: Soft, nontender with normal bowel sounds. Extremities: No edema. Distal pulses intact. Neurologic: No focal findings. Skin: No rash, ecchymoses or petechiae. Results & Data Vital Signs (Past 12 Hours) Vital Signs Temp Pulse Pulse Resp BP Pulse Ox O2 Del Method 11/19/22 07:40 130 H 20 97 Oxymask 11/19/22 05:49 36 C L 106 H 20 90 CPAP 11/19/22 03:12 35.9 C L 105 H 18 123/80 93 CPAP 11/19/22 01:44 90 20 126/70 90 CPAP 11/19/22 01:36 99 H 18 92 CPAP 11/19/22 00:58 35.9 C L 94 H 24 140/97 91 Oxymask 11/19/22 00:53 116 H 24 163/110 H 91 Oxymask 11/18/22 23:00 80 11/18/22 23:12 36.4 C L 105 H 20 128/82 90 Oxymask 11/18/22 22:18 58 L O2 Flow Rate 11/19/22 07:40 10 11/19/22 05:49 10 11/19/22 03:12 10 11/19/22 01:44 10 11/19/22 01:36 10 11/19/22 00:58 10 11/19/22 00:53 15 11/18/22 23:00 11/18/22 23:12 8 11/18/22 22:18 Laboratory Results Cardiac Enzymes 11/18/22 11/18/22 Range/Units 10:33 14:11 AST 29 (13-39) U/L Troponin I High Sens 8.8 (0-20) pg/ml B-Natriuretic Peptide 1077 H (0-100) pg/ml Coagulation 11/18/22 11/19/22 Range/Units 14:11 05:54 PT 11.7 (9.0-12.0) Seconds B-Natriuretic Peptide 1077 H (0-100) pg/ml CBC 11/18/22 11/19/22 Range/Units 10:33 05:54 WBC 9.83 5.47 (4.8-10.8) K/ul RBC 4.08 L 3.47 L (4.70-6.10) M/uL Hgb 13.5 L 11.7 L (14.0-18.0) g/dl Hct 40.5 L 34.3 L (42.0-52.0) % Plt Count 213 173 (130-400) K/uL Neut # (Auto) 8.76 H 4.90 (1.40-6.50) K/uL Lymph # (Auto) 0.69 L 0.47 L (1.2-3.4) K/uL Hughes # (Auto) 0.29 0.06 L (0.11-0.59) K/uL Eos # (Auto) 0.01 0.00 (0-0.50) K/uL Baso # (Auto) 0.02 0.01 (0-0.2) K/uL Comprehensive Metabolic Panel 11/18/22 11/19/22 Range/Units 10:33 05:54 Sodium 134 L 133 L (136-145) mmol/L Potassium 4.5 4.4 (3.5-5.1) mmol/L Chloride 98 96 L (98-107) mmol/L Carbon Dioxide 29 30 (21-32) mmol/L BUN 12 14 (6-23) mg/dl Creatinine 0.85 0.84 (0.6-1.4) mg/dl Glucose 138 H 158 H (70-99(Fasting)) mg/dl Calcium 8.9 8.4 L (8.6-10.3) mg/dl AST 29 (13-39) U/L ALT 50 (7-52) U/L Alkaline Phosphatase 83 (34-104) U/L Total Protein 6.5 (6.0-8.3) gm/dl Albumin 3.9 (3.4-5.0) gm/dl Intake and Output 11/18/22 11/19/22 11/19/22 22:59 06:59 14:59 Intake Total 630.000 / 630.000 Output Total 1750 / 1850 100 / 1850 Balance -1120.000 / -1220.000 -100 / -1220.000 Intake: IV 380.000 / 380.000 Azithromycin 500 mg In Dextrose 255 / 255 5% 250 ml @ 127.5 mls/hr IV NOW STA Rx#:[id number] dilTIAZem HCL 125 mg In 125.000 / 125.000 Dextrose 5% 100 ml @ 5 MG/HR 5 mls/hr IV .Q24H [facility] Rx#: [id number] Oral 250 / 250 Output: Urine 1200 / 1200 Urine Amount (Catheter) 550 / 650 100 / 650 Murillo/Indwelling 550 / 650 100 / 650 Other: Other Intake Source Patient is NPO Weight 83.1 kg Weight Measurement Method Built in [facility] Diagnostic Findings Telemetry: Atrial fibrillation throughout with a heart rate ranging from around 70 bpm overnight to around 130 bpm during the day. PG Care Time/CCT Total # of Minutes Spent Total Time Spent with Patient: Total time spent is greater than 50% in coordination of care (as documented) at patient's floor/unit and/or counseling patient: Coding Level of Care Code 06414 SUB INP/OBS CARE 3/50MIN Diagnoses Dyspnea on exertion R06.00 Atrial fibrillation with rapid ventricular response I48.91 COPD (chronic obstructive pulmonary disease) J43.2 COPD type: emphysema Emphysema type: centrilobular (3) COPD (chronic obstructive pulmonary disease) COPD type: emphysema Emphysema type: centrilobular Qualified Code(s): J43.2 - Centrilobular emphysema
--- NOTE | 2022-11-19 08:38 | Pulmonology Progress Note ---
Date of Service November 19, 2022 Assessment & Plan (1) Atrial fibrillation with rapid ventricular response: (2) Acute and chronic respiratory failure with hypoxia: (3) Pulmonary hypertension: (4) COPD (chronic obstructive pulmonary disease): COPD type: emphysema Emphysema type: centrilobular Qualified Code(s): J43.2 - Centrilobular emphysema (5) Tobacco abuse: (6) Chronic hypercapnic respiratory failure: Plan CT chest 11/18/2022 personally reviewed: Severe centrilobular and paraseptal emphysema appreciated bilaterally Small right-sided pleural effusion, minimal left-sided pleural effusion Dependent atelectasis right lower lobe Insignificant mediastinal lymphadenopathy ABG 11/18/2022: 7.40/42/65 on 10 L -- Acute on chronic hypoxic respiratory failure Likely secondary to diastolic CHF as well as A-fib with RVR Patient has chronic wheezing on physical exam Patient has chronic atelectasis of the right lower lobe unlikely to be superimposed pneumonia COVID-19 PCR, influenza A/B, RSV negative BNP 1077 Procalcitonin negative -- Severe COPD with emphysema On Trelegy at home Follows up with Dr. Hahn as an outpatient, he was seen last by him on 11/11/2022 -- Pulmonary hypertension Combination of type II and type III 2D echo 10/28/2022: EF 55-60%, moderate concentric LVH, indeterminate diastolic function, moderately dilated R a, RVSP 53 mmHg -- Current smoker Importance of quitting explained to the patient in depth -- A-fib On Eliquis at home --DNR/DNI Plan: In/out: -1.2 L, urine output 1850 Continue with diuresis BiPAP nightly and as needed shortness of breath Inhaled bronchodilators Decrease dexamethasone to 6 mg on a daily basis. We will discontinue within the next couple of days Recommend palliative care consult as well Please note the above document was generated using voice recognition software. It may contain grammatical, syntax or spelling errors.Any formal questions or concerns about the content, text or information contained within the body of this dictation should be directly addressed to the provider for clarification. Admission and Anticipated Discharge Date Admission Date: November 18, 2022 Subjective Patient seen and examined at bedside. No acute distress He did use his AVAPS machine all night yesterday. He was saturating 93-94% on 8 L, wean down to 6 L. His heart rate was still in the 130s-140s when I saw him Denies any chest pain, no headache, no nausea, no vomiting Review of Systems Review of Systems: All systems reviewed & are unremarkable except as noted in Subjective Physical Exam Physical Exam: Constitutional: No acute distress HEENT: EOMI, PERRLA Respiratory system:Decreased air entry bilaterally, positive expiratory wheeze, no rhonchi, positive crackles bilateral lower lobes CVS: S1-S2 positive, no murmurs or gallops, tachycardia, irregular Abdomen: Soft, nontender, nondistended, positive bowel sounds x4 Extremities: +2 pulses bilaterally radialis/ dorsalis pedis,no cyanosis, no edema Neuro:Awake alert oriented x3 Psych:Normal mood and affect G/U:No Murillo Skin: no rashes, warm and dry Lymphatic: no cervical or axillary lymphadenopathy Results & Data Results & Data Vital Signs (Past 12 Hours) Vital Signs Temp Pulse Pulse Resp BP Pulse Ox O2 Del Method 11/19/22 07:40 130 H 20 97 Oxymask 11/19/22 05:49 36 C L 106 H 20 90 CPAP 11/19/22 03:12 35.9 C L 105 H 18 123/80 93 CPAP 11/19/22 01:44 90 20 126/70 90 CPAP 11/19/22 01:36 99 H 18 92 CPAP 11/19/22 00:58 35.9 C L 94 H 24 140/97 91 Oxymask 11/19/22 00:53 116 H 24 163/110 H 91 Oxymask 11/18/22 23:00 80 11/18/22 23:12 36.4 C L 105 H 20 128/82 90 Oxymask 11/18/22 22:18 58 L O2 Flow Rate 11/19/22 07:40 10 11/19/22 05:49 10 11/19/22 03:12 10 11/19/22 01:44 10 11/19/22 01:36 10 11/19/22 00:58 10 11/19/22 00:53 15 11/18/22 23:00 11/18/22 23:12 8 11/18/22 22:18 Laboratory Results 11/19/22 05:54 11/19/22 05:54 PG Care Time/CCT Total # of Minutes Spent Total Time Spent with Patient: Total time spent is greater than 50% in coordination of care (as documented) at patient's floor/unit and/or counseling patient: Coding Level of Care Code 42723 SUB INP/OBS CARE 350MIN Diagnoses Atrial fibrillation with rapid ventricular response I48.91 Acute and chronic respiratory failure with hypoxia J96.21 Pulmonary hypertension I27.20 COPD (chronic obstructive pulmonary disease) J43.2 COPD type: emphysema Emphysema type: centrilobular Tobacco abuse Z72.0 Chronic hypercapnic respiratory failure J96.12
[2022-11-19] MEDS ORDERED: dexAMETHasone 6 MG in SYRINGE 0 ML IV SCH (09:00)
[2022-11-19] MEDS ORDERED: FUROSEMIDE 40 MG/4 ML VIAL IV SCH ×2 (09:00→09:30)
[2022-11-19] MEDS ORDERED: dilTIAZem HCL 240 MG CAPCR PO SCH (09:00)
[2022-11-19] MEDS: allopurinoL 300 MG TAB PO SCH (09:10)
[2022-11-19] MEDS: APIXABAN 5 MG TABLET PO SCH ×2 (09:10→19:57)
[2022-11-19] MEDS: METOPROLOL TARTRATE 100 MG TAB PO SCH ×2 (09:10→19:57)
[2022-11-19] MEDS: dilTIAZem HCL 240 MG CAPCR PO SCH (11:11)
--- NOTE | 2022-11-19 15:20 | Hospitalist Progress Note ---
Date of Service November 19, 2022 Assessment & Plan (1) Acute and chronic respiratory failure with hypoxia: Plan: Continue Lasix diuresis to treat CHF. Wean oxygen down to his usual 4 L/min at rest as tolerated. Maintain saturations greater than 90% but avoid high oxygen saturations to minimize CO2 retention. No evidence of underlying bronchitis or pneumonia. Antibiotics have been discontinued. No evidence of pulmonary emboli seen on chest CT scan. He is on Eliquis therapy (2) Atrial fibrillation with rapid ventricular response: Plan: Heart rate is now controlled. IV diltiazem drip has been switched to his usual long-acting formulation. Telemetry. Appreciate cardiology consultation and r ecommendations. Attempt electrical cardioversion later today or tomorrow. Continue to treat underlying CHF (3) Diastolic dysfunction: Plan: Acute on chronic diastolic CHF present on admission. Continue Lasix diuresis. Serial chest x-rays. Monitor intake and output. TTE on last admission show's LVEF WNL but mildly reduced right ventricular systolic function and moderate pulm HTN (4) COPD exacerbation: Plan: Due to CHF. Doubt presence of acute bronchitis or pneumonia. Antibiotics and parenteral steroids have been discontinued. (5) Chronic gout: Plan: Stable. Continue allopurinol (6) Tobacco abuse: Plan: Smoking cessation advised. Patient does not want nicotine patches (7) Hypercholesterolemia: Plan: Stable. Conitnue statin Plan Anticipate eventual discharge to home Admission and Anticipated Discharge Date Admission Date: November 18, 2022 Subjective Alert and oriented. No distress. is at the bedside. It appears he needs Lasix diuresis for the underlying CHF. Atrial fibrillation is now controlled. Diltiazem CD has been restarted. Intravenous dexamethasone and azithromycin will be discontinued. He is scheduled for attempted electrical cardioversion l ater today or tomorrow Review of Systems Review of Systems: Constitutional-no fever or chills ENT-no blurred vision, no double vision, no epistaxis, no sore throat Respiratory-no cough, no wheezing. Shortness of breath with minimal exertion Cardiac-no palpitations, no chest pain, no syncope GI-no nausea, vomiting, diarrhea, melena, hematochezia -no urinary retention, no urinary incontinence, no dysuria, no hematuria Musculoskeletal-no joint pain, no muscle tenderness Skin-no bruising, no rashes, no pruritus Neuro-no isolated weakness, no paresthesia, no weakness Psych-no depression, no anxiety Physical Exam Physical Exam: General-alert and oriented x3, no fevers, no chills HEENT-head atraumatic and normocephalic, pupils equal and reactive to light, extraocular muscles intact Neck-no lymphadenopathy or thyromegaly, trachea midline Chest-bibasilar inspiratory rales. No wheezing Cardiac-irregular rhythm consistent with atrial fibrillation. Controlled rate. Abdomen-normal bowel sounds, nontender, no hepatosplenomegaly Extremities-1+ pitting edema bilateral lower extremities below the knees Neuro-cranial nerves II through XII intact, motor and sensory function within normal limits, strength symmetrical , no focal deficits Psych-normal affect, normal mood Results & Data Results & Data Vital Signs (Past 12 Hours) Vital Signs Temp Pulse Pulse Resp BP Pulse Ox O2 Del Method 11/19/22 13:21 83 18 95 Nasal Cannula 11/19/22 12:00 36.8 C 87 18 104/60 99 Oxymask 11/19/22 08:00 Oxymask 11/19/22 08:00 134 H 11/19/22 08:00 37.0 C 130 H 20 115/63 Oxymask 11/19/22 07:40 130 H 20 97 Oxymask 11/19/22 05:49 36 C L 106 H 20 90 CPAP O2 Flow Rate 11/19/22 13:21 6 11/19/22 12:00 8 11/19/22 08:00 8 11/19/22 08:00 11/19/22 08:00 10 11/19/22 07:40 10 11/19/22 05:49 10 Laboratory Results 11/19/22 05:54 11/19/22 05:54 PG Care Time/CCT Total # of Minutes Spent Total Time Spent with Patient: Total time spent is greater than 50% in coordination of care (as documented) at patient's floor/unit and/or counseling patient: Coding Level of Care Code 22519 SUB INP/OBS CARE 3/50MIN Diagnoses Acute and chronic respiratory failure with hypoxia J96.21 Atrial fibrillation with rapid ventricular response I48.91 Diastolic dysfunction I51.89 COPD exacerbation J44.1 Chronic gout [id number] Tobacco abuse Z72.0 Hypercholesterolemia E78.00
[2022-11-19] MEDS ORDERED: AZITHROMYCIN 500 MG in DEXTROSE 5% 250 ML IV SCH (16:00)
[2022-11-19] MEDS: FUROSEMIDE 40 MG/4 ML VIAL IV SCH (19:56)
[2022-11-19] MEDS: PRAVASTATIN SOD 20 MG TAB PO SCH (19:57)
[2022-11-19] MEDS: ESCITALOPRAM OXALATE 10 MG TAB PO SCH (19:57)
[2022-11-20] MEDS: LEVALBUTEROL 1.25 MG/3 ML NEB NEB SCH ×4 (01:57→19:17)
[2022-11-20 06:58] LABS: Hematocrit (blood only) 33.8 % (42.0-52.0); Hemoglobin 11.7 g/dl (14.0-18.0); Mean Corpuscular Hemoglobin 33.4 pg (25.0-34.0); Mean Corpuscular Hgb Conc 34.6 g/dL (32.0-36.0); Mean Corpuscular Volume 96.6 fL (80.0-100.0); Mean Platelet Volume 10.6 fL (9.4-12.4); Platelet Count 147 K/uL (130-400); RDW Coefficient of Variation 14.2 % (11.5-14.5); RDW Standard Deviation 49.3 fL (36.4-46.3)
[2022-11-20] MEDS: BUDESONIDE 0.5 MG/2 ML VIAL (PULMICORT) NEB SCH ×2 (07:23→19:17)
[2022-11-20 07:24] LABS: INR 1.1 (0.9-1.1); Prothrombin Time 11.6 Seconds (9.0-12.0)
[2022-11-20 07:40] LABS: Calcium 8.2 mg/dl (8.6-10.3); Magnesium 1.7 mg/dl (1.7-2.4); Potassium 3.8 mmol/L (3.5-5.1)
[2022-11-20 07:46] LABS: BUN Creatinine Ratio 21.3 (10-20); Est GFR (African American) 96.9 ml/min; Est GFR (Non-African American) 83.6 ml/min
[2022-11-20 08:02] LABS: Immature Granulocytes # (auto) 0.07 K/uL (0.01-0.20); Immature Granulocytes % (auto) 0.7 %; Lymphocytes # (auto) 0.48 K/uL (1.2-3.4); Lymphocytes % (auto) 4.6 %; Monocytes # (auto) 0.39 K/uL (0.11-0.59); Monocytes % (auto) 3.7 %; Neutrophils # (auto) 9.56 K/uL (1.40-6.50)
[2022-11-20] MEDS: dilTIAZem HCL 240 MG CAPCR PO SCH (08:16)
[2022-11-20] MEDS: allopurinoL 300 MG TAB PO SCH (08:16)
[2022-11-20] MEDS: METOPROLOL TARTRATE 100 MG TAB PO SCH ×2 (08:17→20:15)
[2022-11-20] MEDS: FUROSEMIDE 40 MG/4 ML VIAL IV SCH ×4 (08:17→17:20)
[2022-11-20] MEDS: APIXABAN 5 MG TABLET PO SCH ×2 (08:18→20:15)
--- NOTE | 2022-11-20 08:36 | Pulmonology Progress Note ---
Date of Service November 20, 2022 Assessment & Plan (1) Atrial fibrillation with rapid ventricular response: (2) Acute and chronic respiratory failure with hypoxia: (3) Pulmonary hypertension: (4) COPD (chronic obstructive pulmonary disease): COPD type: emphysema Emphysema type: centrilobular Qualified Code(s): J43.2 - Centrilobular emphysema (5) Tobacco abuse: (6) Chronic hypercapnic respiratory failure: Plan CT chest 11/18/2022 personally reviewed: Severe centrilobular and paraseptal emphysema appreciated bilaterally Small right-sided pleural effusion, minimal left-sided pleural effusion Dependent atelectasis right lower lobe Insignificant mediastinal lymphadenopathy ABG 11/18/2022: 7.40/42/65 on 10 L -- Acute on chronic hypoxic respiratory failure Likely secondary to diastolic CHF as well as A-fib with RVR Patient has chronic wheezing on physical exam Patient has chronic atelectasis of the right lower lobe unlikely to be superimposed pneumonia COVID-19 PCR, influenza A/B, RSV negative BNP 1077 Procalcitonin negative -- Severe COPD with emphysema On Trelegy at home Follows up with Dr. Hahn as an outpatient, he was seen last by him on 11/11/2022 -- Pulmonary hypertension Combination of type II and type III 2D echo 10/28/2022: EF 55-60%, moderate concentric LVH, indeterminate diastolic function, moderately dilated R a, RVSP 53 mmHg -- Current smoker Importance of quitting explained to the patient in depth -- A-fib On Eliquis at home --DNR/DNI Plan: In/out: -1.2 L, urine output 1500, -2.4 L since coming to the hospital Continue with diuresis Chest x-ray from today shows improvement in the vascular congestion and aeration as well as left-sided pleural effusion. BiPAP nightly and as needed shortness of breath Inhaled bronchodilators Recommend palliative care consult as well Please note the above document was generated using voice recognition software. It may contain grammatical, syntax or spelling errors.Any formal questions or concerns about the content, text or information contained within the body of this dictation should be directly addressed to the provider for clarification. Admission and Anticipated Discharge Date Admission Date: November 18, 2022 Subjective Patient seen and examined at bedside. No acute distress, no dressings overnight Patient is s/p cardioversion today. Denies any headache, no nausea vomiting Did use his AVAPS machine overnight. Has been urinating well. Review of Systems Review of Systems: All systems reviewed & are unremarkable except as noted in Subjective Physical Exam Physical Exam: Constitutional: No acute distress HEENT: EOMI, PERRLA Respiratory system:Decreased air entry bilaterally, positive expiratory wheeze, no rhonchi, positive crackles bilateral lower lobes CVS: S1-S2 positive, no murmurs or gallops, tachycardia, irregular Abdomen: Soft, nontender, nondistended, positive bowel sounds x4 Extremities: +2 pulses bilaterally radialis/ dorsalis pedis,no cyanosis, no edema Neuro:Awake alert oriented x3 Psych:Normal mood and affect G/U: Positive Murillo Skin: no rashes, warm and dry Lymphatic: no cervical or axillary lymphadenopathy Results & Data Results & Data Vital Signs (Past 12 Hours) Vital Signs Temp Pulse Pulse Resp BP Pulse Ox O2 Del Method 11/20/22 07:23 81 18 96 Nasal Cannula 11/20/22 02:39 36.3 C L 82 20 122/71 90 Nasal Cannula 11/20/22 01:57 77 94 11/19/22 23:40 35.0 C L 72 16 117/77 90 CPAP 11/19/22 23:00 94 H O2 Flow Rate 11/20/22 07:23 5 11/20/22 02:39 5 11/20/22 01:57 6 11/19/22 23:40 5.0 11/19/22 23:00 Laboratory Results 11/20/22 06:05 11/20/22 06:05 PG Care Time/CCT Total # of Minutes Spent Total Time Spent with Patient: Total time spent is greater than 50% in coordination of care (as documented) at patient's floor/unit and/or counseling patient: Coding Level of Care Code 32645 SUB INP/OBS CARE 3/50MIN Diagnoses Atrial fibrillation with rapid ventricular response I48.91 Acute and chronic respiratory failure with hypoxia J96.21 Pulmonary hypertension I27.20 COPD (chronic obstructive pulmonary disease) J43.2 COPD type: emphysema Emphysema type: centrilobular Tobacco abuse Z72.0 Chronic hypercapnic respiratory failure J96.12
--- NOTE | 2022-11-20 09:04 | Anesthesiology Consultation ---
Date of Service November 20, 2022 Assessment & Plan Chart Review Chart Review: Acceptable Risk for Surgery Consults Requested none ASA ASA4 Proposed Anesthesia Anesthesia Type: MAC Risk / Benefits Reviewed With: PT / POA / Parent / Guardian, Accepts Plan and Informed Consent Obtained History Surgery Operation Date: 11/20/22 10:00 Proposed Procedures p Cardioversion Welding Instructor w/Anesthesia - Daniele Rios MD Height/Weight Height: 5 ft 10 in Weight: 78.7 kg Allergies Allergy/AdvReac Type Severity Reaction Status Date / Time lisinopril Allergy Unknown Swelling Verified 11/10/22 15:51 of face methylprednisolone Allergy Unknown HALLUCINATION-IV Verified 11/10/22 15:51 SOLUMEDROL budesonide AdvReac Unknown DIDN'T WORK Verified 11/10/22 15:51 [From Nutrino] formoterol AdvReac Unknown DIDN'T WORK Verified 11/10/22 15:51 [From Nutrino] glycopyrrolate AdvReac Unknown DIDN'T WORK Verified 11/10/22 15:51 [From Nutrino] Medications Home Medications Medication Instructions Recorded Confirmed Last Taken fluticasone fur. 100 mcg-umeclid 1 inh inhalation QAM 03/31/22 11/18/22 10/27/22 62.5 mcg-vilant 25 mcg inhalat.powder (Trelegy Ellipta) Portable Oxygen #1 ea 05/04/22 11/10/22 Unknown allopurinol 300 mg tablet 300 mg PO QAM #90 tabs 07/17/22 11/18/22 10/27/22 escitalopram oxalate 10 mg tablet 10 mg PO HS #90 tabs 07/21/22 11/18/22 10/26/22 (Lexapro) cyanocobalamin (vitamin B-12) 1,000 mcg sublingual DAILY 09/11/22 11/18/22 10/27/22 1,000 mcg sublingual tablet apixaban 5 mg tablet (Eliquis) 5 mg PO BID #60 tabs 10/30/22 11/18/22 Unknown diltiazem HCl 240 mg 240 mg PO QAM #30 caps 11/04/22 11/18/22 Unknown capsule,extended release 24 hr metoprolol tartrate 100 mg tablet 100 mg PO BID #60 tabs 11/04/22 11/18/22 Unknown levalbuterol HCl 0.31 mg/3 mL 0.31 mg (3 mL) inhalation TID PRN 11/10/22 11/18/22 Unknown solution for nebulization shortness of breath or wheezing #75 mL pravastatin 20 mg tablet 20 mg PO HS 11/18/22 11/18/22 Unknown Active Medications Generic Name Dose Route Start Last Admin Trade Name Freq PRN Reason Stop Dose Admin Allopurinol 300 mg 11/19/22 09:00 11/20/22 08:16 Allopurinol 300 Mg Tab PO 12/19/22 08:59 300 mg QAM ISABELLE Administration Apixaban 5 mg 11/18/22 21:00 11/20/22 08:18 Apixaban 5 Mg Tablet PO 12/18/22 20:59 5 mg BID ISABELLE Administration Budesonide 0.5 mg 11/18/22 19:00 11/20/22 07:23 Budesonide 0.5 Mg/2 Ml Vial (Pulmicort) [facility] 12/18/22 18:59 0.5 mg BIDR ISABELLE Administration Diltiazem HCl 240 mg 11/19/22 09:30 11/20/22 08:16 Diltiazem Hcl 240 Mg Capcr PO 12/19/22 09:29 240 mg QAM ISABELLE Administration Escitalopram Oxalate 10 mg 11/18/22 21:00 11/19/22 19:57 Escitalopram Oxalate 10 Mg Tab PO 12/18/22 20:59 10 mg HS ISABELLE Administration Levalbuterol HCl 1.25 mg 11/18/22 16:00 11/20/22 07:23 Levalbuterol Hcl 1.25 Mg/3 Ml [facility] 12/18/22 15:59 1.25 mg Q6R ISABELLE Administration Protocol Metoprolol Tartrate 100 mg 11/18/22 21:00 11/20/22 08:17 Metoprolol Tartrate 100 Mg Tab PO 12/18/22 20:59 100 mg BID ISABELLE Administration Pravastatin Sodium 20 mg 11/18/22 21:00 11/19/22 19:57 Pravastatin Sod 20 Mg Tab PO 12/18/22 20:59 20 mg HS ISABELLE Administration NPO Date Last Intake of Fluids: 11/19/22 Time Last Intake of Fluids: 23:59 Date Last Intake of Solids: 11/19/22 Time Last Intake of Solids: 23:59 Past Medical History Medical History Acute and chronic respiratory failure with hypoxia Acute on chronic right-sided congestive heart failure Alcohol withdrawal Atrial fibrillation with rapid ventricular response Chronic gout Chronic hypercapnic respiratory failure COPD (chronic obstructive pulmonary disease) RESCUE INHALER DAILY (NO MORE THAN TWICE A DAY) COPD exacerbation Depression Diastolic dysfunction Dyspnea on exertion Ecchymosis Goals of care, counseling/discussion History of acute illness SEPTEMBER 2021 - RESOLVED PT WAS R/S FOR COLONOSCOPY D/T ILLNESS. History of colon polyps History of diverticulitis of colon History of nicotine dependence Hyperglycemia Hyperlipidemia Hypertension Hypoxemia Kidney stone (2014) HX Macular degeneration BOTH EYES/INJECTIONS Q 6-8 WKS Mitral regurgitation On home oxygen therapy 4L AT HS AND DAILY PRN Overactive bladder ? / PROSTATE PROBLEM ? - NOT SURE DETAILS/PROSTATE NOT ENLARGED Persistent atrial fibrillation Pre-diabetes Pulmonary hypertension Respiratory distress RLL pneumonia Skin cancer BCC ON FACE - RECENTLY SHAVED OFF - HEALED Solitary pulmonary nodule ? SIDE / CT SCAN 2 MON AGO - GROWN - F/U CT SCAN IN JUN 2021 Exercise / Class Metabolic Activity IV < 2 Limit ADL/Bedbound Past Family History Family History Brother Emphysema lung Other No family history of adverse response to anesthesia Denies family history of Ovarian cancer Prostate cancer Myocardial infarction Breast cancer Colorectal cancer Past Surgical History Surgical History History of cardiac cath SUMMER 2017/ NO STENT(S) History of cataract surgery RT/LEFT History of colonoscopy last 2018 @ [facility] History of lithotripsy History of tooth extraction Status post Mohs surgery MULTIPLE Past Anesthesia History No Hx of Anesthesia Complications and No Family Hx of Anesthesia Complications History of PONV No Hx of PONV and No Hx of Motion Sickness Social History Smoking Status: Former smoker tobacco type: cigarettes Smoking cigarettes per day: 20 Do You Dip or Chew Tobacco: No Hx Alcohol Use: Yes (Quit drinking recently) Alcohol type: hard liquor alcohol intake frequency: 0-2 drinks per day Hx Substance Use: No substance use type: does not use Physical Exam Vital Signs Last Vital Signs Temp 36.3 C L 11/20/22 07:24 Pulse 116 H 11/20/22 09:26 Resp 22 11/20/22 09:26 BP 143/97 H 11/20/22 09:26 Pulse Ox 93 11/20/22 09:26 O2 Del Method Oxymask 11/20/22 09:26 O2 Flow Rate 6 11/20/22 09:26 ENMT Mouth: + dentition abnormality and + dentures (4 teeth remain); no TMJ abnormality Thyromental Distance: > or= 3.5 Finger Breadths Mallampati Class: II Neck normal visual inspection and trachea midline; neck extension not limited Respiratory normal respiratory effort Auscultation: + diminished lung sounds, + crackles, + rhonchi and + wheezes Cardiovascular Rate/Rhythm: regular rate and regular rhythm (irreg) Heart Sounds: no murmur Musculoskeletal Spine: normal cervical ROM Extremities: full ROM of extremities Neurologic moves all extremities Psychiatric Orientation: alert and oriented x 3 Testing Laboratory Results 11/20/22 06:05 11/20/22 06:05 PT 11.6 Seconds (9.0-12.0) 11/20/22 06:05 INR 1.1 (0.9-1.1) 11/20/22 06:05 Electrocardiogram Date: 11/18/22 Findings: + AFIB @ (83) Echocardiogram Date: 10/28/22 EF: 55-60 LV Function: normal RWMA: + none Other Findings: + LVH (mod concen) Valvular Disease: + no significant valvular disease mod pulm HTN PVSP 53mmHg mod dil RA Other Testing CT chest 11/18/22 CT OF THE CHEST WITHOUT IV CONTRAST CLINICAL HISTORY: Hypoxia. COMPARISON STUDY: Chest CT October 28, 2022. Chest radiograph performed earlier today. CT DOSE: 480.25 mGycm TECHNIQUE: Axial images of the chest were obtained without IV contrast. Images were reviewed in the axial, sagittal, and coronal planes. IV contrast was not administered for this examination. Automated exposure control was utilized for the study. A dose lowering technique was utilized adhering to the principles of ALARA. FINDINGS: Mediastinal lymphadenopathy is similar to prior exams. Index right lower paratracheal lymph node on image 143 of 306 measures 2.1 x 1.9 cm. Cardiomegaly is again noted. There is no pericardial effusion. Small right and trace left pleural effusions have increased since CT of October 28, 2022. Associated bilateral lower lobe airspace opacities are greater on the right. Posterior basal segment right lower lobe opacity has increased since prior CT. Anterior medial basal segment of opacity has improved. There is residual opacity that favors resolving pneumonia. Right middle lobe opacity has improved. Severe emphysema is noted. There is no pneumothorax. No pneumomediastinum is present. There are no acute fractures. Multiple old left-sided rib fractures are noted. Fluid along the left major fissure is present. IMPRESSION: 1. Small right and trace left pleural effusions which have increased since prior CT. Increase in dependent bilateral lower lung airspace opacities which could reflect pneumonia or atelectasis. Interval improvement in additional lower lung opacities since prior CT of October 28, 2022. A follow up chest CT in 2 months to ensure resolution is recommended. 2. Severe emphysema. 3. No change in mediastinal lymphadenopathy. This is likely benign but should be assessed on follow-up CT.
[2022-11-20] MEDS ORDERED: PROPOFOL IV EMULSION 10 MG/ML 20 ML VIAL IV ONE (09:09)
[2022-11-20] MEDS ORDERED: KETAMINE 50 MG/5 ML SYRINGE ONE (09:09)
--- NOTE | 2022-11-20 09:21 | XRay Report ---
XR chest 1V portable HISTORY: Shortness of breath. COMPARISON: Chest CT 11/18/2022. FINDINGS: No pneumothorax. Small bilateral pleural effusions persist. Patchy bibasilar densities have slightly improved. There is diffuse interstitial thickening, unchanged. The heart remains enlarged. Emphysema again noted. IMPRESSION: 1. Improved aeration within the lung bases. 2. Small bilateral pleural effusions, unchanged. 3. Cardiomegaly and mild interstitial pulmonary edema. 4. Emphysema. ACT 112: Negative or not required by law. Electronically signed by: Jose Spaulding M.D. 11/20/2022 9:19 AM
--- NOTE | 2022-11-20 09:38 | Cardiology Progress Note ---
Date of Service November 20, 2022 Assessment & Plan (1) Dyspnea on exertion: (2) Atrial fibrillation with rapid ventricular response: (3) COPD (chronic obstructive pulmonary disease): Plan 1. Dyspnea on exertion: This is almost certainly multifactorial, probably primarily pulmonary but I suspect there is a component of diastolic heart failure. His BNP was elevated but he does not appear to be grossly fluid overloaded. I do not think congestive heart failure is a major component. 2. Atrial fibrillation: I am not sure how long he has been in atrial fibrillation, it was recently discovered (October 28, 2022) but possibly he had it for longer although I doubt it. I suspect therefore that it is of recent onset and he remains in atrial fibrillation with a somewhat rapid heart rate, despite high-dose beta-blockade and moderate dose diltiazem. I suspect he has a high catecholamine level and some of his increased heart rate is appropriate. His decreased heart rate at night is suggestive of this. I suspect he has diastolic dysfunction and therefore rapid heart rates may be somewhat detrimental. Additionally the irregularity in the rhythm (his atrial fibrillation is quite irregular) is hemodynamically inefficient and probably contributing to elevated pulmonary pressures. He has been anticoagulated now for long enough that we should consider cardioversion, I do not know if it will help him a great deal but the improvement with return to sinus rhythm can sometimes be significant. We need to continue his anticoagulation. Initially he refused consideration for cardioversion but I discussed it with him and he is agreeable to have it done, we will proceed with cardioversion this morning. 3. COPD: This may be his primary difficulty at the moment, this is going to be treated in parallel. Admission and Anticipated Discharge Date Admission Date: November 18, 2022 Subjective He is feeling better today, he is not short of breath at rest on oxygen, he has no chest discomfort. No sensation of palpitations. He has not been very active in the hospital. Physical Exam Physical Exam: Constitutional: Alert, cooperative and in only mild distress on an oxygen mask. HEENT: Unremarkable Neck: No jugular venous distention, carotid pulses are irregular but otherwise normal and equal bilaterally without bruits. Pulmonary: Markedly decreased breath sounds on auscultation bilaterally, no wheezing, basilar crackles more on the left than the right. Cardiac: Irregular rapid rhythm with no murmur, gallop or rub. Abdomen: Soft, nontender with normal bowel sounds. Extremities: No edema. Distal pulses intact. Neurologic: No focal findings. Skin: No rash, ecchymoses or petechiae. Results & Data Vital Signs (Past 12 Hours) Vital Signs Temp Pulse Pulse Resp BP Pulse Ox O2 Del Method 11/20/22 09:26 116 H 22 143/97 H 93 Oxymask 11/20/22 07:24 36.3 C L 86 20 153/88 H 94 Nasal Cannula 11/20/22 07:23 81 18 96 Nasal Cannula 11/20/22 02:39 36.3 C L 82 20 122/71 90 Nasal Cannula 11/20/22 01:57 77 94 11/19/22 23:40 35.0 C L 72 16 117/77 90 CPAP 11/19/22 23:00 94 H O2 Flow Rate 11/20/22 09:26 6 11/20/22 07:24 5.0 11/20/22 07:23 5 11/20/22 02:39 5 11/20/22 01:57 6 11/19/22 23:40 5.0 11/19/22 23:00 Laboratory Results Coagulation 11/20/22 Range/Units 06:05 PT 11.6 (9.0-12.0) Seconds CBC 11/20/22 Range/Units 06:05 WBC 10.50 (4.8-10.8) K/ul RBC 3.50 L (4.70-6.10) M/uL Hgb 11.7 L (14.0-18.0) g/dl Hct 33.8 L (42.0-52.0) % Plt Count 147 (130-400) K/uL Neut # (Auto) 9.56 H (1.40-6.50) K/uL Lymph # (Auto) 0.48 L (1.2-3.4) K/uL [place] # (Auto) 0.39 (0.11-0.59) K/uL Eos # (Auto) 0.00 (0-0.50) K/uL Baso # (Auto) 0.00 (0-0.2) K/uL Comprehensive Metabolic Panel 11/20/22 Range/Units 06:05 Sodium 134 L (136-145) mmol/L Potassium 3.8 (3.5-5.1) mmol/L Chloride 94 L (98-107) mmol/L Carbon Dioxide 33 H (21-32) mmol/L BUN 19 (6-23) mg/dl Creatinine 0.89 (0.6-1.4) mg/dl Glucose 137 H (70-99(Fasting)) mg/dl Calcium 8.2 L (8.6-10.3) mg/dl Intake and Output 11/19/22 11/20/22 11/20/22 22:59 06:59 14:59 Intake Total 240 / 240 Output Total 1000 / 1500 500 / 1500 Balance -760 / -1260 -500 / -1260 Intake: Oral 240 / 240 Output: Urine Amount (Catheter) 1000 / 1500 500 / 1500 [place]/Indwelling 1000 / 1500 500 / 1500 Other: Other Intake Source SIPS Weight 78.7 kg 78.7 kg Weight Measurement Method Built in [facility] Patient Weight 11/21/22 06:59 Weight 78.7 kg Diagnostic Findings Telemetry: Remains in atrial fibrillation with a controlled heart rate. PG Care Time/CCT Total # of Minutes Spent Total Time Spent with Patient: Total time spent is greater than 50% in coordination of care (as documented) at patient's floor/unit and/or counseling patient: Coding Level of Care Code 06590 SUB INP/OBS CARE 2/35MIN Diagnoses Dyspnea on exertion R06.00 Atrial fibrillation with rapid ventricular response I48.91 COPD (chronic obstructive pulmonary disease) J43.2 COPD type: emphysema Emphysema type: centrilobular (3) COPD (chronic obstructive pulmonary disease) COPD type: emphysema Emphysema type: centrilobular Qualified Code(s): J43.2 - Centrilobular emphysema
[2022-11-20] MEDS ORDERED: ALBUTEROL HFA 8 GM INHALER INH ONE (09:55)
--- NOTE | 2022-11-20 10:09 | Anesthesiology Progress Note ---
Date of Service November 20, 2022 Anesthesia Post Procedure Vital Signs Vital Signs: Temp Pulse Pulse Resp BP BP Pulse Ox 11/20/22 09:26 116 H 22 143/97 H 93 11/20/22 07:24 36.3 C L 86 20 153/88 H 94 11/20/22 07:23 81 18 96 11/20/22 02:39 36.3 C L 82 20 122/71 90 11/20/22 01:57 77 94 11/19/22 23:40 35.0 C L 72 16 117/77 90 11/19/22 23:00 94 H 11/19/22 19:44 36.6 C 107 H 16 126/70 92 11/19/22 20:00 11/19/22 19:13 109 H 22 91 11/19/22 15:54 36.8 C 100 H 20 115/69 97 11/19/22 13:21 83 18 95 11/19/22 12:00 36.8 C 87 18 104/60 99 O2 Del Method O2 Flow Rate 11/20/22 09:26 Oxymask 6 11/20/22 07:24 Nasal Cannula 5.0 11/20/22 07:23 Nasal Cannula 5 11/20/22 02:39 Nasal Cannula 5 11/20/22 01:57 6 11/19/22 23:40 CPAP 5.0 11/19/22 23:00 11/19/22 19:44 Nasal Cannula 5.0 11/19/22 20:00 Nasal Cannula 6 11/19/22 19:13 Nasal Cannula 5 11/19/22 15:54 Room Air 11/19/22 13:21 Nasal Cannula 6 11/19/22 12:00 Oxymask 8 Transfer of Care Handoff Completed per policy Notes Mental Status: alert / awake / arousable Patient Amnestic to Procedure: Yes Nausea / Vomiting: adequately controlled Pain: adequately controlled Airway Patency, RR, SpO2: stable & adequate BP & HR: stable & adequate Hydration State: stable & adequate Anesthetic Complications: no major complications apparent and Pt Satisfied with anesthetic care
--- NOTE | 2022-11-20 10:18 | Cardioversion ---
Date of Service November 20, 2022 PG Electrical Cardioversion Rp Electrical Cardioversion Report The patient was brought to the laboratory being NPO after midnight and was identified in the laboratory, connected to the recording apparatus including electrocardiographic monitoring, noninvasive blood pressure monitoring and pulse oximetry. Anteroposterior patch electrodes were placed. The patient was anesthetized by the anesthesia department. Once adequate anesthesia was obtained a synchronized biphasic shock was delivered using 200 J with conversion to a sinus rhythm. He quickly reverted back to atrial fibrillation, he was given a little bit more anesthesia and a second synchronized biphasic shock was delivered using 200 J with conversion to sinus rhythm. This time his sinus rhythm sustained. The patient awoke from the anesthetic without sequela, will be observed briefly and then discharged. Coding Level of Care Code 87982 CARDIOVERSION, ELECTIVE Additional Codes Electrical Cardioversion Report ([id number])
--- NOTE | 2022-11-20 15:27 | Hospitalist Progress Note ---
Date of Service November 20, 2022 Assessment & Plan (1) Acute and chronic respiratory failure with hypoxia: Plan: Improved. Continue Lasix diuresis to treat CHF. Wean oxygen down to his usual 4 L/min at rest as tolerated. Maintain saturations greater than 90% but avoid h igh oxygen saturations to minimize CO2 retention. No evidence of underlying bronchitis or pneumonia. Antibiotics have been discontinued. No evidence of pulmonary emboli seen on chest CT scan. He is on Eliquis therapy chronically (2) Atrial fibrillation with rapid ventricular response: Plan: He converted to normal sinus rhythm for a short period of time this morning after electrical cardioversion but then reverted back to atrial fibrillation. Rate is controlled. He is on Eliquis. IV diltiazem drip has been switched to his usual long-acting formulation. Telemetry. Appreciate cardiology consultation and recommendations. Continue to treat underlying CHF (3) Diastolic dysfunction: Plan: Acute on chronic diastolic CHF present on admission. Improving. Continue Lasix diuresis. Serial chest x-rays. Monitor intake and output. TTE on last admiss ion show's LVEF WNL but mildly reduced right ventricular systolic function and moderate pulm HTN (4) COPD exacerbation: Plan: Due to CHF. Doubt presence of acute bronchitis or pneumonia. Antibiotics and parenteral steroids have been discontinued. (5) Chronic gout: Plan: Stable. Continue allopurinol (6) Tobacco abuse: Plan: Smoking cessation advised. Patient does not want nicotine patches (7) Hypercholesterolemia: Plan: Stable. Conitnue statin Plan Anticipate eventual discharge to home. Hopefully tomorrow, November 21 Admission and Anticipated Discharge Date Admission Date: November 18, 2022 Subjective Improved. Alert and oriented. He underwent electrical cardioversion this morning with transient conversion to normal sinus rhythm then he went back into atrial fibrillation. Rate is controlled. He is on Eliquis. He continues with adequate diuresis with intravenous Lasix and chest x-ray has improved. Oxygen requirements have decreased. Anticipate discharge to home tomorrow, November 21 Review of Systems Review of Systems: Constitutional-no fever or chills ENT-no blurred vision, no double vision, no epistaxis, no sore throat Respiratory-no cough, no wheezing. Shortness of breath with minimal exertion Cardiac-no palpitations, no chest pain, no syncope GI-no nausea, vomiting, diarrhea, melena, hematochezia -no urinary retention, no urinary incontinence, no dysuria, no hematuria Musculoskeletal-no joint pain, no muscle tenderness Skin-no bruising, no rashes, no pruritus Neuro-no isolated weakness, no paresthesia, no weakness Psych-no depression, no anxiety Physical Exam Physical Exam: General-alert and oriented x3, no fevers, no chills HEENT-head atraumatic and normocephalic, pupils equal and reactive to light, extraocular muscles intact Neck-no lymphadenopathy or thyromegaly, trachea midline Chest-bibasilar inspiratory rales. No wheezing Cardiac-irregular rhythm consistent with atrial fibrillation. Controlled rate. Abdomen-normal bowel sounds, nontender, no hepatosplenomegaly Extremities-1+ pitting edema bilateral lower extremities below the knees Neuro-cranial nerves II through XII intact, motor and sensory function within normal limits, strength symmetrical , no focal deficits Psych-normal affect, normal mood Results & Data Results & Data Vital Signs (Past 12 Hours) Vital Signs Temp Pulse Resp BP Pulse Ox O2 Del Method O2 Flow Rate 11/20/22 14:02 80 18 96 Nasal Cannula 4.5 11/20/22 08:00 Nasal Cannula 11/20/22 10:44 36.8 C 86 20 155/81 H 91 Nasal Cannula 5 11/20/22 10:25 81 16 147/96 H 91 Oxymask 5 11/20/22 10:10 82 16 162/101 H 92 Oxymask 5 11/20/22 09:26 116 H 22 143/97 H 93 Oxymask 6 11/20/22 07:24 36.3 C L 86 20 153/88 H 94 Nasal Cannula 5.0 11/20/22 07:23 81 18 96 Nasal Cannula 5 Laboratory Results 11/20/22 06:05 11/20/22 06:05 PG Care Time/CCT Total # of Minutes Spent Total Time Spent with Patient: Total time spent is greater than 50% in coordination of care (as documented) at patient's floor/unit and/or counseling patient: Coding Level of Care Code 96446 SUB INP/OBS CARE 3/50MIN Diagnoses Acute and chronic respiratory failure with hypoxia J96.21 Atrial fibrillation with rapid ventricular response I48.91 Diastolic dysfunction I51.89 COPD exacerbation J44.1 Chronic gout [id number] Tobacco abuse Z72.0 Hypercholesterolemia E78.00
[2022-11-20] MEDS: ESCITALOPRAM OXALATE 10 MG TAB PO SCH (20:15)
[2022-11-20] MEDS: PRAVASTATIN SOD 20 MG TAB PO SCH (20:15)
--- NOTE | 2022-11-20 22:15 | Electrocardiogram Report ---
Test Reason : Blood Pressure : / mmHG Vent. Rate : 080 BPM Atrial Rate : 080 BPM P-R Int : 150 ms QRS Dur : 092 ms QT Int : 400 ms P-R-T Axes : 044 022 009 degrees QTc Int : 461 ms Sinus rhythm with Premature atrial complexes Possible Left atrial enlargement Abnormal ECG When compared with ECG of 18-NOV-2022 10:15, Sinus rhythm has replaced Atrial fibrillation Confirmed by Daniele Rios ([id number]) on 11/20/2022 10:15:14 PM Referred By: Carter Martinez Confirmed By:Daniele Rios
[2022-11-21] MEDS: LEVALBUTEROL 1.25 MG/3 ML NEB NEB SCH ×2 (00:41→07:02)
[2022-11-21] MEDS: BUDESONIDE 0.5 MG/2 ML VIAL (PULMICORT) NEB SCH (07:01)
[2022-11-21] MEDS: APIXABAN 5 MG TABLET PO SCH (08:31)
[2022-11-21] MEDS: dilTIAZem HCL 240 MG CAPCR PO SCH (08:31)
[2022-11-21] MEDS: allopurinoL 300 MG TAB PO SCH (08:31)
[2022-11-21 08:33] LABS: Basophils # (auto) 0.01 K/uL (0-0.2); Basophils % (auto) 0.1 %; Eosinophils # (auto) 0.02 K/uL (0-0.50); Eosinophils % (auto) 0.2 %; Hematocrit (blood only) 37.5 % (42.0-52.0); Hemoglobin 12.8 g/dl (14.0-18.0); Immature Granulocytes # (auto) 0.06 K/uL (0.01-0.20); Immature Granulocytes % (auto) 0.6 %; Lymphocytes % (auto) 9.4 %; Mean Corpuscular Hemoglobin 33.8 pg (25.0-34.0); Mean Corpuscular Hgb Conc 34.1 g/dL (32.0-36.0); Mean Corpuscular Volume 98.9 fL (80.0-100.0); Mean Platelet Volume 10.2 fL (9.4-12.4); Monocytes # (auto) 0.58 K/uL (0.11-0.59); Monocytes % (auto) 5.4 %; Neutrophils # (auto) 8.98 K/uL (1.40-6.50); Neutrophils % (auto) 84.3 %; Platelet Count 185 K/uL (130-400); RDW Coefficient of Variation 14.5 % (11.5-14.5); RDW Standard Deviation 52.5 fL (36.4-46.3); Red Blood Count 3.79 M/uL (4.70-6.10); White Blood Count 10.65 K/ul (4.8-10.8)
[2022-11-21] MEDS: FUROSEMIDE 40 MG/4 ML VIAL IV SCH (08:33)
[2022-11-21] MEDS: METOPROLOL TARTRATE 100 MG TAB PO SCH (08:33)
--- NOTE | 2022-11-21 09:01 | Pulmonology Progress Note ---
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 Qualified Code(s): J43.2 - Centrilobular emphysema (5) Tobacco abuse: (6) Chronic hypercapnic respiratory failure: Plan CT chest 11/18/2022 personally reviewed: Severe centrilobular and paraseptal emphysema appreciated bilaterally Small right-sided pleural effusion, minimal left-sided pleural effusion Dependent atelectasis right lower lobe Insignificant mediastinal lymphadenopathy ABG 11/18/2022: 7.40/42/65 on 10 L -- Acute on chronic hypoxic respiratory failure Likely secondary to diastolic CHF as well as A-fib with RVR Patient has chronic wheezing on physical exam Patient has chronic atelectasis of the right lower lobe unlikely to be superimposed pneumonia COVID-19 PCR, influenza A/B, RSV negative BNP 1077 Procalcitonin negative -- Severe COPD with emphysema On Trelegy at home Follows up with Dr. Hahn as an outpatient, he was seen last by him on 11/11/2022 -- Pulmonary hypertension Combination of type II and type III 2D echo 10/28/2022: EF 55-60%, moderate concentric LVH, indeterminate diastolic function, moderately dilated R a, RVSP 53 mmHg -- Current smoker Importance of quitting explained to the patient in depth -- A-fib On Eliquis at home --DNR/DNI Plan: In/out: -2.4 L, urine output 2800, -4.9 L since coming to the hospital Continue with diuresis Continue with nebulizers/bronchodilators at home It is very important to use AVAPS machine at home nightly and as needed shortness of breath No further recommendation from pulmonary perspective, will sign off Please call directly with any questions Please note the above document was generated using voice recognition software. It may contain grammatical, syntax or spelling errors.Any formal questions or concerns about the content, text or information contained within the body of this dictation should be directly addressed to the provider for clarification. Admission and Anticipated Discharge Date Admission Date: November 18, 2022 Subjective Patient seen and examined at bedside. No acute distress, no adverse events overnight Has been diuresing well Did use his BiPAP overnight He was saturating 98% on 5 L nasal cannula, I went down to 3 L Denies any headache, no nausea, no vomiting Overall he is doing much better breathing womack No coughing, no hemoptysis Review of Systems Review of Systems: All systems reviewed & are unremarkable except as noted in Subjective Physical Exam Physical Exam: Constitutional: No acute distress HEENT: EOMI, PERRLA Respiratory system:Decreased air entry bilaterally, positive expiratory wheeze, no rhonchi, positive crackles bilateral lower lobes CVS: S1-S2 positive, no murmurs or gallops, tachycardia, irregular Abdomen: Soft, nontender, nondistended, positive bowel sounds x4 Extremities: +2 pulses bilaterally radialis/ dorsalis pedis,no cyanosis, no edema Neuro:Awake alert oriented x3 Psych:Normal mood and affect G/U: Positive Mur[place] Skin: no rashes, warm and dry Lymphatic: no cervical or axillary lymphadenopathy Results & Data Results & Data Vital Signs (Past 12 Hours) Vital Signs Temp Pulse Pulse Resp BP BP Pulse Ox 11/21/22 08:00 36.8 C 67 18 142/75 H 97 11/21/22 07:02 80 17 92 11/20/22 23:00 95 H 11/21/22 03:27 36.5 C 79 16 134/93 92 11/21/22 00:41 77 20 96 11/20/22 23:43 36.4 C L 89 16 120/79 97 O2 Del Method O2 Flow Rate 11/21/22 08:00 Nasal Cannula 5 11/21/22 07:02 Nasal Cannula 5 11/20/22 23:00 11/21/22 03:27 CPAP 5 11/21/22 00:41 Nasal Cannula 5 11/20/22 23:43 Nasal Cannula 5 Laboratory Results 11/21/22 08:11 PG Care Time/CCT Total # of Minutes Spent Total Time Spent with Patient: Total time spent is greater than 50% in coordination of care (as documented) at patient's floor/unit and/or counseling patient: Coding Level of Care Code 46962 SUB INP/OBS CARE 2/35MIN Diagnoses Atrial fibrillation with rapid ventricular response I48.91 Acute and chronic respiratory failure with hypoxia J96.21 Pulmonary hypertension I27.20 COPD (chronic obstructive pulmonary disease) J43.2 COPD type: emphysema Emphysema type: centrilobular Tobacco abuse Z72.0 Chronic hypercapnic respiratory failure J96.12
[2022-11-21 09:23] LABS: Calcium 8.3 mg/dl (8.6-10.3); Potassium 3.7 mmol/L (3.5-5.1)
[2022-11-21 09:28] LABS: Creatinine Clr Calc Pharmacy 78.5 ml/min; Est GFR (African American) 99.3 ml/min; Est GFR (Non-African American) 85.7 ml/min
[2022-11-21] MEDS ORDERED: POTASSIUM CHLORIDE CRTAB 20 MEQ TABCR PO STA (10:07)
--- NOTE | 2022-11-21 10:23 | XRay Report ---
XR chest 1V portable HISTORY: Congestive heart failure. Shortness of breath. COMPARISON: Chest 11/20/2022. FINDINGS: No pneumothorax. The heart remains enlarged. Bilateral pleural effusions and patchy bibasil ar densities are again noted. Interstitial thickening persists. This may represent mild pulmonary elva ma. IMPRESSION: 1. No change in the small bilateral pleural effusions and bibasilar densities. 2. Cardiomegaly and mild pulmonary edema persists ACT 112: Negative or not required by law. Electronically signed by: Jose Spaulding M.D. 11/21/2022 10:22 AM
--- NOTE | 2022-11-21 10:45 | Discharge Summary ---
Date of Service November 21, 2022 Admission HPI Per Admitting Provider Velasquez Murillo is a 77 year old male with severe COPD on baseline 5LPM O2, chronic hypercapnic respiratory failure on HS AVAPS, current tobacco abuse, alcohol dependence, new onset afib, Recently admitted to [facility] from 10/27-11/04 for acute on chronic respiratory failure thought to be cause by chronic diastolic CHF and RLL pneumonia. He was treated initially with Zosyn and was transitioned to Augmentin prior to discharge for PNA. He was also treated with IV decadron with transition to a 5 day course of Prednisone on discharge. He was also found to be in new onset afib RVR on the last admission. He was evaluated by Cardiology for new onset afib which was thought to be due to his severe COPD. He was started on Cardizem and his dose of Lopressor was adjusted to 100 mg BID; he was started on Eliquis prior to discharge. In the ED today he was noted to be requiring 6L NC and was noted to have a HR of 147. Labs were significant for a sodium of 134. Chest xray was read as small BL pleural effusions and Bibasilar airspace opacities could represent pulmonary edema and/or an infectious/inflammatory pneumonitis. Prior to admission the patient was given a DuoNeb treatment, 10 mg PO dexamethasone, 40 mg IV lasix and 2.5 mg IV Lopressor. At the time of the exam the patient was sitting in bed in no acute distress, currently saturating in the low 90's on 10L oxymask with his sitting bedside. He started to develop increased SOB and ORDONEZ approximately 3-4 days ago. Denies recent fever, chills, chest pain, cough, nausea, vomiting, diarrhea, dysuria, hematuria, melena, bloody DM's, significant LE swell/weight gain an decent trauma. They confirm that the patient's baseline O2 is 4L O2 at rest and 5L NC with exertion. He has been using his daily budesonide and prn albuterol inhaler without relief. He did complete his course of Augmentin after last admission. He did take him am medications today including metoprolol and diltiazem. Has not been drinking alcohol since his last admission. Trying to quit smoking, currently smoking approximately 1PPD. Has not been using his HS AVAPS consistently due to poor fitting mask. Did get relief after the DuoNeb in the ED and his confirms he has not missed doses of Eliquis since last discharge. We discussed code status, he now wishes to be a DNR/DNI and for his to make medical decisions for him if he cannot make them himself. Please refer to Dr. Hernández's attestation for any changes to the treatment plan Principal Diagnosis Acute on chronic diastolic CHF, acute on chronic respiratory failure, dyspnea on exertion, atrial fibrillation with rapid ventricular rate Discharge Exam General-alert and oriented x3, no fevers, no chills HEENT-head atraumatic and normocephalic, pupils equal and reactive to light, extraocular muscles intact Neck-no lymphadenopathy or thyromegaly, trachea midline Chest-bibasilar inspiratory rales. No wheezing Cardiac-irregular rhythm consistent with atrial fibrillation. Controlled rate. Abdomen-normal bowel sounds, nontender, no hepatosplenomegaly Extremities-1+ pitting edema bilateral lower extremities below the knees Neuro-cranial nerves II through XII intact, motor and sensory function within normal limits, strength symmetrical , no focal deficits Psych-normal affect, normal mood Discharge Data Allergies Allergy/AdvReac Type Severity Reaction Status Date / Time lisinopril Allergy Unknown Swelling Verified 11/10/22 15:51 of face methylprednisolone Allergy Unknown HALLUCINATION-IV Verified 11/10/22 15:51 SOLUMEDROL budesonide AdvReac Unknown DIDN'T WORK Verified 11/10/22 15:51 [From Zumobi] formoterol AdvReac Unknown DIDN'T WORK Verified 11/10/22 15:51 [From Zumobi] glycopyrrolate AdvReac Unknown DIDN'T WORK Verified 11/10/22 15:51 [From Zumobi] Consultations 11/18/22 12:14 ED Decision to Admit Stat 11/18/22 14:14 Consult Cardiology Routine Consult Pulmonology Routine 11/19/22 10:03 Consult Anesthesiology Routine Procedures Performed Operation Date: 11/20/22 10:00 Actual Procedures p Cardioversion - Daniele Rios MD Ordered Studies 11/18/22 14:12 CT chest without contrast [CT chest diagnostic wo con] Stat Hospital Course (1) Acute and chronic respiratory failure with hypoxia: Improved. Treated with intravenous Lasix diuresis while hospitalized. He will remain on oral Lasix at discharge. Oxygen has now been weaned down to his baseline. No evidence of underlying bronchitis or pneumonia. Antibiotics have been discontinued. No evidence of pulmonary emboli seen on chest CT scan. He is on Eliquis therapy chronically (2) Atrial fibrillation with rapid ventricular response: He converted to normal sinus rhythm for a short period of time this morning after electrical cardioversion but then reverted back to atrial fibrillation. Rate is controlled. He is on Eliquis. IV diltiazem drip has been switched to his usual long-acting formulation. Telemetry. Appreciate cardiology consultation and recommendations. Continue to treat underlying CHF (3) Diastolic dysfunction: Acute on chronic diastolic CHF present on admission. Improving. Treated with intravenous Lasix diuresis while hospitalized. He will remain on oral Lasix at discharge. Serial chest x-rays. Monitor intake and output. TTE on last admission show's LVEF WNL but mildly reduced right ventricular systolic function and moderate pulm HTN (4) COPD exacerbation: Due to CHF. Doubt presence of acute bronchitis or pneumonia. Antibiotics and parenteral steroids have been discontinued. (5) Chronic gout: Stable. Continue allopurinol (6) Tobacco abuse: Smoking cessation advised. Patient does not want nicotine patches (7) Hypercholesterolemia: Stable. Conitnue statin Plan Discharge to home today, november 21 Total Time Total Time Spent Total Time Spent (In Minutes): 40 minutes Discharge Plan Discharge Items Patient Disposition: Home - Self-Care Reason For Visit: SOB Discharge Diagnosis: Atrial fibrillation with rapid ventricular rate, acute on chronic diastolic CHF, acute on chronic respiratory failure Activity: Resume your previous activity Non-emergency contact: Primary Care Provider and Nurse Staff [facility] Call non-emergency contact if: you have any medication questions and your symptoms worsen Follow-up/Referrals: Pro,Carter Werner MD [Primary Care Provider] - Diet: Regular and Heart Healthy Addtl Attending Provider Instructions: Continue to take Lasix and potassium daily Pending Studies at Discharge: No Stand-Alone Forms: My twidox, Smoking Cessation Medications and DC Order Prescriptions: New furosemide [Lasix] 40 mg tablet 40 mg PO DAILY Qty: 30 0RF potassium chloride 10 mEq capsule, extended release 10 meq PO DAILY Qty: 30 0RF Continued (DME) Portable Oxygen Misc See Rx Instructions .Route Qty: 1 0RF Rx Instructions: Home O2 Concentrator with Portability; test for conserving device. O2 at 4L via NC with Exertion. DORCAS 99 allopurinol 300 mg tablet 300 mg PO QAM Qty: 90 1RF escitalopram oxalate [Lexapro] 10 mg tablet 10 mg PO HS Qty: 90 3RF peg 3350-electrolytes [GaviLyte-G] 236-22.74-6.74 -5.86 gram recon soln 240 ml PO Q10M Qty: 4000 0RF Rx Instructions: until fecal effluent is clear levalbuterol HCl 0.31 mg/3 mL solution for nebulization 0.31 mg inhalation TID PRN (Reason: shortness of breath or wheezing) Qty: 75 0RF Trelegy Ellipta 100-62.5-25 mcg blister with device 1 inh inhalation QAM Eliquis 5 mg tablet 5 mg PO BID Qty: 60 2RF metoprolol tartrate 100 mg Tablet 100 mg PO BID Qty: 60 3RF diltiazem HCl 240 mg Capsule,Extended Release 24hr 240 mg PO QAM Qty: 30 3RF cyanocobalamin (vitamin B-12) 1,000 mcg Tablet, Sublingual 1,000 mcg SUBLINGUAL DAILY pravastatin 20 mg tablet 20 mg PO HS Discharge Orders: Discharge Order- CHF (Routine); Ordered 11/21/22 Ordered By: Ousmane Marley Admission Data Admit Date/Time: 11/18/22 13:29 Attending Provider: Ousmane Marley Admit Provider: Raf Hernández Primary Care Provider: Carter Martinez Other Providers: Raf Hernández ; Daniele Rios ; Elijah Abbott ; Ghazal Valladares Coding Level of Care Code 95248 INP/OBS DISCH >30 MIN Diagnoses Acute and chronic respiratory failure with hypoxia J96.21 Atrial fibrillation with rapid ventricular response I48.91 Diastolic dysfunction I51.89 COPD exacerbation J44.1 Chronic gout [id number] Tobacco abuse Z72.0 Hypercholesterolemia E78.00
== END 2022-11-21 12:08 | disposition home or self-care (01) | DRG 291 ==
LOC: ED 09:52 → SUATTDRO 13:29 → 2S 13:29

== ENCOUNTER 2022-12-04 00:33 | Inpatient (IN) ==
[2022-12-04] MEDS ORDERED: STAT IV Infusion **Titration per Protocol STA (00:48)
[2022-12-04] MEDS ORDERED: dilTIAZem HCl 5 MG/ML 5 ML VIAL IV STA (00:48)
[2022-12-04] MEDS ORDERED: ALBUT/IPRATROP 3MG/0.5MG NEB 3 ML VIAL NEB STA (00:48)
--- NOTE | 2022-12-04 00:56 | Emergency Department Note ---
Impression & Plan SOB (shortness of breath), COPD exacerbation, Pneumonia, Weakness, Failure of outpatient treatment, Elevated lactic acid level, Atrial fibrillation with rapid ventricular response ED Provider Note NAME: SCOTTY VELAZQUEZ AGE: 77 SEX: M : 1945 ARRIVES VIA: Ambulance INFORMANT: [Patient][EMS, nursing] ED PROVIDER(S): [Marcelino Hensley MD] CHIEF COMPLAINT: Short of breath HISTORY OF PRESENT ILLNESS: The patient is a 77-year-old male who presents to the ER with shortness of breath and weakness. He was in the ED earlier today and diagnosed with a potential pneumonia. Hospitalization was recommended but he chose to go home. He was prescribed antibiotics. The patient presents back by ambulance tonight with increasing dyspnea and weakness. He is not safe to be at home and is now willing to stay in the hospital. In route, the patient was given IV diltiazem, 15 mg. He had received a DuoNeb at home prior to EMS arrival. The patient admits to about 3 days of increasing shortness of breath. No fever. He does wear typically 4 L of oxygen at home. He has known COPD. The patient was in our hospital earlier this month for CHF and rapid A-fib. Of note, the patient is not certain if he took his nighttime meds this evening. He is sure he took his daytime meds. PMHx/PSHx: See Below SOCIAL HISTORY: See Below. PHYSICAL EXAM: GENERAL: Patient is in moderate respiratory distress. HEENT: No acute trauma, normocephalic atraumatic, mucous membranes moist, no nasal congestion. NECK: No stridor, no adenopathy, no meningismus, trachea is midline. LUNGS: Diminished breath sounds primarily on the right. There are some crackles on the left. There is some moderate respiratory distress with accessory muscle use. The patient speaks in short sentences. HEART: Distant heart tones, tachycardic, irregular rhythm. No obvious murmur heard ABDOMEN: Soft, nontender, bowel sounds positive, no peritonitis. EXTREMITIES: No cyanosis, mild bilateral pedal edema, full range of motion of all the joints without pain or difficulty, no signs for acute trauma. NEUROLOGIC: Oriented x 3, no acute motor or sensory deficits, no focal weakness. SKIN: No rash, no jaundice, no diaphoresis. DIFFERENTIAL DIAGNOSIS: Pneumonia, bronchitis, exacerbation of COPD, CHF, anemia, DC, dysrhythmia, among others. EMERGENCY DEPARTMENT COURSE/PROCEDURES: Prior/Outside records reviewed: Previous discharge summary, recent ED visit note. ECG per my interpretation: Indication was shortness of breath. The ECG shows atrial fibrillation with a rate of 105. There is significant baseline artifact. No obvious ST elevation. No PVCs. The QTc is 467. Compared to an ECG from 03 Dec 2022, I see no significant change. Continuous Cardiac Monitoring per my interpretation: An order was placed for continuous cardiac monitoring. The monitor shows a rate of 119 with atrial fibrillation. Critical Care Note: I have personally spent 51 minutes of critical care time in the direct management of this patient. This includes bedside care, interpretation of diagnostic studies, and testing, discussion with consultants, patient, and family members, and other required patient management activities. This 51 minutes is in excess of all separately billable procedures. MEDICAL DECISION MAKING: There is no leukocytosis. A mild anemia was seen, this is baseline for the patient. There was a normal platelet count. No coagulopathy. No renal failure . Lactic acid level was quite high at over 7, there was concern that this may have been a mis-draw and a repeat lactic acid level was ordered. Alk phos slightly elevated. The bilirubin was normal. BNP was elevated but improved compared to recent testing. ECG showed atrial fibrillation with a rapid rate, no obvious ischemia. Cardiac enzyme testing x1 was not consistent with acute cardiac injury. COVID test returned negative. Chest film per my review showed changes of COPD. The CHF noted previously appeared somewhat improved. There looked to be a forming left lower lung pneumonia. On exam, the patient was in moderate respiratory distress and using accessory muscles. He was speaking in short sentences. He had crackles/rhonchi along the left lower lung. Patient was aggressively managed given his presentation. He was placed on BiPAP. He was given a bolus of IV diltiazem and placed on a diltiazem drip. He was given a DuoNeb, he received IV cefepime. He received a 250 cc saline bolus. Despite the high lactic acid level, the patient did not receive 30 cc/kg of saline. He received a 250 cc saline bolus because of his heart failure history and concern for fluid overload. He was just admitted to the hospital earlier this month for CHF. The patient is improved with the above treatment. He is more comfortable, he no longer appears in any respiratory distress. I did speak with the patient and his family, I spoke with case management, the on-call hospitalist was consulted. In short, patient appears to have pneumonia with a flare of his COPD. This has led to his dyspnea and weakness. DISPOSITION: Patient presentation and findings warrant a hospital stay. Past Med/Surg History Medical History Acute and chronic respiratory failure with hypoxia Acute on chronic right-sided congestive heart failure Alcohol withdrawal Atrial fibrillation with rapid ventricular response Chronic gout Chronic hypercapnic respiratory failure COPD (chronic obstructive pulmonary disease) RESCUE INHALER DAILY (NO MORE THAN TWICE A DAY) COPD exacerbation Depression Diastolic dysfunction Dyspnea on exertion Ecchymosis Goals of care, counseling/discussion History of acute illness SEPTEMBER 2021 - RESOLVED PT WAS R/S FOR COLONOSCOPY D/T ILLNESS. History of colon polyps History of diverticulitis of colon History of nicotine dependence Hyperglycemia Hyperlipidemia Hypertension Hypoxemia Kidney stone (2014) HX Macular degeneration BOTH EYES/INJECTIONS Q 6-8 WKS Mitral regurgitation On home oxygen therapy 4L AT HS AND DAILY PRN Overactive bladder ? / PROSTATE PROBLEM ? - NOT SURE DETAILS/PROSTATE NOT ENLARGED Persistent atrial fibrillation Pre-diabetes Pulmonary hypertension Respiratory distress RLL pneumonia Skin cancer BCC ON FACE - RECENTLY SHAVED OFF - HEALED Solitary pulmonary nodule ? SIDE / CT SCAN 2 MON AGO - GROWN - F/U CT SCAN IN JUN 2021 Surgical History History of cardiac cath SUMMER 2017/ NO STENT(S) History of cataract surgery RT/LEFT History of colonoscopy last 2018 @ [facility] History of lithotripsy History of tooth extraction Status post Mohs surgery MULTIPLE Family History Brother Emphysema lung Other No family history of adverse response to anesthesia Denies family history of Ovarian cancer Prostate cancer Myocardial infarction Breast cancer Colorectal cancer Social History Smoking Status: Current every day smoker Tobacco Type: Cigarettes Age Started Using Tobacco: 21; packs per day: 0.25; Cigarettes Per Day: 20; Second Hand Exposure: Yes; Do You Dip or Chew Tobacco: No; Hx Alcohol Use: Yes (Quit drinking recently) Alcohol type: hard liquor Alcohol Intake Frequency: Monthly or Less Hx Substance Use: No Preferred Language: Wolof Communication Ability: Effective Visual Impairment: No Limitations Hearing Ability: Normal Banquet Chef Required: No Beliefs That Will Affect Care: None marital status: Current Living Situation: Spouse current occupational status: retired 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 [employer] Feels Safe at Home: Yes Physical Activity Frequency: 1-2 Times per Week Seatbelt Use: always Assistive Devices: Nebulizer, Walker and Wheelchair Allergies Allergies Allergy/AdvReac Type Severity Reaction Status Date / Time lisinopril Allergy Severe Swelling Verified 12/04/22 01:12 of face methylprednisolone AdvReac Intermediate HALLUCINATION-IV Verified 12/04/22 01:12 SOLUMEDROL budesonide AdvReac Unknown DIDN'T WORK Verified 12/04/22 01:12 [From Feedback-Machine] formoterol AdvReac Unknown DIDN'T WORK Verified 12/04/22 01:12 [From Feedback-Machine] glycopyrrolate AdvReac Unknown DIDN'T WORK Verified 12/04/22 01:12 [From Feedback-Machine] Home Meds Home Medications Medication Instructions Recorded Confirmed fluticasone fur. 100 mcg-umeclid 1 inh inhalation QAM 03/31/22 12/04/22 62.5 mcg-vilant 25 mcg inhalat.powder (Trelegy Ellipta) cyanocobalamin (vitamin B-12) 1,000 mcg sublingual DAILY 09/11/22 12/04/22 1,000 mcg sublingual tablet pravastatin 20 mg tablet 20 mg PO HS 11/18/22 12/04/22 Previous Rx's Medication Instructions Recorded allopurinol 300 mg tablet 300 mg PO QAM #90 tabs 07/17/22 escitalopram oxalate 10 mg tablet 10 mg PO HS #90 tabs 07/21/22 (Lexapro) apixaban 5 mg tablet (Eliquis) 5 mg PO BID #60 tabs 10/30/22 diltiazem HCl 240 mg 240 mg PO QAM #30 caps 11/04/22 capsule,extended release 24 hr metoprolol tartrate 100 mg tablet 100 mg PO BID #60 tabs 11/04/22 levalbuterol HCl 0.31 mg/3 mL 0.31 mg (3 mL) inhalation TID PRN 11/10/22 solution for nebulization shortness of breath or wheezing #75 mL peg 3350-electrolytes 236 240 ml PO Q10M #4,000 mL 11/20/22 gram-22.74 gram-6.74 gram-5.86 gram solution (GaviLyte-G) furosemide 40 mg tablet (Lasix) 40 mg PO DAILY #30 tabs 11/21/22 potassium chloride 10 mEq 10 meq PO DAILY #30 caps 11/21/22 capsule,extended release levofloxacin 500 mg tablet 500 mg PO DAILY 10 days #7 tabs 12/03/22 Results & Data (ED) Vital Signs Vital Signs - 24 hr 12/04/22 00:39 12/04/22 00:41 12/04/22 00:41 Temperature Temperature Source Pulse Rate 109 H 115 H Pulse Rate [Finger] Pulse Rhythm Irregular Respiratory Rate 18 Respiratory Effort / Characteristics Spontaneous Labored Respiratory Depth Shallow Respiratory Pattern Regular Blood Pressure Blood Pressure Mean Pulse Oximetry 94 Oxygen Delivery Method Nasal Cannula Nasal Cannula Oxygen Flow Rate 4 4 Fraction of Inspired Oxygen Sepsis Recent Fever Within 48 Hours Sepsis New/Unexplained Change in Mental Status Sepsis Action Taken by Nursing 12/04/22 00:28 12/04/22 00:28 12/04/22 01:01 Temperature 36.5 C Temperature Source Oral Pulse Rate 103 H 92 H Pulse Rate [Finger] Pulse Rhythm Respiratory Rate 15 20 Respiratory Effort / Characteristics Non-Labored Spontaneous Spontaneous Labored Spontaneous Short of Breath Respiratory Depth Normal Normal Respiratory Pattern Regular Blood Pressure 111/70 Blood Pressure Mean 83 Pulse Oximetry 94 99 Oxygen Delivery Method Nasal Cannula Oxygen Flow Rate 4 Fraction of Inspired Oxygen 50 Sepsis Recent Fever Within 48 Hours No Sepsis New/Unexplained Change in Mental Status No Sepsis Action Taken by Nursing No Action Required 12/04/22 01:10 Temperature Temperature Source Pulse Rate Pulse Rate [Finger] 99 H Pulse Rhythm Respiratory Rate 20 Respiratory Effort / Characteristics Spontaneous Short of Breath Respiratory Depth Respiratory Pattern Blood Pressure Blood Pressure Mean Pulse Oximetry 98 Oxygen Delivery Method BiPAP Oxygen Flow Rate Fraction of Inspired Oxygen 50 Sepsis Recent Fever Within 48 Hours Sepsis New/Unexplained Change in Mental Status Sepsis Action Taken by Alf Medications Current Medication List: was personally reviewed by me Laboratory Data Attestation: I reviewed the patient's lab results. 12/04/22 00:54 12/04/22 00:54 Lab Results 12/04/22 12/04/22 12/04/22 Range/Units 00:54 00:54 00:54 WBC 8.47 (4.8-10.8) K/ul RBC 3.51 L (4.70-6.10) M/uL Hgb 11.9 L (14.0-18.0) g/dl Hct 35.0 L (42.0-52.0) % MCV 99.7 (80.0-100.0) fL MCH 33.9 (25.0-34.0) pg MCHC 34.0 (32.0-36.0) g/dL RDW Std Deviation 52.0 H (36.4-46.3) fL RDW Coeff of [place] 14.3 (11.5-14.5) % Plt Count 344 (130-400) K/uL MPV 10.2 (9.4-12.4) fL Immature Gran % (Auto) 1.9 % Neut % (Auto) 89.4 % Lymph % (Auto) 7.3 % [place] % (Auto) 1.2 % Eos % (Auto) 0.0 % Baso % (Auto) 0.2 % Neut # (Auto) 7.57 H (1.40-6.50) K/uL Lymph # (Auto) 0.62 L (1.2-3.4) K/uL [place] # (Auto) 0.10 L (0.11-0.59) K/uL Eos # (Auto) 0.00 (0-0.50) K/uL Baso # (Auto) 0.02 (0-0.2) K/uL Immature Gran # (Auto) 0.16 (0.01-0.20) K/uL PT (9.0-12.0) Seconds INR (0.9-1.1) APTT (21.0-31.0) Seconds PTT Ratio Sodium Potassium Chloride (98-107) mmol/L Carbon Dioxide (21-32) mmol/L Anion Gap BUN (6-23) mg/dl Creatinine (0.6-1.4) mg/dl Est Cr Clr Drug Dosing ml/min Est GFR ( Amer) ml/min Est GFR (Non-Af Amer) ml/min BUN/Creatinine Ratio (10-20) Glucose (70-99(Fasting)) mg/dl Lactate 7.9 H* (0.4-2.0) mmol/L Calcium (8.6-10.3) mg/dl Magnesium Total Bilirubin (0.2-1.0) mg/dl AST ALT (7-52) U/L Alkaline Phosphatase (34-104) U/L Troponin I High Sens (0-20) pg/ml B-Natriuretic Peptide 850 H (0-100) pg/ml Total Protein (6.0-8.3) gm/dl Albumin (3.4-5.0) gm/dl Globulin (2.5-4.0) gm/dl Albumin/Globulin Ratio (0.9-2) SARS-CoV-2, RNA, NAAT (NEGATIVE) 12/04/22 12/04/22 12/04/22 Range/Units 00:54 00:54 01:00 WBC (4.8-10.8) K/ul RBC (4.70-6.10) M/uL Hgb (14.0-18.0) g/dl Hct (42.0-52.0) % MCV (80.0-100.0) fL MCH (25.0-34.0) pg MCHC (32.0-36.0) g/dL RDW Std Deviation (36.4-46.3) fL RDW Coeff of [place] (11.5-14.5) % Plt Count (130-400) K/uL MPV (9.4-12.4) fL Immature Gran % (Auto) % Neut % (Auto) % Lymph % (Auto) % [place] % (Auto) % Eos % (Auto) % Baso % (Auto) % Neut # (Auto) (1.40-6.50) K/uL Lymph # (Auto) (1.2-3.4) K/uL [place] # (Auto) (0.11-0.59) K/uL Eos # (Auto) (0-0.50) K/uL Baso # (Auto) (0-0.2) K/uL Immature Gran # (Auto) (0.01-0.20) K/uL PT 11.4 (9.0-12.0) Seconds INR 1.0 (0.9-1.1) APTT 30.6 (21.0-31.0) Seconds PTT Ratio 1.1 Sodium TNP Potassium TNP Chloride 89 L (98-107) mmol/L Carbon Dioxide 17 L (21-32) mmol/L Anion Gap TNP BUN 23 (6-23) mg/dl Creatinine 1.29 D (0.6-1.4) mg/dl Est Cr Clr Drug Dosing 55.4 ml/min Est GFR ( Amer) 62.4 ml/min Est GFR (Non-Af Amer) 53.9 ml/min BUN/Creatinine Ratio 17.8 (10-20) Glucose 156 H (70-99(Fasting)) mg/dl Lactate (0.4-2.0) mmol/L Calcium 8.4 L (8.6-10.3) mg/dl Magnesium TNP Total Bilirubin 0.6 (0.2-1.0) mg/dl AST TNP ALT 37 (7-52) U/L Alkaline Phosphatase 115 H (34-104) U/L Troponin I High Sens 9.3 (0-20) pg/ml B-Natriuretic Peptide (0-100) pg/ml Total Protein 6.5 (6.0-8.3) gm/dl Albumin 3.6 (3.4-5.0) gm/dl Globulin 2.9 (2.5-4.0) gm/dl Albumin/Globulin Ratio 1.2 (0.9-2) SARS-CoV-2, RNA, NAAT NEGATIVE (NEGATIVE) Administered Medications Diltiazem HCl 125 mg/ Dextrose 125 mls @ 5 mls/hr IV .Q24H [facility]; Protocol Stop: 01/03/23 00:59 Last Admin: 12/04/22 01:20 Dose: 5 mg/hr, 5 mls/hr Documented By: MARION Co-signed By: SOLEDAD Discontinued Medications Albuterol (Albut/Ipratrop 3mg/0.5mg Neb 3 Ml Vial) 3 ml NEB NOW STA; Protocol Stop: 12/04/22 00:49 Last Admin: 12/04/22 01:10 Dose: 3 ml Documented By: EDUARDO Diltiazem HCl (Diltiazem Hcl 5 Mg/Ml 5 Ml Vial) 10 mg IV NOW STA Stop: 12/04/22 00:49 Last Admin: 12/04/22 01:19 Dose: 10 mg Documented By: MARION Co-signed By: SOLEDAD Imaging Data My Impression: Chest x-ray: Per my review, there appears to be some changes of COPD. There is a forming left lower lobe infiltrate. No pneumothorax. Discharge Plan Visit Data Chief Complaint: Respiratory Problems Stated Complaint: SOB, Weakness, Rapid Afib ED Provider: Marcelino Hensley Discharge Problem: SOB (shortness of breath), COPD exacerbation, Pneumonia, Weakness, Failure of outpatient treatment, Elevated lactic acid level, Atrial fibrillation with rapid ventricular response Patient Disposition: Admitted As Inpatient Condition: Fair Forms Stand Alone Forms: My [facility] Prescriptions Prescriptions: No Action allopurinol 300 mg tablet 300 mg PO QAM Qty: 90 1RF escitalopram oxalate [Lexapro] 10 mg tablet 10 mg PO HS Qty: 90 3RF peg 3350-electrolytes [GaviLyte-G] 236-22.74-6.74 -5.86 gram recon soln 240 ml PO Q10M Qty: 4000 0RF Rx Instructions: until fecal effluent is clear levalbuterol HCl 0.31 mg/3 mL solution for nebulization 0.31 mg inhalation TID PRN (Reason: shortness of breath or wheezing) Qty: 75 0RF Trelegy Ellipta 100-62.5-25 mcg blister with device 1 inh inhalation QAM Eliquis 5 mg tablet 5 mg PO BID Qty: 60 2RF metoprolol tartrate 100 mg Tablet 100 mg PO BID Qty: 60 3RF diltiazem HCl 240 mg Capsule,Extended Release 24hr 240 mg PO QAM Qty: 30 3RF levofloxacin 500 mg tablet 500 mg PO DAILY 10 Days Qty: 7 0RF cyanocobalamin (vitamin B-12) 1,000 mcg Tablet, Sublingual 1,000 mcg SUBLINGUAL DAILY pravastatin 20 mg tablet 20 mg PO HS furosemide [Lasix] 40 mg tablet 40 mg PO DAILY Qty: 30 0RF potassium chloride 10 mEq capsule, extended release 10 meq PO DAILY Qty: 30 0RF Referrals Referrals: Carter Martinez MD [Primary Care Provider] -
[2022-12-04] MEDS ORDERED: CEFEPIME 2,000 MG/20 ML VIAL IV STA (01:07)
[2022-12-04 01:11] LABS: Basophils # (auto) 0.02 K/uL (0-0.2); Basophils % (auto) 0.2 %; Hemoglobin 11.9 g/dl (14.0-18.0); Immature Granulocytes # (auto) 0.16 K/uL (0.01-0.20); Immature Granulocytes % (auto) 1.9 %; Lymphocytes # (auto) 0.62 K/uL (1.2-3.4); Lymphocytes % (auto) 7.3 %; Mean Corpuscular Hemoglobin 33.9 pg (25.0-34.0); Mean Corpuscular Volume 99.7 fL (80.0-100.0); Mean Platelet Volume 10.2 fL (9.4-12.4); Monocytes % (auto) 1.2 %; Neutrophils # (auto) 7.57 K/uL (1.40-6.50); Neutrophils % (auto) 89.4 %; Platelet Count 344 K/uL (130-400); RDW Coefficient of Variation 14.3 % (11.5-14.5); Red Blood Count 3.51 M/uL (4.70-6.10); White Blood Count 8.47 K/ul (4.8-10.8)
[2022-12-04] MEDS: dilTIAZem HCL 125 MG in DEXTROSE 5% 100 ML IV SCH ×2 (01:20→20:46)
[2022-12-04] MEDS ORDERED: SODIUM CHLORIDE 0.9% 250 ML IV ONE (01:30)
[2022-12-04 01:42] LABS: Alanine Aminotransferase 37 U/L (7-52); Albumin Globulin Ratio 1.2 (0.9-2); Albumin Level 3.6 gm/dl (3.4-5.0); Alkaline Phosphatase 115 U/L (34-104); BUN Creatinine Ratio 17.8 (10-20); Bilirubin,Total 0.6 mg/dl (0.2-1.0); Blood Urea Nitrogen 23 mg/dl (6-23); Calcium 8.4 mg/dl (8.6-10.3); Carbon Dioxide 17 mmol/L (21-32); Chloride 89 mmol/L (98-107); Creatinine Clr Calc Pharmacy 55.4 ml/min; Est GFR (African American) 62.4 ml/min; Est GFR (Non-African American) 53.9 ml/min; Globulin 2.9 gm/dl (2.5-4.0); Glucose 156 mg/dl (70-99(Fasting)); Total Protein 6.5 gm/dl (6.0-8.3); Troponin I High Sensitivity 9.3 pg/ml (0-20)
[2022-12-04 01:50] LABS: Partial Thromboplastin Ratio 1.1; Partial Thromboplastin Time 30.6 Seconds (21.0-31.0); Prothrombin Time 11.4 Seconds (9.0-12.0)
[2022-12-04 02:33] LABS: Magnesium 1.8 mg/dl (1.7-2.4); Potassium 4.5 mmol/L (3.5-5.1)
[2022-12-04] MEDS ORDERED: ALUMINUM/MAGNESIUM SUSP 30 ML UDC PO PRN (03:43)
[2022-12-04] MEDS ORDERED: NITROGLYCERIN SL 0.4 MG/TAB TAB SL PRN (03:43)
[2022-12-04] MEDS ORDERED: LEVALBUTEROL 0.31MG/3 ML VIAL INH PRN (03:43)
[2022-12-04] MEDS ORDERED: ACETAMINOPHEN 325 MG TAB PO PRN (03:43)
[2022-12-04] MEDS ORDERED: POLYETHYLENE (MIRALAX) 17 GM PACK PO PRN (03:43)
--- NOTE | 2022-12-04 05:36 | History & Physical Report ---
Date of Service December 04, 2022 Assessment & Plan (1) Atrial fibrillation with RVR: Plan: Patient presents to ED with acute onset of shortness of breath and generalized weakness associated with atrial fibrillation and rapid ventricular rate. Patient started on IV Cardizem bolus along with IV diltiazem infusion for rate control. Continue telemetry monitoring Patient already anticoagulated with Eliquis Consider amiodarone if Cardizem unable to obtain adequate rate control Initial troponin not elevated will obtain serial troponin level (2) Acute and chronic respiratory failure with hypoxia: Plan: Patient presents with worsening shortness of breath and found to have hypoxia secondary to respiratory failure Started on BiPAP oral ventilation patient is tolerating BiPAP Hypoxia likely secondary to new pneumonic consolidation Continue IV antibiotics along with bronchodilators IV steroids (3) Pneumonia: Plan: Patient found to have pneumonic consolidation when seen earlier in ED but patient had refused admission and was discharged on Levaquin Patient given IV cefepime in the ED which will be continued Continue bronchodilators Oxygen supplementation to keep sats over 90 (4) COPD exacerbation: Plan: Patient also has underlying history of COPD and was placed on BiPAP Continue bronchodilators as needed along with IV steroids (5) Elevated lactic acid level: Plan: Patient found to have elevated lactic acid over 4.2 upon initial admission Obtain serial lactic acid level Follow sepsis protocol with close monitoring of volume status Patient started on IV cefepime (6) Hyponatremia: Plan: Sodium level was 124 in the ED while sodium level in a.m. was within normal limits Hyponatremia likely secondary to hypervolemia Check urine studies and trend sodium level Monitor I's and O's closely given fluctuating volume status (7) Hypercholesterolemia: Plan: Continue statin therapy (8) Hypertension: Plan: Patient presently on IV Cardizem for rate control Monitor blood pressure and titrate meds as tolerated Admission and Anticipated Discharge Date Admission Date: December 04, 2022 History of Present Illness Chief Complaint: Patient presents to ED with complaints of worsening shortness of breath and generalized weakness Primary Care Provider: Carter Martinez MD This is 72-year-old male with past medical history significant history of CHF, atrial fibrillation, COPD, hypertension, hyperlipidemia, gout who presents to the emergency department with complaints of worsening shortness of breath and is brought into the ED by EMS. Patient had earlier presented to the ED with worsening shortness of breath and the work-up had revealed an underlying pneumonia with evidence of volume overload but patient had refused admission and had been discharged from the ED with a prescription for Levaquin for suspected right lower lobe pneumonia. Patient reports that he reached home and in a few hours he felt that he had developed worsening shortness of breath and had activated EMS. EMS upon arrival to the patient's home found him to be in A-fib with rapid ventricular rate and was given IV Cardizem 15 mg along with a dose of DuoNeb. Patient admits to having complaints of shortness of breath over the past 3 days. Patient has a known history of COPD and is on 4 L of oxygen supplementation at home as well. Patient placed on BiPAP for ventilation in the ED and was given a dose of IV Cardizem for rate control of his A-fib and placed on a Cardizem drip. Patient also given 250 cc of saline bolus along with DuoNeb treatment and IV cefepime in the ED. Chest x-ray shows evidence of early consolidation and patient is being admitted for further management at this time. Allergies Allergy/AdvReac Type Severity Reaction Status Date / Time lisinopril Allergy Severe Swelling Verified 12/04/22 01:12 of face methylprednisolone AdvReac Intermediate HALLUCINATION-IV Verified 12/04/22 01:12 SOLUMEDROL budesonide AdvReac Unknown DIDN'T WORK Verified 12/04/22 01:12 [From [employer]] formoterol AdvReac Unknown DIDN'T WORK Verified 12/04/22 01:12 [From [employer]] glycopyrrolate AdvReac Unknown DIDN'T WORK Verified 12/04/22 01:12 [From [employer]] Home Medications Medication Instructions Recorded Confirmed Type fluticasone fur. 100 mcg-umeclid 1 inh inhalation QAM 03/31/22 12/04/22 History 62.5 mcg-vilant 25 mcg inhalat.powder (Trelegy Ellipta) allopurinol 300 mg tablet 300 mg PO QAM #90 tabs 07/17/22 12/04/22 Rx escitalopram oxalate 10 mg tablet 10 mg PO HS #90 tabs 07/21/22 12/04/22 Rx (Lexapro) cyanocobalamin (vitamin B-12) 1,000 mcg sublingual DAILY 09/11/22 12/04/22 History 1,000 mcg sublingual tablet apixaban 5 mg tablet (Eliquis) 5 mg PO BID #60 tabs 10/30/22 12/04/22 Rx diltiazem HCl 240 mg 240 mg PO QAM #30 caps 11/04/22 12/04/22 Rx capsule,extended release 24 hr metoprolol tartrate 100 mg tablet 100 mg PO BID #60 tabs 11/04/22 12/04/22 Rx levalbuterol HCl 0.31 mg/3 mL 0.31 mg (3 mL) inhalation TID PRN 11/10/22 Rx solution for nebulization shortness of breath or wheezing #75 mL pravastatin 20 mg tablet 20 mg PO HS 11/18/22 12/04/22 History peg 3350-electrolytes 236 240 ml PO Q10M #4,000 mL 11/20/22 12/04/22 Rx gram-22.74 gram-6.74 gram-5.86 gram solution (GaviLyte-G) furosemide 40 mg tablet (Lasix) 40 mg PO DAILY #30 tabs 11/21/22 12/04/22 Rx potassium chloride 10 mEq 10 meq PO DAILY #30 caps 11/21/22 12/04/22 Rx capsule,extended release levofloxacin 500 mg tablet 500 mg PO DAILY 10 days #7 tabs 12/03/22 12/04/22 Rx Past Med/Surg History Medical History Acute and chronic respiratory failure with hypoxia Acute on chronic right-sided congestive heart failure Alcohol withdrawal Atrial fibrillation with rapid ventricular response Chronic gout Chronic hypercapnic respiratory failure COPD (chronic obstructive pulmonary disease) RESCUE INHALER DAILY (NO MORE THAN TWICE A DAY) COPD exacerbation Depression Diastolic dysfunction Dyspnea on exertion Ecchymosis Goals of care, counseling/discussion History of acute illness SEPTEMBER 2021 - RESOLVED PT WAS R/S FOR COLONOSCOPY D/T ILLNESS. History of colon polyps History of diverticulitis of colon History of nicotine dependence Hyperglycemia Hyperlipidemia Hypertension Hypoxemia Kidney stone (2014) HX Macular degeneration BOTH EYES/INJECTIONS Q 6-8 WKS Mitral regurgitation On home oxygen therapy 4L AT HS AND DAILY PRN Overactive bladder ? / PROSTATE PROBLEM ? - NOT SURE DETAILS/PROSTATE NOT ENLARGED Persistent atrial fibrillation Pre-diabetes Pulmonary hypertension Respiratory distress RLL pneumonia Skin cancer BCC ON FACE - RECENTLY SHAVED OFF - HEALED Solitary pulmonary nodule ? SIDE / CT SCAN 2 MON AGO - GROWN - F/U CT SCAN IN JUN 2021 Surgical History History of cardiac cath SUMMER 2017/ NO STENT(S) History of cataract surgery RT/LEFT History of colonoscopy last 2018 @ [facility] History of lithotripsy History of tooth extraction Status post Mohs surgery MULTIPLE Family History Brother Emphysema lung Other No family history of adverse response to anesthesia Denies family history of Ovarian cancer Prostate cancer Myocardial infarction Breast cancer Colorectal cancer Social History Smoking Status: Heavy tobacco smoker Tobacco Type: Cigarettes Age Started Using Tobacco: 21; packs per day: 0.25; Cigarettes Per Day: 30; Second Hand Exposure: Yes ( smokes); Do You Dip or Chew Tobacco: No; Tobacco Cessation Education Requested by Patient: No Hx Alcohol Use: Yes Alcohol type: hard liquor Alcohol Intake Frequency: Monthly or Less Hx Substance Use: No Preferred Language: Persian Communication Ability: Effective Visual Impairment: No Limitations Hearing Ability: Normal 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 Beliefs That Will Affect Care: None marital status: Current Living Situation: Spouse Current Living Situation Comment: Live 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 with (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) current occupational status: retired 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 [employer] Other Information That Helps Us Care for You: No Feels Safe at Home: Yes Safety Concerns: Feels Safe At This Time Physical Activity Frequency: 1-2 Times per Week Seatbelt Use: always Assistive Devices: Walker Review of Systems Review of Systems: Constitutional-no fever or chills ENT-no blurred vision, no double vision, no epistaxis, no sore throat Respiratory- pt presents with shortness of breath Cardiac- positive for sob, no chest pain, no syncope GI-no nausea, vomiting, diarrhea, melena, hematochezia -no urinary retention, no urinary incontinence, Musculoskeletal-no joint pain, Skin-no bruising, no rashes, no pruritus Neuro-no isolated weakness, pt has generalized weakness Physical Exam Physical Exam: Patient seen in ED on BiPAP Head and ENT no thyroid enlargement trachea midline Cardiovascular S1-S2 are normal no S3 Lungs bilateral air entry decreased at bases with scattered rhonchi Abdomen soft nondistended positive bowel sounds no rebound tenderness Extremity shows 1+ edema Neurologically no focal deficits Skin shows no rash no cyanosis Results & Data Results & Data Vital Signs (Past 12 Hours) Vital Signs Temp Pulse Pulse Resp BP BP Pulse Ox 12/04/22 03:43 12/04/22 03:57 36.4 C L 78 24 101/84 97 12/04/22 03:05 81 16 102/74 94 12/04/22 02:50 83 16 101/77 95 12/04/22 02:45 69 17 107/84 96 12/04/22 02:40 85 24 103/72 96 12/04/22 02:35 82 18 105/72 95 12/04/22 02:30 76 18 95/76 L 95 12/04/22 02:25 79 15 96/67 L 97 12/04/22 02:20 80 18 119/48 L 96 12/04/22 02:15 74 16 98/70 L 97 12/04/22 02:10 89 18 93/66 L 96 12/04/22 02:05 88 16 93/67 L 98 12/04/22 02:00 96 H 21 93/73 L 12/04/22 01:55 89 16 105/74 12/04/22 01:50 86 17 96/68 L 98 12/04/22 01:46 83 19 94/69 L 98 12/04/22 01:41 82 17 103/64 97 12/04/22 01:40 84 19 97 12/04/22 01:35 83 17 106/71 98 12/04/22 01:30 87 21 93/65 L 97 12/04/22 01:26 84 17 94/62 L 99 12/04/22 01:25 77 17 88/61 L 98 12/04/22 01:20 94 H 18 98 12/04/22 01:10 112 H 15 98 12/04/22 01:00 107 H 22 98 12/04/22 00:50 123 H 18 94 12/04/22 00:40 18 95 12/04/22 00:39 96 H 17 111/70 94 12/04/22 01:10 99 H 20 98 12/04/22 01:01 92 H 20 99 12/04/22 00:28 36.5 C 103 H 15 111/70 94 12/04/22 00:41 12/04/22 00:41 115 H 18 94 12/04/22 00:39 109 H O2 Del Method O2 Flow Rate FiO2 12/04/22 03:43 Nasal Cannula 4 12/04/22 03:57 BiPAP 35 12/04/22 03:05 BiPAP 12/04/22 02:50 12/04/22 02:45 12/04/22 02:40 12/04/22 02:35 12/04/22 02:30 12/04/22 02:25 12/04/22 02:20 12/04/22 02:15 12/04/22 02:10 12/04/22 02:05 12/04/22 02:00 12/04/22 01:55 12/04/22 01:50 12/04/22 01:46 12/04/22 01:41 12/04/22 01:40 12/04/22 01:35 12/04/22 01:30 12/04/22 01:26 12/04/22 01:25 12/04/22 01:20 12/04/22 01:10 12/04/22 01:00 12/04/22 00:50 12/04/22 00:40 12/04/22 00:39 12/04/22 01:10 BiPAP 50 12/04/22 01:01 50 12/04/22 00:28 Nasal Cannula 4 12/04/22 00:41 Nasal Cannula 4 12/04/22 00:41 Nasal Cannula 4 12/04/22 00:39 Laboratory Results Short CBC 12/04/22 Range/Units 00:54 WBC 8.47 (4.8-10.8) K/ul Hgb 11.9 L (14.0-18.0) g/dl Hct 35.0 L (42.0-52.0) % Plt Count 344 (130-400) K/uL BMP 12/04/22 12/04/22 00:54 01:58 Sodium TNP 124 L Potassium TNP 4.5 Chloride 89 L Carbon Dioxide 17 L BUN 23 Creatinine 1.29 D Glucose 156 H Calcium 8.4 L Liver Function 12/04/22 12/04/22 Range/Units 00:54 01:58 Total Bilirubin 0.6 (0.2-1.0) mg/dl AST TNP 24 ALT 37 (7-52) U/L Alkaline Phosphatase 115 H (34-104) U/L Albumin 3.6 (3.4-5.0) gm/dl Code Status & VTE Plan VTE Prophylaxis Plan VTE Prophylaxis will be ordered: Yes PG Care Time/CCT Total # of Minutes Spent Total Time Spent with Patient: Total time spent is greater than 50% in coordination of care (as documented) at patient's floor/unit and/or counseling patient: Coding Level of Care Code 10074 INT INP/OBS CARE 2/55MIN Diagnoses Atrial fibrillation with RVR I48.91 Acute and chronic respiratory failure with hypoxia J96.21 Pneumonia J18.9 COPD exacerbation J44.1 Elevated lactic acid level R79.89 Hyponatremia E87.1 Hypercholesterolemia E78.00 Hypertension I10 Hypertension type: essential hypertension (8) Hypertension Hypertension type: essential hypertension Qualified Code(s): I10 - Essential (primary) hypertension
--- NOTE | 2022-12-04 07:34 | XRay Report ---
XR chest 1V portable CLINICAL HISTORY: Dyspnea. COMPARISON STUDY: Chest CT November 18, 2022 and chest radiograph December 03, 2022. FINDINGS: There is no pneumothorax. Trace bilateral pleural effusions are unchanged. There is underly ing emphysema. Lower lung densities are unchanged. Cardiomegaly is again noted. No evidence for pulmo nary edema. There is been no significant change in appearance of the chest. IMPRESSION: No significant change in appearance of the chest. Emphysema with trace bilateral pleural effusions and lower lung densities which favor atelectasis. ACT 112: Negative or not required by law. Electronically signed by: Sorin Zaldivar M.D. 12/04/2022 7:32 AM
[2022-12-04] MEDS: FLUTICASONE FUROATE 100MCG 14 PUFFS/INHALER INH SCH (08:04)
[2022-12-04] MEDS: UMECLIDINIUM/VILANTEROL 62.5/25MCG 7 PUFFS/INHALER INH SCH (08:04)
[2022-12-04] MEDS: allopurinoL 300 MG TAB PO SCH (08:04)
[2022-12-04] MEDS: APIXABAN 5 MG TABLET PO SCH ×2 (08:04→20:48)
[2022-12-04] MEDS: CYANOCOBALAMIN (B-12) 500 MCG TABLET PO SCH (08:04)
[2022-12-04 08:31] LABS: BUN Creatinine Ratio 19.1 (10-20); Calcium 8.8 mg/dl (8.6-10.3); Creatinine Clr Calc Pharmacy 50.3 ml/min; Est GFR (African American) 61.3 ml/min; Est GFR (Non-African American) 52.9 ml/min; Potassium 4.6 mmol/L (3.5-5.1)
[2022-12-04] MEDS ORDERED: NON-FORMULARY MEDICATION (Fluticasone-Umeclidin-Vilanter [Trelegy Ellipta] 100-62.5-25 mcg INH SCH (09:00)
[2022-12-04] MEDS ORDERED: ASPIRIN 81 MG ECTAB PO SCH (09:00)
[2022-12-04] MEDS ORDERED: FUROSEMIDE 40 MG/4 ML VIAL IV ONE ×2 (09:08→18:44)
--- NOTE | 2022-12-04 10:07 | History & Physical Bridge Note ---
Date of Service December 04, 2022 History & Physical Bridge Note I have examined the patient, reviewed the History & Physical and in the interval since the performance of the History & Physical I have noted the following changes of clinical significance: Pt remains tachypneic and is on 11L Oxymask. Afib on tele but rates better controlled at rest on dilt gtt at 10mg/hr. Rates go to 130s with any exertion. BPs soft at 100 systolic and metoprolol held. He denies CP. Reports he has been watching sodium and fluid intake at home. Denies fevers/chills or sputum production at home.He has not seen any doctors sicne his discharge from the hospital 13 days ago. Vitals reviewed In resp distress with tachypnea, using accessory muscles to breathe irreg irreg normal rate, no murmur Lungs with diminished BS throughout, moreso at bases, no wheezing or rhonchi,+bibasilar crackles Ext trace edema bilat, cap refill normal 77 yo male here with CHF exacerbation precipitated by SABINA. Continue rate control with dilt gtt for now, holding metoprolol for soft pressures while diuresing, but may need to add back on to avoid rebound tachycardia Consult Cardiology pending to see if needs cardioversion again? Continue ELiquis for AC, tele monitoring Na+ low due to volume overload-repeat BMP at 1400, give lasix 40mg IV x 1 now and reassess for further diuretics later Place [place] due to severe hypoxia and tachypnea with even sitting up on side of bed to urinate Place back on BiPAP now until resp status improves Check procal and if positive, resume abx, but otherwise no fevers/chillss, no sputum production or cough, not likely he has PNA. If he does, would cover for Gram neg PNA and MRSA given recent hospitalization
[2022-12-04] MEDS: METOPROLOL TARTRATE 100 MG TAB PO SCH ×3 (10:51→20:48)
--- NOTE | 2022-12-04 12:50 | Cardiology Consultation ---
Date of Consultation December 04, 2022 Assessment & Plan (1) Atrial fibrillation with RVR: Plan 1. Atrial fibrillation: He appears to have longstanding and likely permanent atrial fibrillation. He did undergo cardioversion previously with an early return to atrial fibrillation. Why his rate control is poor currently is not entirely clear. Possibly an element of decompensated heart failure, but most likely due to his underlying lung disease and exacerbation of COPD. I would continue her usual outpatient regimen of diltiazem and metoprolol. We certainly could increase the dose of both in order to achieve adequate rate control. I think starting him on some digoxin would also be worthwhile. His renal function generally normal. He is also very sedentary which would make the efficacy better. I do not think there is an immediate indication for amiodarone. However, this w ould also be reasonable rate control agent if he did not respond well to higher doses of diltiazem, metoprolol or initiation digoxin. I do not think adopting a rhythm control strategy is likely to be effective or necessary. He will continue on systemic anticoagulation. Of note, he is also on a daily aspirin. This is certainly not require from a cardiovascular standpoint. Unclear if this is indicated for another medical problem. I do not think he requires any aggressive diuresis. He received a single dose of Lasix earlier. Renal function has suffered. He does not seem to have a lot of edema. History of Present Illness Reason for Consultation: Atrial fibrillation Requesting Physician: Erasto Attending Physician: Chelle Altamirano MD History of Present Illness The patient is a 77-year-old gentleman with what appears to be end-stage COPD requiring both noninvasive ventilation and continuous oxygen who has been admitted 3 times over the past several weeks for breathing difficulty. He was admitted in October with COPD exacerbation/CHF/pneumonia and readmitted 2 weeks later with similar symptoms and treated in a similar fashion. The patient presented to the emergency room yesterday with breathing trouble and was diagnosed with pneumonia. He was sent home with a prescription of oral fluoroquinolones. However, his breathing worsened over the course of the evening and he eventually came to the emergency room for evaluation. The patient of course has chronic breathing difficulty. He has supplemental oxygen at all times. He is able to ambulate around his residence with a walker. He lives on 1 floor. He states fairly close to home and does little other activity. He thinks that over the past few days his breathing has become worse. He did not report any additional constitutional symptoms such as fevers or chills. He has been unaware of any palpitations. He states that his commonly takes his blood pressure or uses a pulse oximeter to check his oxygen. However, he has been unaware of any of these readings. He could not tell me what his heart rate normally would be at home. He thinks he may have had some mild lower extremity edema, but cannot be sure. He generally sleeps in normal position and did not describe orthopnea or paroxysmal nocturnal dyspnea. He uses a noninvasive ventilation at nighttime. He denies dizziness or lightheadedness. No symptoms of chest pain. No constitutional symptoms such as fevers or chills. No worsening coughing. He claims to be compliant with his medications. Allergies Allergy/AdvReac Type Severity Reaction Status Date / Time lisinopril Allergy Severe Swelling Verified 12/04/22 01:12 of face methylprednisolone AdvReac Intermediate HALLUCINATION-IV Verified 12/04/22 01:12 SOLUMEDROL budesonide AdvReac Unknown DIDN'T WORK Verified 12/04/22 01:12 [From Xuba] formoterol AdvReac Unknown DIDN'T WORK Verified 12/04/22 01:12 [From Xuba] glycopyrrolate AdvReac Unknown DIDN'T WORK Verified 12/04/22 01:12 [From Xuba] Home Medications Medication Instructions Recorded Confirmed Type fluticasone fur. 100 mcg-umeclid 1 inh inhalation QAM 03/31/22 12/04/22 History 62.5 mcg-vilant 25 mcg inhalat.powder (Trelegy Ellipta) allopurinol 300 mg tablet 300 mg PO QAM #90 tabs 07/17/22 12/04/22 Rx escitalopram oxalate 10 mg tablet 10 mg PO HS #90 tabs 07/21/22 12/04/22 Rx (Lexapro) cyanocobalamin (vitamin B-12) 1,000 mcg sublingual DAILY 09/11/22 12/04/22 History 1,000 mcg sublingual tablet apixaban 5 mg tablet (Eliquis) 5 mg PO BID #60 tabs 10/30/22 12/04/22 Rx diltiazem HCl 240 mg 240 mg PO QAM #30 caps 11/04/22 12/04/22 Rx capsule,extended release 24 hr metoprolol tartrate 100 mg tablet 100 mg PO BID #60 tabs 11/04/22 12/04/22 Rx levalbuterol HCl 0.31 mg/3 mL 0.31 mg (3 mL) inhalation TID PRN 11/10/22 12/04/22 Rx solution for nebulization shortness of breath or wheezing #75 mL pravastatin 20 mg tablet 20 mg PO HS 11/18/22 12/04/22 History peg 3350-electrolytes 236 240 ml PO Q10M #4,000 mL 11/20/22 12/04/22 Rx gram-22.74 gram-6.74 gram-5.86 gram solution (GaviLyte-G) furosemide 40 mg tablet (Lasix) 40 mg PO DAILY #30 tabs 11/21/22 12/04/22 Rx potassium chloride 10 mEq 10 meq PO DAILY #30 caps 11/21/22 12/04/22 Rx capsule,extended release levofloxacin 500 mg tablet 500 mg PO DAILY 10 days #7 tabs 12/03/22 12/04/22 Rx Patient History Medical History Acute and chronic respiratory failure with hypoxia Acute on chronic right-sided congestive heart failure Alcohol withdrawal Atrial fibrillation with rapid ventricular response Chronic gout Chronic hypercapnic respiratory failure COPD (chronic obstructive pulmonary disease) RESCUE INHALER DAILY (NO MORE THAN TWICE A DAY) COPD exacerbation Depression Diastolic dysfunction Dyspnea on exertion Ecchymosis Goals of care, counseling/discussion History of acute illness SEPTEMBER 2021 - RESOLVED PT WAS R/S FOR COLONOSCOPY D/T ILLNESS. History of colon polyps History of diverticulitis of colon History of nicotine dependence Hyperglycemia Hyperlipidemia Hypertension Hypoxemia Kidney stone (2014) HX Macular degeneration BOTH EYES/INJECTIONS Q 6-8 WKS Mitral regurgitation On home oxygen therapy 4L AT HS AND DAILY PRN Overactive bladder ? / PROSTATE PROBLEM ? - NOT SURE DETAILS/PROSTATE NOT ENLARGED Persistent atrial fibrillation Pre-diabetes Pulmonary hypertension Respiratory distress RLL pneumonia Skin cancer BCC ON FACE - RECENTLY SHAVED OFF - HEALED Solitary pulmonary nodule ? SIDE / CT SCAN 2 MON AGO - GROWN - F/U CT SCAN IN JUN 2021 Surgical History History of cardiac cath SUMMER 2018/ NO STENT(S) History of cataract surgery RT/LEFT History of colonoscopy last 2018 @ [facility] History of lithotripsy History of tooth extraction Status post Mohs surgery MULTIPLE Family History Brother Emphysema lung Other No family history of adverse response to anesthesia Denies family history of Ovarian cancer Prostate cancer Myocardial infarction Breast cancer Colorectal cancer Social History Smoking Status: Heavy tobacco smoker Tobacco Type: Cigarettes Age Started Using Tobacco: 21; packs per day: 0.25; Cigarettes Per Day: 30; Second Hand Exposure: Yes ( smokes); Do You Dip or Chew Tobacco: No; Tobacco Cessation Education Requested by Patient: No Hx Alcohol Use: Yes Alcohol type: hard liquor Alcohol Intake Frequency: Monthly or Less Hx Substance Use: No Preferred Language: Serbian Communication Ability: Effective Visual Impairment: No Limitations Hearing Ability: Normal Manager Process Required: No Beliefs That Will Affect Care: None marital status: Current Living Situation: Spouse Current Living Situation Comment: 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 Physical Exam Physical Exam: The patient is alert and oriented. Mood and affect appeared normal. He answered all questions appropriately. Currently using BiPAP. On supplemental oxygen. HEENT: Pupils are equal and reactive to light and accommodation. Extraocular movements are intact. The sclerae are anicteric. Neuro: Cranial nerves intact Lungs: Poor air movement overall. Distant lung sounds with prolonged expiratory phase. Expiratory wheezing noted. Increased work of breathing. Cardiac: Heart demonstrates an irregular rate and rhythm. Normal S1 and S2. No murmurs on examination. Pulses: The patient has palpable radial pulses bilaterally that are equal in intensity Extremities: There was no evidence of hypoperfusion. There is no cyanosis or clubbing. No significant edema. Skin: I did not appreciate any rashes on examination today. Results & Data Vital Signs (Past 12 Hours) Vital Signs Temp Pulse Pulse Resp BP BP Pulse Ox 12/04/22 12:04 120 H 34 H 109/80 94 12/04/22 11:32 36.8 C 124 H 19 136/85 92 12/04/22 08:00 66 12/04/22 08:00 12/04/22 08:00 36.4 C L 80 22 118/79 97 12/04/22 03:43 12/04/22 03:57 36.4 C L 78 24 101/84 97 12/04/22 03:05 81 16 102/74 94 12/04/22 02:50 83 16 101/77 95 12/04/22 02:45 69 17 107/84 96 12/04/22 02:40 85 24 103/72 96 12/04/22 02:35 82 18 105/72 95 12/04/22 02:30 76 18 95/76 L 95 12/04/22 02:25 79 15 96/67 L 97 12/04/22 02:20 80 18 119/48 L 96 12/04/22 02:15 74 16 98/70 L 97 12/04/22 02:10 89 18 93/66 L 96 12/04/22 02:05 88 16 93/67 L 98 12/04/22 02:00 96 H 21 93/73 L 12/04/22 01:55 89 16 105/74 12/04/22 01:50 86 17 96/68 L 98 12/04/22 01:46 83 19 94/69 L 98 12/04/22 01:41 82 17 103/64 97 12/04/22 01:40 84 19 97 12/04/22 01:35 83 17 106/71 98 12/04/22 01:30 87 21 93/65 L 97 12/04/22 01:26 84 17 94/62 L 99 12/04/22 01:25 77 17 88/61 L 98 12/04/22 01:20 94 H 18 98 12/04/22 01:10 112 H 15 98 12/04/22 01:00 107 H 22 98 12/04/22 00:50 123 H 18 94 12/04/22 01:10 99 H 20 98 12/04/22 01:01 92 H 20 99 O2 Del Method O2 Flow Rate FiO2 12/04/22 12:04 BiPAP 12/04/22 11:32 BiPAP 12/04/22 08:00 12/04/22 08:00 Oxymask 8 12/04/22 08:00 Oxymask 11 12/04/22 03:43 Nasal Cannula 4 12/04/22 03:57 BiPAP 35 12/04/22 03:05 BiPAP 12/04/22 02:50 12/04/22 02:45 12/04/22 02:40 12/04/22 02:35 12/04/22 02:30 12/04/22 02:25 12/04/22 02:20 12/04/22 02:15 12/04/22 02:10 12/04/22 02:05 12/04/22 02:00 12/04/22 01:55 12/04/22 01:50 12/04/22 01:46 12/04/22 01:41 12/04/22 01:40 12/04/22 01:35 12/04/22 01:30 12/04/22 01:26 12/04/22 01:25 12/04/22 01:20 12/04/22 01:10 12/04/22 01:00 12/04/22 00:50 12/04/22 01:10 BiPAP 50 12/04/22 01:01 50 Laboratory Results Abnormal Lab Results 12/04/22 12/04/22 12/04/22 00:54 00:54 00:54 WBC 8.47 RBC 3.51 L Hgb 11.9 L Hct 35.0 L MCV 99.7 MCH 33.9 MCHC 34.0 RDW Std Deviation 52.0 H RDW Coeff of [place] 14.3 Plt Count 344 MPV 10.2 Immature Gran % (Auto) 1.9 Neut % (Auto) 89.4 Lymph % (Auto) 7.3 [place] % (Auto) 1.2 Eos % (Auto) 0.0 Baso % (Auto) 0.2 Neut # (Auto) 7.57 H Lymph # (Auto) 0.[address] # (Auto) 0.10 L Eos # (Auto) 0.00 Baso # (Auto) 0.02 Immature Gran # (Auto) 0.16 PT INR APTT PTT Ratio Sodium Potassium Chloride Carbon Dioxide Anion Gap BUN Creatinine Est Cr Clr Drug Dosing Est GFR ( Amer) Est GFR (Non-Af Amer) BUN/Creatinine Ratio Glucose Lactate 7.9 H* Calcium Magnesium Total Bilirubin AST ALT Alkaline Phosphatase Troponin I High Sens B-Natriuretic Peptide 850 H Total Protein Albumin Globulin Albumin/Globulin Ratio Procalcitonin SARS-CoV-2, RNA, NAAT 12/04/22 12/04/22 12/04/22 00:54 00:54 01:00 WBC RBC Hgb Hct MCV MCH MCHC RDW Std Deviation RDW Coeff of [place] Plt Count MPV Immature Gran % (Auto) Neut % (Auto) Lymph % (Auto) [facility] % (Auto) Eos % (Auto) Baso % (Auto) Neut # (Auto) Lymph # (Auto) [place] # (Auto) Eos # (Auto) Baso # (Auto) Immature Gran # (Auto) PT 11.4 INR 1.0 APTT 30.6 PTT Ratio 1.1 Sodium TNP Potassium TNP Chloride 89 L Carbon Dioxide 17 L Anion Gap TNP BUN 23 Creatinine 1.29 D Est Cr Clr Drug Dosing 55.4 Est GFR ( Amer) 62.4 Est GFR (Non-Af Amer) 53.9 BUN/Creatinine Ratio 17.8 Glucose 156 H Lactate Calcium 8.4 L Magnesium TNP Total Bilirubin 0.6 AST TNP ALT 37 Alkaline Phosphatase 115 H Troponin I High Sens 9.3 B-Natriuretic Peptide Total Protein 6.5 Albumin 3.6 Globulin 2.9 Albumin/Globulin Ratio 1.2 Procalcitonin SARS-CoV-2, RNA, NAAT NEGATIVE 12/04/22 12/04/22 12/04/22 01:58 01:58 02:52 WBC RBC Hgb Hct MCV MCH MCHC RDW Std Deviation RDW Coeff of [place] Plt Count MPV Immature Gran % (Auto) Neut % (Auto) Lymph % (Auto) [place] % (Auto) Eos % (Auto) Baso % (Auto) Neut # (Auto) Lymph # (Auto) [facility] # (Auto) Eos # (Auto) Baso # (Auto) Immature Gran # (Auto) PT INR APTT PTT Ratio Sodium 124 L Potassium 4.5 Chloride Carbon Dioxide Anion Gap BUN Creatinine Est Cr Clr Drug Dosing Est GFR ( Amer) Est GFR (Non-Af Amer) BUN/Creatinine Ratio Glucose Lactate 5.9 H* 4.7 H* Calcium Magnesium 1.8 Total Bilirubin AST 24 ALT Alkaline Phosphatase Troponin I High Sens B-Natriuretic Peptide Total Protein Albumin Globulin Albumin/Globulin Ratio Procalcitonin SARS-CoV-2, RNA, NAAT 12/04/22 12/04/22 12/04/22 02:53 07:53 07:53 WBC RBC Hgb Hct MCV MCH MCHC RDW Std Deviation RDW Coeff of [place] Plt Count MPV Immature Gran % (Auto) Neut % (Auto) Lymph % (Auto) [facility] % (Auto) Eos % (Auto) Baso % (Auto) Neut # (Auto) Lymph # (Auto) [facility] # (Auto) Eos # (Auto) Baso # (Auto) Immature Gran # (Auto) PT INR APTT PTT Ratio Sodium 125 L Potassium 4.6 Chloride 90 L Carbon Dioxide 24 Anion Gap 11 BUN 25 H Creatinine 1.31 Est Cr Clr Drug Dosing 50.3 Est GFR ( Amer) 61.3 Est GFR (Non-Af Amer) 52.9 BUN/Creatinine Ratio 19.1 Glucose 131 H Lactate 3.0 H* Calcium 8.8 Magnesium Total Bilirubin AST ALT Alkaline Phosphatase Troponin I High Sens B-Natriuretic Peptide Total Protein Albumin Globulin Albumin/Globulin Ratio Procalcitonin 0.08 SARS-CoV-2, RNA, NAAT 12/04/22 07:53 WBC RBC Hgb Hct MCV MCH MCHC RDW Std Deviation RDW Coeff of [place] Plt Count MPV Immature Gran % (Auto) Neut % (Auto) Lymph % (Auto) [facility] % (Auto) Eos % (Auto) Baso % (Auto) Neut # (Auto) Lymph # (Auto) [facility] # (Auto) Eos # (Auto) Baso # (Auto) Immature Gran # (Auto) PT INR APTT PTT Ratio Sodium Potassium Chloride Carbon Dioxide Anion Gap BUN Creatinine Est Cr Clr Drug Dosing Est GFR ( Amer) Est GFR (Non-Af Amer) BUN/Creatinine Ratio Glucose Lactate Calcium Magnesium Total Bilirubin AST ALT Alkaline Phosphatase Troponin I High Sens 6.6 B-Natriuretic Peptide Total Protein Albumin Globulin Albumin/Globulin Ratio Procalcitonin SARS-CoV-2, RNA, NAAT Diagnostic Findings Echocardiogram performed 10/28/2022: Normal LV systolic function with ejection fraction of 55-60%. Moderate LVH. Mildly reduced RV systolic function. Moderately dilated right atrium. Pulmonary hypertension. No significant valvular heart disease. Chest x-ray obtained the time admission revealed some small bilateral pleural effusions and atelectasis. ECG Additional Comments: EKG demonstrated atrial fibrillation with rapid ventricular response. Nonspecific ST and T-wave changes PG Care Time/CCT Total # of Minutes Spent Total Time Spent with Patient: Total time spent is greater than 50% in coordination of care (as documented) at patient's floor/unit and/or counseling patient: Coding Level of Care Code 43403 INT INP/OBS CARE 3/75MIN Diagnoses Atrial fibrillation with RVR I48.91
[2022-12-04 13:20] LABS: Creatinine Urine Random 59.6 mg/dl
[2022-12-04 13:32] LABS: Base Excess ABG 1.2 mEq/L (-9-1.8); HCO3 ABG 26 mmol/L (19-24); Oxygen Saturation ABG 96.6 % (90-95); PCO2 ABG 41 mmHg (35-46); PO2 ABG 80 mmHg (80-95); pH ABG 7.41 (7.35-7.45)
[2022-12-04 13:33] LABS: Allen Test Pos (Pos)
[2022-12-04 13:50] LABS: BUN Creatinine Ratio 22.2 (10-20); Calcium 8.5 mg/dl (8.6-10.3); Creatinine Clr Calc Pharmacy 56.3 ml/min; Est GFR (African American) 70.3 ml/min; Est GFR (Non-African American) 60.6 ml/min; Potassium 4.8 mmol/L (3.5-5.1)
[2022-12-04] MEDS ORDERED: DIGOXIN 500 MCG in SYRINGE 0 ML IV ONE (14:12)
--- NOTE | 2022-12-04 15:25 | Electrocardiogram Report ---
Test Reason : Blood Pressure : / mmHG Vent. Rate : 105 BPM Atrial Rate : 000 BPM P-R Int : 000 ms QRS Dur : 092 ms QT Int : 354 ms P-R-T Axes : 000 030 -03 degrees QTc Int : 467 ms Atrial fibrillation with rapid ventricular response Nonspecific ST and T wave abnormality Abnormal ECG When compared with ECG of 03-DEC-2022 12:11, Nonspecific T wave abnormality now evident in Lateral leads Confirmed by Balaji Alejandre ([id number]) on 12/04/2022 3:24:40 PM Referred By: REFERRED SELF Confirmed By:Oli Alejandre
[2022-12-04] MEDS: ESCITALOPRAM OXALATE 10 MG TAB PO SCH (20:48)
[2022-12-04] MEDS: PRAVASTATIN SOD 20 MG TAB PO SCH (20:48)
[2022-12-04] MEDS ORDERED: DIGOXIN 250 MCG in SYRINGE 9 ML IV ONE (23:05)
[2022-12-05] MEDS ORDERED: MoRPHine SULFATE 2 MG/ML CARP IV STA (01:51)
[2022-12-05] MEDS ORDERED: STAT IV Infusion **Titration per Protocol STA ×2 (03:54→12:17)
[2022-12-05] MEDS ORDERED: NOREPINEPHRINE/D5W 4 MG/250 ML PLCT IV SCH (04:00)
[2022-12-05] MEDS ORDERED: LACTATED RINGER'S 1,000 ML IV ONE (04:10)
[2022-12-05] MEDS: METOPROLOL TARTRATE 100 MG TAB PO SCH ×2 (08:15→21:21)
[2022-12-05] MEDS: CYANOCOBALAMIN (B-12) 500 MCG TABLET PO SCH (08:15)
[2022-12-05] MEDS: APIXABAN 5 MG TABLET PO SCH ×2 (08:15→21:23)
[2022-12-05] MEDS: allopurinoL 300 MG TAB PO SCH (08:15)
[2022-12-05] MEDS ORDERED: FUROSEMIDE 40 MG/4 ML VIAL IV ONE ×2 (08:48→19:56)
[2022-12-05] MEDS ORDERED: methylPREDNISolone 40 MG in SYRINGE 0 ML IV SCH (09:00)
--- NOTE | 2022-12-05 09:10 | Cardiology Progress Note ---
Date of Service December 05, 2022 Assessment & Plan (1) Atrial fibrillation with RVR: Plan 1. Atrial fibrillation: Likely permanent. Overall in adequate rate control. It may be difficult to obtain adequate rate control in the setting of his significant pulmonary decompensation. He was given a loading dose of digoxin over the course of the last day. Will add this to his daily regimen. I think we will stop his diltiazem infusion and return him to an oral dose. Continue beta-blockade as well. I do not think there is any role for cardioversion. In the absence of better rate control with clinical improvement we could consider amiodarone as well. Will continue systemic anticoagulation Admission and Anticipated Discharge Date Admission Date: December 04, 2022 Subjective This morning the patient was very somnolent and poorly conversant. He was noted by the nursing staff to be more confused over the course of the evening. Somewhat combative at times in agitated. Review of Systems Review of Systems: Unobtainable due to cognitive status Physical Exam Physical Exam: Somnolent. Using noninvasive ventilation. On supplemental oxygen. HEENT: Pupils are equal and reactive to light and accommodation. Extraocular movements are intact. The sclerae are anicteric. Neuro: Cranial nerves intact Lungs: Poor air movement overall. Distant lung sounds with prolonged expiratory phase. Expiratory wheezing noted. Increased work of breathing. Cardiac: Heart demonstrates an irregular rate and rhythm. Normal S1 and S2. No murmurs on examination. P Results & Data Vital Signs (Past 12 Hours) Vital Signs Temp Pulse Pulse Resp BP Pulse Ox Pulse Ox 12/05/22 07:38 36.4 C L 132 H 20 110/87 93 12/05/22 07:20 102 H 29 H 92 12/05/22 03:53 96 12/05/22 03:43 36.4 C L 73 22 149/84 H 96 12/05/22 00:00 84 12/05/22 02:04 104 H 28 H 91 12/04/22 23:45 36.3 C L 85 24 138/98 90 12/04/22 23:20 80 12/04/22 22:48 84 21 90 O2 Del Method O2 Del Method O2 Flow Rate FiO2 12/05/22 07:38 BiPAP 12/05/22 07:20 50 12/05/22 03:53 BiPAP 12/05/22 03:43 BiPAP 12/05/22 00:00 12/05/22 02:04 50 12/04/22 23:45 BiPAP 40 12/04/22 23:20 12/04/22 22:48 12 40 Laboratory Results Abnormal Lab Results 12/04/22 12/04/22 12/04/22 02:53 11:45 11:45 ABG pH ABG pCO2 ABG pO2 ABG HCO3 ABG O2 Saturation ABG Base Excess Georges Test Oxygen Given Sodium Potassium Chloride Carbon Dioxide Anion Gap BUN Creatinine Est Cr Clr Drug Dosing Est GFR ( Amer) Est GFR (Non-Af Amer) BUN/Creatinine Ratio Glucose Calcium Procalcitonin 0.08 Urine Osmolality 334 L Ur Random Creatinine 59.6 Ur Random Sodium 51 12/04/22 12/04/22 13:19 13:19 ABG pH 7.41 ABG pCO2 41 ABG pO2 80 ABG HCO3 26 H ABG O2 Saturation 96.6 H ABG Base Excess 1.2 Georges Test Pos Oxygen Given 35% Sodium 124 L Potassium 4.8 Chloride 90 L Carbon Dioxide 25 Anion Gap 9 BUN 26 H Creatinine 1.17 Est Cr Clr Drug Dosing 56.3 Est GFR ( Amer) 70.3 Est GFR (Non-Af Amer) 60.6 BUN/Creatinine Ratio 22.2 H Glucose 133 H Calcium 8.5 L Procalcitonin Urine Osmolality Ur Random Creatinine Ur Random Sodium PG Care Time/CCT Total # of Minutes Spent Total Time Spent with Patient: Total time spent is greater than 50% in coordination of care (as documented) at patient's floor/unit and/or counseling patient: Coding Level of Care Code 82228 SUB INP/OBS CARE 2/35MIN Diagnoses Atrial fibrillation with RVR I48.91
[2022-12-05] MEDS ORDERED: dilTIAZem HCL 300 MG CAPCR PO SCH (09:15)
[2022-12-05] MEDS ORDERED: DIGOXIN 250 MCG in SYRINGE 9 ML IV ONE (09:15)
[2022-12-05] MEDS: LEVALBUTEROL 0.31MG/3 ML VIAL INH SCH ×3 (09:16→19:08)
[2022-12-05 09:19] LABS: Basophils # (auto) 0.02 K/uL (0-0.2); Basophils % (auto) 0.2 %; Hematocrit (blood only) 34.7 % (42.0-52.0); Hemoglobin 11.7 g/dl (14.0-18.0); Immature Granulocytes # (auto) 0.22 K/uL (0.01-0.20); Immature Granulocytes % (auto) 1.7 %; Lymphocytes % (auto) 5.6 %; Mean Corpuscular Hemoglobin 33.6 pg (25.0-34.0); Mean Corpuscular Hgb Conc 33.7 g/dL (32.0-36.0); Mean Corpuscular Volume 99.7 fL (80.0-100.0); Monocytes # (auto) 0.73 K/uL (0.11-0.59); Monocytes % (auto) 5.8 %; Neutrophils # (auto) 10.94 K/uL (1.40-6.50); Neutrophils % (auto) 86.7 %; Platelet Count 344 K/uL (130-400); RDW Coefficient of Variation 13.9 % (11.5-14.5); RDW Standard Deviation 50.6 fL (36.4-46.3); Red Blood Count 3.48 M/uL (4.70-6.10); White Blood Count 12.61 K/ul (4.8-10.8)
[2022-12-05 09:36] LABS: BUN Creatinine Ratio 28.8 (10-20); Calcium 8.8 mg/dl (8.6-10.3); Creatinine Clr Calc Pharmacy 63.4 ml/min; Est GFR (Non-African American) 69.9 ml/min; Magnesium 1.9 mg/dl (1.7-2.4); Potassium 4.8 mmol/L (3.5-5.1)
[2022-12-05 09:58] LABS: iSTAT Allen Test Pass; iSTAT Art Bld Gas pCO2 Correct 54 mmHg (35-46); iSTAT Art Bld Gas pH Corrected 7.346 (7.35-7.45); iSTAT Arterial Blood Gas HCO3 30 meg/L (19-24); iSTAT Arterial Blood Gas pCO2 56 mmHg (35-46); iSTAT Arterial Blood Gas pH 7.34 (7.35-7.45); iSTAT Arterial Blood Gas pO2 68 mmHg (80-95); iSTAT Arterial Blood Gas pO2 C 65; iSTAT Carbon Dioxide 32 mmol/L (24-31); iSTAT FiO2 50 %; iSTAT Hematocrit 35 % (42-52); iSTAT Hemoglobin 11.9 g/dl (14.0-18.0); iSTAT Potassium 4.4 mmol/L (3.3-5.0); iSTAT Site L Radial; iSTAT Sodium 125 mmol/L (135-144)
[2022-12-05] MEDS ORDERED: MAGNESIUM SULFATE / D5W 1 GM/100 ML BAG IV ONE (10:15)
[2022-12-05] MEDS: FLUTICASONE FUROATE 100MCG 14 PUFFS/INHALER INH SCH (10:25)
[2022-12-05] MEDS: DOXYCYCLINE HYCLATE 100 MG in DEXTROSE 5% 100 ML IV SCH ×2 (10:25→21:20)
[2022-12-05] MEDS: UMECLIDINIUM/VILANTEROL 62.5/25MCG 7 PUFFS/INHALER INH SCH (10:26)
[2022-12-05] MEDS ORDERED: dilTIAZem HCL 125 MG in DEXTROSE 5% 100 ML IV SCH (12:30)
[2022-12-05] MEDS ORDERED: DIGOXIN 0.25 MG TAB PO SCH (16:00)
--- NOTE | 2022-12-05 20:00 | Hospitalist Progress Note ---
Date of Service December 05, 2022 Assessment & Plan (1) Acute and chronic respiratory failure with hypoxia: Plan: Patient presents with worsening shortness of breath and found to have hypoxic respiratory failure secondary to acute on chronic HFpEF and right-sided heart failure There is also question of pneumonia although his procalcitonin is negative. He has not had any fevers. There is intermittent leukocytosis though. Has been on BiPAP continuously since admission without improvement despite initial antibiotics, and with IV diuresis Repeat ABG shows mild hypercapnia -He has significant hallucinations with IV steroids and will not add those on considering his ongoing encephalopathy to begin with -Started doxycycline but will also add on Zosyn for gram-negative coverage given recent hospitalization although this is most likely not a bacterial pneumonia -Continue diuretics -With underlying severe COPD to begin with on 4 L nasal cannula at home at baseline -Very poor prognosis, had lengthy discussion with his on 12/05 who is considering transitioning him to comfort measures only -If hypoxia or respiratory failure or distress worsens, is okay with giving morphine for breathlessness and lorazepam as needed for agitation -Remain on BiPAP until all family is able to come to the hospital to see him before transition to likely [employer] tomorrow (2) Atrial fibrillation with RVR: Plan: Presents with rapid atrial fibrillation and heart failure with respiratory failure as above Patient started on IV Cardizem bolus along with IV diltiazem infusion for rate control. Digoxin load was given on 12/04 with improved rate control-continue p.o. digoxin if can take Continue telemetry monitoring Patient already anticoagulated with Eliquis although he is not able to take p.o. at this time-defer on parenteral anticoagulation as he likely will be transitioning to comfort measures tomorrow (3) Acute on chronic right-sided congestive heart failure: Plan: As above Diuresing (4) Acute encephalopathy: Plan: Severe and worsening throughout hospitalization. ABG with only mild CO2 retention likely not contributing Perhaps cefepime caused encephalopathy that he received on admission? He also received 1 dose of morphine 0.5 Mg IV overnight on 12/04 but not likely that that is contributing to ongoing encephalopathy. He is confused, agitated at times and pulling things out, also lethargic and almost obtunded at times. He is moving all extremities and no concern for stroke. Most likely related to hypoxia, hyponatremia, and possible pneumonia Correcting hyponatremia as below Treating pneumonia Continue supportive care Consideration being made for transition to comfort measures only tomorrow (5) Hyponatremia: Plan: Sodium level was 124 on arrival Hyponatremia likely secondary to hypervolemia Improved 129 with IV diuretics Continue diuresis Follow BMP (6) COPD exacerbation: Plan: Patient also has underlying history of COPD and was placed on BiPAP Continue bronchodilators and changed to scheduled He cannot tolerate IV steroids as they cause severe hallucinations (7) Elevated lactic acid level: Plan: Patient found to have elevated lactic acid over 4.2 upon initial admission Likely secondary to hypoxia, he does not seem to have metabolic acidosis to go along with this Trended downward (8) Hypertension: Plan: Blood pressures are actually borderline low at times Continue metoprolol if he can take p.o. On diltiazem drip which is now on hold (9) Hypercholesterolemia: Plan: Continue statin therapy if can take p.o. Plan DVT prophylaxis-Eliquis Disposition-critically ill and deteriorating. Had lengthy discussion with on both 12/04 and again on 12/05. She reiterates that he recently has said that he is ready to pass away and is tired of repeated hospitalizations and how he has been feeling. He has an advanced directive with DNR/DNI and a state with a poor prognosis. is considering transitioning to comfort measures only, but wants to discuss his care with other family members and make a final decision by tomorrow if he continues to decline. She certainly is okay with giving him IV morphine for respiratory distress and IV lorazepam as needed for agitation and anxiety if he needs it overnight. I informed her that she would be notified if his condition deteriorates in the middle of the night Admission and Anticipated Discharge Date Admission Date: December 04, 2022 Results & Data Results & Data Vital Signs (Past 12 Hours) Vital Signs Temp Pulse Pulse Resp BP Pulse Ox O2 Del Method 12/05/22 19:44 100 H 90 BiPAP 12/05/22 19:28 36.9 C 57 L 18 125/59 L 88 L Room Air, BiPAP 12/05/22 19:08 77 25 H 91 BiPAP 12/05/22 15:00 84 12/05/22 16:20 36.5 C 89 18 135/89 91 BiPAP 12/05/22 12:50 26 H 92 12/05/22 12:50 22 93 BiPAP 12/05/22 08:00 BiPAP 12/05/22 11:37 36.5 C 84 20 113/74 91 BiPAP 12/05/22 09:38 19 91 12/05/22 09:20 26 H BiPAP FiO2 12/05/22 19:44 12/05/22 19:28 12/05/22 19:08 50 12/05/22 15:00 12/05/22 16:20 12/05/22 12:50 50 12/05/22 12:50 50 12/05/22 08:00 45 12/05/22 11:37 12/05/22 09:38 50 12/05/22 09:20 50 PG Care Time/CCT Total # of Minutes Spent Total Time Spent with Patient: Total time spent is greater than 50% in coordination of care (as documented) at patient's floor/unit and/or counseling patient: Coding Level of Care Code 36645 SUB INP/OBS CARE 3/50MIN Diagnoses Acute and chronic respiratory failure with hypoxia J96.21 Atrial fibrillation with RVR I48.91 Acute on chronic right-sided congestive heart failure I50.813 Acute encephalopathy G93.40 Hyponatremia E87.1 COPD exacerbation J44.1 Elevated lactic acid level R79.89 Hypertension I10 Hypertension type: essential hypertension Hypercholesterolemia E78.00 (8) Hypertension Hypertension type: essential hypertension Qualified Code(s): I10 - Essential (primary) hypertension
[2022-12-05] MEDS ORDERED: MoRPHine SULFATE 2 MG/ML CARP IV PRN (20:07)
[2022-12-05] MEDS ORDERED: PIPERACILLIN/TAZOBACTAM 4.5 GM (over 30 mins) IV ONE (20:15)
[2022-12-05] MEDS: ESCITALOPRAM OXALATE 10 MG TAB PO SCH (21:20)
[2022-12-05] MEDS: PRAVASTATIN SOD 20 MG TAB PO SCH (21:22)
[2022-12-06] MEDS: PIPERACILLIN/TAZOBACTAM 4.5 GM in DEXTROSE 5% 100 ML IV SCH ×3 (03:15→20:57)
[2022-12-06 06:54] LABS: Eosinophils # (auto) 0.01 K/uL (0-0.50); Eosinophils % (auto) 0.1 %; Hematocrit (blood only) 31.9 % (42.0-52.0); Immature Granulocytes # (auto) 0.07 K/uL (0.01-0.20); Immature Granulocytes % (auto) 0.9 %; Lymphocytes % (auto) 13.5 %; Mean Corpuscular Hemoglobin 33.6 pg (25.0-34.0); Mean Corpuscular Hgb Conc 34.5 g/dL (32.0-36.0); Mean Corpuscular Volume 97.6 fL (80.0-100.0); Mean Platelet Volume 10.3 fL (9.4-12.4); Monocytes # (auto) 0.72 K/uL (0.11-0.59); Monocytes % (auto) 8.8 %; Neutrophils # (auto) 6.25 K/uL (1.40-6.50); Neutrophils % (auto) 76.7 %; Platelet Count 267 K/uL (130-400); RDW Coefficient of Variation 13.7 % (11.5-14.5); RDW Standard Deviation 48.7 fL (36.4-46.3); Red Blood Count 3.27 M/uL (4.70-6.10); White Blood Count 8.15 K/ul (4.8-10.8)
[2022-12-06] MEDS: LEVALBUTEROL 0.31MG/3 ML VIAL INH SCH ×3 (07:05→19:15)
[2022-12-06 07:21] LABS: Albumin Globulin Ratio 1.4 (0.9-2); BUN Creatinine Ratio 21.3 (10-20); Bilirubin,Total 0.8 mg/dl (0.2-1.0); Calcium 8.6 mg/dl (8.6-10.3); Creatinine Clr Calc Pharmacy 70.1 ml/min; Est GFR (African American) 91.6 ml/min; Globulin 2.2 gm/dl (2.5-4.0); Magnesium 1.8 mg/dl (1.7-2.4); Potassium 3.9 mmol/L (3.5-5.1); Total Protein 5.2 gm/dl (6.0-8.3)
[2022-12-06] MEDS ORDERED: dilTIAZem HCl 5 MG/ML 5 ML VIAL IV STA (08:04)
[2022-12-06] MEDS ORDERED: STAT IV Infusion **Titration per Protocol STA (08:04)
[2022-12-06] MEDS ORDERED: MAGNESIUM SULFATE / D5W 1 GM/100 ML BAG IV ONE (08:10)
[2022-12-06] MEDS ORDERED: POTASSIUM CHLORIDE / WTR 10 MEQ/100 ML PLCT IV ONE (08:10)
[2022-12-06] MEDS ORDERED: FUROSEMIDE 40 MG/4 ML VIAL IV ONE ×2 (08:12→10:14)
[2022-12-06] MEDS: dilTIAZem HCL 125 MG in DEXTROSE 5% 100 ML IV SCH ×2 (08:30→20:50)
[2022-12-06] MEDS ORDERED: ENOXAPARIN 1 MG/KG SQ SCH (08:45)
[2022-12-06] MEDS: METOPROLOL TARTRATE 100 MG TAB PO SCH ×2 (09:28→20:24)
[2022-12-06] MEDS: APIXABAN 5 MG TABLET PO SCH (09:28)
[2022-12-06] MEDS: CYANOCOBALAMIN (B-12) 500 MCG TABLET PO SCH (09:28)
[2022-12-06] MEDS: UMECLIDINIUM/VILANTEROL 62.5/25MCG 7 PUFFS/INHALER INH SCH (10:15)
[2022-12-06] MEDS: DOXYCYCLINE HYCLATE 100 MG in DEXTROSE 5% 100 ML IV SCH ×2 (10:15→21:07)
[2022-12-06] MEDS: FLUTICASONE FUROATE 100MCG 14 PUFFS/INHALER INH SCH (10:15)
--- NOTE | 2022-12-06 10:55 | XRay Report ---
XR chest 1V portable CLINICAL HISTORY: f/u hypoxia,CHF,?PNA TECHNIQUE: Single frontal radiograph of the chest was obtained. Comparison: Comparison is made to chest radiograph 12/04/2022 FINDINGS: No lines and tubes are seen. Cardiomegaly is noted. Right upper lung airspace opacity is seen. There is elevation of the right hemidiaphragm. Left lower lung airspace opacity has improved. There is a sm all left pleural effusion. IMPRESSION: Evolutionary change of bilateral airspace opacities which may represent shifting atelectasis. Underly ing pneumonia cannot be excluded. ACT 112: Negative or not required by law. Electronically signed by: Errol Young M.D. 12/06/2022 10:54 AM
[2022-12-06] MEDS: ENOXAPARIN 80 MG/0.8 ML SYR SQ SCH ×2 (11:19→20:31)
--- NOTE | 2022-12-06 12:26 | Hospitalist Progress Note ---
Date of Service December 06, 2022 Assessment & Plan (1) Acute and chronic respiratory failure with hypoxia: Plan: Patient presents with worsening shortness of breath and found to have hypoxic respiratory failure secondary to acute on chronic HFpEF and right-sided heart failure as well as pneumonia There is also question of pneumonia although his procalcitonin is negative. He has not had any fevers. There is intermittent leukocytosis though. Chest x-ray worsened and now appears to have multifocal pneumonia on 12/06 Has been on BiPAP continuously since admission without improvement despite initial antibiotics, and with IV diuresis Repeat ABG shows mild hypercapnia -He has significant hallucinations with IV steroids and will not add those on considering his ongoing encephalopathy to begin with -Continue doxycycline for atypical coverage and Zosyn for gram-negative coverage given recent hospitalization -Continue diuretics-continue Lasix 40 Mg IV twice daily -With underlying severe COPD to begin with on 4 L nasal cannula at home at [facility] -Very poor prognosis, had lengthy discussion with his on 12/05 and again on 12/06 who is considering transitioning him to comfort measures only. Patient's mentation did improve on 12/06 as hyponatremia improved. He is agreeable to remaining on BiPAP at this time but is in agreement that if his respiratory status does not improve or declines, he would be agreeable to transition to comfort measures only (2) Atrial fibrillation with RVR: Plan: Presents with rapid atrial fibrillation and heart failure with respiratory failure as above Restart Cardizem drip for rate control as well as IV digoxin-he is unable to take p.o. meds at this time. Digoxin level acceptable Continue telemetry monitoring Patient already anticoagulated with Eliquis although he is not able to take p.o. at this time-start Lovenox therapeutic dosing twice daily while unable to take p.o. Eliquis (3) Pneumonia: Plan: Treated for initially in the ER, but procalcitonin was negative as above and antibiotics were not continued Now with worsening leukocytosis, hypoxia, and development of pneumonia on chest x-ray, started Zosyn and doxycycline on 12/05 Continue antibiotics -Continue BiPAP support (4) Acute on chronic right-sided congestive heart failure: Plan: As above Diuresing (5) Acute encephalopathy: Plan: Severe and worsening throughout hospitalization. ABG with only mild CO2 retention likely not contributing Perhaps cefepime caused encephalopathy that he received on admission? He also received 1 dose of morphine 0.5 Mg IV overnight on 12/04 but not likely that that is contributing to ongoing encephalopathy. He is confused, agitated at times and pulling things out, also lethargic and almost obtunded at times. He is moving all extremities and no concern for stroke. Most likely related to hypoxia, hyponatremia, and possible pneumonia On 12/06, he is much more mentally clear, able to converse and understands his medical situation. His hyponatremia has resolved. He remains on BiPAP and oxygenation status is acceptable Continue to monitor for electrolyte abnormalities Treating pneumonia Continue supportive care (6) Hyponatremia: Plan: Sodium level was 124 on arrival Hyponatremia likely secondary to hypervolemia Improved now to 135 with IV diuresis Continue diuresis Follow BMP in the morning (7) COPD exacerbation: Plan: Patient also has underlying history of COPD and was placed on BiPAP Continue bronchodilators scheduled He cannot tolerate IV steroids as they cause severe hallucinations. He can tolerate prednisone, but is not able to take pills at this time due to severe respiratory distress anytime he is taken off BiPAP (8) Elevated lactic acid level: Plan: Patient found to have elevated lactic acid over 4.2 upon initial admission Likely secondary to hypoxia, he does not seem to have metabolic acidosis to go along with this Trended downward (9) Hypertension: Plan: Blood pressures are stable to mildly elevated Continue metoprolol if he can take p.o. On diltiazem drip Getting diuresis (10) Hypercholesterolemia: Plan: Continue statin therapy if can take p.o. Plan DVT prophylaxis-Eliquis Disposition-critically ill and deteriorating. Had lengthy discussion with on both 12/04 and again on 12/05 as well as 12/06. She reiterates that he recently has said that he is ready to pass away and is tired of repeated hospitalizations and how he has been feeling. He has an advanced directive with DNR/DNI and a state with a poor prognosis. is considering transitioning to comfort measures only on 12/05, but wants to discuss his care with other family members and make a final decision by tomorrow if he continues to decline. On 12/06, patient is more awake and alert and able to make decisions. He is okay with continuing BiPAP for now but if deteriorates or has worsening respiratory distress, would like to transition to comfort measures only IV morphine for respiratory distress and IV lorazepam as needed for agitation and anxiety are ordered if needed Admission and Anticipated Discharge Date Admission Date: December 04, 2022 Subjective Patient is more awake and alert today, able to answer questions. Reports he is okay with continuing on BiPAP. Attempt was made to remove him from BiPAP for 20 minutes and was on 10 L oxygen mask. He had severe tachypnea and had to be placed back on BiPAP. He has now been on BiPAP for over 48 hours Telemetry with atrial fibrillation with rates in the 110s to 160s Discussed care with cardiology Physical Exam Constitutional: WD/WN, vitals as above Eyes: + anicteric sclerae Neck: trachea midline, no thyromegaly Respiratory: normal respiratory effort (With BiPAP in place); not tachypneic Auscultation: + crackles (Bibasilar); no rhonchi and no wheezes Cardiovascular: Rate/Rhythm: + tachycardic and + irregularly irregular Heart Sounds: no murmur Extremities: + edema (Trace pitting edema legs bilaterally) Chest (Breasts): Chest: normal inspection of chest Gastrointestinal (Abdomen): normal bowel sounds, soft, nontender, no hepatosplenomegaly Musculoskeletal: Extremities: extremities normal to inspection; no cyanosis and no clubbing Skin: no rashes, warm and dry Neurologic: moves all extremities and awake; no focal motor deficits Psychiatric: A+Ox3, euthymic affect Results & Data Results & Data Vital Signs (Past 12 Hours) Vital Signs Temp Pulse Pulse Resp BP Pulse Ox Pulse Ox 12/06/22 11:47 36.4 C L 73 20 127/70 96 12/06/22 08:00 12/06/22 07:26 36.4 C L 83 20 147/69 H 99 12/06/22 07:00 99 H 12/06/22 07:05 80 22 93 12/06/22 07:05 80 22 94 12/06/22 03:10 36.4 C L 74 22 134/70 98 12/06/22 03:10 98 12/06/22 02:27 102 H 26 H 97 O2 Del Method O2 Del Method FiO2 12/06/22 11:47 BiPAP 12/06/22 08:00 BiPAP 60 12/06/22 07:26 BiPAP 12/06/22 07:00 12/06/22 07:05 60 12/06/22 07:05 BiPAP 60 12/06/22 03:10 BiPAP 60 12/06/22 03:10 BiPAP 12/06/22 02:27 60 Laboratory Results CBC, BMP, LFTs, magnesium, digoxin level reviewed Blood cultures no growth to date Diagnostic Findings Chest x-ray image personally reviewed by me PG Care Time/CCT Total # of Minutes Spent Total Time Spent with Patient: Total time spent is greater than 50% in coordination of care (as documented) at patient's floor/unit and/or counseling patient: Coding Level of Care Code 81316 SUB INP/OBS CARE 3/50MIN Diagnoses Acute and chronic respiratory failure with hypoxia J96.21 Atrial fibrillation with RVR I48.91 Pneumonia J18.9 Laterality: left Lung location: lower lobe of lung Pneumonia type: due to unspecified organism Acute on chronic right-sided congestive heart failure I50.813 Acute encephalopathy G93.40 Hyponatremia E87.1 COPD exacerbation J44.1 Elevated lactic acid level R79.89 Hypertension I10 Hypertension type: essential hypertension Hypercholesterolemia E78.00 (3) Pneumonia Laterality: left Lung location: lower lobe of lung Pneumonia type: due to unspecified organism Qualified Code(s): J18.9 - Pneumonia, unspecified organism (9) Hypertension Hypertension type: essential hypertension Qualified Code(s): I10 - Essential (primary) hypertension
[2022-12-06] MEDS ORDERED: DIGOXIN 250 MCG in SYRINGE 9 ML IV SCH (16:00)
[2022-12-06] MEDS: PRAVASTATIN SOD 20 MG TAB PO SCH (20:24)
[2022-12-06] MEDS: ESCITALOPRAM OXALATE 10 MG TAB PO SCH (20:24)
[2022-12-06] MEDS: FUROSEMIDE 40 MG/4 ML VIAL IV SCH (20:26)
[2022-12-07] MEDS: PIPERACILLIN/TAZOBACTAM 4.5 GM in DEXTROSE 5% 100 ML IV SCH ×2 (04:01→12:08)
[2022-12-07] MEDS: LORazepam 2 MG/1 ML VIAL IV PRN ×4 (04:53→21:42)
[2022-12-07 06:52] LABS: Basophils # (auto) 0.02 K/uL (0-0.2); Basophils % (auto) 0.2 %; Eosinophils # (auto) 0.04 K/uL (0-0.50); Eosinophils % (auto) 0.5 %; Hematocrit (blood only) 35.6 % (42.0-52.0); Hemoglobin 11.8 g/dl (14.0-18.0); Immature Granulocytes # (auto) 0.08 K/uL (0.01-0.20); Immature Granulocytes % (auto) 0.9 %; Lymphocytes # (auto) 1.38 K/uL (1.2-3.4); Lymphocytes % (auto) 15.7 %; Mean Corpuscular Hemoglobin 33.3 pg (25.0-34.0); Mean Corpuscular Hgb Conc 33.1 g/dL (32.0-36.0); Mean Corpuscular Volume 100.6 fL (80.0-100.0); Mean Platelet Volume 10.2 fL (9.4-12.4); Monocytes # (auto) 0.73 K/uL (0.11-0.59); Monocytes % (auto) 8.3 %; Neutrophils # (auto) 6.54 K/uL (1.40-6.50); Neutrophils % (auto) 74.4 %; Platelet Count 266 K/uL (130-400); RDW Coefficient of Variation 13.9 % (11.5-14.5); RDW Standard Deviation 51.1 fL (36.4-46.3); Red Blood Count 3.54 M/uL (4.70-6.10); White Blood Count 8.79 K/ul (4.8-10.8)
[2022-12-07 07:07] LABS: Albumin Globulin Ratio 1.4 (0.9-2); Albumin Level 3.2 gm/dl (3.4-5.0); BUN Creatinine Ratio 17.7 (10-20); Bilirubin,Total 1.1 mg/dl (0.2-1.0); Calcium 8.8 mg/dl (8.6-10.3); Creatinine Clr Calc Pharmacy 58.3 ml/min; Est GFR (African American) 73.3 ml/min; Est GFR (Non-African American) 63.2 ml/min; Globulin 2.3 gm/dl (2.5-4.0); Magnesium 1.5 mg/dl (1.7-2.4); Potassium 3.6 mmol/L (3.5-5.1); Total Protein 5.5 gm/dl (6.0-8.3)
[2022-12-07] MEDS: LEVALBUTEROL 0.31MG/3 ML VIAL INH SCH ×3 (07:10→19:43)
[2022-12-07] MEDS: dilTIAZem HCL 125 MG in DEXTROSE 5% 100 ML IV SCH ×2 (07:45→15:48)
[2022-12-07] MEDS: DOXYCYCLINE HYCLATE 100 MG in DEXTROSE 5% 100 ML IV SCH (08:18)
[2022-12-07] MEDS: FLUTICASONE FUROATE 100MCG 14 PUFFS/INHALER INH SCH (08:19)
[2022-12-07] MEDS: UMECLIDINIUM/VILANTEROL 62.5/25MCG 7 PUFFS/INHALER INH SCH (08:21)
[2022-12-07] MEDS: FUROSEMIDE 40 MG/4 ML VIAL IV SCH ×2 (08:21→17:03)
[2022-12-07] MEDS: ENOXAPARIN 80 MG/0.8 ML SYR SQ SCH (08:21)
[2022-12-07] MEDS: METOPROLOL TARTRATE 100 MG TAB PO SCH ×2 (08:22→20:25)
[2022-12-07] MEDS: MAGNESIUM SULFATE / D5W 1 GM/100 ML BAG IV SCH ×3 (08:34→12:07)
[2022-12-07] MEDS: POTASSIUM CHLORIDE / WTR 10 MEQ/100 ML PLCT IV SCH ×4 (08:37→12:04)
--- NOTE | 2022-12-07 13:08 | Palliative Care Consultation ---
Date of Consultation December 07, 2022 Assessment & Plan (1) SOB (shortness of breath): with advanced COPD, heart failure and afib with RVR He denies dyspnea at rest currently He does have order for prn morphine for dyspnea We talked about Bipap, he is ok with using it as needed (2) Acute encephalopathy: Variable Does answer some questions appropriately He is able to tell me his 's name and where he lives. (3) Palliative care encounter: I talked with Mr. Murillo about how he is coping with his illness. He is very ambiguous about his illness and tells me that he doesn't worry about it, that whatever happens, happens. He tells me that he is [employer] and has strong fidel. He is not worried about his spirituality. He is not able to tell me about his understanding of his illness and does not specifically talk about dying. I asked him if he ever thinks about dying and what he would want for his care if he were very ill and he told me that he hadn't really thought about that. He is DNR/DNI and his has discussed goals of care with Dr. Altamirano earlier in this admission. I later met with him and his , Nena, at bedside. She tells me that she and Velasquez have discussed this in the past and that he did not want interventions to prolong his life if he were not able to enjoy the things that he usually does. Velasquez talks about wanting to go for drives in the car and visit family, which he is no longer able to do. We talked about concern that he has not had good quality of life in the last few months with frequent hospitalizations and shortness of breath. He does not feel that he wants to continue living like that. We discussed option for focus on comfort rather than disease management and what that would look like. We discussed using medications only to improve his quality of life. At this point, he denies dyspnea at rest and has family coming to visit. We will order morphine prn for relief of dyspnea. He may need infusion for severe dyspnea like he had a few days ago. Will monitor. Discussed with RN and Dr. Altamirano. History of Present Illness Reason for Consultation: goals of care Requesting Physician: Dr. Altamirano Attending Physician: Chelle Altamirano MD History of Present Illness 77 yo gentleman with end stage COPD, heart failure and afib with RVR. This is his third hospitalization in the last two months. He presented with worsening shortness of breath and acute on chronic hypoxic respiratory failure. He has been on bipap and was initially pretty much bipap dependent. He is currently off bipap, on high flow O2 and denies feeling short of breath at rest. He has had increase in his CO2 level since yesterday and does have some confusion. He is currently being treated for pneumonia and has been started on digoxin in addition to his previous diltiazem and metoprolol for rate control. He did have cardioversion on his last admission but is again in afib. He is able to answer some questions appropriately but tells me that he is in [place] and is not able to tell me why he is in the hospital. Allergies Allergy/AdvReac Type Severity Reaction Status Date / Time lisinopril Allergy Severe Swelling Verified 12/04/22 01:12 of face methylprednisolone AdvReac Intermediate HALLUCINATION-IV Verified 12/04/22 01:12 SOLUMEDROL budesonide AdvReac Unknown DIDN'T WORK Verified 12/04/22 01:12 [From [employer]] formoterol AdvReac Unknown DIDN'T WORK Verified 12/04/22 01:12 [From [employer]] glycopyrrolate AdvReac Unknown DIDN'T WORK Verified 12/04/22 01:12 [From [employer]] Home Medications Medication Instructions Recorded Confirmed Type fluticasone fur. 100 mcg-umeclid 1 inh inhalation QAM 03/31/22 12/04/22 History 62.5 mcg-vilant 25 mcg inhalat.powder (Trelegy Ellipta) allopurinol 300 mg tablet 300 mg PO QAM #90 tabs 07/17/22 12/04/22 Rx escitalopram oxalate 10 mg tablet 10 mg PO HS #90 tabs 07/21/22 12/04/22 Rx (Lexapro) cyanocobalamin (vitamin B-12) 1,000 mcg sublingual DAILY 09/11/22 12/04/22 History 1,000 mcg sublingual tablet apixaban 5 mg tablet (Eliquis) 5 mg PO BID #60 tabs 10/30/22 12/04/22 Rx diltiazem HCl 240 mg 240 mg PO QAM #30 caps 11/04/22 12/04/22 Rx capsule,extended release 24 hr metoprolol tartrate 100 mg tablet 100 mg PO BID #60 tabs 11/04/22 12/04/22 Rx levalbuterol HCl 0.31 mg/3 mL 0.31 mg (3 mL) inhalation TID PRN 11/10/22 12/04/22 Rx solution for nebulization shortness of breath or wheezing #75 mL pravastatin 20 mg tablet 20 mg PO HS 11/18/22 12/04/22 History peg 3350-electrolytes 236 240 ml PO Q10M #4,000 mL 11/20/22 12/04/22 Rx gram-22.74 gram-6.74 gram-5.86 gram solution (GaviLyte-G) furosemide 40 mg tablet (Lasix) 40 mg PO DAILY #30 tabs 11/21/22 12/04/22 Rx potassium chloride 10 mEq 10 meq PO DAILY #30 caps 11/21/22 12/04/22 Rx capsule,extended release levofloxacin 500 mg tablet 500 mg PO DAILY 10 days #7 tabs 12/03/22 12/04/22 Rx Patient History Medical History Acute and chronic respiratory failure with hypoxia Acute on chronic right-sided congestive heart failure Alcohol withdrawal Atrial fibrillation with rapid ventricular response Chronic gout Chronic hypercapnic respiratory failure COPD (chronic obstructive pulmonary disease) RESCUE INHALER DAILY (NO MORE THAN TWICE A DAY) COPD exacerbation Depression Diastolic dysfunction Dyspnea on exertion Ecchymosis Goals of care, counseling/discussion History of acute illness SEPTEMBER 2021 - RESOLVED PT WAS R/S FOR COLONOSCOPY D/T ILLNESS. History of colon polyps History of diverticulitis of colon History of nicotine dependence Hyperglycemia Hyperlipidemia Hypertension Hypoxemia Kidney stone (2014) HX Macular degeneration BOTH EYES/INJECTIONS Q 6-8 WKS Mitral regurgitation On home oxygen therapy 4L AT HS AND DAILY PRN Overactive bladder ? / PROSTATE PROBLEM ? - NOT SURE DETAILS/PROSTATE NOT ENLARGED Persistent atrial fibrillation Pre-diabetes Pulmonary hypertension Respiratory distress RLL pneumonia Skin cancer BCC ON FACE - RECENTLY SHAVED OFF - HEALED Solitary pulmonary nodule ? SIDE / CT SCAN 2 MON AGO - GROWN - F/U CT SCAN IN JUN 2021 Surgical History History of cardiac cath SUMMER 2017/ NO STENT(S) History of cataract surgery RT/LEFT History of colonoscopy last 2018 @ [facility] History of lithotripsy History of tooth extraction Status post Mohs surgery MULTIPLE Family History Brother Emphysema lung Other No family history of adverse response to anesthesia Denies family history of Ovarian cancer Prostate cancer Myocardial infarction Breast cancer Colorectal cancer Social History Smoking Status: Heavy tobacco smoker Tobacco Type: Cigarettes Age Started Using Tobacco: 21; packs per day: 0.25; Cigarettes Per Day: 30; Second Hand Exposure: Yes ( smokes); Do You Dip or Chew Tobacco: No; Tobacco Cessation Education Requested by Patient: No Hx Alcohol Use: Yes Alcohol type: hard liquor Alcohol Intake Frequency: Monthly or Less Hx Substance Use: No Preferred Language: Hungarian Communication Ability: Effective Visual Impairment: No Limitations Hearing Ability: Normal Box Stacker Required: No Beliefs That Will Affect Care: None marital status: Current Living Situation: Spouse Current Living Situation Comment: Live home with (fire information officer) current occupational status: retired 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 [employer] Other Information That Helps Us Care for You: No Feels Safe at Home: Yes Safety Concerns: Feels Safe At This Time Physical Activity Frequency: 1-2 Times per Week Seatbelt Use: always Assistive Devices: Oxygen - Continuous, Walker and Other Review of Systems Review of Systems: ESAS Pain 0/3 Dyspnea 0/3 at rest, does have dyspnea with exertion Nausea 0/3 Drowsiness 0/3 Physical Exam Constitutional: + ill appearing Respiratory: normal respiratory effort; no labored breathing Cardiovascular: Rate/Rhythm: + irregularly irregular Skin: warm and dry Neurologic: awake and + confused Results & Data Vital Signs (Past 12 Hours) Vital Signs Temp Pulse Pulse Resp BP Pulse Ox O2 Del Method 12/07/22 11:21 97.3 F L 73 24 144/76 H 90 High Flow Nasal Cannula 12/07/22 08:00 High Flow Nasal Cannula 12/07/22 07:37 97.5 F L 90 20 153/95 H 99 High Flow Nasal Cannula 12/07/22 07:21 83 20 97 Nasal Cannula 12/07/22 03:47 97.3 F L 88 22 150/88 H 94 BiPAP 12/07/22 02:34 80 21 94 O2 Flow Rate FiO2 12/07/22 11:21 13 12/07/22 08:00 12 12/07/22 07:37 13 12/07/22 07:21 13 12/07/22 03:47 50 12/07/22 02:34 50 PG Care Time/CCT Total # of Minutes Spent Total Time Spent: 95 Total Time Spent with Patient: Total time spent is greater than 50% in coordination of care (as documented) at patient's floor/unit and/or counseling patient: [id number], [id number] Symptom management, goals of care, hospice, patient and family education and support, coordination of care Coding Level of Care Code 24875 INT INP/OBS CARE 375MIN Diagnoses SOB (shortness of breath) R06.02 Acute encephalopathy G93.40 Palliative care encounter Z51.5
[2022-12-07] MEDS ORDERED: ONDANSETRON INJ 2 MG/ML 2 ML VIAL IV PRN (14:38)
[2022-12-07] MEDS ORDERED: GLYCOPYRROLATE 0.2 MG/ML VIAL IV PRN (14:38)
[2022-12-07] MEDS: MoRPHine SULFATE 2 MG/ML CARP IV PRN ×6 (15:40→21:25)
--- NOTE | 2022-12-07 15:58 | Hospitalist Progress Note ---
Date of Service December 07, 2022 Assessment & Plan (1) Acute and chronic respiratory failure with hypoxia: Plan: Patient presents with worsening shortness of breath and found to have hypoxic respiratory failure secondary to acute on chronic HFpEF and right-sided heart failure as well as pneumonia procalcitonin is negative. He has not had any fevers. There is intermittent leukocytosis though. Chest x-ray worsened and now appears to have multifocal pneumonia on 12/06 Has been on BiPAP continuously since admission without improvement despite initial antibiotics, and with IV diuresis Repeat ABG showed mild hypercapnia -He has significant hallucinations with IV steroids and did add those on considering his ongoing encephalopathy to begin with -he received doxycycline for atypical coverage and Zosyn for gram-negative coverage given recent hospitalization but now will dc abx as transitioning to [employer] -Continue diuretics-continue Lasix 40 Mg IV twice daily mostly for comfort -Very poor prognosis, had lengthy discussion with his on 12/05 and again on 12/06, 12/07 and met with Palliative. -Will now transition to [employer] -dc dilt gtt, IV abx, some po meds, stop blood draws -Keep on O2 for comfort-on 12 L now HFNC -continue IV lasix fo rnow for comfort as per my d/w Palliative, but could stop this too if he continues to decline -he has some family members flying in from out of town on Wednesday to visit -Palliative wrote for order for ok to have Rum and Coke from home which is pt's favorite drink (2) Atrial fibrillation with RVR: Plan: Presents with rapid atrial fibrillation and heart failure with respiratory failure as above was on Cardizem drip for rate control as well as IV digoxin-will now stop these on [employer] dc ELiquis and Lovenox move off tele (3) Pneumonia: Plan: Treated for initially in the ER, but procalcitonin was negative as above and antibiotics were not continued Then with worsening leukocytosis, hypoxia, and development of pneumonia on chest x-ray, started Zosyn and doxycycline on 12/05 dc abx and transition to [employer] as above (4) Acute on chronic right-sided congestive heart failure: Plan: As above Diuresing (5) Acute encephalopathy: Plan: Severe and worsening throughout hospitalization. ABG with only mild CO2 retention likely not contributing Perhaps cefepime caused encephalopathy that he received on admission? He also received 1 dose of morphine 0.5 Mg IV overnight on 12/04 but not likely that that is contributing to ongoing encephalopathy. He is confused, agitated at times and pulling things out, also lethargic and almost obtunded at times. He is moving all extremities and no concern for stroke. Most likely related to hypoxia, hyponatremia, and possible pneumonia On 12/06, he is much more mentally clear, able to converse and understands his medical situation. His hyponatremia has resolved. He remains on BiPAP and oxygenation status is acceptable On 12/07, was off BiPAP on HFNC and was getting agitated again, more confused Palliative discussions again as above and now transitioning to [employer] (6) Hyponatremia: Plan: Sodium level was 124 on arrival Hyponatremia likely secondary to hypervolemia Improved to 136 with IV diuresis Continue diuresis for comfort for now no further labs needed on [employer] (7) COPD exacerbation: Plan: Patient also has underlying history of COPD and was placed on BiPAP Continue bronchodilators scheduled He cannot tolerate IV steroids as they cause severe hallucinations. Previously could not take po pills due to being dependent on BiPAP defer on any steroids at this point on [employer] (8) Elevated lactic acid level: Plan: Patient found to have elevated lactic acid over 4.2 upon initial admission Likely secondary to hypoxia, he does not seem to have metabolic acidosis to go along with this Trended downward (9) Hypertension: Plan: Blood pressures are stable to mildly elevated Continue metoprolol if he can take p.o. Getting diuresis (10) Hypercholesterolemia: Plan: dc statin on [employer] Plan DVT prophylaxis-Eliquis will now be stopped on [employer] Disposition-critically ill and deteriorating. Had multiple lengthy discussions with on multiple occasions and with patient when able to participate in coversation Now transitioning to [employer] as above IV morphine for respiratory distress and IV lorazepam as needed for agitation and anxiety are ordered if needed. Downgrade to med/surg unit. Keep Murillo in place Admission and Anticipated Discharge Date Admission Date: December 04, 2022 Subjective Pt switched to 10-11 L HFNC overnight to get a break off BiPAP. Is still somewhat agitated at times, restless. Discussed care with Palliative and after she met with pt and family, decision made to pursue [employer]. I saw pt after he was given IV lorazepam and morphine and he appeared much more comfortable, slightly confused, but not nearly as dyspneic. Still with abdominal muscle use for respirations. 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 Tele with rate controlled Afib on dilt gtt Physical Exam Constitutional: WD/WN, vitals as above Eyes: + anicteric sclerae Neck: trachea midline, no thyromegaly Respiratory: + paradoxical thoraco-abdominal movement; not tachypneic Auscultation: + crackles (Bibasilar); no rhonchi and no wheezes Cardiovascular: Rate/Rhythm: regular rate and + irregularly irregular Heart Sounds: no murmur Extremities: + edema (Trace pitting edema legs bilaterally) Chest (Breasts): Chest: normal inspection of chest Gastrointestinal (Abdomen): normal bowel sounds, soft, nontender, no hepatosplenomegaly Musculoskeletal: Extremities: extremities normal to inspection; no cyanosis and no clubbing Skin: no rashes, warm and dry Neurologic: moves all extremities and awake; no focal motor deficits Psychiatric: Orientation: alert and oriented to person; + not oriented to place and + not oriented to time Results & Data Results & Data Vital Signs (Past 12 Hours) Vital Signs Temp Pulse Resp BP Pulse Ox O2 Del Method O2 Flow Rate 12/07/22 13:22 71 18 97 Nasal Cannula 12 12/07/22 11:21 36.3 C L 73 24 144/76 H 90 High Flow Nasal Cannula 13 12/07/22 08:00 High Flow Nasal Cannula 12 12/07/22 07:37 36.4 C L 90 20 153/95 H 99 High Flow Nasal Cannula 13 12/07/22 07:21 83 20 97 Nasal Cannula 13 Laboratory Results CBC, CMP, magnesium reviewed PG Care Time/CCT Total # of Minutes Spent Total Time Spent with Patient: Total time spent is greater than 50% in coordination of care (as documented) at patient's floor/unit and/or counseling patient: Coding Level of Care Code 59255 SUB INP/OBS CARE 3/50MIN Diagnoses Acute and chronic respiratory failure with hypoxia J96.21 Atrial fibrillation with RVR I48.91 Pneumonia J18.9 Laterality: left Lung location: lower lobe of lung Pneumonia type: due to unspecified organism Acute on chronic right-sided congestive heart failure I50.813 Acute encephalopathy G93.40 Hyponatremia E87.1 COPD exacerbation J44.1 Elevated lactic acid level R79.89 Hypertension I10 Hypertension type: essential hypertension Hypercholesterolemia E78.00 (3) Pneumonia Laterality: left Lung location: lower lobe of lung Pneumonia type: due to unspecified organism Qualified Code(s): J18.9 - Pneumonia, unspecified organism (9) Hypertension Hypertension type: essential hypertension Qualified Code(s): I10 - Essential (primary) hypertension
[2022-12-07] MEDS: ESCITALOPRAM OXALATE 10 MG TAB PO SCH (20:25)
[2022-12-08] MEDS: MoRPHine SULFATE 2 MG/ML CARP IV PRN (02:07)
[2022-12-08] MEDS: LEVALBUTEROL 0.31MG/3 ML VIAL INH SCH (07:34)
[2022-12-08] MEDS ORDERED: LEVALBUTEROL 0.31MG/3 ML VIAL INH PRN (09:35)
[2022-12-08] MEDS: FUROSEMIDE 40 MG/4 ML VIAL IV SCH (09:37)
--- NOTE | 2022-12-08 10:11 | Palliative Care Progress Note ---
Date of Service December 08, 2022 Assessment & Plan (1) SOB (shortness of breath): Plan: With heart failure, ES COPD and afib with RVR He has had multiple prn doses in the last 24 hours. Discussed with Mrs. Murillo. Will transition to morphine infusion for more consistent control Will d/c lasix. He is not hypervolemic Discussed with RN. (2) Acute encephalopathy: Plan: With hypercarbia Monitor with morphine infusion Continue prn lorazepam (3) Palliative care encounter: Plan: I met with Mrs. Murillo and her sister. She asked about prognosis and whether family should come. Recommend family members who want to have any meaningful conversation come as soon as they are able. He is likely to be more confused and lethargic with increasing CO2. We discussed concern that he is likely to within the next few days. We also discussed morphine infusion as above. His has good support and has told him that she will be ok after his . She tells me that she has made arrangements. Family will be arriving from out of town later today and in the next few days. Admission and Anticipated Discharge Date Admission Date: December 04, 2022 Subjective Restless during the night. Sleeping soundly now. Unable to take po medications this morning. He has had 7 doses of prn morphine since 1500 yesterday (45mg OME). He also had ativan for agitation. Review of Systems Review of Systems: Unobtainable due to reduced consciousness Physical Exam Constitutional: no acute distress Respiratory: normal respiratory effort; no labored breathing no audible tracheal secretions Cardiovascular: Rate/Rhythm: + tachycardic and + irregularly irregular Extremities: no edema Musculoskeletal: Extremities: + muscle atrophy Neurologic: lethargic Results & Data Vital Signs (Past 12 Hours) Vital Signs Pulse Resp Pulse Ox O2 Del Method O2 Flow Rate 12/08/22 07:34 70 16 90 Nasal Cannula 13 12/07/22 22:15 High Flow Nasal Cannula 13 PG Care Time/CCT Total # of Minutes Spent Total Time Spent: 37 Total Time Spent with Patient: Total time spent is greater than 50% in coordination of care (as documented) at patient's floor/unit and/or counseling patient: [id number] symptom management, prognosis, family education and support Coding Level of Care Code 31148 SUB INP/OBS CARE 2/35MIN Diagnoses SOB (shortness of breath) R06.02 Acute encephalopathy G93.40 Palliative care encounter Z51.5
[2022-12-08] MEDS: METOPROLOL TARTRATE 100 MG TAB PO SCH (10:27)
[2022-12-08] MEDS ORDERED: HYDROmorphone BOLUS from BAG IV PRN (11:34)
[2022-12-08] MEDS ORDERED: HYDROmorphone/NSS 100 MG/100 ML BAG IV SCH (11:45)
[2022-12-08] MEDS ORDERED: MoRPHine BOLUS from BAG IV PRN (13:28)
[2022-12-08] MEDS: MoRPHine SULF/NSS 250 MG/250 ML BTL IV SCH (14:07)
--- NOTE | 2022-12-08 18:26 | Hospitalist Progress Note ---
Date of Service December 08, 2022 Assessment & Plan (1) Comfort measures only status: Plan: required 7 doses of prn morphine yesterday for comfort. agree with institution of morphine drip today by palliative care provider. He was very comfortable on this during my bedside visit. cont other comfort care measures/pathway. I left a message on Mrs Murillo's voicemail this evening. Will attempt to call her again tomorrow. (2) Palliative care encounter: (3) Acute and chronic respiratory failure with hypoxia: (4) Atrial fibrillation with RVR: (5) Pneumonia: (6) Acute on chronic right-sided congestive heart failure: (7) Acute encephalopathy: (8) Hyponatremia: (9) COPD exacerbation: (10) Elevated lactic acid level: (11) Hypertension: (12) Hypercholesterolemia: Admission and Anticipated Discharge Date Admission Date: December 04, 2022 Subjective patient unresponsive on 1mg/hour morphine infusion apneas noted comfortable Review of Systems Review of Systems: Unobtainable due to reduced consciousness Physical Exam 2 Physical Exam: gen - apneas, unresponsive, comfortable; did not wake to name being called or touch mouth - MM dry neck - no JVD heart - irregular, tachy lungs - poor airation b/l, no increased work of breathing abd - soft NT ND BS+ ext - warm to touch Results & Data Results & Data Vital Signs (Past 12 Hours) Vital Signs Temp Pulse Resp BP Pulse Ox O2 Del Method O2 Flow Rate 12/08/22 17:36 36.4 C L 88 17 144/84 H 94 High Flow Nasal Cannula 9 12/08/22 07:34 70 16 90 Nasal Cannula 13 PG Care Time/CCT Total # of Minutes Spent Total Time Spent with Patient: Total time spent is greater than 50% in coordination of care (as documented) at patient's floor/unit and/or counseling patient: Coding Level of Care Code 58912 SUB INP/OBS CARE 08/12MIN Diagnoses Comfort measures only status Z51.5 Palliative care encounter Z51.5 Acute and chronic respiratory failure with hypoxia J96.21 Atrial fibrillation with RVR I48.91 Pneumonia J18.9 Laterality: left Lung location: lower lobe of lung Pneumonia type: due to unspecified organism Acute on chronic right-sided congestive heart failure I50.813 Acute encephalopathy G93.40 Hyponatremia E87.1 COPD exacerbation J44.1 Elevated lactic acid level R79.89 Hypertension I10 Hypertension type: essential hypertension Hypercholesterolemia E78.00 (5) Pneumonia Laterality: left Lung location: lower lobe of lung Pneumonia type: due to unspecified organism Qualified Code(s): J18.9 - Pneumonia, unspecified organism (11) Hypertension Hypertension type: essential hypertension Qualified Code(s): I10 - Essential (primary) hypertension
--- NOTE | 2022-12-09 21:52 | Hospitalist Progress Note ---
Date of Service December 09, 2022 Assessment & Plan (1) Comfort measures only status: Plan: cont on morphine infusion to maintain comfort and Rx of air hunger/pulmonary symptoms. remains on high amount of NC O2 to maintain comfort. cont other comfort care measures/pathway. I left a message on Mrs Murillo's voicemail once again this evening. Appreciate palliative care recs and support. (2) Palliative care encounter: (3) Acute and chronic respiratory failure with hypoxia: (4) Atrial fibrillation with RVR: (5) Pneumonia: (6) Acute on chronic right-sided congestive heart failure: (7) Acute encephalopathy: (8) Hyponatremia: (9) COPD exacerbation: (10) Elevated lactic acid level: (11) Hypertension: (12) Hypercholesterolemia: Admission and Anticipated Discharge Date Admission Date: December 04, 2022 Subjective patient was sleeping upon arrival woke up when I called his name we talked for a while - he mentioned his nephew from [place] was up to see him along with other family members denied ANY dyspnea denied ANY pain in his chest or abdomen no other complaints he is comfortable denied any other needs Physical Exam Physical Exam: gen - groggy, but able to wake, talk, tell stories, laughing - very comfortable today mouth - MM dry neck - no JVD heart - irregular, tachy, s1 s2 lungs - poor airation b/l, no increased work of breathing abd - soft NT ND BS+ ext - warm to touch, no edema, pulses 2+ b/l PG Care Time/CCT Total # of Minutes Spent Total Time Spent with Patient: Total time spent is greater than 50% in coordination of care (as documented) at patient's floor/unit and/or counseling patient: Coding Level of Care Code 52816 SUB INP/OBS CARE 1/25MIN Diagnoses Comfort measures only status Z51.5 Palliative care encounter Z51.5 Acute and chronic respiratory failure with hypoxia J96.21 Atrial fibrillation with RVR I48.91 Pneumonia J18.9 Laterality: left Lung location: lower lobe of lung Pneumonia type: due to unspecified organism Acute on chronic right-sided congestive heart failure I50.813 Acute encephalopathy G93.40 Hyponatremia E87.1 COPD exacerbation J44.1 Elevated lactic acid level R79.89 Hypertension I10 Hypertension type: essential hypertension Hypercholesterolemia E78.00 (5) Pneumonia Laterality: left Lung location: lower lobe of lung Pneumonia type: due to unspecified organism Qualified Code(s): J18.9 - Pneumonia, unspecified organism (11) Hypertension Hypertension type: essential hypertension Qualified Code(s): I10 - Essential (primary) hypertension
--- NOTE | 2022-12-10 13:19 | Palliative Care Progress Note ---
Date of Service December 10, 2022 Assessment & Plan (1) SOB (shortness of breath): Plan: Controlled with morphine infusion. Continue at 1mg/hr. He has not required prn dosing. He remains on high flow O2. Extensive discussion with Mr. Murillo and his family about role of morphine to relieve air hunger. Given his hypercarbia and comfort level, will wean O2 and monitor. Explained to family that there is not a correlation between O2 sat and perceived air hunger and that morphine will relieve symptoms that occur. (2) Palliative care encounter: Plan: I met with Mrs. Murillo and Velasquez's nephew to answer questions about goals of care, prognosis and symptom management. They are concerned about whether they made the right decision about comfort care as he has been awake and appears somewhat better yesterday and today. We reviewed discussion on Wednesday when Velasquez stated that he wanted comfort focused approach to his care. He confirmed that with me today. We are honoring his decision and his underlying illness has not changed. We are grateful for this good time with improvement in symptoms but his overall prognosis remains poor and he will likely within the next several days. We again discussed use of morphine strictly to control his symptoms based on his particular needs. This is in no way intended to hasten his dying time. We discussed the idea that his condition may plateau and where she would want him to be. She does not want SNF. She would take care of him at home with hospice, though, she does not have a lot of support nearby. We discussed hospice team and services provided. He does have [place] coverage and may qualify for additional benefits. Discussed with case management. Discussed with Dr. Thompson. Admission and Anticipated Discharge Date Admission Date: December 04, 2022 Subjective More alert today. Visiting with family and friends. He has some confusion but is able to joke and talk recalls conversation that we had on Wednesday. He denies pain or dyspnea. Review of Systems Review of Systems: ESAS Pain 0/3 Dyspnea 0/3 Nausea 0/3 Anxiety 0/3 Drowsiness 0/3 Physical Exam Constitutional: + ill appearing and + thin; no acute distress Respiratory: normal respiratory effort; no labored breathing Cardiovascular: Rate/Rhythm: + irregularly irregular Gastrointestinal (Abdomen): nontender Musculoskeletal: Extremities: + muscle atrophy Skin: warm and dry Neurologic: variable encephalopathy with hypercarbia Results & Data Vital Signs (Past 12 Hours) Vital Signs Temp Pulse Resp BP Pulse Ox O2 Del Method O2 Flow Rate 12/10/22 09:28 High Flow Nasal Cannula 9 12/10/22 08:26 98.1 F 86 18 129/80 95 High Flow Nasal Cannula 9 PG Care Time/CCT Total # of Minutes Spent Total Time Spent with Patient: Total time spent is greater than 50% in coordination of care (as documented) at patient's floor/unit and/or counseling patient: Coding Level of Care Code 89597 SUB INP/OBS CARE 3/50MIN Diagnoses SOB (shortness of breath) R06.02 Palliative care encounter Z51.5
[2022-12-10] MEDS: NICOTINE 21 MG/24 HR TDSY TD SCH (17:18)
--- NOTE | 2022-12-10 18:35 | Hospitalist Progress Note ---
Date of Service December 10, 2022 Assessment & Plan (1) Comfort measures only status: Plan: he remains on morphine infusion to maintain comfort and Rx of air hunger/pulmonary symptoms. he has achieved very good comfort and control of dyspnea with the morphine. O2 weaned to 7 L this am and has suffered no ill consequences or change in pulmonary status with such. UOP is poor. PO intake is poor. cont other comfort care measures/pathway. Appreciate palliative care recs and support. family updated during my visit. life expectancy - days to perhaps a week (2) Palliative care encounter: (3) Acute and chronic respiratory failure with hypoxia: (4) Atrial fibrillation with RVR: (5) Pneumonia: (6) Acute on chronic right-sided congestive heart failure: (7) Acute encephalopathy: (8) Hyponatremia: (9) COPD exacerbation: (10) Elevated lactic acid level: (11) Hypertension: (12) Hypercholesterolemia: Admission and Anticipated Discharge Date Admission Date: December 04, 2022 Subjective pt awake, alert during the visit talkative, even making jokes , brother, niece, and nephew all present during the visit he denies dyspnea denies pain in any location taking small amounts of liquids only modest amounts of food only Physical Exam Physical Exam: gen - very awake/alert today mouth - MM dry neck - no JVD heart - irregular, tachy, s1 s2 lungs - poor airation b/l, no increased work of breathing, no rales or wheeze today abd - soft NT ND BS+ ext - warm to touch, no edema, pulses 2+ b/l Results & Data Results & Data Vital Signs (Past 12 Hours) Vital Signs Temp Pulse Resp BP Pulse Ox O2 Del Method O2 Flow Rate 12/10/22 09:28 High Flow Nasal Cannula 9 12/10/22 08:26 36.7 C 86 18 129/80 95 High Flow Nasal Cannula 9 PG Care Time/CCT Total # of Minutes Spent Total Time Spent with Patient: Total time spent is greater than 50% in coordination of care (as documented) at patient's floor/unit and/or counseling patient: Coding Level of Care Code 68926 SUB INP/OBS CARE 08/12MIN Diagnoses Comfort measures only status Z51.5 Palliative care encounter Z51.5 Acute and chronic respiratory failure with hypoxia J96.21 Atrial fibrillation with RVR I48.91 Pneumonia J18.9 Laterality: left Lung location: lower lobe of lung Pneumonia type: due to unspecified organism Acute on chronic right-sided congestive heart failure I50.813 Acute encephalopathy G93.40 Hyponatremia E87.1 COPD exacerbation J44.1 Elevated lactic acid level R79.89 Hypertension I10 Hypertension type: essential hypertension Hypercholesterolemia E78.00 (5) Pneumonia Laterality: left Lung location: lower lobe of lung Pneumonia type: due to unspecified organism Qualified Code(s): J18.9 - Pneumonia, unspecified organism (11) Hypertension Hypertension type: essential hypertension Qualified Code(s): I10 - Essential (primary) hypertension
[2022-12-10] MEDS: LORazepam 2 MG/1 ML VIAL IV PRN (19:39)
[2022-12-11] MEDS: NICOTINE 21 MG/24 HR TDSY TD SCH (08:52)
--- NOTE | 2022-12-11 11:07 | Palliative Care Progress Note ---
Date of Service December 11, 2022 Assessment & Plan (1) SOB (shortness of breath): Plan: Controlled with morphine infusion Continue to wean O2 as tolerated symptomatically (2) Palliative care encounter: Plan: Focus of care is comfort and symptom management. He appears to be doing well at the moment with symptom control but prognosis remains poor. If he remains relatively stable, plan would be home with hospice per his . She had hoped to have caregivers through [facility], but unfortunately, per case management, he is not eligible for this. He would be eligible for detention care at [facility]. Called Mrs. Murillo on both numbers listed. No answer. Discussed with Dr. Thompson and case management. Admission and Anticipated Discharge Date Admission Date: December 04, 2022 Subjective Awake. Reports eating breakfast. Denies pain or dyspnea. Did get prn lorazepam for anxiety last night after all his visitors left. Review of Systems Review of Systems: ESAS Pain0/3 Dyspnea 0/3 Nausea 0/3 Anxiety 0/3 Drowsiness Physical Exam Constitutional: no acute distress Respiratory: normal respiratory effort; no labored breathing no audible tracheal secretions Cardiovascular: Rate/Rhythm: + irregularly irregular Gastrointestinal (Abdomen): nontender Musculoskeletal: Extremities: + muscle atrophy Results & Data Vital Signs (Past 12 Hours) Vital Signs Temp Pulse Resp BP Pulse Ox O2 Del Method O2 Flow Rate 12/11/22 09:18 High Flow Nasal Cannula 4 12/11/22 07:32 98.1 F 107 H 17 146/86 H 93 High Flow Nasal Cannula PG Care Time/CCT Total # of Minutes Spent Total Time Spent with Patient: Total time spent is greater than 50% in coordination of care (as documented) at patient's floor/unit and/or counseling patient: Coding Level of Care Code 10158 SUB INP/OBS CARE 2/35MIN Diagnoses SOB (shortness of breath) R06.02 Palliative care encounter Z51.5
--- NOTE | 2022-12-11 19:31 | Hospitalist Progress Note ---
Date of Service December 11, 2022 Assessment & Plan (1) Comfort measures only status: Plan: he remains on morphine infusion to maintain comfort and Rx of air hunger/pulmonary symptoms. he has achieved very good comfort and control of dyspnea with the morphine. no adjustments have been needed since its institution O2 weaned to 3 L this am and has suffered no ill consequences or change in pulmonary status with such. O2 sats are low 90s.\\ UOP is poor. PO intake is poor to fair at best. He has new onset confusion this am. cont other comfort care measures/pathway. Appreciate palliative care recs and support. life expectancy - days to perhaps a week (2) Palliative care encounter: (3) Acute and chronic respiratory failure with hypoxia: (4) Atrial fibrillation with RVR: (5) Pneumonia: (6) Acute on chronic right-sided congestive heart failure: (7) Acute encephalopathy: (8) Hyponatremia: (9) COPD exacerbation: (10) Elevated lactic acid level: (11) Hypertension: (12) Hypercholesterolemia: Plan left message for pt's on her answering machine this evening Admission and Anticipated Discharge Date Admission Date: December 04, 2022 Subjective patient confused during the visit, stating he had "gotten washed up at the sink" (staff state he has not been out of bed) and that "he was handing things out to the vets" [facility]" denies pain in any location denies dyspnea on 3 L NC O2 sats were 92% and he was comfortable eating some food but not drinking much liquid Physical Exam Physical Exam: gen - awake, telling stories, but confused mouth - MM dry neck - no JVD heart - irregular, tachy, s1 s2 lungs - poor airation b/l, no increased work of breathing, no rales or wheeze abd - soft NT ND BS+ ext - cool to touch today, no edema, pulses 1+ b/l Results & Data Results & Data Vital Signs (Past 12 Hours) Vital Signs Temp Pulse Resp BP Pulse Ox O2 Del Method O2 Flow Rate 12/11/22 09:18 High Flow Nasal Cannula 4 12/11/22 07:32 36.7 C 107 H 17 146/86 H 93 High Flow Nasal Cannula PG Care Time/CCT Total # of Minutes Spent Total Time Spent with Patient: Total time spent is greater than 50% in coordination of care (as documented) at patient's floor/unit and/or counseling patient: Coding Level of Care Code 61620 SUB INP/OBS CARE Diagnoses Comfort measures only status Z51.5 Palliative care encounter Z51.5 Acute and chronic respiratory failure with hypoxia J96.21 Atrial fibrillation with RVR I48.91 Pneumonia J18.9 Laterality: left Lung location: lower lobe of lung Pneumonia type: due to unspecified organism Acute on chronic right-sided congestive heart failure I50.813 Acute encephalopathy G93.40 Hyponatremia E87.1 COPD exacerbation J44.1 Elevated lactic acid level R79.89 Hypertension I10 Hypertension type: essential hypertension Hypercholesterolemia E78.00 (5) Pneumonia Laterality: left Lung location: lower lobe of lung Pneumonia type: due to unspecified organism Qualified Code(s): J18.9 - Pneumonia, unspecified organism (11) Hypertension Hypertension type: essential hypertension Qualified Code(s): I10 - Essential (primary) hypertension
[2022-12-11] MEDS: LORazepam 2 MG/1 ML VIAL IV PRN (21:35)
[2022-12-12] MEDS: NICOTINE 21 MG/24 HR TDSY TD SCH (08:41)
[2022-12-12] MEDS: MoRPHine SULF/NSS 250 MG/250 ML BTL IV SCH (13:53)
--- NOTE | 2022-12-12 17:28 | Hospitalist Progress Note ---
Date of Service December 12, 2022 Assessment & Plan (1) Comfort measures only status: Plan: he remains on morphine infusion to maintain comfort and Rx of air hunger/pulmonary symptoms. he has achieved very good comfort and control of dyspnea with the morphine. no adjustments have been needed since its institution O2 sats are low 90s today on 3 L NC O2. despite stable sats he looked more dyspneic today with tachypnea & wheezes. UOP is poor. PO intake is poor to fair at best. He continues with mild confusion. cont other comfort care measures/pathway. Appreciate palliative care recs and support. life expectancy - days to perhaps a week (2) Palliative care encounter: (3) Acute and chronic respiratory failure with hypoxia: (4) Atrial fibrillation with RVR: (5) Pneumonia: (6) Acute on chronic right-sided congestive heart failure: (7) Acute encephalopathy: (8) Hyponatremia: (9) COPD exacerbation: (10) Elevated lactic acid level: (11) Hypertension: (12) Hypercholesterolemia: Admission and Anticipated Discharge Date Admission Date: December 04, 2022 Subjective patient again a little confused today, stating his " was staying in a hotel down the hallway" PO intake is low he denies any dyspnea or pain in any location Review of Systems Review of Systems: CV - no chest pain pulm - denies dyspnea psych - feels very tired GI - denies pain Physical Exam Physical Exam: gen - awake, but again confused today mouth - MM dry neck - no JVD heart - irregular, tachy, s1 s2 lungs - poor airation b/l, wheezes heard today, and mild tachypnea noted abd - soft NT ND BS+ ext - no edema, pulses 1+ b/l Results & Data Results & Data Vital Signs (Past 12 Hours) Vital Signs Temp Pulse Resp BP Pulse Ox O2 Del Method O2 Flow Rate 12/12/22 09:29 Nasal Cannula 4 12/12/22 07:49 36.9 C 92 H 14 132/74 97 Nasal Cannula 4 PG Care Time/CCT Total # of Minutes Spent Total Time Spent with Patient: Total time spent is greater than 50% in coordination of care (as documented) at patient's floor/unit and/or counseling patient: Coding Level of Care Code 97629 SUB INP/OBS CARE 1/25MIN Diagnoses Comfort measures only status Z51.5 Palliative care encounter Z51.5 Acute and chronic respiratory failure with hypoxia J96.21 Atrial fibrillation with RVR I48.91 Pneumonia J18.9 Laterality: left Lung location: lower lobe of lung Pneumonia type: due to unspecified organism Acute on chronic right-sided congestive heart failure I50.813 Acute encephalopathy G93.40 Hyponatremia E87.1 COPD exacerbation J44.1 Elevated lactic acid level R79.89 Hypertension I10 Hypertension type: essential hypertension Hypercholesterolemia E78.00 (5) Pneumonia Laterality: left Lung location: lower lobe of lung Pneumonia type: due to unspecified organism Qualified Code(s): J18.9 - Pneumonia, unspecified organism (11) Hypertension Hypertension type: essential hypertension Qualified Code(s): I10 - Essential (primary) hypertension
[2022-12-12] MEDS: LORazepam 2 MG/1 ML VIAL IV PRN (20:41)
[2022-12-13] MEDS: NICOTINE 21 MG/24 HR TDSY TD SCH (09:17)
--- NOTE | 2022-12-13 17:43 | Hospitalist Progress Note ---
Date of Service December 13, 2022 Assessment & Plan (1) Comfort measures only status: Plan: patient comfortable today respiratory status stable eating fair, ambulating to the toilet at times w/ assistance not as confused today morphine infusion at 1mg/hr remains I discussed home with hospice yesterday with Mrs Murillo She expressed interest in such could transition off the morphine infusion - could use combination of extended release morphine PO with roxanol prn defer that decision today (2) Palliative care encounter: (3) Acute and chronic respiratory failure with hypoxia: (4) Atrial fibrillation with RVR: (5) Pneumonia: (6) Acute on chronic right-sided congestive heart failure: (7) Acute encephalopathy: (8) Hyponatremia: (9) COPD exacerbation: (10) Elevated lactic acid level: (11) Hypertension: (12) Hypercholesterolemia: Admission and Anticipated Discharge Date Admission Date: December 04, 2022 Subjective patient was sleeping upon my arrival easily awoke denied dyspnea denied pain in any location asked when he could go home [with hospice] nursing flowsheets - 25% of meals consumed or less sats 92% on 3 L NC O2 during my visit Physical Exam Physical Exam: gen - awake, alert, not confused today, asking questions appropriately mouth - MM dry neck - no JVD heart - irregular, tachy, s1 s2, no murmur lungs - poor airation b/l, CTA b/l; no wheezes, no rales abd - soft NT BS+; mild distension ext - no edema, pulses 1+ b/l Results & Data Results & Data Vital Signs (Past 12 Hours) Vital Signs Temp Pulse Resp BP Pulse Ox O2 Del Method O2 Flow Rate 12/13/22 07:35 Nasal Cannula 3 12/13/22 07:20 36.8 C 90 20 131/72 96 Nasal Cannula 3 PG Care Time/CCT Total # of Minutes Spent Total Time Spent with Patient: Total time spent is greater than 50% in coordination of care (as documented) at patient's floor/unit and/or counseling patient: Coding Level of Care Code 40558 SUB INP/OBS CARE 08/12MIN Diagnoses Comfort measures only status Z51.5 Palliative care encounter Z51.5 Acute and chronic respiratory failure with hypoxia J96.21 Atrial fibrillation with RVR I48.91 Pneumonia J18.9 Laterality: left Lung location: lower lobe of lung Pneumonia type: due to unspecified organism Acute on chronic right-sided congestive heart failure I50.813 Acute encephalopathy G93.40 Hyponatremia E87.1 COPD exacerbation J44.1 Elevated lactic acid level R79.89 Hypertension I10 Hypertension type: essential hypertension Hypercholesterolemia E78.00 (5) Pneumonia Laterality: left Lung location: lower lobe of lung Pneumonia type: due to unspecified organism Qualified Code(s): J18.9 - Pneumonia, unspecified organism (11) Hypertension Hypertension type: essential hypertension Qualified Code(s): I10 - Essential (primary) hypertension
[2022-12-14] MEDS: NICOTINE 21 MG/24 HR TDSY TD SCH (08:48)
[2022-12-14] MEDS ORDERED: bisacodyL 10 MG SUPP PR STA (12:36)
[2022-12-14] MEDS: SENNA 8.6 MG TAB PO SCH (13:10)
--- NOTE | 2022-12-14 19:35 | Hospitalist Progress Note ---
Date of Service December 14, 2022 Assessment & Plan (1) Comfort measures only status: Plan: patient comfortable once again today respiratory status remains stable eating fair, ambulating to the toilet at times w/ assistance some intermittent confusion still present morphine infusion at 1mg/hr remains will give dulcolax suppos x 1 today for constipation spoke with Mrs Murillo by phone this evening - tentative plan is home this with hospice I also spoke with Dr Salinas from palliative care - gave her an update She will see Mr Murillo tomorrow if indeed patient is going home this week we can either convert the morphine drip over to PO equivalents or simply maintain the drip She will assist with this (2) Palliative care encounter: Plan: as above (3) Acute and chronic respiratory failure with hypoxia: (4) Atrial fibrillation with RVR: (5) Pneumonia: (6) Acute on chronic right-sided congestive heart failure: (7) Acute encephalopathy: (8) Hyponatremia: (9) COPD exacerbation: (10) Elevated lactic acid level: (11) Hypertension: (12) Hypercholesterolemia: Admission and Anticipated Discharge Date Admission Date: December 04, 2022 Anticipated date of discharge: 12/17/22 Subjective no issues overnight pt was eating lunch and watching TV when I arrived he was a little confused, stating - "hey, why isn't the [employer] football game on TV?" denied pain in any location denied dyspnea denied cough or chest pain last BM was numerous days ago; he feels a little bloated he again asks about when he might be going home during the visit he was satting low 90s on 3 l NC O2 Physical Exam Physical Exam: gen - awake, alert, pleasant, no distress, mildly confused mouth - MM dry; no thrush neck - no JVD heart - irregularly irregular, tachy, s1 s2, no murmur lungs - poor airation b/l but CTA b/l with no wheezes or rales abd - soft NT BS+; mild distension again ext - no edema, pulses 1-2+ b/l Results & Data Results & Data Vital Signs (Past 12 Hours) Vital Signs O2 Del Method O2 Flow Rate 12/14/22 07:45 Nasal Cannula 3 PG Care Time/CCT Total # of Minutes Spent Total Time Spent with Patient: Total time spent is greater than 50% in coordination of care (as documented) at patient's floor/unit and/or counseling patient: Coding Level of Care Code 96857 SUB INP/OBS CARE 08/12MIN Diagnoses Comfort measures only status Z51.5 Palliative care encounter Z51.5 Acute and chronic respiratory failure with hypoxia J96.21 Atrial fibrillation with RVR I48.91 Pneumonia J18.9 Laterality: left Lung location: lower lobe of lung Pneumonia type: due to unspecified organism Acute on chronic right-sided congestive heart failure I50.813 Acute encephalopathy G93.40 Hyponatremia E87.1 COPD exacerbation J44.1 Elevated lactic acid level R79.89 Hypertension I10 Hypertension type: essential hypertension Hypercholesterolemia E78.00 (5) Pneumonia Laterality: left Lung location: lower lobe of lung Pneumonia type: due to unspecified organism Qualified Code(s): J18.9 - Pneumonia, unspecified organism (11) Hypertension Hypertension type: essential hypertension Qualified Code(s): I10 - Essential (primary) hypertension
[2022-12-14] MEDS: LORazepam 2 MG/1 ML VIAL IV PRN (23:35)
[2022-12-15] MEDS: LORazepam 2 MG/1 ML VIAL IV PRN ×2 (04:59→11:09)
[2022-12-15] MEDS: SENNA 8.6 MG TAB PO SCH (07:50)
[2022-12-15] MEDS: NICOTINE 21 MG/24 HR TDSY TD SCH (07:52)
--- NOTE | 2022-12-15 14:14 | Palliative Care Progress Note ---
Date of Service December 15, 2022 Assessment & Plan (1) SOB (shortness of breath): Plan: Well controlled with morphine infusion at low dose (1mg/hr) Continue IV morphine for prn use for now Plan is for discharge home with hospice. Converted to po morphine in anticipation of discharge home (2) Palliative care encounter: Plan: His has decided to take him home with hospice care. Case management has arranged [facility] home hospice in anticipation of discharge on . I spoke with her about changing morphine to oral dosing for discharge. She is preparing things at home for his discharge. Discussed with Dr. Altamirano. Admission and Anticipated Discharge Date Admission Date: December 04, 2022 Subjective Sleeping comfortably at present. Confused, agitated at times. No prn morphine doses in several days. Review of Systems Review of Systems: Other sleeping Physical Exam Constitutional: no acute distress Respiratory: normal respiratory effort; no labored breathing Cardiovascular: Rate/Rhythm: + tachycardic and + irregularly irregular Musculoskeletal: Extremities: + muscle atrophy Results & Data Vital Signs (Past 12 Hours) Vital Signs O2 Del Method O2 Flow Rate 12/15/22 07:45 Nasal Cannula 4 PG Care Time/CCT Total # of Minutes Spent Total Time Spent with Patient: Total time spent is greater than 50% in coordination of care (as documented) at patient's floor/unit and/or counseling patient: Coding Level of Care Code 13941 SUB INP/OBS CARE 3/50MIN Diagnoses SOB (shortness of breath) R06.02 Palliative care encounter Z51.5
[2022-12-15] MEDS: MoRPHine SULFATE 10 MG/0.5 ML UDP PO SCH ×3 (15:57→21:33)
--- NOTE | 2022-12-15 19:50 | Hospitalist Progress Note ---
Date of Service December 15, 2022 Assessment & Plan (1) Comfort measures only status: Plan: patient comfortable once again today respiratory status remains stable eating fair, ambulating to the toilet at times w/ assistance some intermittent confusion still present morphine infusion discontinued nd doing well so far on po Roxanol prn, IV ativan prn Appreciate Palliative management- tentative plan is home this with hospice (2) Palliative care encounter: Plan: as above (3) Acute and chronic respiratory failure with hypoxia: (4) Atrial fibrillation with RVR: (5) Pneumonia: (6) Acute on chronic right-sided congestive heart failure: (7) Acute encephalopathy: (8) Hyponatremia: (9) COPD exacerbation: (10) Elevated lactic acid level: (11) Hypertension: (12) Hypercholesterolemia: Admission and Anticipated Discharge Date Admission Date: December 04, 2022 Subjective Pt reports feeling well, no SOB, no pain. Moving bowels. Knows the equipment is being delivered to his home tomorrow. Physical Exam Constitutional: WD/WN, vitals as above Eyes: + anicteric sclerae Neck: trachea midline, no thyromegaly Respiratory: not tachypneic Auscultation: no rhonchi and no wheezes Cardiovascular: Rate/Rhythm: + tachycardic and + irregularly irregular Heart Sounds: no murmur Chest (Breasts): Chest: normal inspection of chest Gastrointestinal (Abdomen): normal bowel sounds, soft, nontender, no hepatosplenomegaly Musculoskeletal: Extremities: extremities normal to inspection; no cyanosis and no clubbing Skin: no rashes, warm and dry Neurologic: moves all extremities and awake; no focal motor deficits Psychiatric: Orientation: alert and oriented to person PG Care Time/CCT Total # of Minutes Spent Total Time Spent with Patient: Total time spent is greater than 50% in coordination of care (as documented) at patient's floor/unit and/or counseling patient: Coding Level of Care Code 43194 SUB INP/OBS CARE 08/12MIN Diagnoses Comfort measures only status Z51.5 Palliative care encounter Z51.5 Acute and chronic respiratory failure with hypoxia J96.21 Atrial fibrillation with RVR I48.91 Pneumonia J18.9 Laterality: left Lung location: lower lobe of lung Pneumonia type: due to unspecified organism Acute on chronic right-sided congestive heart failure I50.813 Acute encephalopathy G93.40 Hyponatremia E87.1 COPD exacerbation J44.1 Elevated lactic acid level R79.89 Hypertension I10 Hypertension type: essential hypertension Hypercholesterolemia E78.00 (5) Pneumonia Laterality: left Lung location: lower lobe of lung Pneumonia type: due to unspecified organism Qualified Code(s): J18.9 - Pneumonia, unspecified organism (11) Hypertension Hypertension type: essential hypertension Qualified Code(s): I10 - Essential (primary) hypertension
[2022-12-16] MEDS: MoRPHine SULFATE 10 MG/0.5 ML UDP PO SCH ×6 (01:42→21:17)
[2022-12-16] MEDS: SENNA 8.6 MG TAB PO SCH (09:39)
[2022-12-16] MEDS: NICOTINE 21 MG/24 HR TDSY TD SCH (09:39)
[2022-12-16] MEDS: MoRPHine SULFATE 2 MG/ML CARP IV PRN ×3 (14:20→23:22)
--- NOTE | 2022-12-16 17:30 | Hospitalist Progress Note ---
Date of Service December 16, 2022 Assessment & Plan (1) Comfort measures only status: Plan: patient remains comfortable, pleasantly confused at times respiratory status remains stable, no O2 via NC eating fair, ambulating to the toilet at times w/ assistance some intermittent confusion still present morphine infusion discontinued nd doing well so far on po Roxanol prn, IV ativan prn Appreciate Palliative management- plan is home this with hospice (2) Palliative care encounter: Plan: as above (3) Acute and chronic respiratory failure with hypoxia: (4) Atrial fibrillation with RVR: (5) Pneumonia: (6) Acute on chronic right-sided congestive heart failure: (7) Acute encephalopathy: (8) Hyponatremia: (9) COPD exacerbation: (10) Elevated lactic acid level: (11) Hypertension: (12) Hypercholesterolemia: Admission and Anticipated Discharge Date Admission Date: December 04, 2022 Anticipated date of discharge: 12/17/22 Subjective no complaints, says "I was running all around this place earlier." denies SOB Physical Exam Constitutional: WD/WN, vitals as above Eyes: + anicteric sclerae Neck: trachea midline, no thyromegaly Respiratory: not tachypneic Auscultation: no rhonchi and no wheezes Cardiovascular: Rate/Rhythm: + tachycardic and + irregularly irregular Heart Sounds: no murmur Neurologic: awake Psychiatric: Orientation: alert and oriented to person Results & Data Results & Data Vital Signs (Past 12 Hours) Vital Signs Pulse BP Pulse Ox O2 Del Method O2 Flow Rate 12/16/22 14:45 112 H 151/106 H 92 Nasal Cannula 5 12/16/22 07:20 Nasal Cannula 2 PG Care Time/CCT Total # of Minutes Spent Total Time Spent with Patient: Total time spent is greater than 50% in coordination of care (as documented) at patient's floor/unit and/or counseling patient: Coding Level of Care Code 11565 SUB INP/OBS CARE 25MIN Diagnoses Comfort measures only status Z51.5 Palliative care encounter Z51.5 Acute and chronic respiratory failure with hypoxia J96.21 Atrial fibrillation with RVR I48.91 Pneumonia J18.9 Laterality: left Lung location: lower lobe of lung Pneumonia type: due to unspecified organism Acute on chronic right-sided congestive heart failure I50.813 Acute encephalopathy G93.40 Hyponatremia E87.1 COPD exacerbation J44.1 Elevated lactic acid level R79.89 Hypertension I10 Hypertension type: essential hypertension Hypercholesterolemia E78.00 (5) Pneumonia Laterality: left Lung location: lower lobe of lung Pneumonia type: due to unspecified organism Qualified Code(s): J18.9 - Pneumonia, unspecified organism (11) Hypertension Hypertension type: essential hypertension Qualified Code(s): I10 - Essential (primary) hypertension
[2022-12-16] MEDS: LORazepam 2 MG/1 ML VIAL IV PRN (19:43)
[2022-12-17] MEDS: MoRPHine SULFATE 10 MG/0.5 ML UDP PO SCH ×4 (03:12→10:39)
[2022-12-17] MEDS: MoRPHine SULFATE 2 MG/ML CARP IV PRN ×5 (04:19→13:42)
[2022-12-17] MEDS: LORazepam 2 MG/1 ML VIAL IV PRN (04:19)
[2022-12-17] MEDS: SENNA 8.6 MG TAB PO SCH (08:54)
[2022-12-17] MEDS: NICOTINE 21 MG/24 HR TDSY TD SCH (08:55)
--- NOTE | 2022-12-17 10:50 | Palliative Care Progress Note ---
Date of Service December 17, 2022 Assessment & Plan (1) SOB (shortness of breath): Plan: with minimal exertion ES COPD and diastolic heart failure Acute on chronic hypoxic, hypercapnic respiratory failure Continue routine oral morphine with additional prn dosing for air hunger Titrate O2 for comfort rather than sat (2) Acute encephalopathy: Plan: with hospitalization and hypercapnia Anticipate that this will improve somewhat at home Continue lorazepam prn (3) Palliative care encounter: Plan: Focus of care is comfort and symptom management. Plan for d/c home with hospice care today Discussed with Dr. Altamirano. Admission and Anticipated Discharge Date Admission Date: December 04, 2022 Subjective Resting comfortably. He has been agitated at times such as earlier this morning. Did receive IV morphine with relief. Apnea noted Review of Systems Review of Systems: Unobtainable due to reduced consciousness Physical Exam Constitutional: + ill appearing; no acute distress Respiratory: uses accessory muscles, no respiratory distress RR 10, apnea no audible tracheal secretions Cardiovascular: Rate/Rhythm: + irregularly irregular no edema Musculoskeletal: Extremities: + muscle atrophy Results & Data Vital Signs (Past 12 Hours) Vital Signs Pulse BP Pulse Ox O2 Del Method O2 Flow Rate 12/17/22 08:00 Nasal Cannula 4 12/17/22 07:26 89 120/68 96 Nasal Cannula 5 PG Care Time/CCT Total # of Minutes Spent Total Time Spent with Patient: Total time spent is greater than 50% in coordination of care (as documented) at patient's floor/unit and/or counseling patient: Coding Level of Care Code 80717 SUB INP/OBS CARE 2/35MIN Diagnoses SOB (shortness of breath) R06.02 Acute encephalopathy G93.40 Palliative care encounter Z51.5
--- NOTE | 2022-12-17 12:10 | Discharge Summary ---
Discharge Summary Date of Service December 17, 2022 Admission HPI Per Admitting Provider This is 72-year-old male with past medical history significant history of CHF, atrial fibrillation, COPD, hypertension, hyperlipidemia, gout who presents to the emergency department with complaints of worsening shortness of breath and is brought into the ED by EMS. Patient had earlier presented to the ED with worsening shortness of breath and the work-up had revealed an underlying pneumonia with evidence of volume overload but patient had refused admission and had been discharged from the ED with a prescription for Levaquin for suspected right lower lobe pneumonia. Patient reports that he reached home and in a few hours he felt that he had developed worsening shortness of breath and had activated EMS. EMS upon arrival to the patient's home found him to be in A-fib with rapid ventricular rate and was given IV Cardizem 15 mg along with a dose of DuoNeb. Patient admits to having complaints of shortness of breath over the past 3 days. Patient has a known history of COPD and is on 4 L of oxygen supplementation at home as well. Patient placed on BiPAP for ventilation in the ED and was given a dose of IV Cardizem for rate control of his A-fib and placed on a Cardizem drip. Patient also given 250 cc of saline bolus along with DuoNeb treatment and IV cefepime in the ED. Chest x-ray shows evidence of early consolidation and patient is being admitted for further management at this time. Principal Dx & Hospital Course #1 = Principal Diagnosis (1) Comfort measures only status: patient remains comfortable, pleasantly confused at times respiratory status remains stable, no O2 via [place] eating fair, ambulating to the toilet at times w/ assistance some intermittent confusion still present morphine infusion discontinued and doing well on po Roxanol prn, ativan prn Appreciate Palliative management- plan is home this with hospice (2) Palliative care encounter: as above (3) Acute and chronic respiratory failure with hypoxia: 2/2 CHF, COPD, PNA (4) Atrial fibrillation with RVR: stopping all meds (5) Pneumonia: treated with abx (6) Acute on chronic right-sided congestive heart failure: stopping diuretics continue O2 for comfort (7) Acute encephalopathy: ongoing, secondary to hypoxia, hypercapnia, infection (8) Hyponatremia: (9) COPD exacerbation: (10) Elevated lactic acid level: (11) Hypertension: (12) Hypercholesterolemia: Plan Dispo-dc to home with hospice Discharge Exam Constitutional WD/WN, vitals as above Neck trachea midline, no thyromegaly Respiratory not tachypneic Auscultation: no rhonchi and no wheezes Cardiovascular Rate/Rhythm: + tachycardic and + irregularly irregular Heart Sounds: no murmur Updated Medication List Medication Instructions Recorded Confirmed Type fluticasone fur. 100 mcg-umeclid 1 inh inhalation QAM 03/31/22 12/04/22 History 62.5 mcg-vilant 25 mcg inhalat.powder (Trelegy Ellipta) allopurinol 300 mg tablet 300 mg PO QAM #90 tabs 07/17/22 12/04/22 Rx escitalopram oxalate 10 mg tablet 10 mg PO HS #90 tabs 07/21/22 12/04/22 Rx (Lexapro) cyanocobalamin (vitamin B-12) 1,000 mcg sublingual DAILY 09/11/22 12/04/22 History 1,000 mcg sublingual tablet apixaban 5 mg tablet (Eliquis) 5 mg PO BID #60 tabs 10/30/22 12/04/22 Rx diltiazem HCl 240 mg 240 mg PO QAM #30 caps 11/04/22 12/04/22 Rx capsule,extended release 24 hr metoprolol tartrate 100 mg tablet 100 mg PO BID #60 tabs 11/04/22 12/04/22 Rx levalbuterol HCl 0.31 mg/3 mL 0.31 mg (3 mL) inhalation TID PRN 11/10/22 12/04/22 Rx solution for nebulization shortness of breath or wheezing #75 mL pravastatin 20 mg tablet 20 mg PO HS 11/18/22 12/04/22 History peg 3350-electrolytes 236 240 ml PO Q10M #4,000 mL 11/20/22 12/04/22 Rx gram-22.74 gram-6.74 gram-5.86 gram solution (GaviLyte-G) furosemide 40 mg tablet (Lasix) 40 mg PO DAILY #30 tabs 11/21/22 12/04/22 Rx potassium chloride 10 mEq 10 meq PO DAILY #30 caps 11/21/22 12/04/22 Rx capsule,extended release levofloxacin 500 mg tablet 500 mg PO DAILY 10 days #7 tabs 12/03/22 12/04/22 Rx lorazepam 1 mg tablet 1 mg PO Q8H PRN anxiety #14 tabs 12/17/22 Rx morphine concentrate 100 mg/5 mL 10 mg (0.5 mL) PO Q4H #30 mL 12/17/22 Rx (20 mg/mL) oral solution nicotine 21 mg/24 hr daily 21 mg transdermal QAM #14 ea 12/17/22 Rx transdermal patch (Nicoderm CQ) sennosides 8.6 mg tablet (Senokot) 17.2 mg PO QAM #60 tabs 12/17/22 Rx Hospital Stay Data Consultations 12/04/22 01:47 ED Decision to Admit Stat 12/04/22 03:43 Consult Cardiology Routine 12/06/22 12:24 Consult Palliative Care Routine Pending Results Patient Have Any Pending Studies at Discharge: No Discharge Instructions Given to Patient (Per Discharging Provider) You can take morphine every 4 hours for shortness of breath or pain. You can take lorazepam as needed for anxiety or agitation. Continue on oxygen for comfort. Please contact your hospice agency for any questions or concerns. Total Time Total Time Spent Total Time Spent (In Minutes): 35 min Coding Level of Care Code 71450 INP/OBS DISCH >30 MIN Diagnoses Comfort measures only status Z51.5 Palliative care encounter Z51.5 Acute and chronic respiratory failure with hypoxia J96.21 Atrial fibrillation with RVR I48.91 Pneumonia J18.9 Laterality: left Lung location: lower lobe of lung Pneumonia type: due to unspecified organism Acute on chronic right-sided congestive heart failure I50.813 Acute encephalopathy G93.40 Hyponatremia E87.1 COPD exacerbation J44.1 Elevated lactic acid level R79.89 Hypertension I10 Hypertension type: essential hypertension Hypercholesterolemia E78.00
== END 2022-12-17 13:45 | disposition hospice, home (50) | DRG 193 ==
LOC: ED 00:33 → 2S 02:22 → SUATTDRO 02:22 → 2S 03:05 → 3E 12-07 20:20